=== PATIENT | male | born 1965 | race Caucasian/White ===

== ENCOUNTER 2016-06-07 18:03 | Emergency (ER) | payer BC ==
[~2016-06-07] VITALS: Ht 172.7 cm; Wt 79.9 kg
[~2016-06-07 18:03] MED LIST: ALL180 PO; MULTTAB; TRAM-10 PO
[2016-06-07 18:06] VITALS: TEMP 36.3; Ht 172.7 cm; Wt 79.9 kg
[2016-06-07] MEDS ORDERED: OMEG10007 PO ×2 (18:48→18:59)
[2016-06-07] MEDS ORDERED: FAMO40TA6 PO ×2 (18:48→18:59)
[2016-06-07] MEDS ORDERED: MULT-506 PO (18:48)
[2016-06-07] MEDS ORDERED: GLUCTAB7 PO ×2 (18:48→18:59)
[2016-06-07] MEDS ORDERED: IBUP-103 PO ×2 (18:49→18:59)
[2016-06-07] MEDS ORDERED: EYE PROMISE PO ×2 (18:53→18:59)
[2016-06-07] MEDS ORDERED: PRLSR20 PO ×2 (18:59→19:20)
[2016-06-07] MEDS ORDERED: KETO200T PO ×2 (18:59→19:20)
[2016-06-07] MEDS ORDERED: MULTTAB58 PO (18:59)
--- NOTE | 2016-06-07 19:05 | DIAGNOSTIC IMAGING REPORT ---
RIGHT FOREARM 2 VIEWS ROUTINE CLINICAL HISTORY: right forearm pain, fall Right trauma. Pain. COMPARISON: None. DISCUSSION: The bones and joint spaces appear intact. There is no evidence of fracture, dislocation or bony disease. There is no evidence for soft tissue swelling. IMPRESSION: Negative study. Electronically signed by: Martín Hsu M.D. 06/07/2016 7:04 PM Dictated Date/Time: 06/07/2016 7:04 PM
--- NOTE | 2016-06-07 19:06 | DIAGNOSTIC IMAGING REPORT ---
SACRUM COCCYX MIN 2 VIEWS CLINICAL HISTORY: fall, tailbone pain COMPARISON STUDY: None FINDINGS: Nondisplaced cortical fracture sacrococcygeal junction. Sacral foramina are symmetric. Mild degenerative change sacroiliac joints. IMPRESSION: Nondisplaced cortical fracture sacrococcygeal junction. Electronically signed by: Martín Hsu M.D. 06/07/2016 7:05 PM Dictated Date/Time: 06/07/2016 7:04 PM
[2016-06-07 19:12] VITALS: BP 148/75; PULSE 74; O2SAT 98
[2016-06-07] MEDS ORDERED: HYDR-5688 PO (19:18)
--- NOTE | 2016-06-07 19:19 | EMERGENCY ROOM VISIT NOTE ---
History First contact with patient: 18:10 Chief Complaint: FALL Stated Complaint: FALL- RT FOREARM PAIN AND TAILBONE PAIN History of Present Illness The patient is a 51 year old male who presents to the Emergency Room with complaints of a fall which occurred just prior to arrival. The patient reports that he was walking down hardwood steps when his socks when he fell, landing onto his tailbone. He also reports that he struck both forearms. He reports that most of the pain is located in his tailbone, but he does have some have some pain with movement of the right forearm. There is a mild abrasion to the left forearm, but he denies significant pain in that location. He did not hit his head or sustain any other injuries. He denies any numbness or weakness. Review of Systems A complete 6 point review of systems was reviewed with the patient with pertinent positives and negatives as per history of present illness. All else were negative. Social History Smoking Status: Never Smoker Current/Historical Medications Scheduled Fish Oil ([place]-3), 1 CAP PO DAILY Knmteuotbsb-Uvrarxhrfev-Tcp C- (Glucosamine Chondroitin), 1 TAB PO DAILY Ketoconazole (Nizoral), 200 MG PO MONTHLY Multiple Vitamin (Multivitamin), 1 TAB PO DAILY Omeprazole (Prilosec), 20 MG PO DAILY [Eye Promise], 1 CAP PO DAILY Scheduled PRN Famotidine (Pepcid), 40 MG PO DAILY PRN for In place of Omeprazole Hydrocodone/Acetaminophen 5MG/325MG (Mcdowell 5MG/325MG), 1-2 TABLET PO Q4H PRN for Pain Ibuprofen Tab (Advil), 200 MG PO UD PRN for Pain or Fever Allergies Coded Allergies: No Known Allergies (Unverified Allergy, Mild, 01/04/07) Physical Exam Vital Signs Date Time Temp Pulse Resp B/P Pulse Ox O2 Delivery O2 Flow Rate FiO2 06/07/16 19:12 74 18 148/75 98 Room Air 06/07/16 18:06 36.3 74 18 145/71 99 Room Air Physical Exam VITALS: Vitals are noted on the nurse's note and reviewed by myself. Vital signs stable. GENERAL: This is a 51-year-old male, in no acute distress, nondiaphoretic, well- developed well-nourished. SKIN: There are abrasions to bilateral forearms. No lacerations. HEART: Regular rate and rhythm without murmurs gallops or rubs. LUNGS: Clear to auscultation bilaterally without wheezes, rales or rhonchi. No retractions or accessory muscle use. MUSCULOSKELETAL: There is tenderness to palpation over the coccyx. Full range of motion of bilateral lower extremities. There is mild tenderness over the left forearm. Full range of motion of all extremities. NEURO: Patient was alert and oriented to person place and time. Normal sensation to light and sharp touch. Deep tendon reflexes 2+ throughout. No focal neurological deficits. Medical Decision & Procedures ER Provider Diagnostic Interpretation: SACRUM COCCYX MIN 2 VIEWS FINDINGS: Nondisplaced cortical fracture sacrococcygeal junction. Sacral foramina are symmetric. Mild degenerative change sacroiliac joints. IMPRESSION: Nondisplaced cortical fracture sacrococcygeal junction. RIGHT FOREARM 2 VIEWS ROUTINE DISCUSSION: The bones and joint spaces appear intact. There is no evidence of fracture, dislocation or bony disease. There is no evidence for soft tissue swelling. IMPRESSION: Negative study. Medications Administered Medications (Trade) Dose Ordered Sig/Jeffy Route Start Time Stop Time Status Last Admin Dose Admin Acetaminophen/ Hydrocodone Bitart (Mcdowell 5/325mg Home Pack) 1 homepack UD ONCE PO 06/07/16 19:30 06/07/16 19:31 DC 06/07/16 19:26 1 HOMEPACK Medical Decision Differential diagnosis includes fracture, contusion, sprain, among others. The patient was evaluated as above. Imaging studies were obtained and read by radiology as above. The patient was found to have a nondisplaced fracture of his coccyx. X-ray of the right forearm was unremarkable. Conservative measures were discussed. The patient was given a home pack and prescription of Mcdowell for pain. He will follow-up with his primary care provider as needed. He verbalized understanding of my assessment and treatment plan and was discharged home in good condition. [facility] Drug Monitoring Program Search Results: patient reviewed within database Impression Primary Impression: Fracture of coccyx Additional Impressions: Fall Contusion of multiple sites Departure Information Dispostion Home / Self-Care Condition GOOD Prescriptions Hydrocodone/Acetaminophen 5MG/325MG (Mcdowell 5MG/325MG) Tab 1-2 TABLET PO Q4H Y for Pain, #12 TAB For Initial Treatment Prov: Sudha Lee ., NICOLÁS 06/07/16 Referrals Tom Harris M.D. (PCP) Patient Instructions My [facility] Additional Instructions You have been treated in the Emergency Department for a coccyx fracture. You have been prescribed Mcdowell to be used for pain control. This is a narcotic medication. You cannot drive or consume alcohol while on this medicine. This medicine should only be used for pain that cannot be controlled with over-the- counter pain medicines. For pain control, you can use the following cuok-ejq-ikoelsc medicines (if >12 yo): - Regular strength (325mg/tab) Tylenol (acetaminophen) 2 tabs every 4-6 hours as needed. Do not exceed 12 tablets in a 24 hour period. Avoid taking more than 4 grams (4000 mg) of Tylenol per day. This includes any other sources of acetaminophen you may take on a regular basis. - Regular strength (200 mg/tab) Advil (ibuprofen) 1-2 tabs every 4-6 hours as needed. Do not exceed a dose of 3200 mg per day. If this is an acute injury, ice can be applied to the area of pain for the first 3 days to help decrease pain and inflammation. After the first 3 days, a heating pad can be used over the area for continued soothing relief. Follow-up with your primary care provider as needed for any persistent pain. You may went to fern picker a doughnut to sit on for further relief of your pain. You should take an suxz-oso-jywjuao stool softener such as Colace, as bowel movements may be slightly painful. Return to the Emergency Department if your current symptoms worsen despite treatment course outlined above, or if you develop any of the following symptoms : intractable pain despite aforementioned treatment course, loss of control of your bowel or bladder, numbness or tingling in your groin, or development of a fever. Problem Qualifiers Primary Impression: Fracture of coccyx Encounter type: initial encounter Fracture type: closed Qualified Codes: S32.2XXA - Fracture of coccyx, initial encounter for closed fracture Additional Impressions: Fall Encounter type: initial encounter Qualified Codes: W19.XXXA - Unspecified fall, initial encounter
[2016-06-07] MEDS ORDERED: NORCO 5/325MG HOME PACK PO ONE (19:30)
[2016-10-08] MEDS ORDERED: VITACAP26 PO (15:06)
[2016-10-08] MEDS ORDERED: CYAN10005 PO (15:06)
[2016-10-08] MEDS ORDERED: CLR10 PO (15:06)
[2016-10-30] MEDS ORDERED: CEPH500C2 PO (10:10)
[2016-10-30] MEDS ORDERED: HYDR-5688 PO (10:10)
== END 2016-06-07 19:31 | disposition home or self-care (01) ==
LOC: C.EDB 18:04 → C.EDD 19:31
DX: S32.2XXA Fracture of coccyx, initial encounter for closed fracture (principal); S50.11XA Contusion of right forearm, initial encounter; S50.12XA Contusion of left forearm, initial encounter; W10.9XXA Fall (on) (from) unspecified stairs and steps, initial encounter; Y93.89 Activity, other specified; Y92.89 Other specified places as the place of occurrence of the external cause; Y99.8 Other external cause status

== ENCOUNTER → 2016-07-13 | Outpatient (CLI) | payer BC ==
[~2016-07-13] MED LIST changes: -ALL180 PO; +CEPH500C2 PO; +CLR10 PO; +CYAN10005 PO; +EYE PROMISE PO; +FAMO40TA6 PO; +GLUCTAB7 PO; +HYDR-5688 PO; +IBUP-103 PO; +KETO200T PO; -MULTTAB; +MULTTAB58 PO; +OMEG10007 PO; +PRLSR20 PO; -TRAM-10 PO; +VITACAP26 PO
[2016-07-13 09:39] LABS: HEMATOCRIT 42.3 % (42-52); MEAN CELL VOLUME 83.8 fL (80-100); MEAN CORPUSCULAR HEMOGLOBIN 30.1 pg (25-34); MEAN CORPUSCULAR HGB CONC 35.9 g/dl (32-36); MEAN PLATELET VOLUME 10.8 fL (7.4-10.4); PLATELET COUNT 216 K/uL (130-400); RED BLOOD COUNT 5.05 M/uL (4.7-6.1); WHITE BLOOD COUNT 3.99 K/uL (4.8-10.8)
[2016-07-13 09:51] LABS: ESTIMATED AVERAGE GLUCOSE 108 mg/dl; HA1C FLAG Normal (Normal)
[2016-07-13 09:57] LABS: ALT/SGPT 20 U/L (12-78); BLOOD UREA NITROGEN 17 mg/dl (7-18); BUN/CREATININE RATIO 22.8 (10-20); CALCIUM 8.6 mg/dl (8.5-10.1); CARBON DIOXIDE 23 mmol/L (21-32); CHLORIDE 107 mmol/L (98-107); CHOLESTEROL 177 mg/dl (0-200); CREATININE 0.75 mg/dl (0.60-1.40); GLUCOSE 79 mg/dl (70-99); POTASSIUM 3.9 mmol/L (3.5-5.1); SODIUM 142 mmol/L (136-145); TRIGLYCERIDES 67 mg/dl (0-150); VERY LOW DENSITY LIPOPROT CALC 13 mg/dl
[2016-07-13 10:01] LABS: ALB/GLOB RATIO 1.5 (0.9-2); ALKALINE PHOSPHATASE 61 U/L (45-117); AST/SGOT 16 U/L (15-37); CHOLESTEROL/HDL RATIO 3.7; HDL CHOLESTEROL 48 mg/dl; LDL CHOLESTEROL CALCULATED 116 mg/dl
--- NOTE | 2016-07-17 09:57 | CODING QUERY MEDICAL NECESSITY ---
SUPPORTING DIAGNOSIS NEEDED A supporting diagnosis is required for the test/procedure performed on this patient in order for us to be reimbursed by the patient's insurance. Please provide a supporting diagnosis for the following test/procedure listed below next to the test name along with your signature. *If there is no additional diagnosis for this patient that would support the following test/procedure please document that below next to the test/procedure. Test(s)/Procedure(s) that require a supporting diagnosis: * PSA DIAGNOSIS: * VITAMIN B-12 LEVEL DIAGNOSIS: * DOS: 07/13/16 Provider Signature: Date: Thank you Nubia Barlow Health Information Management Once completed, please kindly fax back to [phone] For questions please call [phone]
== END | disposition home or self-care (01) ==
LOC: C.LAB 07:09
PROVIDERS: ATTEND Family Medicine
DX: R73.09 Other abnormal glucose (principal); N40.0 Benign prostatic hyperplasia without lower urinary tract symptoms; D51.9 Vitamin B12 deficiency anemia, unspecified

== ENCOUNTER → 2016-09-04 | Outpatient (CLI) | payer BC ==
--- NOTE | 2016-09-04 16:45 | DIAGNOSTIC IMAGING REPORT ---
LEFT INGUINAL ULTRASOUND CLINICAL HISTORY: Left groin pain. COMPARISON STUDY: No previous studies for comparison. FINDINGS: There is an incompletely reducible small fat-containing left inguinal hernia. IMPRESSION: There is a small incompletely reducible fat-containing left inguinal hernia. Electronically signed by: Braulio Chirinos M.D. 09/04/2016 4:44 PM Dictated Date/Time: 09/04/2016 4:43 PM
== END | disposition home or self-care (01) ==
LOC: C.ULTR 15:54
PROVIDERS: ATTEND Family Medicine
DX: R10.32 Left lower quadrant pain (principal); K40.90 Unilateral inguinal hernia, without obstruction or gangrene, not specified as recurrent

== ENCOUNTER → 2016-09-26 | Outpatient (CLI) | payer BC ==
[2016-09-26 08:29] LABS: BASO % 0.2 %; BASO ABS # 0.01 K/uL (0-0.2); COMPLETE YES; EOS % 3.9 %; HEMATOCRIT 45.4 % (42-52); IG% 0.2 %; LYMPH % 36.1 %; LYMPH ABS # 1.59 K/uL (1.2-3.4); MEAN CELL VOLUME 86.5 fL (80-100); MEAN CORPUSCULAR HEMOGLOBIN 29.9 pg (25-34); MEAN CORPUSCULAR HGB CONC 34.6 g/dl (32-36); MEAN PLATELET VOLUME 10.9 fL (7.4-10.4); MONO % 12.7 %; NEUT % 46.9 %; PLATELET COUNT 223 K/uL (130-400); RED BLOOD COUNT 5.25 M/uL (4.7-6.1)
[2016-09-26 08:53] LABS: BLOOD UREA NITROGEN 17 mg/dl (7-18); BUN/CREATININE RATIO 20.6 (10-20); CARBON DIOXIDE 29 mmol/L (21-32); CHLORIDE 109 mmol/L (98-107); CREATININE 0.83 mg/dl (0.60-1.40); GLUCOSE 94 mg/dl (70-99); SODIUM 144 mmol/L (136-145)
[2016-09-26 08:58] LABS: CALCIUM 8.5 mg/dl (8.5-10.1)
== END | disposition home or self-care (01) ==
LOC: C.LAB 07:00
PROVIDERS: ATTEND Surgery
DX: K40.90 Unilateral inguinal hernia, without obstruction or gangrene, not specified as recurrent (principal); Z01.812 Encounter for preprocedural laboratory examination

== ENCOUNTER → 2016-10-30 | Day surgery (SDC) | payer BC ==
[2016-10-08 15:06] VITALS: Ht 175.3 cm; Wt 79.1 kg
[~2016-10-30] VITALS: Ht 175.3 cm; Wt 79.1 kg
[~2016-10-30] MED LIST changes: +BUPIVACAINE 0.5 % 5 MG/1 ML PF 10ML VIAL ONE; +CEFAZOLIN SOD 1 GM VIAL ONE; +CLINDAMYCIN PHOS 150 MG/ML 2 ML VIAL IV SCH; +DEXAMETHASONE SOD INJ 4 MG/ML VIAL ONE; -FAMO40TA6 PO; +FENTANYL CITRATE INJ 50 MCG/1 ML 2 ML VIAL IV PRN; +FENTANYL CITRATE INJ 50 MCG/1 ML 2 ML VIAL ONE; +HYDROCODONE/ACETAMOPHEN 5/325MG TAB PO PRN; +HYDROmorphone INJ 1 MG/ML SYR IV PRN; +KETOROLAC TROMETHAMINE 30 MG/ML VIAL IV. PRN; +LACTATED RINGER'S 1000ML 1,000 ML IV PRN; +LACTATED RINGER'S 1000ML 1,000 ML IV SCH; +LIDOCAINE HCL 2% 2 ML VIAL (20MG/ML) ONE; +MIDAZOLAM HCL 1 MG/ML 2ML VIAL ONE; +ONDANSETRON INJ 2 MG/ML 2 ML VIAL IV PRN; +ONDANSETRON INJ 2 MG/ML 2 ML VIAL ONE; +PROPOFOL IV EMULSION 10 MG/ML 20 ML VIAL IV ONE; +SODIUM CHLORIDE 0.9% 1000ML 1,000 ML IV SCH; +SODIUM CHLORIDE 0.9% INJ 10 ML VIAL ONE
--- NOTE | 2016-10-30 10:08 | [facility] Post Operative Brief Note ---
Immediate Operative Summary Operative Date Oct 30, 2016. Pre-Operative Diagnosis Left Inguinal Hernia Post-Operative Diagnosis Same Procedure(s) Performed Left Inguinal Hernia Open Repair with Mesh Surgeon Dr. Calixto Dental Assistant Instructor Surgeon(s) Fer Daniel PA-C Estimated Blood Loss 5ml Findings chronic indirect sac Specimens A. Left Lipoma of Cord Anesthesia gen Complication(s) None Disposition Recovery Room / PACU
--- NOTE | 2016-10-30 10:13 | Discharge Instructions-SurgCtr ---
Discharge Instructions Date of Service Oct 30, 2016. Visit Reason for Visit: Left Inguinal Hernia Discharge Discharge Diagnosis / Problem: Rt inguinal hernia Discharge Goals Goal(s): Decrease discomfort, Improve function, Improve disease control Medications Stopped Medications Name(s): fish oil meds stopped x 2 weeks. Activity Recommendations Activity Limitations: as noted below Lifting Limitations: no more than 25 pounds Exercise/Sports Limitations: until after follow-up appointment May Resume Sexual Activity: when tolerated Shower/Bathe: keep incision dry (may shower over incision on Sun 11/01) Driving or Machine Use: wait 4-5 days SPECIAL CARE INSTRUCTIONS: * Cover incisions and change daily for comfort/drainage. * Leave steri strips in place * Avoid constipation- may use colace and Milk of magnesia twice daily as described on the package * May use ibuprofen for pain as tolerated. * Expect some swelling and bruising. Call your doctor if: * Temperature above 101 degrees * Pain not relieved by pain medicine ordered * There is increased drainage or redness from any incision * You have any unanswered questions or concerns [phone]. FOLLOW UP VISIT: If not already scheduled, please call the office for a follow-up visit. for next week- some suture removal OFFICE PHONE NUMBER: Dr. Calixto Office Anesthesia . Post Anesthesia Instructions: If you have had General Anesthesia or IV Sedation: * Do not drive today. * Resume driving when surgeon permits. * Do not make important decisions or sign legal documents today. * Call surgeon for: 1. Temperature elevations greater than 101 degrees F. 2. Uncontrollable pain. 3. Excessive bleeding. 4. Persistent nausea and vomiting. 5. Medication intolerance (nausea, vomiting or rash). * For nausea and vomiting use only clear liquids such as: tea, soda, bouillon until nausea subsides, then gradually increase diet as tolerated. * If you have any concerns or questions, call your surgeon's office. If physician is unavailable and it is an emergency, call 911 or go to the nearest emergency room. . Diet Recommendations Home Diet: resume previous diet Procedures Procedures Performed: Left Inguinal Hernia Open Repair with Mesh Pending Studies Studies pending at discharge: no Medical Emergencies . Who to Call and When: Medical Emergencies: If at any time you feel your situation is an emergency, please call 911 immediately. . Non-Emergent Contact Non-Emergency issues call your: Primary Care Provider, Surgeon . . "Provider Documentation" section prepared by Solitario Calixto. .
--- NOTE | 2016-10-30 10:28 | Anesthesia Progress Nt - [facility] ---
Anesthesia Post Op Note Date & Time Oct 30, 2016 at 10:28 Vital Signs Pain Intensity: 0 Vital Signs Past 12 Hours Date Time Temp Pulse Resp B/P (MAP) Pulse Ox O2 Delivery O2 Flow Rate FiO2 10/30/16 10:16 36.2 71 16 141/84 98 Diffusion Mask 5 10/30/16 07:56 36.8 72 18 137/82 (100) 97 Room Air Notes Mental Status: alert / awake / arousable, participated in evaluation Pt Amnestic to Procedure: Yes Nausea / Vomiting: adequately controlled Pain: adequately controlled Airway Patency, RR, SpO2: stable & adequate BP & HR: stable & adequate Hydration State: stable & adequate Anesthetic Complications: no major complications apparent Pt doing well.
--- NOTE | 2016-10-30 10:57 | OPERATIVE REPORT ---
DATE OF OPERATION: 10/30/2016 PREOPERATIVE DIAGNOSIS: Left inguinal hernia. POSTOPERATIVE DIAGNOSIS: Same with large indirect defect which was chronic. NAME OF OPERATION: Open left inguinal hernia repair. STAFF SURGEON: Dr. Calixto. COVERING MACHINE OPERATOR HELPER: Lizzy Daniel PA-C. ANESTHESIA: General. OPERATION AND FINDINGS: PROCEDURE: The patient brought in the operating room and placed on the operating table in supine position. His left lower quadrant prepped and draped in usual fashion. 0.5% plain Marcaine was used to anesthetize skin and subcutaneous tissue and then incision made parallel to the inguinal ligament, carrying dissection down identifying the external oblique fibers. These were incised along their length to the external ring, mobilizing the cord structures, identifying an indirect hernia sac which was chronic and thickened. There was a small lipoma which was excised. The hernia sac was dissected away from the cord structures and reduced. The internal ring then reinforced using a mesh plug, secured to surrounding tissue using 2-0 Ethibond suture. A large mesh patch was then placed around the cord structures over the mesh plug secured using 2-0 Ethibond suture. I was able to identify the ilioinguinal and iliohypogastric nerves. At this point, the external oblique fibers were closed over the mesh and around the cord structures using 2-0 Ethibond suture. The site was irrigated with antibiotic solution and then anesthetized using 0.5% plain Marcaine. Subcutaneous tissue was reapproximated using 2-0 plain catgut suture then the skin reapproximated using 4-0 nylon suture and Steri-Strips. The patient was transferred to recovery room in stable condition. I attest to the content of the Intraoperative Record and any orders documented therein. Any exception s are noted below.
[2016-10-30 11:39] VITALS: BP 155/79; PULSE 66; O2SAT 99
== END | disposition home or self-care (01) ==
LOC: X.SURG 07:39
PROVIDERS: ATTEND Surgery
DX: K40.90 Unilateral inguinal hernia, without obstruction or gangrene, not specified as recurrent (principal); D17.6 Benign lipomatous neoplasm of spermatic cord

== ENCOUNTER 2020-07-17 09:34 | Inpatient (IN) ==
[2020-07-17] MEDS ORDERED: DEXAMETHASONE SOD INJ 10 MG/ML VIAL IV ONE (10:07)
[2020-07-17] MEDS ORDERED: SODIUM CHLORIDE 0.9% 1000ML 1,000 ML IV STA (10:07)
[2020-07-17] MEDS ORDERED: IPRATROPIUM BROMIDE/ALBUTEROL respimat INH INH STA (10:07)
[2020-07-17] MEDS ORDERED: guaiFENesin 600 MG TABCR PO STA (10:10)
--- NOTE | 2020-07-17 10:20 | Emergency Department Note ---
Impression & Plan Acute respiratory failure with hypoxia, Pneumonia due to COVID-19 virus, Multifocal pneumonia ED Provider Note NAME: JACKSON Leiva GIVEN AGE: 55 SEX: M ARRIVES VIA: Walk-In INFORMANT: Patient, ED PROVIDER(S): Keron Cody MD CHIEF COMPLAINT: Shortness of breath, Covid-19 PLAN: Disposition: Admit MEDICAL DECISION MAKING: The patient is a pleasant 55-year-old gentleman basal carcinoma, BPH who presents emerged department with worsening shortness of breath where he feels he could not catch his breath last night into this morning arriving to the emergency department triage with O2 saturation of 68% on room air, tachypneic in the 30s and tachycardic in the 100s with labored breathing. The patient's presentation occurs in the setting of being seen in the emergency department this past Wednesday/07/13 for generalized fatigue where he found out that morning that his COVID-19 test from test was positive in the setting of feeling fevers and body aches that began on Wednesday in the setting of suspected exposure when going to mormonism the weekend prior. He denies chest pain or nausea/vomiting, diarrhea, abdominal pain, urinary symptoms. He does report decreased appetite and oral intake. Denies any cardiac history or history of blood clots. On arrival the patient is in severe respiratory distress, hypoxic to 68% on RA, tachypneic in the 30s, tachycardic in the 100s. with stable BP. Lungs with scant wheezes and otherwise clear. Patient did show some improvement on 15 L via oxygen mask with O2 saturation in the low 90s and improved respiratory effort. He also treated with IV dexamethasone, DuoNeb and guaifenesin. EKG without overt acute ischemia. Chest x-ray does demonstrate multifocal pneumonia consistent with COVID-19 pneumonia. WBC 4.5, with lymphopenia to 0.34, consistent with the patient's known COVID-19 infection. Hemoglobin and platelets within normal limits. Chemistry without metabolic acidosis. VBG unremarkable without acidemia. BUN/creatinine> 20 consistent with the patient's clinical dry appearance. Lactate 1.6, within normal limits. Magnesium 1.7 with repletion initiated. LFTs not significant abnormality. Troponin detectable at 0.018 but within normal limits. BNP within normal limits. Lipase is not elevated. Patient's D-dimer was elevated at [address] of the chest was performed and was negative for PE but redemonstrates extensive bilateral airspace opacities consistent with multifocal pneumonia and small bilateral pleural effusions. Upon return from CT the patient did have decline in his O2 saturation into the upper 80s which is thought to be related to a component of atelectasis while lying supine for his imaging. He was placed on BiPAP for additional respiratory support which did have improved effect on his work of breathing and oxygenation. Patient was agreeable with plan for admission. Case was d/[place], [facility] who will evaluate the patie nt for admission. Per the patient's permission I also updated his over the phone. Triage Nursing notes reviewed and agree them. Prior medical records reviewed Vital Signs: reviewed and remarkable for tachypnea, tachycardia and hypoxia. Differential diagnosis: Reactive airway disease, pneumonia, pneumothorax, COPD, CHF, infections, cardiac ischemia, pulmonary embolism, musculoskeletal, gastrointestinal, as well as other pathologies. ER treatment provided: See below. Diagnostics interpreted by me: ECG: Normal sinus rhythm, 92 bpm, no ectopy, no overt ST elevation or depression, QTC 432, QRS 80. Cardiac Monitoring: An order for continuous cardiac monitoring was placed and demonstrated normal sinus rhythm, 92 bpm, no ectopy. Laboratory studies: See below Imaging studies: CT ANGIOGRAM OF THE CHEST CLINICAL HISTORY: Shortness of breath, cough. Covid positive patient COMPARISON STUDY: Chest x-ray dated 07/17/2020 TECHNIQUE: Following the IV administration of 120 mL of Optiray-320, CT angiogram of the thorax was performed from the thoracic inlet to the lung bases utilizing the pulmonary embolus protocol. Images are reviewed in the axial, sagittal, and coronal planes. IV contrast was administered without complication. MIP imaging was performed. A dose lowering technique was utilized adhering to the principles of ALARA. CT DOSE: 569.73 mGycm FINDINGS: Images to the upper abdomen reveal hypodense hepatic lesions, likely representing cysts. There is a nonspecific enhancing 10 mm focus within the stomach versus hyperdense enteric contents There are minimally enlarged mediastinal and hilar lymph nodes, likely reactive. There is no evidence of thoracic aortic dilatation There were no pulmonary artery filling defects to indicate acute pulmonary embolism. There are small bilateral pleural effusions There are extensive bilateral areas of groundglass opacity and parenchymal consolidation. The findings are consistent with a multifocal pneumonia. IMPRESSION: 1. No evidence of acute pulmonary embolism 2. Extensive bilateral pulmonary airspace opacities consistent with a multifocal pneumonia 3. Small bilateral pleural effusions ACT 112: Negative or not required by law. Electronically signed by: Braulio Chirinos M.D. 07/17/2020 11:39 AM Consultation(s): Case was d/[place]. Garcia, [facility] [place] who will evaluate the patient for admission. HPI: The patient is a pleasant 55-year-old gentleman basal carcinoma, BPH who presents emerged department with worsening shortness of breath where he feels he could not catch his breath last night into this morning arriving to the emerg ency department triage with O2 saturation of 68% on room air, tachypneic in the 30s and tachycardic in the 100s with labored breathing. The patient's presentation occurs in the setting of being seen in the emergency department this past Wednesday/07/13 for generalized fatigue where he found out that morning that his COVID-19 test from test was positive in the setting of feeling fevers and body aches that began on Wednesday in the setting of suspected exposure when going to mormonism the weekend prior. He denies chest pain or nausea/vomiting, diarrhea, abdominal pain, urinary symptoms. He does report decreased appetite and oral intake. Denies any cardiac history or history of blood clots. ROS: See above HPI for pertinent positives & negatives. A total of 10 systems reviewed and were otherwise negative. PAST MEDICAL HISTORY:See Below PAST SURGICAL HISTORY:See Below FAMILY HISTORY:See Below SOCIAL HISTORY:See Below HOME MEDICATIONS:See Below ALLERGIES:See Below VITALS:See Below PHYSICAL EXAMINATION: GENERAL: Awake, alert, ill-appearing, in severe respiratory distress HENT: Normocephalic, atraumatic. Oropharynx with dry mucous membranes and otherwise unremarkable. . EYES: Normal conjunctiva. Sclera non-icteric. NECK: Supple. No nuchal rigidity. FROM. No JVD. RESPIRATORY: Scant intermittent wheezing otherwise clear. Tachypneic with incre ased work of breathing and accessory muscle use. CARDIAC: Tachycardic rate, normal rhythm. Extremities warm and well perfused. Pulses equal. ABDOMEN: Soft, non-distended. No tenderness to palpation. No rebound or guarding. No masses. RECTAL: Deferred. MUSCULOSKELETAL: Chest examination reveals no tenderness. The back is symmetrical on inspection without obvious abnormality. There is no CVA tendern ess to palpation. No joint edema. LOWER EXTREMITIES: Calves are equal size bilaterally and non-tender. No edema. No discoloration. NEURO: Normal sensorium. No sensory or motor deficits noted. SKIN: No rash or jaundice noted. ED COURSE: Critical Care: I have personally spent greater than 45 minutes of critical care time in the direct management of this patient. This includes bedside care, interpretation of diagnostic studies, and testing, discussion with consultants, patient, and family members, and other required patient management activities. This 45 minutes is in excess of all separately billable procedures. Keron Cody MD Past Med/Surg History Medical History Basal cell carcinoma of left forehead Chronic back pain Multiple nevi Reducible right inguinal hernia Verrucous keratosis Surgical History History of left inguinal hernia repair (10/30/16) Open Left inguinal hernia repair Dr. Calixto 10/30/2016 History of repair of anterior cruciate ligament of left knee History of root canal procedure History of tonsillectomy History of wisdom tooth extraction Status post biopsy of thyroid gland benign Status post correction of deviated nasal septum Status post Mohs surgery for basal cell carcinoma Family History Grandfather (Maternal) Family history of diabetes mellitus Father Prostate cancer Cardiac disorder Mother Hypertension Other No family history of adverse response to anesthesia Social History Smoking Status: Former smoker Second Hand Exposure: No; Do You Dip or Chew Tobacco: No; Tobacco Cessation Education Requested by Patient: No Hx Alcohol Use: No Hx Substance Use: No Preferred Language: Emirati Communication Ability: Effective [employer] Trader Required: No Beliefs That Will Affect Care: None Current Living Situation: Spouse current occupational status: employed 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 Other Information That Helps Us Care for You: No Feels Safe at Home: Yes Safety Concerns: Feels Safe At This Time Assistive Devices: Glasses Assistive Devices Comment: glasses Allergies Allergies Allergy/AdvReac Type Severity Reaction Status Date / Time Penicillins Allergy Severe "catatonic Verified 07/13/20 11:26 immediately" latex Allergy Mild Rash Verified 07/13/20 11:26 Home Meds Home Medications Medication Instructions Recorded Confirmed Glucosamine Chondroitin 1 cap PO QAM #0 06/07/16 07/17/20 multivitamin 1 tab PO QAM #0 tab 06/07/16 07/17/20 omega [id number]-fish oil [Fish Oil] 1 cap PO QAM #0 cap 06/07/16 07/17/20 cyanocobalamin (vitamin B-12) 1,000 mcg PO QAM #0 tab 10/08/16 07/17/20 [Vitamin B-12] ascorbic acid (vitamin C) [Vitamin 2 g PO QAM 03/29/19 07/17/20 C] cholecalciferol (vitamin D3) 2,000 unit PO QAM 03/29/19 07/17/20 [Vitamin D3] ibuprofen [Advil] 200 mg PO QID PRN 03/29/19 07/17/20 iron bisgl,ps [id number] 1 cap PO WK 03/29/19 07/17/20 sildenafil 25 mg PO DAILY PRN 03/29/19 07/17/20 glucosamine [id number] 1 tab PO DAILY 11/23/19 07/17/20 preston 1,500 mg-400 unit-100 mg tablet benzonatate [Tessalon Perles] 100 mg PO UD PRN 07/13/20 07/17/20 doxycycline monohydrate 100 mg PO BID 07/13/20 07/17/20 Previous Rx's Medication Instructions Recorded ketoconazole 2 % shampoo 1 applic TOP .COMPLEX #120 ml 02/14/20 tamsulosin 0.4 mg capsule 0.4 mg PO DAILY #90 cap 04/23/20 albuterol sulfate 2 puffs INH 6XD PRN #6.7 gm 07/13/20 Results & Data (ED) Vital Signs Vital Signs - 24 hr 07/17/20 09:49 07/17/20 10:00 07/17/20 10:41 Temperature 36.9 C Temperature Source Temporal Artery Scan Pulse Rate 101 H 96 H Pulse Rate from SpO2 Sensor 96 H Respiratory Rate 34 H 31 H Respiratory Effort / Characteristics Non-Labored Spontaneous Labored Respiratory Depth Normal Respiratory Pattern Regular Tachypnea Blood Pressure 120/68 134/88 Blood Pressure Mean 85 103 Blood Pressure Position Sitting Pulse Oximetry 68 L 93 94 Oxygen Delivery Method Room Air Oxymask Oxygen Flow Rate 15 Fraction of Inspired Oxygen Sepsis Recent Fever Within 48 Hours No Sepsis New/Unexplained Change in Mental Status N/A Sepsis Action Taken by Nursing No Action Required 07/17/20 11:38 07/17/20 12:00 07/17/20 12:13 Temperature Temperature Source Pulse Rate 91 H 88 86 Pulse Rate from SpO2 Sensor 92 H 89 Respiratory Rate 44 H 32 H 35 H Respiratory Effort / Characteristics Spontaneous Short of Breath Respiratory Depth Normal Respiratory Pattern Regular Blood Pressure 138/70 131/67 Blood Pressure Mean 92 88 Blood Pressure Position Pulse Oximetry 89 L 90 94 Oxygen Delivery Method Oxymask BiPAP Oxygen Flow Rate 15 Fraction of Inspired Oxygen 60 Sepsis Recent Fever Within 48 Hours Sepsis New/Unexplained Change in Mental Status Sepsis Action Taken by Nursing 07/17/20 12:30 07/17/20 13:00 07/17/20 13:01 Temperature Temperature Source Pulse Rate 83 83 83 Pulse Rate from SpO2 Sensor 82 82 82 Respiratory Rate 35 H 32 H 41 H Respiratory Effort / Characteristics Respiratory Depth Respiratory Pattern Blood Pressure 132/76 137/72 Blood Pressure Mean 94 93 Blood Pressure Position Pulse Oximetry 92 90 91 Oxygen Delivery Method BiPAP Oxygen Flow Rate Fraction of Inspired Oxygen Sepsis Recent Fever Within 48 Hours Sepsis New/Unexplained Change in Mental Status Sepsis Action Taken by Nursing Laboratory Data Attestation: I reviewed the patient's lab results. Result diagrams: 07/17/20 10:23 07/17/20 10:23 Lab Results 07/17/20 07/17/20 07/17/20 Range/Units 10:15 10:23 10:23 WBC 4.57 L (4.8-10.8) K/uL RBC 4.84 (4.7-6.1) M/uL Hgb 14.3 (14.0-18.0) g/dL Hct 41.0 L (42-52) % MCV 84.7 (80-100) fL MCH 29.5 (25-34) pg MCHC 34.9 (32-36) g/dL RDW Std Deviation 38.8 (36.4-46.3) fL RDW Coeff of Wes 12.6 (11.5-14.5) % Plt Count 143 (130-400) K/uL MPV 10.3 (7.4-10.4) fL Immature Gran % (Auto) 0.4 % Neut % (Auto) 84.8 % Lymph % (Auto) 7.4 % Crenshaw % (Auto) 7.4 % Eos % (Auto) 0.0 % Baso % (Auto) 0.0 % Neut # (Auto) 3.87 (1.4-6.5) K/uL Lymph # (Auto) 0.34 L (1.2-3.4) K/uL Crenshaw # (Auto) 0.34 (0.11-0.59) K/uL Eos # (Auto) 0.00 (0-0.5) K/uL Baso # (Auto) 0.00 (0-0.2) K/uL Immature Gran # (Auto) 0.02 (0.00-0.02) K/uL Fibrinogen (184-400) mg/dl D-Dimer 760 H* (0-500) ug/L FEU ABG pH (7.35-7.45) ABG pCO2 (35-46) mmHg ABG pO2 (80-95) mmHg ABG HCO3 (19-24) mmol/L ABG O2 Saturation (90-95) % ABG Base Excess (-9-1.8) mEq/L Joshua Test (Pos) VBG pH 7.43 H (7.36-7.41) VBG pCO2 40 (38-50) mmHg VBG pO2 35 mmHg VBG HCO3 26 mmol/L VBG O2 Saturation 71.0 % VBG Base Excess 1.4 mEq/L Barometric Pressure 742.4 mm/Hg Oxygen Given Sodium (136-145) mmol/L Potassium (3.5-5.1) mmol/L Chloride (98-107) mmol/L Carbon Dioxide (21-32) mmol/L Anion Gap (3-11) BUN (7-18) mg/dl Creatinine (0.6-1.4) mg/dl Est Cr Clr Drug Dosing ml/min Est GFR ( Amer) Est GFR (Non-Af Amer) BUN/Creatinine Ratio (10-20) Glucose (70-99) mg/dl Lactate (0.4-2.0) mmol/L Calcium (8.5-10.1) mg/dl Phosphorus (2.5-4.9) mg/dl Magnesium (1.8-2.4) mg/dl Ferritin (8-388) ng/ml Total Bilirubin (0.2-1) mg/dl Direct Bilirubin (0-0.2) mg/dl AST (15-37) U/L ALT (12-78) U/L Alkaline Phosphatase (45-117) U/L Lactate Dehydrogenase (87-241) U/L Troponin I (0-0.045) ng/ml C-Reactive Protein (0-0.29) mg/dl NT-Pro-B Natriuret Pep (0-900) pg/ml Total Protein (6.4-8.2) gm/dl Albumin (3.4-5.0) gm/dl Globulin (2.5-4.0) gm/dl Albumin/Globulin Ratio (0.9-2) Lipase (73-393) U/L Procalcitonin (0-0.5) ng/ml 07/17/20 07/17/20 07/17/20 Range/Units 10:23 10:23 10:24 WBC (4.8-10.8) K/uL RBC (4.7-6.1) M/uL Hgb (14.0-18.0) g/dL Hct (42-52) % MCV (80-100) fL MCH (25-34) pg MCHC (32-36) g/dL RDW Std Deviation (36.4-46.3) fL RDW Coeff of Wes (11.5-14.5) % Plt Count (130-400) K/uL MPV (7.4-10.4) fL Immature Gran % (Auto) % Neut % (Auto) % Lymph % (Auto) % Crenshaw % (Auto) % Eos % (Auto) % Baso % (Auto) % Neut # (Auto) (1.4-6.5) K/uL Lymph # (Auto) (1.2-3.4) K/uL Crenshaw # (Auto) (0.11-0.59) K/uL Eos # (Auto) (0-0.5) K/uL Baso # (Auto) (0-0.2) K/uL Immature Gran # (Auto) (0.00-0.02) K/uL Fibrinogen (184-400) mg/dl D-Dimer (0-500) ug/L FEU ABG pH (7.35-7.45) ABG pCO2 (35-46) mmHg ABG pO2 (80-95) mmHg ABG HCO3 (19-24) mmol/L ABG O2 Saturation (90-95) % ABG Base Excess (-9-1.8) mEq/L Joshua Test (Pos) VBG pH (7.36-7.41) VBG pCO2 (38-50) mmHg VBG pO2 mmHg VBG HCO3 mmol/L VBG O2 Saturation % VBG Base Excess mEq/L Barometric Pressure mm/Hg Oxygen Given Sodium 131 L (136-145) mmol/L Potassium 4.3 (3.5-5.1) mmol/L Chloride 98 (98-107) mmol/L Carbon Dioxide 24 (21-32) mmol/L Anion Gap 9.0 (3-11) BUN 21 H (7-18) mg/dl Creatinine 0.98 (0.6-1.4) mg/dl Est Cr Clr Drug Dosing 87.0 ml/min Est GFR ( Amer) 98.8 Est GFR (Non-Af Amer) 85.2 BUN/Creatinine Ratio 21.4 H (10-20) Glucose 122 H (70-99) mg/dl Lactate 1.6 (0.4-2.0) mmol/L Calcium 7.9 L (8.5-10.1) mg/dl Phosphorus 3.1 (2.5-4.9) mg/dl Magnesium 1.7 L (1.8-2.4) mg/dl Ferritin (8-388) ng/ml Total Bilirubin 0.6 (0.2-1) mg/dl Direct Bilirubin 0.2 (0-0.2) mg/dl AST 53 H (15-37) U/L ALT 28 (12-78) U/L Alkaline Phosphatase 63 (45-117) U/L Lactate Dehydrogenase (87-241) U/L Troponin I 0.018 (0-0.045) ng/ml C-Reactive Protein (0-0.29) mg/dl NT-Pro-B Natriuret Pep 311 (0-900) pg/ml Total Protein 6.4 (6.4-8.2) gm/dl Albumin 2.8 L (3.4-5.0) gm/dl Globulin 3.6 (2.5-4.0) gm/dl Albumin/Globulin Ratio 0.8 L (0.9-2) Lipase 97 (73-393) U/L Procalcitonin 0.61 H (0-0.5) ng/ml 07/17/20 07/17/20 07/17/20 Range/Units 12:43 13:00 13:00 WBC (4.8-10.8) K/uL RBC (4.7-6.1) M/uL Hgb (14.0-18.0) g/dL Hct (42-52) % MCV (80-100) fL MCH (25-34) pg MCHC (32-36) g/dL RDW Std Deviation (36.4-46.3) fL RDW Coeff of Wes (11.5-14.5) % Plt Count (130-400) K/uL MPV (7.4-10.4) fL Immature Gran % (Auto) % Neut % (Auto) % Lymph % (Auto) % Crenshaw % (Auto) % Eos % (Auto) % Baso % (Auto) % Neut # (Auto) (1.4-6.5) K/uL Lymph # (Auto) (1.2-3.4) K/uL Crenshaw # (Auto) (0.11-0.59) K/uL Eos # (Auto) (0-0.5) K/uL Baso # (Auto) (0-0.2) K/uL Immature Gran # (Auto) (0.00-0.02) K/uL Fibrinogen 474 H (184-400) mg/dl D-Dimer (0-500) ug/L FEU ABG pH 7.37 (7.35-7.45) ABG pCO2 39 (35-46) mmHg ABG pO2 74 L (80-95) mmHg ABG HCO3 22 (19-24) mmol/L ABG O2 Saturation 95.2 H (90-95) % ABG Base Excess -3.1 (-9-1.8) mEq/L Joshua Test Pos (Pos) VBG pH (7.36-7.41) VBG pCO2 (38-50) mmHg VBG pO2 mmHg VBG HCO3 mmol/L VBG O2 Saturation % VBG Base Excess mEq/L Barometric Pressure 740.8 mm/Hg Oxygen Given 60% Sodium (136-145) mmol/L Potassium (3.5-5.1) mmol/L Chloride (98-107) mmol/L Carbon Dioxide (21-32) mmol/L Anion Gap (3-11) BUN (7-18) mg/dl Creatinine (0.6-1.4) mg/dl Est Cr Clr Drug Dosing ml/min Est GFR ( Amer) Est GFR (Non-Af Amer) BUN/Creatinine Ratio (10-20) Glucose (70-99) mg/dl Lactate (0.4-2.0) mmol/L Calcium (8.5-10.1) mg/dl Phosphorus (2.5-4.9) mg/dl Magnesium (1.8-2.4) mg/dl Ferritin (8-388) ng/ml Total Bilirubin (0.2-1) mg/dl Direct Bilirubin (0-0.2) mg/dl AST (15-37) U/L ALT (12-78) U/L Alkaline Phosphatase (45-117) U/L Lactate Dehydrogenase (87-241) U/L Troponin I (0-0.045) ng/ml C-Reactive Protein 15.30 H (0-0.29) mg/dl NT-Pro-B Natriuret Pep (0-900) pg/ml Total Protein (6.4-8.2) gm/dl Albumin (3.4-5.0) gm/dl Globulin (2.5-4.0) gm/dl Albumin/Globulin Ratio (0.9-2) Lipase (73-393) U/L Procalcitonin (0-0.5) ng/ml 07/17/20 07/17/20 Range/Units 13:00 13:00 WBC (4.8-10.8) K/uL RBC (4.7-6.1) M/uL Hgb (14.0-18.0) g/dL Hct (42-52) % MCV (80-100) fL MCH (25-34) pg MCHC (32-36) g/dL RDW Std Deviation (36.4-46.3) fL RDW Coeff of Wes (11.5-14.5) % Plt Count (130-400) K/uL MPV (7.4-10.4) fL Immature Gran % (Auto) % Neut % (Auto) % Lymph % (Auto) % Crenshaw % (Auto) % Eos % (Auto) % Baso % (Auto) % Neut # (Auto) (1.4-6.5) K/uL Lymph # (Auto) (1.2-3.4) K/uL Crenshaw # (Auto) (0.11-0.59) K/uL Eos # (Auto) (0-0.5) K/uL Baso # (Auto) (0-0.2) K/uL Immature Gran # (Auto) (0.00-0.02) K/uL Fibrinogen (184-400) mg/dl D-Dimer (0-500) ug/L FEU ABG pH (7.35-7.45) ABG pCO2 (35-46) mmHg ABG pO2 (80-95) mmHg ABG HCO3 (19-24) mmol/L ABG O2 Saturation (90-95) % ABG Base Excess (-9-1.8) mEq/L Joshua Test (Pos) VBG pH (7.36-7.41) VBG pCO2 (38-50) mmHg VBG pO2 mmHg VBG HCO3 mmol/L VBG O2 Saturation % VBG Base Excess mEq/L Barometric Pressure mm/Hg Oxygen Given Sodium (136-145) mmol/L Potassium (3.5-5.1) mmol/L Chloride (98-107) mmol/L Carbon Dioxide (21-32) mmol/L Anion Gap (3-11) BUN (7-18) mg/dl Creatinine (0.6-1.4) mg/dl Est Cr Clr Drug Dosing ml/min Est GFR ( Amer) Est GFR (Non-Af Amer) BUN/Creatinine Ratio (10-20) Glucose (70-99) mg/dl Lactate (0.4-2.0) mmol/L Calcium (8.5-10.1) mg/dl Phosphorus (2.5-4.9) mg/dl Magnesium (1.8-2.4) mg/dl Ferritin 846.9 H (8-388) ng/ml Total Bilirubin (0.2-1) mg/dl Direct Bilirubin (0-0.2) mg/dl AST (15-37) U/L ALT (12-78) U/L Alkaline Phosphatase (45-117) U/L Lactate Dehydrogenase 431 H (87-241) U/L Troponin I (0-0.045) ng/ml C-Reactive Protein (0-0.29) mg/dl NT-Pro-B Natriuret Pep (0-900) pg/ml Total Protein (6.4-8.2) gm/dl Albumin (3.4-5.0) gm/dl Globulin (2.5-4.0) gm/dl Albumin/Globulin Ratio (0.9-2) Lipase (73-393) U/L Procalcitonin (0-0.5) ng/ml Administered Medications Enoxaparin Sodium (Enoxaparin Inj 30 Mg/0.3 Ml Syr) 30 mg SQ Q12H KARENA Stop: 08/16/20 16:59 Last Admin: 07/17/20 15:56 Dose: 30 mg Documented by: [id number] Discontinued Medications Albuterol (Ipratropium Campo/Albuterol Respimat Inh) 1 puffs INH NOW STA Stop: 07/17/20 10:08 Last Admin: 07/17/20 10:44 Dose: 1 puffs Documented by: [id number] Dexamethasone (Dexamethasone Sod Inj 10 Mg/Ml Vial) 10 mg IV NOW ONE Stop: 07/17/20 10:08 Last Admin: 07/17/20 10:44 Dose: 10 mg Documented by: [id number] Guaifenesin (Guaifenesin 600 Mg Tabcr) 600 mg PO NOW STA Stop: 07/17/20 10:11 Last Admin: 07/17/20 10:44 Dose: 600 mg Documented by: [id number] Sodium Chloride (Nss 1000ml) 1,000 mls @ 999 mls/hr IV .Q1H1M STA Stop: 07/17/20 11:07 Last Infusion: 07/17/20 11:46 Dose: 0 mls/hr Documented by: [id number] Admin: 07/17/20 10:44 Dose: 999 mls/hr Documented by: [id number] Magnesium Sulfate/Dextrose (Magnesium Sulfate / D5w) 1 gm in 100 mls @ 100 mls/hr IV NOW STA Stop: 07/17/20 12:03 Last Infusion: 07/17/20 13:18 Dose: 0 mls/hr Documented by: [id number] Admin: 07/17/20 11:46 Dose: 100 mls/hr Documented by: [id number] Sodium Chloride (Nss 1000ml) 1,000 mls @ 999 mls/hr IV .Q1H1M ONE Stop: 07/17/20 12:03 Last Infusion: 07/17/20 13:18 Dose: 0 mls/hr Documented by: [id number] Admin: 07/17/20 12:03 Dose: 999 mls/hr Documented by: [id number] Magnesium Sulfate/Dextrose (Magnesium Sulfate / D5w) 1 gm in 100 mls @ 50 mls/hr IV ONE ONE Stop: 07/17/20 17:29 Last Infusion: 07/17/20 17:52 Dose: 0 mls/hr Documented by: [id number] Admin: 07/17/20 15:51 Dose: 50 mls/hr Documented by: [id number] Ioversol (Optiray 320 125ml) 120 ml IV ONCE ONE Stop: 07/17/20 11:26 Last Admin: 07/17/20 11:26 Dose: 120 ml Documented by: [id number] Discharge Plan Visit Data Chief Complaint: Shortness of Breath/Dyspnea Stated Complaint: SOB ED Provider: Keron Cody Discharge Problem: Acute respiratory failure with hypoxia, Pneumonia due to COVID-19 virus, Multifocal pneumonia Patient Disposition: Admitted As Inpatient Discharge Instructions Interventions: ED Discharge Assessment Last Done: 07/17/20 14:10
[2020-07-17 10:28] LABS: Base Excess VBG 1.4 mEq/L; pH VBG 7.43 (7.36-7.41)
[2020-07-17 10:35] LABS: Hemoglobin 14.3 g/dL (14.0-18.0); Immature Granulocytes # (auto) 0.02 K/uL (0.00-0.02); Immature Granulocytes % (auto) 0.4 %; Lymphocytes # (auto) 0.34 K/uL (1.2-3.4); Lymphocytes % (auto) 7.4 %; Mean Corpuscular Hemoglobin 29.5 pg (25-34); Mean Corpuscular Hgb Conc 34.9 g/dL (32-36); Mean Corpuscular Volume 84.7 fL (80-100); Mean Platelet Volume 10.3 fL (7.4-10.4); Monocytes # (auto) 0.34 K/uL (0.11-0.59); Monocytes % (auto) 7.4 %; Neutrophils # (auto) 3.87 K/uL (1.4-6.5); Neutrophils % (auto) 84.8 %; Platelet Count 143 K/uL (130-400); RDW Coefficient of Variation 12.6 % (11.5-14.5); RDW Standard Deviation 38.8 fL (36.4-46.3); Red Blood Count 4.84 M/uL (4.7-6.1); White Blood Count 4.57 K/uL (4.8-10.8)
--- NOTE | 2020-07-17 10:35 | XRay Report ---
XR chest 1V portable HISTORY: 55 years-old Male Chest Pain acute atypical chest pain with shortness of breath COMPARISON: Chest radiograph 07/13/2020 TECHNIQUE: Portable AP view of the chest FINDINGS: Cardiac silhouette is normal in size. No pneumothorax, or pleural effusion. Multifocal patchy airspac e opacities have developed in the interval. Bones appear grossly intact. IMPRESSION: Interval development of extensive bilateral airspace opacities suggestive of multifocal p neumonia. ACT 112: Negative or not required by law. The above report was generated using voice recognition software. It may contain grammatical, syntax o r spelling errors. Electronically signed by: Chad Coughlin M.D. 07/17/2020 10:34 AM
[2020-07-17 10:52] LABS: Albumin Level 2.8 gm/dl (3.4-5.0); BUN Creatinine Ratio 21.4 (10-20); Bilirubin Direct 0.2 mg/dl (0-0.2); Calcium 7.9 mg/dl (8.5-10.1); Est GFR (African American) 98.8; Est GFR (Non-African American) 85.2; Magnesium 1.7 mg/dl (1.8-2.4); Potassium 4.3 mmol/L (3.5-5.1)
[2020-07-17 10:55] LABS: Albumin Globulin Ratio 0.8 (0.9-2); Bilirubin,Total 0.6 mg/dl (0.2-1); Globulin 3.6 gm/dl (2.5-4.0); Phosphorus 3.1 mg/dl (2.5-4.9); Total Protein 6.4 gm/dl (6.4-8.2); Troponin I 0.018 ng/ml (0-0.045)
[2020-07-17 10:59] LABS: D Dimer 760 ug/L FEU (0-500)
[2020-07-17] MEDS ORDERED: SODIUM CHLORIDE 0.9% 1000ML 1,000 ML IV ONE (11:03)
[2020-07-17] MEDS ORDERED: MAGNESIUM SULFATE / D5W 1 GM/100 ML BAG IV STA (11:04)
[2020-07-17] MEDS ORDERED: OPTIRAY 320 125ml IV ONE (11:25)
--- NOTE | 2020-07-17 11:40 | CT Scan Report ---
CT ANGIOGRAM OF THE CHEST CLINICAL HISTORY: Shortness of breath, cough. Covid positive patient COMPARISON STUDY: Chest x-ray dated 07/17/2020 TECHNIQUE: Following the IV administration of 120 mL of Optiray-320, CT angiogram of the thorax was p erformed from the thoracic inlet to the lung bases utilizing the pulmonary embolus protocol. Images a re reviewed in the axial, sagittal, and coronal planes. IV contrast was administered without complica tion. MIP imaging was performed. A dose lowering technique was utilized adhering to the principles o f ALARA. CT DOSE: 569.73 mGycm FINDINGS: Images to the upper abdomen reveal hypodense hepatic lesions, likely representing cysts. There is a n onspecific enhancing 10 mm focus within the stomach versus hyperdense enteric contents There are minimally enlarged mediastinal and hilar lymph nodes, likely reactive. There is no evidence of thoracic aortic dilatation There were no pulmonary artery filling defects to indicate acute pulmonary embolism. There are small bilateral pleural effusions There are extensive bilateral areas of groundglass opacity and parenchymal consolidation. The finding s are consistent with a multifocal pneumonia. IMPRESSION: 1. No evidence of acute pulmonary embolism 2. Extensive bilateral pulmonary airspace opacities consistent with a multifocal pneumonia 3. Small bilateral pleural effusions ACT 112: Negative or not required by law. Electronically signed by: Braulio Chirinos M.D. 07/17/2020 11:39 AM
[2020-07-17 12:58] LABS: Base Excess ABG -3.1 mEq/L (-9-1.8); HCO3 ABG 22 mmol/L (19-24); Oxygen Saturation ABG 95.2 % (90-95); PCO2 ABG 39 mmHg (35-46); PO2 ABG 74 mmHg (80-95); pH ABG 7.37 (7.35-7.45)
[2020-07-17 12:59] LABS: Allen Test Pos (Pos)
--- NOTE | 2020-07-17 13:21 | History & Physical Report ---
Date of Service July 17, 2020 Assessment & Plan (1) COVID-19: Patient 8 days into COVID-19 infection-- elevated inflammatory markers as well as D-dimer, ferritin, LDH, leukopenic - Hypoxia with P:F ratio of 123 currently--Currently on NIPPV - Normocarbic/normal PH - Wean back down to HFNC as primary oxygenation - Self proning and side rotation ordered, patient educated on process and evidence. - Convalescent plasma - Decadron 6mg IV x10 days - Can advance diet once off HFNC if able to stave off intubation - Lactate 1.6 - Lovenox 30mg BID- high risk Patient is full code with intubation (2) Acute respiratory failure with hypoxia: As above, requiring BiPAP and high flow nasal cannula, pulse ox 68% on room air upon arrival PaO2 74 on 60% FiO2 Dexamethasone, bronchodilators as needed (3) Atelectasis: As above- ICS vs. Flutter valve as tolerated - Self proning (4) Hypomagnesemia: replete with 2 grams magnesium IV - Likely GI loss and decrease orall intake at home (5) Hyponatremia: Paitent received isotonic volume in the ED - Likely will resolve, as above insensible losses, GI loss, and decrease oral intake - Very mild, should normalize by morning -Follow BMP (6) Pneumonia due to COVID-19 virus: As above (7) DVT prophylaxis: Lovenox SQ twice daily Disposition-admit to PCU, condition is guarded History of Present Illness Primary Care Provider: Tom Harris MD 55 YOM with significant medical history of calcified aorta, normal stress test and EF from February 2020, BPH, inguinal hernia. Patient is 8 days into COVID infection. He and his are both positive, they believe they got it at [facility], where a lot of the parishioners are positive. Patient came to the emergency room on 06July for somnolence, with increased fatigue. He felt better at discharge and was sent home on Doxycycline and Albuterol. He came in today for worsening shortness of breath and was hypoxic on arrival at 68% was placed to oxymask that he was tolerating until he went to CT scan. After CT scan he got hypoxic again with his RR remaining in the 30s and was placed on BiPAP. Patient is oxygenating and tolerating the BiPAP 10/5 60% at this time with with RR in the mid 20s. Patient will be admitted to the hospital for COVID pneumonia, trial/treatment with NIPPV/HFNC/intubation if required, Dexamethasone, Albuterol PRN, self proning and will discuss convalescent plasma. Patient's is at home with COVID as well, patient states she is sick but not as bad as he is and she does have a way to call for help and assistance if she would need it. Allergies Allergy/AdvReac Type Severity Reaction Status Date / Time Penicillins Allergy Severe "catatonic Verified 07/13/20 11:26 immediately" latex Allergy Mild Rash Verified 07/13/20 11:26 Home Medications Medication Instructions Recorded Confirmed Type Glucosamine Chondroitin 1 cap PO QAM #0 06/07/16 07/17/20 History multivitamin 1 tab PO QAM #0 tab 06/07/16 07/17/20 History omega 8-tpe-tqp-fish oil [Fish Oil] 1 cap PO QAM #0 cap 06/07/16 07/17/20 History cyanocobalamin (vitamin B-12) 1,000 mcg PO QAM #0 tab 10/08/16 07/17/20 History [Vitamin B-12] ascorbic acid (vitamin C) [Vitamin 2 g PO QAM 03/29/19 07/17/20 History C] cholecalciferol (vitamin D3) 2,000 unit PO QAM 03/29/19 07/17/20 History [Vitamin D3] ibuprofen [Advil] 200 mg PO QID PRN 03/29/19 07/17/20 History iron bisgl,ps [id number] 1 cap PO WK 03/29/19 07/17/20 History sildenafil 25 mg PO DAILY PRN 03/29/19 07/17/20 History glucosamine [id number]-[id number]-Gkxnaqsrn 1 tab PO DAILY 11/23/19 07/17/20 History preston 1,500 mg-400 unit-100 mg tablet ketoconazole 2 % shampoo 1 applic TOP .COMPLEX #120 ml 02/14/20 07/17/20 Rx tamsulosin 0.4 mg capsule 0.4 mg PO DAILY #90 cap 04/23/20 07/17/20 Rx albuterol sulfate 2 puffs INH 6XD PRN #6.7 gm 07/13/20 07/17/20 Rx benzonatate [Tessalon Perles] 100 mg PO UD PRN 07/13/20 07/17/20 History doxycycline monohydrate 100 mg PO BID 07/13/20 07/17/20 History Past Med/Surg History Medical History Basal cell carcinoma of left forehead Chronic back pain Multiple nevi Reducible right inguinal hernia Verrucous keratosis Surgical History History of left inguinal hernia repair (10/30/16) Open Left inguinal hernia repair Dr. Calixto 10/30/2016 History of repair of anterior cruciate ligament of left knee History of root canal procedure History of tonsillectomy History of wisdom tooth extraction Status post biopsy of thyroid gland benign Status post correction of deviated nasal septum Status post Mohs surgery for basal cell carcinoma Family History Grandfather (Maternal) Family history of diabetes mellitus Father Prostate cancer Cardiac disorder Mother Hypertension Other No family history of adverse response to anesthesia Social History Smoking Status: Former smoker Second Hand Exposure: No; Do You Dip or Chew Tobacco: No; Tobacco Cessation Education Requested by Patient: No Hx Alcohol Use: No Hx Substance Use: No Preferred Language: Guamanian Communication Ability: Effective Business Database Analyst Required: No Beliefs That Will Affect Care: None Current Living Situation: Spouse current occupational status: employed 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 Other Information That Helps Us Care for You: No Feels Safe at Home: Yes Safety Concerns: Feels Safe At This Time Assistive Devices: Glasses Assistive Devices Comment: glasses Review of Systems Review of Systems: REVIEW OF SYSTEMS: Constitutional: (+) fever, sweats, or chills Eyes: No diplopia, no worsening or blurred vision ENT: normal hearing, no trouble swallowing Respiratory: (+) cough, dyspnea at rest or on exertion (-) sputum, Cardiovascular: No chest pain, tightness or palpitations Abdomen: (+) diarrhea (-) pain, nausea, vomiting, or constipation Musculoskeletal: No joint pain, calf pain, swelling Neurologic: No weakness, numbness/tingling, or balance problems Psychiatric: No anxiety or depression Skin: No rash or itch Physical Exam Physical Exam: PHYSICAL EXAM: General: awake, alert, no apparent distress Head: Normocephalic, atraumatic ENT: PERRL, EOMI, no pharyngeal exudate, mucous membranes moist Neuro: AAO x 3, speech clear and appropriate, strength intact bilaterally 5/5, sensation intact and equal all extremities Chest: equal rise and fall of the chest, accessory muscle use on Bi-PAP, no heaves or thrills, decreased in bases secondary to effort, moving decent air through upper airways Cardiac: Regular rate and rhythm, telemetry reviewed, skin warm dry, cap refill <3 seconds, peripheral pulses +2 no JVD, murmur GI: NABS x 4 quadrants, soft, nontender to palpation, no rebound, guarding or tenderness : Spontaneously voiding, no pain, no CVA tenderness, Extremities: Normal inspection, no peripheral edema or erythema, calfs nontender to palpation Psych: Normal mood and affect Skin: no rash or erythema Results & Data Results & Data ([facility]) Vital Signs (Past 12 Hours) Vital Signs Temp Pulse Resp BP Pulse Ox 07/17/20 12:30 83 35 H 132/76 92 07/17/20 12:13 86 35 H 94 07/17/20 12:00 88 32 H 131/67 90 07/17/20 11:38 91 H 44 H 138/70 89 L 07/17/20 10:41 94 07/17/20 10:00 96 H 31 H 134/88 93 07/17/20 09:49 36.9 C 101 H 34 H 120/68 68 L Laboratory Results Abnormal lab results 07/17/20 07/17/20 07/17/20 Range/Units 10:15 10:23 10:23 WBC 4.57 L (4.8-10.8) K/uL Hct 41.0 L (42-52) % Lymph # (Auto) 0.34 L (1.2-3.4) K/uL Fibrinogen (184-400) mg/dl D-Dimer 760 H* (0-500) ug/L FEU ABG pO2 (80-95) mmHg ABG O2 Saturation (90-95) % VBG pH 7.43 H (7.36-7.41) Sodium (136-145) mmol/L BUN (7-18) mg/dl BUN/Creatinine Ratio (10-20) Glucose (70-99) mg/dl Calcium (8.5-10.1) mg/dl Magnesium (1.8-2.4) mg/dl AST (15-37) U/L Lactate Dehydrogenase (87-241) U/L C-Reactive Protein (0-0.29) mg/dl Albumin (3.4-5.0) gm/dl Albumin/Globulin Ratio (0.9-2) Procalcitonin (0-0.5) ng/ml 07/17/20 07/17/20 07/17/20 Range/Units 10:23 10:24 12:43 WBC (4.8-10.8) K/uL Hct (42-52) % Lymph # (Auto) (1.2-3.4) K/uL Fibrinogen (184-400) mg/dl D-Dimer (0-500) ug/L FEU ABG pO2 74 L (80-95) mmHg ABG O2 Saturation 95.2 H (90-95) % VBG pH (7.36-7.41) Sodium 131 L (136-145) mmol/L BUN 21 H (7-18) mg/dl BUN/Creatinine Ratio 21.4 H (10-20) Glucose 122 H (70-99) mg/dl Calcium 7.9 L (8.5-10.1) mg/dl Magnesium 1.7 L (1.8-2.4) mg/dl AST 53 H (15-37) U/L Lactate Dehydrogenase (87-241) U/L C-Reactive Protein (0-0.29) mg/dl Albumin 2.8 L (3.4-5.0) gm/dl Albumin/Globulin Ratio 0.8 L (0.9-2) Procalcitonin 0.61 H (0-0.5) ng/ml 07/17/20 07/17/20 07/17/20 Range/Units 13:00 13:00 13:00 WBC (4.8-10.8) K/uL Hct (42-52) % Lymph # (Auto) (1.2-3.4) K/uL Fibrinogen 474 H (184-400) mg/dl D-Dimer (0-500) ug/L FEU ABG pO2 (80-95) mmHg ABG O2 Saturation (90-95) % VBG pH (7.36-7.41) Sodium (136-145) mmol/L BUN (7-18) mg/dl BUN/Creatinine Ratio (10-20) Glucose (70-99) mg/dl Calcium (8.5-10.1) mg/dl Magnesium (1.8-2.4) mg/dl AST (15-37) U/L Lactate Dehydrogenase 431 H (87-241) U/L C-Reactive Protein 15.30 H (0-0.29) mg/dl Albumin (3.4-5.0) gm/dl Albumin/Globulin Ratio (0.9-2) Procalcitonin (0-0.5) ng/ml Diagnostic Findings CT ANGIOGRAM OF THE CHEST CLINICAL HISTORY: Shortness of breath, cough. Covid positive patient COMPARISON STUDY: Chest x-ray dated 07/17/2020 TECHNIQUE: Following the IV administration of 120 mL of Optiray-320, CT angiogram of the thorax was performed from the thoracic inlet to the lung bases utilizing the pulmonary embolus protocol. Images are reviewed in the axial, sagittal, and coronal planes. IV contrast was administered without complication. MIP imaging was performed. A dose lowering technique was utilized adhering to the principles of ALARA. CT DOSE: 569.73 mGycm FINDINGS: Images to the upper abdomen reveal hypodense hepatic lesions, likely representing cysts. There is a nonspecific enhancing 10 mm focus within the stomach versus hyperdense enteric contents There are minimally enlarged mediastinal and hilar lymph nodes, likely reactive. There is no evidence of thoracic aortic dilatation There were no pulmonary artery filling defects to indicate acute pulmonary embolism. There are small bilateral pleural effusions There are extensive bilateral areas of groundglass opacity and parenchymal consolidation. The findings are consistent with a multifocal pneumonia. IMPRESSION: 1. No evidence of acute pulmonary embolism 2. Extensive bilateral pulmonary airspace opacities consistent with a multifocal pneumonia 3. Small bilateral pleural effusions XR chest 1V portable HISTORY: 55 years-old Male Chest Pain acute atypical chest pain with shortness of breath COMPARISON: Chest radiograph 07/13/2020 TECHNIQUE: Portable AP view of the chest FINDINGS: Cardiac silhouette is normal in size. No pneumothorax, or pleural effusion. Multifocal patchy airspace opacities have developed in the interval. Bones appear grossly intact. Medications Administered Home Medications Glucosamine Chondroitin 1 cap PO QAM #0 06/07/16 [History Confirmed 07/17/20] multivitamin 1 tab PO QAM #0 tab 06/07/16 [History Confirmed 07/17/20] omega 2-ttv-ogm-fish oil [Fish Oil] 1 cap PO QAM #0 cap 06/07/16 [History Confirmed 07/17/20] cyanocobalamin (vitamin B-12) [Vitamin B-12] 1,000 mcg PO QAM #0 tab 10/08/16 [History Confirmed 07/17/20] ascorbic acid (vitamin C) [Vitamin C] 2 g PO QAM 03/29/19 [History Confirmed 07/17/20] cholecalciferol (vitamin D3) [Vitamin D3] 2,000 unit PO QAM 03/29/19 [History Confirmed 07/17/20] ibuprofen [Advil] 200 mg PO QID PRN 03/29/19 [History Confirmed 07/17/20] iron bisgl,ps [id number]-Ca 1 cap PO WK 03/29/19 [History Confirmed 07/17/20] sildenafil 25 mg PO DAILY PRN 03/29/19 [History Confirmed 07/17/20] glucosamine [id number] preston 1,500 mg-400 unit-100 mg tablet 1 tab PO DAILY 11/23/19 [History Confirmed 07/17/20] ketoconazole 2 % shampoo 1 applic TOP .COMPLEX #120 ml 02/14/20 [Rx Confirmed 07/17/20] tamsulosin 0.4 mg capsule 0.4 mg PO DAILY #90 cap 04/23/20 [Rx Confirmed 07/17/20] albuterol sulfate 2 puffs INH 6XD PRN #6.7 gm 07/13/20 [Rx Confirmed 07/17/20] benzonatate [Tessalon Perles] 100 mg PO UD PRN 07/13/20 [History Confirmed 07/17/20] doxycycline monohydrate 100 mg PO BID 07/13/20 [History Confirmed 07/17/20] Discontinued Medications Albuterol (Ipratropium [place]/Albuterol Respimat Inh) 1 puffs INH NOW STA Stop: 07/17/20 10:08 Last Admin: 07/17/20 10:44 Dose: 1 puffs Documented by: [id number] Dexamethasone (Dexamethasone Sod Inj 10 Mg/Ml Vial) 10 mg IV NOW ONE Stop: 07/17/20 10:08 Last Admin: 07/17/20 10:44 Dose: 10 mg Documented by: [id number] Guaifenesin (Guaifenesin 600 Mg Tabcr) 600 mg PO NOW STA Stop: 07/17/20 10:11 Last Admin: 07/17/20 10:44 Dose: 600 mg Documented by: [id number] Sodium Chloride (Nss 1000ml) 1,000 mls @ 999 mls/hr IV .Q1H1M STA Stop: 07/17/20 11:07 Last Infusion: 07/17/20 11:46 Dose: 0 mls/hr Documented by: [id number] Admin: 07/17/20 10:44 Dose: 999 mls/hr Documented by: [id number] Magnesium Sulfate/Dextrose (Magnesium Sulfate / D5w) 1 gm in 100 mls @ 100 mls/hr IV NOW STA Stop: 07/17/20 12:03 Last Infusion: 07/17/20 13:18 Dose: 0 mls/hr Documented by: [id number] Admin: 07/17/20 11:46 Dose: 100 mls/hr Documented by: [id number] Sodium Chloride (Nss 1000ml) 1,000 mls @ 999 mls/hr IV .Q1H1M ONE Stop: 07/17/20 12:03 Last Infusion: 07/17/20 13:18 Dose: 0 mls/hr Documented by: [id number] Admin: 07/17/20 12:03 Dose: 999 mls/hr Documented by: [id number] Ioversol (Optiray 320 125ml) 120 ml IV ONCE ONE Stop: 07/17/20 11:26 Last Admin: 07/17/20 11:26 Dose: 120 ml Documented by: [id number] ECG Additional Comments: Normal sinus rhythm Possible Left atrial enlargement Supervising Physician Co-Signing Physician Notes [employer] Supervision note: I have personally seen and examined the patient and discussed and verified the khanna points of the history and physical along with the plan with KRISTI Sin with the following exceptions and/or additions: This patient is a 55-year-old healthy male who developed symptoms of Covid approximately 8 days prior to admission. He started off with fevers and chills, body aches and did come to the ER this past weekend after being severely fatigued and difficult to arouse as well as with generalized weakness. He was discharged home at that time with albuterol and was on p.o. doxycycline from his PCP. He was diagnosed with Covid with a swab on 07/11 as an outpatient. His pulse ox at the time of his ER visit last week and was within normal limits. Today he presented to the ER with pulse ox of 68% and he was significantly tachypneic. He was initially on 15 L oxygen mask and then converted to high flow nasal cannula, however after returning from CT scan of the chest, he was placed on BiPAP for significant respiratory distress and tachycardia. His CT angiogram was negative for PE but showed extensive bilateral multifocal pneumonia and bilateral areas of atelectasis. When I saw him, he was continuing to have tachypnea and shortness of breath with talking. He denied chest pains, denied nausea or vomiting, no abdominal pain. He was having some diarrhea the last few days. History and ROS reviewed as above Vitals reviewed Gen: AAOx3, in moderate respiratory distress with tachypnea and accessory muscle use, on BiPAP HEENT: Anicteric sclerae, EOMI CV: RRR no mgr nl S1S2 Pulm: +crackles throughout,+rhonchi, tachypnea Abd: +BS soft NT ND no masses or hernias Ext: No edema, no calf tenderness Skin: No rashes, warm/dry Neuro: Full strength throughout Laboratory values and imaging personally reviewed by me ECG reviewed 55-year-old male here with acute respiratory failure with hypoxia and Covid-19 pneumonia, hyponatremia and dehydration. -Plan outlined as above -Continue with BiPAP or high flow nasal cannula, may need intubation if continues to decompensate or becomes altered overnight -Received 2 L IV fluids in the ER, can continue sips and chips on high flow nasal cannula but keep n.p.o. otherwise in case of need for intubation overnight -Follow CBC, CMP, CRP, procalcitonin-no need for antibiotics at this time Follow blood cultures Continue dexamethasone x10-day course He is not a candidate for remdesivir as he is at day 8-9 I have verbally consented him for convalescent plasma and he is agreeable-this has been ordered PG Care Time/CCT Total # of Minutes Spent Total Time Spent with Patient: Total time spent is greater than 50% in coordination of care (as documented) at patient's floor/unit and/or counseling patient: Coding Level of Care Code 46230 Initial Inpt Care Lvl 3 Diagnoses COVID-19 U07.1 Acute respiratory failure with hypoxia J96.01 Atelectasis J98.11 Hypomagnesemia E83.42 Hyponatremia E87.1 Pneumonia due to COVID-19 virus U07.1; J12.82 DVT prophylaxis Z29.9
[2020-07-17 13:25] LABS: Fibrinogen 474 mg/dl (184-400)
[2020-07-17] MEDS ORDERED: ALBUTEROL HFA 8 GM INHALER INH PRN (14:59)
[2020-07-17] MEDS ORDERED: BENZONATATE 100 MG CAPSULE PO PRN (14:59)
[2020-07-17] MEDS ORDERED: IBUPROFEN 200 MG TAB PO PRN (14:59)
[2020-07-17] MEDS ORDERED: MAGNESIUM SULFATE / D5W 1 GM/100 ML BAG IV ONE (15:30)
[2020-07-17] MEDS: ENOXAPARIN INJ 30 MG/0.3 ML SYR SQ SCH (15:56)
--- NOTE | 2020-07-17 16:19 | Electrocardiogram Report ---
Test Reason : Blood Pressure : / mmHG Vent. Rate : 092 BPM Atrial Rate : 092 BPM P-R Int : 170 ms QRS Dur : 080 ms QT Int : 350 ms P-R-T Axes : 028 074 030 degrees QTc Int : 432 ms Poor data quality, interpretation may be adversely affected Normal sinus rhythm Possible Left atrial enlargement Borderline ECG When compared with ECG of 13-JUL-2020 11:27, No significant change was found Confirmed by Santana Lomeli ([id number]) on 07/17/2020 4:18:43 PM Referred By: REFERRED SELF Confirmed By:Santana Lomeli
[2020-07-18] MEDS: ENOXAPARIN INJ 30 MG/0.3 ML SYR SQ SCH (05:54)
[2020-07-18 06:16] LABS: Basophils # (auto) 0.01 K/uL (0-0.2); Basophils % (auto) 0.2 %; Hematocrit (blood only) 43.2 % (42-52); Hemoglobin 15.5 g/dL (14.0-18.0); Immature Granulocytes # (auto) 0.01 K/uL (0.00-0.02); Immature Granulocytes % (auto) 0.2 %; Lymphocytes # (auto) 0.33 K/uL (1.2-3.4); Lymphocytes % (auto) 6.3 %; Mean Corpuscular Hemoglobin 29.8 pg (25-34); Mean Corpuscular Hgb Conc 35.9 g/dL (32-36); Mean Corpuscular Volume 83.1 fL (80-100); Mean Platelet Volume 10.8 fL (7.4-10.4); Monocytes # (auto) 0.51 K/uL (0.11-0.59); Monocytes % (auto) 9.7 %; Neutrophils # (auto) 4.42 K/uL (1.4-6.5); Neutrophils % (auto) 83.6 %; Platelet Count 181 K/uL (130-400); RDW Coefficient of Variation 12.8 % (11.5-14.5); RDW Standard Deviation 38.5 fL (36.4-46.3); White Blood Count 5.28 K/uL (4.8-10.8)
[2020-07-18 06:26] LABS: Prothrombin Time 10.3 Seconds (9.0-12.0)
[2020-07-18 06:49] LABS: BUN Creatinine Ratio 27.1 (10-20); Calcium 8.3 mg/dl (8.5-10.1); Creatinine Clr Calc Pharmacy 102.4 ml/min; Est GFR (African American) 116.8; Est GFR (Non-African American) 100.7; Magnesium 2.3 mg/dl (1.8-2.4); Potassium 4.3 mmol/L (3.5-5.1)
[2020-07-18 06:51] LABS: C Reactive Protein 15.3 mg/dl (0-0.29)
[2020-07-18] MEDS ORDERED: CYANOCOBALAMIN 500 MCG TABLET (VITAMIN B-12) PO SCH (09:00)
[2020-07-18] MEDS ORDERED: ASCORBIC ACID 500 MG TAB PO SCH (09:00)
[2020-07-18] MEDS: dexAMETHasone 6 MG in SYRINGE 0 ML IV SCH (09:40)
[2020-07-18] MEDS: TAMSULOSIN HCL 0.4 MG CAP PO SCH (09:41)
[2020-07-18] MEDS: OMEGA-3 (PURIFIED FISH OIL) 1 GM CAP PO SCH (09:41)
[2020-07-18] MEDS ORDERED: REMDESIVIR 200 MG in SODIUM CHLORIDE 0.9% 210 ML IV ONE (14:30)
[2020-07-18] MEDS: ACETAMINOPHEN 325 MG TAB PO PRN (14:34)
--- NOTE | 2020-07-18 15:30 | Critical Care Consultation ---
Date of Consultation July 18, 2020 Assessment & Plan (1) Acute respiratory failure with hypoxia: (2) Pneumonia due to COVID-19 virus: Impression: 55-year-old male with coronavirus. He is about 9+ days out from his diagnosis and may have been symptomatic longer. He is admitted with multifocal infiltrates and progressive hypoxemic respiratory failure. Recommendations: 1. Acute hypoxemic respiratory failure secondary to Covid infection. The patient is currently on BiPAP. We changed him to CPAP as he does not need augmentation mechanical ventilation. I did convince him to try getting on his side as he states he cannot tolerate self proning. We will see how he does. I advised him that based on his current levels of gas exchange and his persistent tachypnea and increased work of breathing, it is likely that he will need intubation mechanical ventilation. He wishes to hold off for now and see how he does with the positive airway pressure and trying to be on his side. I think it is reasonable however I do recommend that he be monitored very closely for clinical deterioration that we not delay intubation mechanical ventilation if needed. We will make him n.p.o. in light of potential respiratory deterioration. I did discuss with the irene padilla white sugar supervisor and we will move him to a room that is ICU appropriate. 2. Covid infection: No data to support vitamin C or B12. He is in the late stage so I am not convinced that remdesivir is actually can offer him a clinical benefit at this point time. His CRP is not high enough to consider Tocilizumab and the severity of his illness would likely not be beneficial. Janet was contacted regarding the potential for ECMO in this patient. They stated that he did not meet criteria at this point time and had little else to offer with ofe hudson to current care. We will continue dexamethasone. Not think additional antibiotics are required. 3. With a normal BNP and procalcitonin level I would not recommend additional diuresis or antibiotics at this point time. Verbally consented the patient for intubation and mechanical ventilation as well as potential tracheostomy. I also verbally consented him for placement of central line and arterial line in the event that he should decline. Patient's overall prognosis is guarded. I think it is highly likely that he ends up on mechanical ventilator within the next several days if he does not show significant improvement over the next 12 to 24hours. His mortality if he goes on a ventilator may be somewhere on the order of 40 to 50%. 55 minutes in critical care time evaluating managing and stabilizing critically ill patient with significant risk of . History of Present Illness Attending Physician: Denys Tomas History of Present Illness Asked by hospitalist to evaluate this patient with hypoxemic respiratory failure secondary to novel coronavirus infection. History is obtained from discussion with the hospitalist, review the electronic medical record, and interview the patient. The patient is a 55-year-old male without significant prior medical history. He was diagnosed with coronavirus approximately 8 days ago and may have been symptomatic a few days prior to that. He presented to the emergency room yesterday profoundly hypoxemic. He was placed on CPAP intermittently and high flow. Despite this his oxygen saturations have been in the high 80 to low 90% range. His CT scan demonstrated patchy multifocal airspace opacities. He is not coughing or expectorating phlegm. He denies chest pain palpitations or lower extremity edema. He has been treated with remdesivir and dexamethasone. Despite these interventions his oxygenation, work of breathing, and tachypnea appear to be worsening. Despite this, the patient states that he actually feels better now than when he initially presented to the hospital. He has been unable to self prone due to significant degenerative issues in his neck. Allergies Allergy/AdvReac Type Severity Reaction Status Date / Time Penicillins Allergy Severe "catatonic Verified 07/13/20 11:26 immediately" latex Allergy Mild Rash Verified 07/13/20 11:26 Home Medications Medication Instructions Recorded Confirmed Type Glucosamine Chondroitin 1 cap PO QAM #0 06/07/16 07/17/20 History multivitamin 1 tab PO QAM #0 tab 06/07/16 07/17/20 History omega [id number]-fish oil [Fish Oil] 1 cap PO QAM #0 cap 06/07/16 07/17/20 History cyanocobalamin (vitamin B-12) 1,000 mcg PO QAM #0 tab 10/08/16 07/17/20 History [Vitamin B-12] ascorbic acid (vitamin C) [Vitamin 2 g PO QAM 03/29/19 07/17/20 History C] cholecalciferol (vitamin D3) 2,000 unit PO QAM 03/29/19 07/17/20 History [Vitamin D3] ibuprofen [Advil] 200 mg PO QID PRN 03/29/19 07/17/20 History iron bisgl,ps [id number] 1 cap PO WK 03/29/19 07/17/20 History sildenafil 25 mg PO DAILY PRN 03/29/19 07/17/20 History glucosamine [id number] 1 tab PO DAILY 11/23/19 07/17/20 History preston 1,500 mg-400 unit-100 mg tablet ketoconazole 2 % shampoo 1 applic TOP .COMPLEX #120 ml 02/14/20 07/17/20 Rx tamsulosin 0.4 mg capsule 0.4 mg PO DAILY #90 cap 04/23/20 07/17/20 Rx albuterol sulfate 2 puffs INH 6XD PRN #6.7 gm 07/13/20 07/17/20 Rx benzonatate [Tessalon Perles] 100 mg PO UD PRN 07/13/20 07/17/20 History doxycycline monohydrate 100 mg PO BID 07/13/20 07/17/20 History Patient History Medical History Basal cell carcinoma of left forehead Chronic back pain Multiple nevi Reducible right inguinal hernia Verrucous keratosis Surgical History History of left inguinal hernia repair (10/30/16) Open Left inguinal hernia repair Dr. Calixto 10/30/2016 History of repair of anterior cruciate ligament of left knee History of root canal procedure History of tonsillectomy History of wisdom tooth extraction Status post biopsy of thyroid gland benign Status post correction of deviated nasal septum Status post Mohs surgery for basal cell carcinoma Family History Grandfather (Maternal) Family history of diabetes mellitus Father Prostate cancer Cardiac disorder Mother Hypertension Other No family history of adverse response to anesthesia Social History Smoking Status: Former smoker Second Hand Exposure: No; Do You Dip or Chew Tobacco: No; Tobacco Cessation Education Requested by Patient: No Hx Alcohol Use: No Hx Substance Use: No Preferred Language: [place]an Communication Ability: Effective Charge Preparation Technician Required: No Beliefs That Will Affect Care: None Current Living Situation: Spouse current occupational status: employed 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 Other Information That Helps Us Care for You: No Feels Safe at Home: Yes Safety Concerns: Feels Safe At This Time Assistive Devices: Glasses Assistive Devices Comment: glasses Review of Systems Review of Systems: Other Physical Exam Constitutional: + acute distress and + ill appearing Neck: trachea midline, no thyromegaly Respiratory: + respiratory distress and + labored breathing Auscultation: + rales Cardiovascular: RRR, no murmur, no edema Gastrointestinal (Abdomen): normal bowel sounds, soft, nontender, no hepatosplenomegaly Musculoskeletal: Extremities: extremities normal to inspection Skin: no rashes, warm and dry Neurologic: Nonfocal exam Lymphatic: no cervical lymphadenopathy Results & Data Results & Data ([facility]) Vital Signs (Past 12 Hours) Vital Signs Temp Pulse Pulse Resp BP Pulse Ox 07/18/20 15:13 93 H 36 H 94 07/18/20 12:29 36.8 C 92 H 20 152/80 H 91 07/18/20 11:39 96 H 24 92 07/18/20 08:09 36.7 C 93 H 22 149/83 H 89 L 07/18/20 07:56 92 H 24 89 L 07/18/20 07:42 82 07/18/20 04:17 36.9 C 94 H 18 149/81 H 90 Laboratory Results 07/18/20 05:31 07/18/20 05:31 CRP 15 D-dimer 760 Fibrinogen 474 Most recent blood gas 7.3 739/74 Ferritin 849 LDH 431 Initial procalcitonin 0.6 with follow-up today 0.[address] angiogram from yesterday was independently reviewed. There were no evidence of filling defects. There were patchy bilateral consolidations as well as small pleural effusions noted. Coding Level of Care Code Critical Care 1st 30-74 mins Diagnoses Acute respiratory failure with hypoxia J96.01 Pneumonia due to COVID-19 virus U07.1; J12.82 Time Spent (min) 55
--- NOTE | 2020-07-18 15:35 | Hospitalist Progress Note ---
Date of Service July 18, 2020 Assessment & Plan (1) Pneumonia due to COVID-19 virus: Severe disease with resulting acute hypoxic respiratory failure. Very high settings on HFNC at the onset of his admission. He is about 7 days into his illness course. Day #2 of decadron 6mg daily; 10-day course planned. Convalescent plasma ordered and awaiting arrival from the [facility]. Benefit may be limited given the time course of his illness but given his critical status will initiate remdesivir now - 200mg x 1 day 1, followed by 100mg days 2-5. After seeing Mr Del Castillo I spoke with Dr Casper from pulmonary. He advised speaking with a tertiary care center to see if any other modalities/treatments would be advisable given his critical status. I spoke with a Dr Carranza from [facility] ICU. Dr Carranza did not feel Mr Del Castillo was a tocilizumab candidate. He advised ongoing supportive care including titration of HFNC. No other specific recommendations - did suggest treating for CHF? Dr Casper formally consulted. Dr Casper changed Mr Del Castillo from HFNC to CPAP. Further, Dr Casper counseled the patient he was at high risk of needing intubation with mech ventilation. Following the consult the patient was transferred to the ICU. Repeat labs in am. (2) Acute respiratory failure with hypoxia: As above in "COVID-19 pneumonia" Pulse ox 68% on room air upon arrival to the ER yesterday. PaO2 74 on 60% FiO2 - initial admission ABG. Continue steroids, remdesivir, HFNC or CPAP, awaiting plasma. Pulmonary toilet. Holding off on IV abx for now - bacterial superinfection unlikely, although will repeat a procal in am. No VTE at this time based on yesterday's CTA but continue higher dose lovenox. Send sputum culture as he has some production of sputum. Appreciate Dr Casper's consultation. (3) Hypomagnesemia: repleted and resolved (4) Hyponatremia: Hypovolemic hyponatremia Received IV fluids yesterday Improved Na level- 131 to 134 overnight would not give additional fluids today (5) Abnormal LFTs: 2nd to COVID-19. Trend daily, especially in light of remdesivir Rx. (6) BPH (benign prostatic hyperplasia): Cont flomax No issues (7) Chronic neck pain: Voltaren gel qid prn K-pad ordered as well Steroids for COVID may help Tylenol as needed (8) DVT prophylaxis: Lovenox SQ twice daily -- increase from 30mg to 40mg each dose Due to severe COVID illness he remains at high risk of VTE GI prophylaxis given severe stress - pepcid 20mg IV BID Updated pt's by phone - she, too, is ill with COVID-19 total time today between updating , discussing care with [facility], discussing care with pulmonary/critical care, orders, transfer to ICU, care coordination, etc -- 75 minutes Admission and Anticipated Discharge Date Admission Date: July 17, 2020 Subjective patient severely dyspneic with any movement in the bed. he attempted proning earlier today - nursing staff had encouraged him to do so - but could not tolerate it. he has a bad neck and proning causes severe neck pain. when he tried to prone he said "I couldn't breath." I offered him pain meds before trying to prone again and he declined, stating it simply wouldn't work. he continues with cough; has mild sputum production. mild chest tightness but no pain. no hemoptysis. has no appetite. is drinking fluids. no loss of smell. denies headache. had body aches and arthralgias early in his illness course - now resolved. has some diarrhea. no vomiting. has not received convalescent plasma yet. tele overnight without dysrhythmia. lastly, patient became ill with COVID symptoms LAST WEDNESDAY. Review of Systems Constitutional: + fatigue and + anorexia; no fever and no chills Eyes: no worsening vision Ear, Nose, Mouth, Throat: no nasal congestion and no sore throat Respiratory: + cough, + dyspnea, + dyspnea on exertion and + sputum pr oduction; no hemoptysis and no wheezing Cardiovascular: as per Subjective / HPI; no orthopnea and no edema Gastrointestinal: + diarrhea/loose stools; no abdominal pain and no vomiting Integumentary: no rash Psychiatric: + abnormal sleep pattern and + anxiety Physical Exam Constitutional: + acute distress and + ill appearing; no altered mental status ENMT: external ear and nose normal, oropharynx normal Respiratory: + respiratory distress, + retractions, + cough and + tachypneic Auscultation: + crackles (Both bases ); no wheezes Cardiovascular: Rate/Rhythm: regular rate and regular rhythm Heart Sounds: normal S1 and normal S2; no murmur Vessels: posterior tibial pulses present and dorsalis pedis pulses present; no JVD Extremities: no edema Gastrointestinal (Abdomen): normal bowel sounds, soft, nontender, no hepatosplenomegaly Musculoskeletal: no cyanosis or clubbing, extremities motor strength 5/5 Skin: no rashes, warm and dry Psychiatric: Orientation: alert and oriented x 3 Affect: + anxious affect Results & Data Results & Data ([facility]) Vital Signs (Past 12 Hours) Vital Signs Temp Pulse Pulse Resp BP Pulse Ox 07/18/20 15:13 93 H 36 H 94 07/18/20 12:29 36.8 C 92 H 20 152/80 H 91 07/18/20 11:39 96 H 24 92 07/18/20 08:09 36.7 C 93 H 22 149/83 H 89 L 07/18/20 07:56 92 H 24 89 L 07/18/20 07:42 82 07/18/20 04:17 36.9 C 94 H 18 149/81 H 90 Laboratory Results Laboratory Results - last 24 hr 07/18/20 07/18/20 07/18/20 05:31 05:31 05:31 WBC 5.28 RBC 5.20 Hgb 15.5 Hct 43.2 MCV 83.1 MCH 29.8 MCHC 35.9 RDW Std Deviation 38.5 RDW Coeff of Wes 12.8 Plt Count 181 MPV 10.8 H Immature Gran % (Auto) 0.2 Neut % (Auto) 83.6 Lymph % (Auto) 6.3 [place] % (Auto) 9.7 Eos % (Auto) 0.0 Baso % (Auto) 0.2 Neut # (Auto) 4.42 Lymph # (Auto) 0.33 L [place] # (Auto) 0.51 Eos # (Auto) 0.00 Baso # (Auto) 0.01 Immature Gran # (Auto) 0.01 PT 10.3 INR 1.0 Sodium 134 L Potassium 4.3 Chloride 103 Carbon Dioxide 26 Anion Gap 5.0 BUN 21 H Creatinine 0.77 Est Cr Clr Drug Dosing 102.4 Est GFR ( Amer) 116.8 Est GFR (Non-Af Amer) 100.7 BUN/Creatinine Ratio 27.1 H Glucose 133 H Calcium 8.3 L Magnesium 2.3 C-Reactive Protein 15.30 H Procalcitonin 07/18/20 05:31 WBC RBC Hgb Hct MCV MCH MCHC RDW Std Deviation RDW Coeff of Wes Plt Count MPV Immature Gran % (Auto) Neut % (Auto) Lymph % (Auto) [place] % (Auto) Eos % (Auto) Baso % (Auto) Neut # (Auto) Lymph # (Auto) [place] # (Auto) Eos # (Auto) Baso # (Auto) Immature Gran # (Auto) PT INR Sodium Potassium Chloride Carbon Dioxide Anion Gap BUN Creatinine Est Cr Clr Drug Dosing Est GFR ( Amer) Est GFR (Non-Af Amer) BUN/Creatinine Ratio Glucose Calcium Magnesium C-Reactive Protein Procalcitonin 0.43 PG Care Time/CCT Total # of Minutes Spent Total Time Spent with Patient: Total time spent is greater than 50% in coordination of care (as documented) at patient's floor/unit and/or counseling patient: Critical Care Time: Yes Total Critical Care Time: 75 Coding Level of Care Code 94509 Subseq Hosp Care Lvl 3 (25 - SIGNIFICANT, SEPARATELY IDENTIFIABLE ) Diagnoses Pneumonia due to COVID-19 virus U07.1; J12.82 Acute respiratory failure with hypoxia J96.01 Hypomagnesemia E83.42 Hyponatremia E87.1 Abnormal LFTs R94.5 BPH (benign prostatic hyperplasia) N40.0 Lower urinary tract symptom presence: symptoms absent Chronic neck pain M54.2; G89.29 DVT prophylaxis Z29.9 Additional Codes Critical Care Time - Critical Care Time: Yes ([id number]) Time Spent (min) 75 (1) BPH (benign prostatic hyperplasia) Lower urinary tract symptom presence: symptoms absent Qualified Code(s): N40.0 - Benign prostatic hyperplasia without lower urinary tract symptoms
[2020-07-18] MEDS: SODIUM CHLORIDE 0.9% 10ML FLUSH IV SCH (16:09)
[2020-07-18] MEDS: DICLOFENAC SOD 1% GEL 100 GM TUBE EXT SCH ×2 (17:24→20:12)
[2020-07-18] MEDS: ENOXAPARIN INJ 40 MG/0.4 ML SYR SQ SCH (17:25)
[2020-07-18] MEDS ORDERED: ENOXAPARIN INJ 30 MG/0.3 ML SYR SQ SCH (18:00)
[2020-07-18] MEDS: FAMOTIDINE 20 MG in SYRINGE 3 ML IV SCH (20:12)
[2020-07-18] MEDS ORDERED: MELATONIN 3 MG TAB PO PRN (20:49)
[2020-07-18] MEDS ORDERED: guaiFENesin 600 MG TABCR PO SCH (21:00)
[2020-07-19] MEDS ORDERED: MoRPHine SULFATE 2 MG/ML CARP IV STA (02:36)
[2020-07-19] MEDS: ENOXAPARIN INJ 40 MG/0.4 ML SYR SQ SCH ×2 (05:06→17:43)
[2020-07-19 06:41] LABS: Basophils # (auto) 0.01 K/uL (0-0.2); Basophils % (auto) 0.2 %; Hematocrit (blood only) 43.7 % (42-52); Hemoglobin 15.9 g/dL (14.0-18.0); Immature Granulocytes # (auto) 0.02 K/uL (0.00-0.02); Immature Granulocytes % (auto) 0.3 %; Lymphocytes # (auto) 0.96 K/uL (1.2-3.4); Lymphocytes % (auto) 15.1 %; Mean Corpuscular Hemoglobin 30.6 pg (25-34); Mean Corpuscular Hgb Conc 36.4 g/dL (32-36); Mean Platelet Volume 10.6 fL (7.4-10.4); Monocytes # (auto) 0.14 K/uL (0.11-0.59); Monocytes % (auto) 2.2 %; Neutrophils # (auto) 5.21 K/uL (1.4-6.5); Neutrophils % (auto) 82.2 %; Platelet Count 246 K/uL (130-400); RDW Coefficient of Variation 12.9 % (11.5-14.5); RDW Standard Deviation 39.5 fL (36.4-46.3); White Blood Count 6.34 K/uL (4.8-10.8)
[2020-07-19 07:04] LABS: D Dimer 1380 ug/L FEU (0-500)
[2020-07-19 07:12] LABS: BUN Creatinine Ratio 38.2 (10-20); Creatinine Clr Calc Pharmacy 106.6 ml/min; Est GFR (African American) 118.7; Est GFR (Non-African American) 102.4; Magnesium 2.5 mg/dl (1.8-2.4); Potassium 4.7 mmol/L (3.5-5.1)
[2020-07-19] MEDS ORDERED: MIDAZOLAM HCL 5 MG/ML VIAL IV ONE ×2 (07:12→07:13)
[2020-07-19] MEDS ORDERED: SUCCINYLCHOLINE CHLORIDE 20 MG/ML 10 ML VIAL IV ONE ×2 (07:12→07:13)
[2020-07-19] MEDS ORDERED: ETOMIDATE 2 MG/ML 20 ML VIAL IV ONE ×2 (07:12→07:13)
[2020-07-19] MEDS ORDERED: SODIUM CHLORIDE 0.9% 10ML FLUSH IV ONE ×2 (07:12→07:13)
[2020-07-19] MEDS ORDERED: VECURONIUM BROMIDE 10 MG VIAL IV ONE (07:13)
[2020-07-19] MEDS ORDERED: fentaNYL citrate 100 MCG/2 ML VIAL IV ONE (07:13)
[2020-07-19] MEDS ORDERED: RAPID SEQUENCE INDUCTION BAG ONE (08:08)
[2020-07-19] MEDS ORDERED: MIDAZOLAM HCL 1 MG/ML 2ML VIAL ONE (08:33)
[2020-07-19] MEDS ORDERED: PROPOFOL IV EMULSION 10 MG/ML 100 ML VIAL IV ONE (08:34)
[2020-07-19] MEDS ORDERED: STAT IV Infusion **Titration per Protocol STA ×2 (09:05→13:57)
[2020-07-19] MEDS ORDERED: CISATRACURIUM BOLUS FROM BAG IV ONE (09:15)
[2020-07-19] MEDS: MIDAZOLAM HCL 125 MG/250 ML BAG IV SCH (10:30)
[2020-07-19] MEDS: Standard Conc 16mcg/mL; 8mg in 500mL IV SCH (10:30)
[2020-07-19] MEDS: fentaNYL DRIP 1,250 MCG/250 ML BAG IV SCH (10:30)
--- NOTE | 2020-07-19 11:33 | XRay Report ---
XR chest 1V portable CLINICAL HISTORY: Respiratory failure COMPARISON STUDY: 07/17/2020 FINDINGS: The endotracheal tube has been placed which projects 7 cm above the arlette. There is been i nterval placement of a left subclavian central venous catheter the tip of which projects at the super ior vena cava. There is no pneumothorax. There is been interval placement of an enteric tube which ex tends into the stomach. There are extensive bilateral pulmonary airspace opacities consistent with a multifocal pneumonia[ IMPRESSION: 1. Multifocal airspace opacities consistent with a multifocal pneumonia 2. Interval placement of an enteric tube which passes into the stomach 3. Interval placement of endotracheal tube 7 cm above the arlette 4. Interval placement of a left subclavian central venous catheter which projects over the superior v mayra cava. No pneumothorax. ACT 112: Negative or not required by law. Electronically signed by: Braulio Chirinos M.D. 07/19/2020 11:32 AM
[2020-07-19] MEDS ORDERED: REMDESIVIR 100 MG in SODIUM CHLORIDE 0.9% 230 ML IV SCH (12:00)
[2020-07-19] MEDS: dexAMETHasone 6 MG in SYRINGE 0 ML IV SCH (12:03)
[2020-07-19] MEDS: OMEGA-3 (PURIFIED FISH OIL) 1 GM CAP PO SCH (12:04)
[2020-07-19] MEDS: TAMSULOSIN HCL 0.4 MG CAP PO SCH (12:04)
[2020-07-19] MEDS: FAMOTIDINE 20 MG in SYRINGE 3 ML IV SCH ×2 (12:05→22:07)
[2020-07-19] MEDS: DICLOFENAC SOD 1% GEL 100 GM TUBE EXT SCH ×2 (12:05→14:07)
[2020-07-19] MEDS: CISATRACURIUM BESYLATE 40 MG in 0.9 % SODIUM CHLORIDE 80 ML IV SCH ×4 (12:36→23:29)
--- NOTE | 2020-07-19 12:40 | Hospitalist Progress Note ---
Date of Service July 19, 2020 Assessment & Plan (1) Pneumonia due to COVID-19 virus: Severe disease with resulting acute hypoxic respiratory failure. Very high settings on HFNC at the onset of his admission, followed by use of CPAP all night, and now needing intubation/mech ventilation. Patient is now proning on the vent. He is about 8 days into his illness course. Day #3 of decadron 6mg daily; 10-day course planned. Convalescent plasma ordered and awaiting arrival from the [facility]. Benefit may be limited given the time course of his illness but given his critical status I initiated remdesivir yesterday -- 5-day course planned, but defer continuation of this to critical care team. Procal remains normal making bacterial superinfection unlikely. 07/18/20- I spoke with a Dr Carranza from [facility] ICU. Dr Carranza did not feel Mr Abundio was a tocilizumab candidate. He advised ongoing supportive care. Appreciate Dr Casper's assistance with vent management, central access, etc. Prognosis is very, very poor / guarded. Repeat labs in am. (2) Acute respiratory failure with hypoxia: As above in "COVID-19 pneumonia" Pulse ox 68% on room air upon arrival to the ER yesterday. PaO2 74 on 60% FiO2 - initial admission ABG. Continue steroids, remdesivir, mech ventilation, proning per protocol; awaiting plasma. Still holding off on IV abx for now - bacterial superinfection unlikely, procal wnl. No VTE at this time based on admission CTA but continue higher dose lovenox. No evidence of complicating acute CHF. (3) Hypomagnesemia: repleted and resolved (4) Hyponatremia: Hypovolemic hyponatremia Improved Na level- 131 to 134 to 137 IVF stopped (5) Abnormal LFTs: 2nd to COVID-19. Trend daily. (6) BPH (benign prostatic hyperplasia): Hold flomax while on vent No issues Will need orellana (7) Chronic neck pain: Hold voltaren, etc (8) DVT prophylaxis: Lovenox SQ twice daily - Due to severe COVID illness he remains at high risk of VTE GI prophylaxis given severe stress - pepcid 20mg IV BID Again I updated pt's by phone - she, too, is ill with COVID-19 but her O2 sats are high 90s Updated pt's daughter, Cristiane Barron extensively total time - 25 minutes, >50% of which was spent counseling his family Admission and Anticipated Discharge Date Admission Date: July 17, 2020 Subjective events of overnight/this am noted including worsening resp failure and need for emergent intubation. following intubation/CVC placement the patient was placed prone and will remain so until the following am. this am I extensively updated the pt's daughter, Cristiane Barron. then updated pt's later in the day. questions answered, support given. Review of Systems Review of Systems: bedside visit deferred due to intubated status Physical Exam Physical Exam: bedside exam deferred due to intubated status Results & Data Results & Data ([facility]) Vital Signs (Past 12 Hours) Vital Signs Temp Pulse Resp BP Pulse Ox 07/19/20 10:16 90 160/67 H 90 07/19/20 10:00 96 H 91 07/19/20 09:16 93 H 159/96 H 94 07/19/20 09:00 85 93 07/19/20 08:26 99 H 174/94 H 94 07/19/20 08:00 92 H 94 07/19/20 07:27 93 H 29 H 93 07/19/20 07:24 96 H 164/97 H 92 07/19/20 07:23 92 H 179/104 H 92 07/19/20 07:03 81 07/19/20 07:00 88 94 07/19/20 06:30 86 94 07/19/20 06:02 88 165/83 H 93 07/19/20 06:00 95 H 95 07/19/20 05:30 82 94 07/19/20 05:16 78 165/83 H 93 07/19/20 05:00 86 95 07/19/20 04:30 76 90 07/19/20 04:16 74 171/87 H 92 07/19/20 04:00 36.9 C 87 90 07/19/20 03:30 75 90 07/19/20 03:16 83 21 162/87 H 93 07/19/20 03:00 78 90 07/19/20 02:30 106 H 91 07/19/20 02:16 73 22 161/87 H 93 07/19/20 02:00 81 93 07/19/20 01:30 86 92 07/19/20 01:16 75 20 158/84 H 94 07/19/20 01:00 79 90 Laboratory Results Laboratory Results - last 24 hr 07/19/20 07/19/20 07/19/20 05:56 05:56 05:56 WBC 6.34 RBC 5.20 Hgb 15.9 Hct 43.7 MCV 84.0 MCH 30.6 MCHC 36.4 H RDW Std Deviation 39.5 RDW Coeff of Wes 12.9 Plt Count 246 MPV 10.6 H Immature Gran % (Auto) 0.3 Neut % (Auto) 82.2 Lymph % (Auto) 15.1 [place] % (Auto) 2.2 Eos % (Auto) 0.0 Baso % (Auto) 0.2 Neut # (Auto) 5.21 Lymph # (Auto) 0.96 L [place] # (Auto) 0.14 Eos # (Auto) 0.00 Baso # (Auto) 0.01 Immature Gran # (Auto) 0.02 D-Dimer Sodium 137 Potassium 4.7 Chloride 104 Carbon Dioxide 29 Anion Gap 4.0 BUN 28 H Creatinine 0.74 Est Cr Clr Drug Dosing 106.6 Est GFR ( Amer) 118.7 Est GFR (Non-Af Amer) 102.4 BUN/Creatinine Ratio 38.2 H Glucose 116 H Calcium 9.0 Magnesium 2.5 H AST 67 H ALT 35 Procalcitonin 0.31 07/19/20 06:04 WBC RBC Hgb Hct MCV MCH MCHC RDW Std Deviation RDW Coeff of Wes Plt Count MPV Immature Gran % (Auto) Neut % (Auto) Lymph % (Auto) [place] % (Auto) Eos % (Auto) Baso % (Auto) Neut # (Auto) Lymph # (Auto) [place] # (Auto) Eos # (Auto) Baso # (Auto) Immature Gran # (Auto) D-Dimer 1380 H* Sodium Potassium Chloride Carbon Dioxide Anion Gap BUN Creatinine Est Cr Clr Drug Dosing Est GFR ( Amer) Est GFR (Non-Af Amer) BUN/Creatinine Ratio Glucose Calcium Magnesium AST ALT Procalcitonin cxr - post-ETT - diffuse b/l airspace disease, CVC tip at SVC junction with RA, no pneumo PG Care Time/CCT Total # of Minutes Spent Total Time Spent with Patient: Total time spent is greater than 50% in coordination of care (as documented) at patient's floor/unit and/or counseling patient: Coding Level of Care Code 38738 Subseq Hosp Care Lvl 2 Diagnoses Pneumonia due to COVID-19 virus U07.1; J12.82 Acute respiratory failure with hypoxia J96.01 Hypomagnesemia E83.42 Hyponatremia E87.1 Abnormal LFTs R94.5 BPH (benign prostatic hyperplasia) N40.0 Lower urinary tract symptom presence: symptoms absent Chronic neck pain M54.2; G89.29 DVT prophylaxis Z29.9 (1) BPH (benign prostatic hyperplasia) Lower urinary tract symptom presence: symptoms absent Qualified Code(s): N40.0 - Benign prostatic hyperplasia without lower urinary tract symptoms
[2020-07-19 13:01] LABS: iSTAT Art Bld Gas pCO2 Correct 42 mmHg (35-46); iSTAT Art Bld Gas pH Corrected 7.3884 (7.35-7.45); iSTAT Arterial Blood Gas HCO3 25 meg/L (19-24); iSTAT Arterial Blood Gas pCO2 44 mmHg (35-46); iSTAT Arterial Blood Gas pH 7.37 (7.35-7.45); iSTAT Arterial Blood Gas pO2 133 mmHg (80-95); iSTAT Arterial Blood Gas pO2 C 127; iSTAT Carbon Dioxide 27 mmol/L (24-31)
[2020-07-19 13:02] LABS: iSTAT FiO2 100 %; iSTAT Sample Type Arterial
[2020-07-19 13:03] LABS: iSTAT Allen Test Not Performed
[2020-07-19 13:04] LABS: iSTAT SpO2 98
--- NOTE | 2020-07-19 13:04 | Procedure Note ---
Procedure Note Date of Service July 19, 2020 INTUBATION PROCEDURE NOTE: Provider: Baldo Casper MD A time-out was completed verifying correct patient, procedure, site, positioning. Patient was evaluated and required intubation for hypoxemic respiratory failure due to COVID-19. Sedative agent used: Etomidate 40 mg, Versed 4 mg Paralysis agent used: Succinylcholine 100 mg Verbal consent was obtained to the patient prior to proceeding. Written consent not possible due to severity of illness. He was also consented for central line placement and arterial line placement The patient was prepared in the appropriate fashion. Sedation was achieved utilizing etomidate and Versed. The patient had been preoxygenated on noninvas skyler positive pressure ventilation was placed on 100% FiO2. No intermittent [id number] was undertaken. After the patient was sedated and paralyzed, video laryngoscopy was performed with a glide scope. Initially we used a #3 blade. This yielded grade 2 view. Initial attempt to pass the tube revealed it getting caught up on the glottis. We rapidly transitioned to a #4 glide scope which revealed a grade 1 view. At this point time we were able to easily pass an 8 oh endotracheal tube which was visualized passing the vocal cords. Color CO2 was detected and tube misting was appropriate. Bilateral breath sounds were auscultated. The patient did desaturate transiently down to about 50%. He remained hemodynamically stable. He improved fairly rapidly with establishment of an airway and bag valve ventilation with a Peep valve set at 18 cm water. He was transitioned to the mechanical ventilator. Chest x-ray revealed the endotracheal tube to be approximately 7 cm above the arlette. It was advanced 3 cm prior to proning the patient. Coding CPT Codes Resuscitation - Resuscitation: 00470 Endotracheal Intubation, emergency ([id number]) [facility] [place] Procedure Codes (Charges) Resuscitation Resuscitation: 41151 Endotracheal Intubation, emergency
--- NOTE | 2020-07-19 13:05 | Procedure Note ---
Procedure Note Date of Service July 19, 2020 ARTERIAL LINE PROCEDURE NOTE: Procedure: Arterial Line Placement Provider: Baldo Casper MD Indication: Monitoring on Pressors Anesthesia: None Verbal consent obtained prior to intubation. Written consent not reasonable given acuity A time-out was completed verifying correct patient, procedure, site, positioning, and implant(s) or special equipment if applicable. Allens test was performed to ensure adequate perfusion. Patients right wrist was prepped and draped in the usual sterile fashion. A 20g Arrow arterial line was introduced into the right radial artery. Catheter was threaded, and the needle was removed with appropriate blood return. Good waveform was observed. The patient tolerated the procedure well. Arterial waveform was appreciated on transduction of the line Blood Loss: Minimal Complications: None Coding CPT Codes Tubes, Drains, and Vasc Access - Tubes, Drains, and Vasc Access: [id number] Place Catheter In Artery ([id number]) [facility] [place] Procedure Codes (Charges) Tubes, Drains, and Vasc Access Procedure 1: Tubes, Drains, and Vasc Access: [id number] Place Catheter In Artery
--- NOTE | 2020-07-19 13:08 | Procedure Note ---
Procedure Note Date of Service July 19, 2020 CENTRAL LINE PROCEDURE NOTE: Procedure: Central Line Placement Provider: Baldo Casper MD Indication: Central Drug Administration, Poor Venous Access, Multiple Lab Draws Necessary, etc. Anesthesia: 5 mlLidocaine 1% Site: Left subclavian Consent obtained prior to intubation. Written consent not available due to acuity of situation A time-out was completed verifying correct patient, procedure, site, positioning, and implants(s) or special equipment if applicable. The patient's left infra clavicular fossa was cleaned with ChloraPrep and a sterile field established. An area in the midclavicular line approximately 2 cm below the clavicle was anesthetized using lidocaine. Once the skin and subcutaneous tissues were anesthetized, an 18-gauge needle was used to access the left subclavian vein just under the clavicle. A wire was passed without difficulty. The tract was dilated without difficulty over the wire. A previously prepared triple-lumen catheter was then threaded over the wire into the subclavian vein. The wire was withdrawn. Ports were flushed and tere easily. A Biopatch was applied and the catheter was sutured in place at the hub. Post procedure chest x-ray demonstrated the line to be in good position. Estimated blood loss: 5 mL Coding CPT Codes Tubes, Drains, and Vasc Access - Tubes, Drains, and Vasc Access: [id number] Place catheter in vein superior or inferior vena cava ([id number]) [facility] [place] Procedure Codes (Charges) Tubes, Drains, and Vasc Access Procedure 1: Tubes, Drains, and Vasc Access: [id number] Place catheter in vein superior or inferior vena cava
--- NOTE | 2020-07-19 13:16 | Critical Care Progress Note ---
Date of Service July 19, 2020 Assessment & Plan (1) Acute respiratory failure with hypoxia: (2) Pneumonia due to COVID-19 virus: Impression: 55-year-old male with coronavirus. He has failed attempts at noninvasive positive pressure ventilation including bilevel and has increased work of breathing. Decision was made to proceed with intubation mechanical ventilation and prone positioning with neuromuscular blockade. Recommendations: 1. Neurologic: Continue deep sedation with fentanyl Versed propofol and neuromuscular blockade using Nimbex. We will monitor BIS. 2. Cardiovascular: The patient is slightly hypotensive with significant sedation. We will try and run on the dry side. Levophed as needed to maintain mean arterial pressure of around 65. 3. Pulmonary: ARDS/acute hypoxemic respiratory failure: Continue mechanical ventilation with arginate strategy. The patient was proned with significant improvement in his oxygenation. We will keep prone until tomorrow morning and then reassess. No data this far out for remdesivir and convalescent plasma not likely to be beneficial. He was not felt to be an ECMO candidate previously. Continue dexamethasone. 4. ID: Coronavirus pneumonia. Continue dexamethasone but will discontinue remdesivir as the patient is not in viral replication phase this far out. No indication for antimicrobial agents currently. Tocilizumab not available here and the patient's CRP was not significantly elevated. 5. GI: Enteric access obtained. We will see how he does over the next 12 to 24 hours and make decision regarding initiation of trophic enteric tube feeding at that point time. 6. Renal: Electrolytes are acceptable. Acid-base status appropriate. Continue to monitor urine output. 7. Heme-onc: No current issues. DVT prophylaxis in place with high dose given Covid pneumonia. 8. Endocrine: Glycemic control per ICU protocol. Patient is critically ill at this point in time. His prognosis is guarded. Hopefully he will recruit significantly with prone positioning and will reassess in the next 12 to 24hours. A total of 136 minutes critical care time evaluating managing this patient exclusive of procedures. Admission and Anticipated Discharge Date Admission Date: July 17, 2020 Subjective Patient seen and examined. Discussed with bedside nurse. Has been trying to lie on his sides but is remained on bilevel at an FiO2 of 0.7-0.8. Unfortunately he remains tachypneic with respiratory rates in the low 30s. He is feeling more fatigued and unfortunately I think is failing conservative efforts to maintain his oxygenation. I recommended intubation mechanical ventilation which the patient was agreeable with. He was also verbally consented for central line and arterial line placement. Physical Exam Constitutional: + acute distress and + ill appearing Neck: trachea midline, no thyromegaly Respiratory: + respiratory distress and + labored breathing Auscultation: + rales Cardiovascular: RRR, no murmur, no edema Gastrointestinal (Abdomen): normal bowel sounds, soft, nontender, no hepatosplenomegaly Musculoskeletal: Extremities: extremities normal to inspection Skin: no rashes, warm and dry Lymphatic: no cervical lymphadenopathy Results & Data Results & Data ([facility]) Vital Signs (Past 12 Hours) Vital Signs Temp Pulse Resp BP Pulse Ox 07/19/20 12:39 63 27 H 96 07/19/20 10:45 74 27 H 93 07/19/20 10:16 90 160/67 H 90 07/19/20 10:00 96 H 91 07/19/20 09:16 93 H 159/96 H 94 07/19/20 09:00 85 93 07/19/20 08:26 99 H 174/94 H 94 07/19/20 08:00 92 H 94 07/19/20 07:27 93 H 29 H 93 07/19/20 07:24 96 H 164/97 H 92 07/19/20 07:23 92 H 179/104 H 92 07/19/20 07:03 81 07/19/20 07:00 88 94 07/19/20 06:30 86 94 07/19/20 06:02 88 165/83 H 93 07/19/20 06:00 95 H 95 07/19/20 05:30 82 94 07/19/20 05:16 78 165/83 H 93 07/19/20 05:00 86 95 07/19/20 04:30 76 90 07/19/20 04:16 74 171/87 H 92 07/19/20 04:00 36.9 C 87 90 07/19/20 03:30 75 90 07/19/20 03:16 83 21 162/87 H 93 07/19/20 03:00 78 90 07/19/20 02:30 106 H 91 07/19/20 02:16 73 22 161/87 H 93 07/19/20 02:00 81 93 07/19/20 01:30 86 92 07/19/20 01:16 75 20 158/84 H 94 Laboratory Results 07/19/20 05:56 07/19/20 05:56 07/17/20 07/17/20 10:15 12:43 ABG pH 7.37 ABG pCO2 39 ABG pO2 74 L ABG HCO3 22 ABG O2 Saturation 95.2 H ABG Base Excess -3.1 VBG pH 7.43 H VBG pCO2 40 VBG pO2 35 VBG HCO3 26 VBG O2 Saturation 71.0 VBG Base Excess 1.4 Diagnostic Findings No new films prior to intubation. His post intubation film demonstrates tubes and lines to be in good position. The endotracheal tube will be advanced. There are persistent bilateral patchy infiltrates. Coding Level of Care Code Critical Care 1st 30-74 mins Diagnoses Acute respiratory failure with hypoxia J96.01 Pneumonia due to COVID-19 virus U07.1; J12.82 Time Spent (min) 136 Comment 136 minutes critical care time/[id number] 2x3
[2020-07-19] MEDS: SODIUM CHLORIDE 0.9% 10ML FLUSH IV SCH (13:43)
[2020-07-19] MEDS ORDERED: PROPOFOL BOLUS FROM BAG IV PRN (13:57)
[2020-07-19] MEDS: propofoL 1,000 MG/100 ML VIAL IV SCH ×2 (14:10→18:08)
[2020-07-20] MEDS: propofoL 1,000 MG/100 ML VIAL IV SCH ×5 (03:09→20:49)
[2020-07-20] MEDS: CISATRACURIUM BESYLATE 40 MG in 0.9 % SODIUM CHLORIDE 80 ML IV SCH ×5 (04:45→20:49)
[2020-07-20] MEDS: ENOXAPARIN INJ 40 MG/0.4 ML SYR SQ SCH ×2 (06:19→20:07)
[2020-07-20 07:21] LABS: Basophils # (auto) 0.01 K/uL (0-0.2); Basophils % (auto) 0.1 %; Hematocrit (blood only) 37.7 % (42-52); Hemoglobin 13.1 g/dL (14.0-18.0); Immature Granulocytes # (auto) 0.05 K/uL (0.00-0.02); Immature Granulocytes % (auto) 0.6 %; Lymphocytes # (auto) 0.87 K/uL (1.2-3.4); Lymphocytes % (auto) 10.8 %; Mean Corpuscular Hemoglobin 29.7 pg (25-34); Mean Corpuscular Hgb Conc 34.7 g/dL (32-36); Mean Corpuscular Volume 85.5 fL (80-100); Mean Platelet Volume 10.9 fL (7.4-10.4); Monocytes # (auto) 0.56 K/uL (0.11-0.59); Neutrophils # (auto) 6.53 K/uL (1.4-6.5); Neutrophils % (auto) 81.5 %; Platelet Count 152 K/uL (130-400); RDW Coefficient of Variation 13.4 % (11.5-14.5); RDW Standard Deviation 42.5 fL (36.4-46.3); Red Blood Count 4.41 M/uL (4.7-6.1); White Blood Count 8.02 K/uL (4.8-10.8)
[2020-07-20] MEDS: fentaNYL DRIP 1,250 MCG/250 ML BAG IV SCH ×2 (07:31→20:56)
[2020-07-20 07:51] LABS: BUN Creatinine Ratio 54.5 (10-20); Calcium 8.3 mg/dl (8.5-10.1); Creatinine Clr Calc Pharmacy 129.3 ml/min; Est GFR (African American) 128.5; Est GFR (Non-African American) 110.9; Magnesium 2.5 mg/dl (1.8-2.4); Potassium 4.7 mmol/L (3.5-5.1)
--- NOTE | 2020-07-20 09:04 | Procedure Note ---
Procedure Note Date of Service July 20, 2020 ARTERIAL LINE PROCEDURE NOTE: Procedure: Arterial Line Placement Provider: Baldo Casper MD Indication: Monitoring on Pressors Anesthesia: None Patient is intubated and sedated and unable to provide consent. No family immediately available. Patient had consented to procedures verbally prior to intubation Patient has a right radial arterial line however placement is needed as the patient is hemodynamically unstable on pressors and requiring mechanical ventilatory support. A time-out was completed verifying correct patient, procedure, site, positioning, and implant(s) or special equipment if applicable. Allens test was performed to ensure adequate perfusion. Patients left wrist was prepped and draped in the usual sterile fashion. Ultrasound guidance was used to aid needle placement. A 20g Arrow arterial line was introduced into the left radial artery. Catheter was threaded, and the needle was removed with appropriate blood return. Good waveform was observed. The patient tolerated the procedure well. Blood Loss: Minimal Complications: None Coding CPT Codes Tubes, Drains, and Vasc Access - Tubes, Drains, and Vasc Access: [id number] Insertion Catheter, Artery ([id number]) [facility] [place] Procedure Codes (Charges) Tubes, Drains, and Vasc Access Procedure 1: Tubes, Drains, and Vasc Access: [id number] Insertion Catheter, Artery
--- NOTE | 2020-07-20 09:18 | Critical Care Progress Note ---
Date of Service July 20, 2020 Assessment & Plan (1) Acute respiratory failure with hypoxia: Impression: 55-year-old male with coronavirus. He has failed attempts at noninvasive positive pressure ventilation including bilevel and has increased work of breathing. Decision was made to proceed with intubation mechanical ventilation and prone positioning with neuromuscular blockade. 24-hour events: Patient was intubated. Central lines and arterial lines were placed. NMB was initiated. He was placed in the prone position and was proned for approximately 20 hours. He was returned back to the supine position around 8:00 this morning. He had significant improvement in his P to F ratio and we were able to wean his FiO2 down to 40% while in the prone positioning with a PEEP of 14. Recommendations: 1. Neurologic: Continue deep sedation with fentanyl Versed propofol and neuromuscular blockade using Nimbex. We will monitor BIS. 2. Cardiovascular: Try and maintain slightly on the dry side. Levophed as needed to maintain mean arterial pressure of around 65. 3. Pulmonary: ARDS/acute hypoxemic respiratory failure: Current vent settings assist-control/26/450/15/0.4 prone, Blood gas this morning 7.37/44/133. Pplat 32. Pplat on the high side so may have to drop tidal volumes and allow for more permissive hypercapnia. Oxygenation is significantly better with a PF ratio this morning of 332. Continue mechanical ventilation with ARDSnet strategy. No data this far out for remdesivir and convalescent plasma not likely to be beneficial. He was not felt to be an ECMO candidate previously. Continue dexamethasone. Reorder resp culture. 4. ID: Coronavirus pneumonia. Continue dexamethasone but will discontinue remdesivir as the patient is not in viral replication phase this far out. No indication for antimicrobial agents currently. Tocilizumab not available here and the patient's CRP was not significantly elevated. Blood cultures no growth to date. Check respiratory cultures. 5. GI: Enteric access obtained. Initiate trophic tube feedings and follow clinically. Okay to continue with neuromuscular blockade in prone positioning per protocol 6. Renal: Electrolytes are acceptable. Acid-base status appropriate. Continue to monitor urine output. 7. Heme-onc: No current issues. DVT prophylaxis in place with high dose given Covid pneumonia. No real utility in trending D-dimer at this point time so we will discontinue additional assessments. 8. Endocrine: Glycemic control per ICU protocol. Patient is critically ill at this point in time. His prognosis is guarded. Discussed with bedside nurse and assisted with transition from supine to prone positioning. Total of 47 minutes critical care time exclusive of procedures spent evaluating and managing patient. If time permits, will update family members by phone today (2) Pneumonia due to COVID-19 virus: Admission and Anticipated Discharge Date Admission Date: July 17, 2020 Subjective Patient is intubated sedated and paralyzed Review of Systems Review of Systems: Unobtainable due to endotracheal tube Physical Exam Constitutional: well developed and + mechanically ventilated Sedated and paralyzed Neck: trachea midline, no thyromegaly Respiratory: no respiratory distress Auscultation: + rales Cardiovascular: RRR, no murmur, no edema Gastrointestinal (Abdomen): normal bowel sounds, soft, nontender, no hepatosplenomegaly Musculoskeletal: Extremities: extremities normal to inspection Skin: no rashes, warm and dry No evidence of breakdown when the patient was rolled from prone position back to supine position Neurologic: Nonfocal exam Lymphatic: no cervical lymphadenopathy Results & Data Results & Data ([facility]) Vital Signs (Past 12 Hours) Vital Signs Temp Pulse Resp BP Pulse Ox 07/20/20 07:45 68 34 H 94 07/20/20 04:02 36.1 C L 64 131/75 96 07/20/20 04:00 36.1 C L 66 96 07/20/20 03:47 36.1 C L 68 143/86 H 96 07/20/20 03:46 36.1 C L 68 96 07/20/20 03:44 36.1 C L 73 26 H 156/87 H 96 07/20/20 03:32 36.0 C L 65 130/73 95 07/20/20 03:30 36.0 C L 64 07/20/20 03:17 36.0 C L 64 126/74 95 07/20/20 03:15 36.0 C L 63 95 07/20/20 03:02 36.0 C L 65 132/74 95 07/20/20 03:00 36.0 C L 64 07/20/20 02:47 36.1 C L 64 131/72 95 07/20/20 02:45 36.1 C L 63 95 07/20/20 02:32 36.1 C L 64 125/72 95 07/20/20 02:30 36.1 C L 64 95 07/20/20 02:17 36.1 C L 66 131/72 95 07/20/20 02:15 36.1 C L 66 95 07/20/20 02:02 36.0 C L 66 132/75 94 07/20/20 02:00 36.0 C L 65 94 07/20/20 01:47 36.0 C L 66 127/69 94 07/20/20 01:45 36.0 C L 67 94 07/20/20 01:32 36.0 C L 66 128/73 94 07/20/20 01:30 36.0 C L 66 94 07/20/20 01:17 36.0 C L 65 124/71 94 07/20/20 01:15 36.0 C L 66 94 07/20/20 01:02 36.1 C L 67 127/72 93 07/20/20 01:00 36.1 C L 67 94 07/20/20 00:47 36.1 C L 67 125/70 93 07/20/20 00:45 36.1 C L 68 93 07/20/20 00:32 36.1 C L 68 126/72 93 07/20/20 00:30 36.1 C L 69 93 07/20/20 00:17 36.0 C L 66 119/71 92 07/20/20 00:15 36.0 C L 68 92 07/20/20 00:03 36.0 C L 67 92 07/20/20 00:02 36.0 C L 67 121/71 92 07/20/20 00:00 36.0 C L 66 92 07/19/20 23:47 36.0 C L 67 116/66 92 07/19/20 23:45 36.0 C L 67 91 07/19/20 23:34 36.0 C L 67 116/69 91 07/19/20 23:30 36.0 C L 67 91 07/19/20 23:15 36.0 C L 73 93 07/19/20 23:10 36.0 C L 72 138/79 93 07/19/20 23:00 35.9 C L 65 26 H 99 07/19/20 22:45 36.0 C L 67 94 03/12/21 22:30 36.0 C L 68 94 07/19/20 22:15 36.0 C L 67 95 07/19/20 22:10 36.0 C L 67 130/76 95 07/19/20 22:00 35.9 C L 68 94 07/19/20 21:45 35.9 C L 67 94 07/19/20 21:30 35.9 C L 67 94 07/19/20 21:15 35.9 C L 68 94 07/19/20 21:10 35.9 C L 68 117/72 94 Laboratory Results 07/20/20 06:32 07/20/20 06:32 D-dimer 1380 Blood gas this morning 7.37/44/133 Blood cultures no growth to date Diagnostic Findings Chest x-ray from today was independently reviewed the endotracheal tube central line and orogastric tubes appear to be in good position. There are persistent hazy bilateral parenchymal opacities more prominent in the lower lung zones however these appear slightly improved from yesterday. Coding Level of Care Code Critical Care 1st 30-74 mins Diagnoses Acute respiratory failure with hypoxia J96.01 Pneumonia due to COVID-19 virus U07.1; J12.82
--- NOTE | 2020-07-20 10:19 | XRay Report ---
XR chest 1V portable HISTORY: 55 years-old Male resp failure acute respiratory failure COMPARISON: Chest radiograph 07/19/2020, CTA chest 07/17/2020 TECHNIQUE: Portable AP view of the chest FINDINGS: Cardiac silhouette is unchanged. Endotracheal tube terminates 4.0 cm superior to the arlette. Left sub clavian central venous catheter distal tip terminates in the correct location of the superior SVC. An enteric tube courses below the diaphragm with distal tip outside the field of view. No pneumothorax or large pleural effusion. Extensive multifocal airspace opacities are redemonstrated and have not si gnificantly changed. Bones appear grossly intact. IMPRESSION: 1. Lines and tubes as above. 2. Extensive bilateral airspace opacities appear unchanged from comparison. 3. No pneumothorax. ACT 112: Negative or not required by law. The above report was generated using voice recognition software. It may contain grammatical, syntax o r spelling errors. Electronically signed by: Chad Coughlin M.D. 07/20/2020 10:18 AM
[2020-07-20] MEDS: OMEGA-3 (PURIFIED FISH OIL) 1 GM CAP PO SCH (10:59)
[2020-07-20] MEDS: dexAMETHasone 6 MG in SYRINGE 0 ML IV SCH (11:16)
[2020-07-20] MEDS: FAMOTIDINE 20 MG in SYRINGE 3 ML IV SCH ×2 (11:16→20:07)
[2020-07-20] MEDS: PEPTAMEN INTENSE VHP 1.0 CAL 1,000 ML BAG OG SCH (12:35)
[2020-07-20] MEDS: SODIUM CHLORIDE 0.9% 10ML FLUSH IV SCH (14:45)
--- NOTE | 2020-07-20 18:22 | Hospitalist Progress Note ---
Date of Service July 20, 2020 Assessment & Plan (1) Pneumonia due to COVID-19 virus: Severe disease with resulting acute hypoxic respiratory failure. Very high settings on HFNC at the onset of his admission, followed by use of CPAP, and then intubation/mech ventilation. s/p intubation AM of 07/19/20. He is about 9-10 days into his illness course. Day #4 of decadron 6mg daily; 10-day course planned. Convalescent plasma to be given today. Benefit may be limited given the time course of his illness. Remdesivir stopped by critical care team. Procal remains normal making bacterial superinfection unlikely. 07/18/20- I spoke with a Dr Carranza from [facility] ICU. Dr Carranza did not feel Mr Abundio was a tocilizumab candidate. He advised ongoing supportive care. Appreciate Dr Casper's assistance with vent management. Continue proning per protocol. Continue ARDSNet protocol for vent parameters. (2) Acute respiratory failure with hypoxia: As above in "COVID-19 pneumonia" Pulse ox 68% on room air upon arrival to the ER yesterday. PaO2 74 on 60% FiO2 - initial admission ABG. Continue steroids, mech ventilation, proning per protocol, plasma. Still holding off on IV abx for now - bacterial superinfection unlikely, procal wnl. No VTE at this time based on admission CTA but continue higher dose lovenox. No evidence of complicating acute CHF. (3) Hypomagnesemia: repleted and resolved (4) Hyponatremia: Resolved (5) Abnormal LFTs: 2nd to COVID-19. Resolved. (6) BPH (benign prostatic hyperplasia): Hold flomax while on vent No issues Lane (7) Chronic neck pain: (8) DVT prophylaxis: Lovenox SQ twice daily - Due to severe COVID illness he remains at high risk of VTE GI prophylaxis given severe stress - pepcid 20mg IV BID FEN - tube feedings started by ICU team Updated pt's daughter, Cristiane Barron extensively on 07/19/20 I have updated pt's daily since admission including today Admission and Anticipated Discharge Date Admission Date: July 17, 2020 Subjective events of last 24 hours noted PEEP 12 on vent, FIO2 down to 60% tolerated proning remains sedated and paralyzed tube feedings begun plasma arrived late today Review of Systems Review of Systems: Unobtainable due to endotracheal tube Physical Exam Physical Exam: bedside exam deferred due to intubated status; please refer to Dr Casper's bedside physical exam Results & Data [facility]) Vital Signs (Past 12 Hours) Vital Signs Temp Pulse Resp BP Pulse Ox 07/20/20 18:01 35.8 C L 47 L 26 H 143/82 H 94 07/20/20 17:41 35.7 C L 48 L 26 H 97/77 L 93 07/20/20 15:45 52 L 27 H 95 07/20/20 15:01 46 L 27 H 95 07/20/20 10:35 56 L 26 H 97 07/20/20 09:02 36.7 C 64 102/66 96 07/20/20 08:02 36.4 C L 76 129/70 89 L 07/20/20 07:45 68 34 H 94 07/20/20 07:02 36.5 C 72 131/70 93 Laboratory Results Laboratory Results - last 24 hr 07/17/20 07/20/20 07/20/20 13:38 06:32 06:32 WBC 8.02 RBC 4.41 L Hgb 13.1 L Hct 37.7 L MCV 85.5 MCH 29.7 MCHC 34.7 RDW Std Deviation 42.5 RDW Coeff of Wes 13.4 Plt Count 152 MPV 10.9 H Immature Gran % (Auto) 0.6 Neut % (Auto) 81.5 Lymph % (Auto) 10.8 Bond % (Auto) 7.0 Eos % (Auto) 0.0 Baso % (Auto) 0.1 Neut # (Auto) 6.53 H Lymph # (Auto) 0.87 L Bond # (Auto) 0.56 Eos # (Auto) 0.00 Baso # (Auto) 0.01 Immature Gran # (Auto) 0.05 H Sodium 138 Potassium 4.7 Chloride 107 Carbon Dioxide 27 Anion Gap 4.0 BUN 33 H Creatinine 0.61 Est Cr Clr Drug Dosing 129.3 Est GFR ( Amer) 128.5 Est GFR (Non-Af Amer) 110.9 BUN/Creatinine Ratio 54.5 H Glucose 146 H POC Glucose (other) Calcium 8.3 L Phosphorus 3.0 Magnesium 2.5 H AST 33 ALT 25 Blood Type A Positive Antibody Screen NEGATIVE 07/20/20 07/20/20 07:47 13:31 WBC RBC Hgb Hct MCV MCH MCHC RDW Std Deviation RDW Coeff of Wes Plt Count MPV Immature Gran % (Auto) Neut % (Auto) Lymph % (Auto) Bond % (Auto) Eos % (Auto) Baso % (Auto) Neut # (Auto) Lymph # (Auto) Bond # (Auto) Eos # (Auto) Baso # (Auto) Immature Gran # (Auto) Sodium Potassium Chloride Carbon Dioxide Anion Gap BUN Creatinine Est Cr Clr Drug Dosing Est GFR ( Amer) Est GFR (Non-Af Amer) BUN/Creatinine Ratio Glucose POC Glucose (other) 140 H 143 H Calcium Phosphorus Magnesium AST ALT Blood Type Antibody Screen PG Care Time/CCT Total # of Minutes Spent Total Time Spent with Patient: Total time spent is greater than 50% in coordination of care (as documented) at patient's floor/unit and/or counseling patient: Coding Level of Care Code 41899 Subseq Hosp Care Lvl 1 Diagnoses Pneumonia due to COVID-19 virus U07.1; J12.82 Acute respiratory failure with hypoxia J96.01 Hypomagnesemia E83.42 Hyponatremia E87.1 Abnormal LFTs R94.5 BPH (benign prostatic hyperplasia) N40.0 Lower urinary tract symptom presence: symptoms absent Chronic neck pain M54.2; G89.29 DVT prophylaxis Z29.9 (1) BPH (benign prostatic hyperplasia) Lower urinary tract symptom presence: symptoms absent Qualified Code(s): N40.0 - Benign prostatic hyperplasia without lower urinary tract symptoms
[2020-07-20] MEDS: MIDAZOLAM HCL 125 MG/250 ML BAG IV SCH ×2 (20:51→23:34)
[2020-07-20] MEDS: CISATRACURIUM BESYLATE 100 MG in SODIUM CHLORIDE 0.9% 200 ML IV SCH (20:55)
[2020-07-21 04:30] LABS: iSTAT Allen Test Pass; iSTAT Arterial Blood Gas HCO3 28 meg/L (19-24); iSTAT Arterial Blood Gas pCO2 44 mmHg (35-46); iSTAT Arterial Blood Gas pH 7.41 (7.35-7.45); iSTAT Arterial Blood Gas pO2 74 mmHg (80-95); iSTAT Carbon Dioxide 29 mmol/L (24-31); iSTAT FiO2 40 %; iSTAT Site Art Line
[2020-07-21] MEDS: CISATRACURIUM BESYLATE 100 MG in SODIUM CHLORIDE 0.9% 200 ML IV SCH ×2 (05:58→14:21)
[2020-07-21 06:12] LABS: Basophils # (auto) 0.02 K/uL (0-0.2); Basophils % (auto) 0.3 %; Hematocrit (blood only) 34.4 % (42-52); Hemoglobin 11.6 g/dL (14.0-18.0); Immature Granulocytes # (auto) 0.05 K/uL (0.00-0.02); Immature Granulocytes % (auto) 0.8 %; Lymphocytes # (auto) 0.75 K/uL (1.2-3.4); Mean Corpuscular Hemoglobin 29.4 pg (25-34); Mean Corpuscular Hgb Conc 33.7 g/dL (32-36); Mean Corpuscular Volume 87.1 fL (80-100); Mean Platelet Volume 11.1 fL (7.4-10.4); Monocytes # (auto) 0.33 K/uL (0.11-0.59); Monocytes % (auto) 5.3 %; Neutrophils # (auto) 5.09 K/uL (1.4-6.5); Neutrophils % (auto) 81.6 %; Platelet Count 135 K/uL (130-400); RDW Coefficient of Variation 13.2 % (11.5-14.5); Red Blood Count 3.95 M/uL (4.7-6.1); White Blood Count 6.24 K/uL (4.8-10.8)
[2020-07-21] MEDS: ENOXAPARIN INJ 40 MG/0.4 ML SYR SQ SCH ×2 (06:32→18:10)
[2020-07-21 06:52] LABS: BUN Creatinine Ratio 53.1 (10-20); Calcium 7.7 mg/dl (8.5-10.1); Creatinine Clr Calc Pharmacy 129.3 ml/min; Est GFR (African American) 128.5; Est GFR (Non-African American) 110.9; Potassium 4.8 mmol/L (3.5-5.1)
[2020-07-21 06:54] LABS: Albumin Globulin Ratio 0.7 (0.9-2); Bilirubin,Total 0.8 mg/dl (0.2-1); Globulin 2.8 gm/dl (2.5-4.0); Total Protein 4.8 gm/dl (6.4-8.2)
[2020-07-21] MEDS: propofoL 1,000 MG/100 ML VIAL IV SCH ×4 (07:56→19:08)
[2020-07-21] MEDS: fentaNYL DRIP 1,250 MCG/250 ML BAG IV SCH ×2 (07:57→17:20)
[2020-07-21] MEDS: dexAMETHasone 6 MG in SYRINGE 0 ML IV SCH (08:54)
[2020-07-21] MEDS: FAMOTIDINE 20 MG in SYRINGE 3 ML IV SCH ×2 (10:20→20:25)
--- NOTE | 2020-07-21 11:21 | Critical Care Progress Note ---
Date of Service July 21, 2020 Assessment & Plan (1) Acute respiratory failure with hypoxia: Impression: 55-year-old male with coronavirus. He has failed attempts at noninvasive positive pressure ventilation including bilevel and has increased work of breathing. Decision was made to proceed with intubation mechanical ventilation and prone positioning with neuromuscular blockade. 24-hour events: Patient is remained hemodynamically stable on a low-dose Levophed. He was returned to the supine position around 9:00 yesterday morning and reprogrammed around 3:00 in the afternoon. He has had his FiO2 weaned down his PEEP is remained stable. He is tolerating trophic tube feedings. He remains on a low-dose of Levophed. He is making some progress with regards to his ventilatory requirements but is not ready yet to consider spontaneous breathing trials extubation or awakening. Recommendations: 1. Neurologic: Continue deep sedation with fentanyl Versed propofol and neuromuscular blockade using Nimbex. We will monitor BIS. 2. Cardiovascular: Try and maintain slightly on the dry side. Levophed as n eeded to maintain mean arterial pressure of around 65. 3. Pulmonary: ARDS/acute hypoxemic respiratory failure: Vent day #3. Blood gas: 7.4 //28 vent settings: Assist-control 26/450/10/0 0.4 P plateau 21. Oxygenation is significantly better with a PF ratio this morning of 185. Continue mechanical ventilation with ARDSnet strategy. He was not felt to be an ECMO candidate previously. Continue dexamethasone. Await resp culture. 4. ID: Coronavirus pneumonia. Continue dexamethasone. No indication for antimicrobial agents currently. Blood cultures no growth to date. Check re spiratory cultures. 5. GI: Enteric access obtained. Continue trophic tube feedings and follow cli nically. Okay to continue with neuromuscular blockade in prone positioning per protocol 6. Renal: Electrolytes are acceptable. Acid-base status appropriate. Continue to monitor urine output. 7. Heme-onc: No current issues. DVT prophylaxis in place with high dose given Covid pneumonia. No real utility in trending D-dimer at this point time so we will discontinue additional assessments. 8. Endocrine: Glycemic control per ICU protocol. Patient is critically ill at this point in time. His prognosis is guarded. Discussed with bedside nurse and assisted with transition from supine to prone positioning. Total of 45 minutes critical care time exclusive of procedures spent evaluating and managing patient. Spouse was updated by phone yesterday and will update again today. Admission and Anticipated Discharge Date Admission Date: July 17, 2020 Subjective Intubated sedated and paralyzed. Review of Systems Review of Systems: Unobtainable due to endotracheal tube Physical Exam Constitutional: well developed and + mechanically ventilated Neck: trachea midline, no thyromegaly Respiratory: no respiratory distress Auscultation: + rales Cardiovascular: RRR, no murmur, no edema Gastrointestinal (Abdomen): normal bowel sounds, soft, nontender, no hepatosplenomegaly Musculoskeletal: Extremities: extremities normal to inspection Skin: no rashes, warm and dry Lymphatic: no cervical lymphadenopathy Results & Data Results & Data ([facility]) Vital Signs (Past 12 Hours) Vital Signs Temp Pulse Resp BP Pulse Ox 07/21/20 11:00 49 L 27 H 91 07/21/20 08:03 37.3 C 77 137/69 90 07/21/20 08:00 96 H 26 H 92 07/21/20 07:02 37.2 C 66 127/68 92 07/21/20 04:06 69 26 H 93 07/21/20 01:30 69 26 H 93 07/20/20 22:26 70 26 H 88 L Laboratory Results 07/21/20 05:43 07/21/20 05:43 Blood cultures no growth to date. Blood gas: 7.4 //28 vent settings: Assist-control 26/450/10/0 0.4 P plateau 21 Albumin 2.0 Diagnostic Findings Chest x-ray from today was independently reviewed and compared to prior imaging. Tubes and lines are in good position. There are persistent basilar airspace opacities slightly improved compared to yesterday. Coding Level of Care Code Critical Care 1st 30-74 mins Diagnoses Acute respiratory failure with hypoxia J96.01 Time Spent (min) 48
--- NOTE | 2020-07-21 12:02 | Hospitalist Progress Note ---
Date of Service July 21, 2020 Assessment & Plan (1) Pneumonia due to COVID-19 virus: Severe disease with resulting acute hypoxic respiratory failure/ARDS. Very high settings on HFNC at the onset of his admission, followed by use of CPAP, and then intubation/mech ventilation. s/p intubation AM of 07/19/20. He is about 10 days into his illness course. Day #5 of decadron 6mg daily; 10-day course planned. s/p Convalescent plasma 07/20/20. Benefit may have been limited given the time course of his illness. Remdesivir stopped by critical care team due to likely lack of efficacy given time course in illness. Procal remains normal making bacterial superinfection unlikely. 07/18/20- I spoke with a Dr Carranza from [facility] ICU. Dr Carranza did not feel Mr Abundio was a tocilizumab candidate. Appreciate Dr Casper's assistance with vent management. Continue proning per protocol. Continue ARDSNet protocol for vent parameters. (2) Acute respiratory failure with hypoxia: As above in "COVID-19 pneumonia" Pulse ox 68% on room air upon arrival to the ER. PaO2 74 on 60% FiO2 - initial admission ABG. Continue steroids, mech ventilation, proning per protocol, plasma. Still holding off on IV abx for now - bacterial superinfection unlikely, procal wnl. No evidence of complicating acute CHF. (3) Hypomagnesemia: repleted and resolved (4) Hyponatremia: Resolved (5) Abnormal LFTs: 2nd to COVID-19. Resolved. (6) BPH (benign prostatic hyperplasia): Hold flomax while on vent No issues Lane (7) Chronic neck pain: Hold voltaren, etc (8) DVT prophylaxis: Lovenox SQ twice daily - Due to severe COVID illness he remains at high risk of VTE GI prophylaxis given severe stress - pepcid 20mg IV BID FEN - trickle tube feedings Updated pt's daughter, Cristiane Barron extensively on 07/19/20 Left message for Cristiane - 07/21/20 Daily updates given to patient's since admission Admission and Anticipated Discharge Date Admission Date: July 17, 2020 Subjective Patient was intubated, sedated, paralyzed this am. Proned overnight, now supine position. FiO2 50%; PEEP 10. Review of Systems Review of Systems: Unobtainable due to endotracheal tube Physical Exam Physical Exam: bedside exam deferred due to intubated status; please refer to Dr Casper's bedside physical exam Results & Data Results & Data ([facility]) Vital Signs (Past 12 Hours) Vital Signs Temp Pulse Resp BP Pulse Ox 07/21/20 11:00 49 L 27 H 91 07/21/20 08:03 37.3 C 77 137/69 90 07/21/20 08:00 96 H 26 H 92 07/21/20 07:02 37.2 C 66 127/68 92 07/21/20 04:06 69 26 H 93 07/21/20 01:30 69 26 H 93 Laboratory Results Laboratory Results - last 24 hr 07/17/20 07/20/20 07/20/20 13:38 13:31 18:06 WBC RBC Hgb Hct MCV MCH MCHC RDW Std Deviation RDW Coeff of Wes Plt Count MPV Immature Gran % (Auto) Neut % (Auto) Lymph % (Auto) [place] % (Auto) Eos % (Auto) Baso % (Auto) Neut # (Auto) Lymph # (Auto) [place] # (Auto) Eos # (Auto) Baso # (Auto) Immature Gran # (Auto) Sample Site POC pH POC pCO2 POC pO2 POC HCO3 POC Total CO2 POC Base Excess POC ABG O2 Sat Joshua Test O2 Delivery Device POC O2 Rate Minute Ventilation POC FiO2 Tidal Volume PEEP Sodium Potassium Chloride Carbon Dioxide Anion Gap BUN Creatinine Est Cr Clr Drug Dosing Est GFR ( Amer) Est GFR (Non-Af Amer) BUN/Creatinine Ratio Glucose POC Glucose (other) 143 H 149 H Calcium Total Bilirubin AST ALT Alkaline Phosphatase Total Protein Albumin Globulin Albumin/Globulin Ratio Blood Type A Positive Antibody Screen NEGATIVE 07/21/20 07/21/20 07/21/20 04:16 05:43 05:43 WBC 6.24 RBC 3.95 L Hgb 11.6 L Hct 34.4 L MCV 87.1 MCH 29.4 MCHC 33.7 RDW Std Deviation 43.0 RDW Coeff of Wes 13.2 Plt Count 135 MPV 11.1 H Immature Gran % (Auto) 0.8 Neut % (Auto) 81.6 Lymph % (Auto) 12.0 [place] % (Auto) 5.3 Eos % (Auto) 0.0 Baso % (Auto) 0.3 Neut # (Auto) 5.09 Lymph # (Auto) 0.75 L [place] # (Auto) 0.33 Eos # (Auto) 0.00 Baso # (Auto) 0.02 Immature Gran # (Auto) 0.05 H Sample Site Art Line POC pH 7.41 POC pCO2 44 POC pO2 74 L POC HCO3 28 H POC Total CO2 29 POC Base Excess 3.0 H POC ABG O2 Sat 95.0 Joshua Test Pass O2 Delivery Device Ventilator POC O2 Rate 26 Minute Ventilation 11.7 POC FiO2 40 Tidal Volume 450 PEEP 12 Sodium 142 Potassium 4.8 Chloride 111 H Carbon Dioxide 27 Anion Gap 4.0 BUN 32 H Creatinine 0.61 Est Cr Clr Drug Dosing 129.3 Est GFR ( Amer) 128.5 Est GFR (Non-Af Amer) 110.9 BUN/Creatinine Ratio 53.1 H Glucose 127 H POC Glucose (other) Calcium 7.7 L Total Bilirubin 0.8 AST 24 ALT 25 Alkaline Phosphatase 59 Total Protein 4.8 L Albumin 2.0 L Globulin 2.8 Albumin/Globulin Ratio 0.7 L Blood Type Antibody Screen PG Care Time/CCT Total # of Minutes Spent Total Time Spent with Patient: Total time spent is greater than 50% in coordination of care (as documented) at patient's floor/unit and/or counseling patient: Coding Level of Care Code 41858 Subseq Hosp Care Lvl 1 Diagnoses Pneumonia due to COVID-19 virus U07.1; J12.82 Acute respiratory failure with hypoxia J96.01 Hypomagnesemia E83.42 Hyponatremia E87.1 Abnormal LFTs R94.5 BPH (benign prostatic hyperplasia) N40.0 Lower urinary tract symptom presence: symptoms absent Chronic neck pain M54.2; G89.29 DVT prophylaxis Z29.9 (1) BPH (benign prostatic hyperplasia) Lower urinary tract symptom presence: symptoms absent Qualified Code(s): N40.0 - Benign prostatic hyperplasia without lower urinary tract symptoms
[2020-07-21] MEDS: OMEGA-3 (PURIFIED FISH OIL) 1 GM CAP PO SCH (12:08)
[2020-07-21] MEDS: Standard Conc 16mcg/mL; 8mg in 500mL IV SCH (12:08)
--- NOTE | 2020-07-21 12:20 | XRay Report ---
SINGLE VIEW CHEST CLINICAL HISTORY: Respiratory failure. FINDINGS: An AP, portable, upright chest radiograph is compared to study dated 07/20/2020. Correlation is made with chest CT dated 07/17/2020. The examination is degraded by portable technique and patient rotation. An endotracheal tube, an enteric tube, and a left subclavian central venous catheter are u nchanged in position. The cardiomediastinal silhouette is unremarkable. Multifocal airspace consolida tion is unchanged from yesterday. No large pleural effusion or pneumothorax is seen. The bony thorax is grossly intact. IMPRESSION: 1. Stable lines and tubes. 2. Multifocal airspace consolidation is similar in appearance to yesterday. ACT 112: Negative or not required by law. Electronically signed by: Sesar Melchor M.D. 07/21/2020 12:19 PM
[2020-07-21] MEDS: PEPTAMEN INTENSE VHP 1.0 CAL 1,000 ML BAG OG SCH (13:13)
[2020-07-21] MEDS: LACTULOSE SYRUP 20 GM/30 ML UDC PO SCH (14:31)
[2020-07-21] MEDS: MIDAZOLAM HCL 125 MG/250 ML BAG IV SCH (17:19)
[2020-07-21] MEDS ORDERED: propofoL 1,000 MG/100 ML VIAL IV SCH (18:45)
[2020-07-22] MEDS: fentaNYL DRIP 1,250 MCG/250 ML BAG IV SCH ×4 (01:44→19:37)
[2020-07-22 04:38] LABS: iSTAT Art Bld Gas pCO2 Correct 39 mmHg (35-46); iSTAT Art Bld Gas pH Corrected 7.443 (7.35-7.45); iSTAT Arterial Blood Gas HCO3 27 meg/L (19-24); iSTAT Arterial Blood Gas pCO2 39 mmHg (35-46); iSTAT Arterial Blood Gas pH 7.44 (7.35-7.45); iSTAT Arterial Blood Gas pO2 62 mmHg (80-95); iSTAT Arterial Blood Gas pO2 C 62; iSTAT Carbon Dioxide 28 mmol/L (24-31); iSTAT FiO2 40 %; iSTAT Hematocrit 33 % (42-52); iSTAT Hemoglobin 11.2 g/dl (14.0-18.0); iSTAT Potassium 4.7 mmol/L (3.3-5.0); iSTAT Site Art Line; iSTAT Sodium 138 mmol/L (135-144)
[2020-07-22 06:08] LABS: Basophils # (auto) 0.02 K/uL (0-0.2); Basophils % (auto) 0.3 %; Hematocrit (blood only) 35.4 % (42-52); Immature Granulocytes # (auto) 0.14 K/uL (0.00-0.02); Immature Granulocytes % (auto) 1.8 %; Lymphocytes % (auto) 13.8 %; Mean Corpuscular Hemoglobin 29.6 pg (25-34); Mean Corpuscular Hgb Conc 33.9 g/dL (32-36); Mean Corpuscular Volume 87.2 fL (80-100); Mean Platelet Volume 11.3 fL (7.4-10.4); Monocytes # (auto) 0.39 K/uL (0.11-0.59); Monocytes % (auto) 4.9 %; Neutrophils % (auto) 79.2 %; Platelet Count 185 K/uL (130-400); RDW Coefficient of Variation 13.5 % (11.5-14.5); RDW Standard Deviation 43.1 fL (36.4-46.3); Red Blood Count 4.06 M/uL (4.7-6.1); White Blood Count 7.95 K/uL (4.8-10.8)
[2020-07-22] MEDS: MIDAZOLAM HCL 125 MG/250 ML BAG IV SCH ×2 (06:33→22:00)
[2020-07-22 06:38] LABS: Albumin Level 2.1 gm/dl (3.4-5.0); BUN Creatinine Ratio 56.2 (10-20); Calcium 7.7 mg/dl (8.5-10.1); Creatinine Clr Calc Pharmacy 121.3 ml/min; Est GFR (African American) 125.2; Magnesium 2.4 mg/dl (1.8-2.4); Potassium 4.6 mmol/L (3.5-5.1)
[2020-07-22 06:39] LABS: Albumin Globulin Ratio 0.7 (0.9-2); Bilirubin,Total 0.7 mg/dl (0.2-1); Globulin 2.9 gm/dl (2.5-4.0); Phosphorus 3.1 mg/dl (2.5-4.9)
[2020-07-22] MEDS: LACTULOSE SYRUP 20 GM/30 ML UDC PO SCH (08:58)
[2020-07-22] MEDS: ENOXAPARIN INJ 40 MG/0.4 ML SYR SQ SCH ×2 (08:58→17:37)
[2020-07-22] MEDS: dexAMETHasone 6 MG in SYRINGE 0 ML IV SCH (08:59)
[2020-07-22] MEDS: Standard Conc 16mcg/mL; 8mg in 500mL IV SCH (09:18)
[2020-07-22] MEDS: propofoL 1,000 MG/100 ML VIAL IV SCH ×2 (09:19→19:58)
--- NOTE | 2020-07-22 09:35 | Hospitalist Progress Note ---
Date of Service July 22, 2020 Assessment & Plan (1) Pneumonia due to COVID-19 virus: Severe disease with resulting acute hypoxic respiratory failure/ARDS. Very high settings on HFNC at the onset of his admission, followed by use of CPAP, and then intubation/mech ventilation. s/p intubation AM of 07/19/20. He is about 10 days into his illness course. Day #6 of decadron 6mg daily; 10-day course planned. s/p Convalescent plasma 07/20/20. Remdesivir stopped Procal remains normal making bacterial superinfection unlikely. ICU managing ventilator Continue ARDSNet protocol for vent parameters, peak pressures are in low 20's FiO2 40% and PEEP 10 unsure if they plan to prone today, Nimbex off (2) Acute respiratory failure with hypoxia: As above in "COVID-19 pneumonia" Pulse ox 68% on room air upon arrival to the ER. PaO2 74 on 60% FiO2 - initial admission ABG. Continue steroids, mech ventilation No evidence of complicating acute CHF. (3) Hypomagnesemia: repleted and resolved (4) Hyponatremia: Resolved (5) Abnormal LFTs: 2nd to COVID-19. AST and ALT slightly elevated (6) BPH (benign prostatic hyperplasia): Hold flomax while on vent No issues Lane (7) Chronic neck pain: Hold voltaren, etc (8) DVT prophylaxis: Lovenox SQ twice daily - Due to severe COVID illness he remains at high risk of VTE GI prophylaxis given severe stress - pepcid 20mg IV BID FEN - tube feeds at 40mL/hr will reach out to family later today Admission and Anticipated Discharge Date Admission Date: July 17, 2020 Subjective chart reviewed labs reviewed, CBC and BMP stable, ALT and AST slightly elevated ABG with PaO2 62 at FiO2 40% and PEEP 10 ICU managing, sedated with Versed and Fentanyl and requiring a higher dose of Propofol this morning he was agitated and BP up to 180's and saturations dropped, now better Review of Systems Review of Systems: Unobtainable due to endotracheal tube and Unobtainable due to reduced consciousness Physical Exam Constitutional: well developed, well nourished and + mechanically ventilated Neck: trachea midline, no thyromegaly Respiratory: normal respiratory effort and symmetric chest movement Auscultation: lungs clear to auscultation bilaterally Cardiovascular: Rate/Rhythm: regular rhythm and + bradycardic Heart Sounds: normal S1 and normal S2; no murmur Extremities: normal capillary refill; no edema Gastrointestinal (Abdomen): normal bowel sounds, soft, nontender, no hepatosplenomegaly Musculoskeletal: no cyanosis or clubbing, extremities motor strength 5/5 Skin: no rashes, warm and dry Neurologic: CN's II-XI intact bilaterally and + obtunded; no focal motor deficits Results & Data Results & Data ([facility]) Vital Signs (Past 12 Hours) Vital Signs Temp Pulse Resp BP Pulse Ox 07/22/20 07:47 70 27 H 91 07/22/20 06:23 37.1 C 54 L 120/59 L 88 L 07/22/20 05:53 37.0 C 55 L 128/58 L 89 L 07/22/20 05:24 37.0 C 55 L 133/65 89 L 07/22/20 04:53 37.0 C 57 L 108/57 L 89 L 07/22/20 04:23 36.9 C 55 L 124/63 89 L 07/22/20 03:53 36.9 C 53 L 117/61 88 L 07/22/20 03:22 36.8 C 55 L 120/58 L 91 07/22/20 02:56 53 L 27 H 92 07/22/20 02:53 36.8 C 52 L 113/60 91 07/22/20 02:22 36.8 C 52 L 109/59 L 90 07/22/20 01:52 36.7 C 53 L 110/61 88 L 07/22/20 01:23 36.6 C 49 L 111/55 L 95 07/22/20 00:52 49 L 110/61 95 07/22/20 00:22 36.5 C 51 L 105/58 L 94 07/21/20 23:52 51 L 115/62 92 07/21/20 23:22 47 L 109/60 95 07/21/20 22:54 50 L 26 H 93 07/21/20 22:52 53 L 106/59 L 93 07/21/20 22:22 50 L 124/65 92 07/21/20 21:52 50 L 140/75 91 Laboratory Results Laboratory Results - last 24 hr 07/21/20 07/22/20 07/22/20 13:10 04:25 05:37 WBC 7.95 RBC 4.06 L Hgb 12.0 L POC Hgb 11.2 L Hct 35.4 L POC Hct 33 L MCV 87.2 MCH 29.6 MCHC 33.9 RDW Std Deviation 43.1 RDW Coeff of Wes 13.5 Plt Count 185 MPV 11.3 H Immature Gran % (Auto) 1.8 Neut % (Auto) 79.2 Lymph % (Auto) 13.8 [place] % (Auto) 4.9 Eos % (Auto) 0.0 Baso % (Auto) 0.3 Neut # (Auto) 6.30 Lymph # (Auto) 1.10 L [place] # (Auto) 0.39 Eos # (Auto) 0.00 Baso # (Auto) 0.02 Immature Gran # (Auto) 0.14 H Sample Site Art Line POC pH 7.44 POC pCO2 39 POC pO2 62 L POC HCO3 27 H POC Total CO2 28 POC Base Excess 3.0 H ABG pH (Temp Correct) 7.443 ABG pCO2 (Temp Corrct 39 POC ABG pO2 at Pt Temp 62 POC ABG O2 Sat 92.0 Joshua Test NA O2 Delivery Device Ventilator POC O2 Rate 26 POC FiO2 40 Tidal Volume 450 PEEP 10 POC Sodium 138 Sodium POC Potassium 4.7 Potassium Chloride Carbon Dioxide Anion Gap BUN Creatinine Est Cr Clr Drug Dosing Est GFR ( Amer) Est GFR (Non-Af Amer) BUN/Creatinine Ratio Glucose POC Glucose 130 H Calcium Phosphorus Magnesium Total Bilirubin AST ALT Alkaline Phosphatase Total Protein Albumin Globulin Albumin/Globulin Ratio 07/22/20 05:37 WBC RBC Hgb POC Hgb Hct POC Hct MCV MCH MCHC RDW Std Deviation RDW Coeff of Wes Plt Count MPV Immature Gran % (Auto) Neut % (Auto) Lymph % (Auto) [place] % (Auto) Eos % (Auto) Baso % (Auto) Neut # (Auto) Lymph # (Auto) [place] # (Auto) Eos # (Auto) Baso # (Auto) Immature Gran # (Auto) Sample Site POC pH POC pCO2 POC pO2 POC HCO3 POC Total CO2 POC Base Excess ABG pH (Temp Correct) ABG pCO2 (Temp Corrct POC ABG pO2 at Pt Temp POC ABG O2 Sat Joshua Test O2 Delivery Device POC O2 Rate POC FiO2 Tidal Volume PEEP POC Sodium Sodium 141 POC Potassium Potassium 4.6 Chloride 110 H Carbon Dioxide 26 Anion Gap 5.0 BUN 37 H Creatinine 0.65 Est Cr Clr Drug Dosing 121.3 Est GFR ( Amer) 125.2 Est GFR (Non-Af Amer) 108.0 BUN/Creatinine Ratio 56.2 H Glucose 132 H POC Glucose Calcium 7.7 L Phosphorus 3.1 Magnesium 2.4 Total Bilirubin 0.7 AST 90 H ALT 84 H Alkaline Phosphatase 58 Total Protein 5.0 L Albumin 2.1 L Globulin 2.9 Albumin/Globulin Ratio 0.7 L Medications Administered Current Inpatient Medications Acetaminophen (Acetaminophen 325 Mg Tab) 650 mg PO Q4H PRN PRN Reason: Pain Or Fever T>101.5 Stop: 08/16/20 14:58 Last Admin: 07/18/20 14:34 Dose: 650 mg Documented by: Albuterol (Albuterol Hfa 8 Gm Inhaler) 2 puffs INH 6XD PRN PRN Reason: shortness of breath or wheezing Stop: 08/16/20 14:58 Enoxaparin Sodium (Enoxaparin Inj 40 Mg/0.4 Ml Syr) 40 mg SQ Q12H [facility] Stop: 08/17/20 17:59 Last Admin: 07/22/20 08:58 Dose: 40 mg Documented by: Fentanyl Citrate (Fentanyl Bolus From Bag) 50 mcg IV Q60M PRN PRN Reason: Pain Stop: 08/02/20 08:51 Last Admin: 07/20/20 07:32 Dose: 50 mcg Documented by: Fish Oil ([place]-3 (Purified Fish Oil) 1 Gm Cap) 1 gm PO QAM [facility] Stop: 08/17/20 08:59 Last Admin: 07/21/20 12:08 Dose: Not Given Documented by: Dexamethasone 6 mg/ Syringe 1.5 mls @ 1 mls/min IV DAILY [facility] Stop: 07/28/20 08:59 Last Admin: 07/22/20 08:59 Dose: 1 mls/min Documented by: Famotidine 20 mg/ Syringe 5 mls @ 2.5 mls/min IV BID [facility] Stop: 08/17/20 20:59 Last Admin: 07/21/20 20:25 Dose: 2.5 mls/min Documented by: Fentanyl Citrate (Fentanyl Drip) 1,250 mcg in 250 mls @ 30 mls/hr IV .Q8H20M [facility]; Protocol Stop: 08/02/20 08:59 Last Admin: 07/22/20 09:00 Dose: Not Given Documented by: Midazolam HCl (Versed) 125 mg in 250 mls @ 16 mls/hr IV .[id number] [facility]; Protocol Stop: 08/18/20 09:14 Last Admin: 07/22/20 06:33 Dose: 8 mg/hr, 16 mls/hr Documented by: Norepinephrine Bitartrate (Levophed/D5w) 8 mg in 508 mls @ 15.411 mls/hr IV .Q24H [facility]; Protocol Stop: 08/18/20 10:59 Last Admin: 07/22/20 09:18 Dose: Not Given Documented by: Propofol (Diprivan) 1,000 mg in 100 mls @ 9.768 mls/hr IV .[id number] [facility]; Protocol Stop: 07/22/20 13:59 Last Admin: 07/22/20 09:19 Dose: 20 mcg/kg/min, 9.8 mls/hr Documented by: Lactulose (Lactulose Syrup 20 Gm/30 Ml Udc) 20 gm PO DAILY [facility] Stop: 08/20/20 13:29 Last Admin: 07/22/20 08:58 Dose: 20 gm Documented by: Midazolam HCl (Midazolam Bolus From Bag) 2 mg IV Q60M PRN PRN Reason: Sedation Stop: 08/18/20 09:04 Nutritional Formula (Peptamen Intense Vhp 1.0 Carlos A 1,000 Ml Bag) 1,000 ml OG CONT [facility]; Protocol Stop: 08/19/20 10:29 Last Admin: 07/21/20 13:13 Dose: 1,000 ml Documented by: Propofol (Propofol Bolus From Bag) 20 mg IV Q5M PRN PRN Reason: Sedation Stop: 07/22/20 13:56 PG Care Time/CCT Total # of Minutes Spent Total Time Spent with Patient: Total time spent is greater than 50% in coordination of care (as documented) at patient's floor/unit and/or counseling patient: Coding Level of Care Code 10047 Subseq Hosp Care Lvl 2 Diagnoses Pneumonia due to COVID-19 virus U07.1; J12.82 Acute respiratory failure with hypoxia J96.01 Hypomagnesemia E83.42 Hyponatremia E87.1 Abnormal LFTs R94.5 BPH (benign prostatic hyperplasia) N40.0 Lower urinary tract symptom presence: symptoms absent Chronic neck pain M54.2; G89.29 DVT prophylaxis Z29.9 (1) BPH (benign prostatic hyperplasia) Lower urinary tract symptom presence: symptoms absent Qualified Code(s): N40.0 - Benign prostatic hyperplasia without lower urinary tract symptoms
[2020-07-22] MEDS: FAMOTIDINE 20 MG in SYRINGE 3 ML IV SCH ×2 (10:28→19:42)
[2020-07-22 10:41] LABS: iSTAT Sodium 135 mmol/L (135-144)
[2020-07-22 10:42] LABS: iSTAT Art Bld Gas pH Corrected 7.448 (7.35-7.45); iSTAT Arterial Blood Gas pCO2 42 mmHg (35-46); iSTAT Arterial Blood Gas pH 7.43 (7.35-7.45); iSTAT Hematocrit 37 % (42-52); iSTAT Hemoglobin 12.6 g/dl (14.0-18.0); iSTAT Potassium 4.7 mmol/L (3.3-5.0)
[2020-07-22 10:43] LABS: iSTAT Art Bld Gas pCO2 Correct 41 mmHg (35-46); iSTAT Arterial Blood Gas pO2 85 mmHg (80-95); iSTAT Arterial Blood Gas pO2 C 80; iSTAT Carbon Dioxide 30 mmol/L (24-31)
[2020-07-22 10:44] LABS: iSTAT Allen Test Not Performed; iSTAT Arterial Blood Gas HCO3 28 meg/L (19-24); iSTAT FiO2 50 %; iSTAT Sample Type Arterial
[2020-07-22 10:45] LABS: iSTAT Site Art Line
--- NOTE | 2020-07-22 10:47 | XRay Report ---
XR chest 1V portable HISTORY: Respiratory failure. COMPARISON: Chest 07/21/2020. FINDINGS: Slight improved aeration within the hazy bilateral airspace opacities. No pleural effusions . No pneumothorax. Endotracheal tube terminates 4.9 cm from the arlette. Left subclavian Port-A-Cath t erminates in the distal SVC. Nasogastric tube terminates below the diaphragm. The tip is not included on this study. The heart is normal in size. IMPRESSION: 1. Slight improved aeration within the bilateral hazy airspace opacities. 2. Satisfactory support line placement. ACT 112: Negative or not required by law. Electronically signed by: Ishan Plata M.D. 07/22/2020 10:46 AM
--- NOTE | 2020-07-22 11:30 | Critical Care Progress Note ---
Date of Service July 22, 2020 Assessment & Plan (1) Acute respiratory failure with hypoxia: Impression: 55-year-old male with coronavirus. He has failed attempts at noninvasive positive pressure ventilation including bilevel and has increased work of breathing. Decision was made to proceed with intubation mechanical ventilation and prone positioning with neuromuscular blockade. 24-hour events: Patient is remained hemodynamically stable on a low-dose Levophed. He was returned to the supine position around 9:00 yesterday morning and reprogrammed around 3:00 in the afternoon. He has had his FiO2 weaned down his PEEP is remained stable. He is tolerating trophic tube feedings. He remains on a low-dose of Levophed. He is making some progress with regards to his ventilatory requirements but is not ready yet to consider spontaneous breathing trials extubation or awakening. Recommendations: 1. Neurologic: Continue deep sedation with fentanyl Versed. We will monitor BIS. 2. Cardiovascular: Levophed as needed to maintain mean arterial pressure of around 65. 3. Pulmonary: ARDS/acute hypoxemic respiratory failure: Vent day #4. Blood gas: 7.4 // vent settings: Assist-control 26/450/10/0 0.4 Oxygenation is unchanged compared to yesterday. Continue mechanical ventilation with ARDSnet strategy. He was not felt to be an ECMO candidate previously. Continue dexamethasone. 4. ID: Coronavirus pneumonia. Continue dexamethasone. No indication for antimicrobial agents currently. Blood cultures no growth to date. Check respiratory cultures: Normal chris 5. GI: Enteric access obtained. Continue trophic tube feedings and follow clinically. Okay to continue with neuromuscular blockade in prone positioning per protocol 6. Renal: Electrolytes are acceptable. Acid-base status appropriate. Continue to monitor urine output. 7. Heme-onc: No current issues. DVT prophylaxis in place with high dose given Covid pneumonia. No real utility in trending D-dimer at this point time so we will discontinue additional assessments. 8. Endocrine: Glycemic control per ICU protocol. I have personally spent 35 minutes of critical care time in the direct management of this patient. This is a life/limb threatening event. This includes time spent evaluating patient, direct bedside care, chart review, placing orders, interpretation of diagnostic studies, discussion with con sultants, patient, and/or family members regarding treatment decisions, as well as other required patient management activities. This time is exclusive of all separately billable procedures, and teaching time and separate from and in addition to any other critical care service time. Admission and Anticipated Discharge Date Admission Date: July 17, 2020 Subjective Intubated and sedated Review of Systems Review of Systems: Unobtainable due to reduced consciousness Physical Exam Physical Exam: General: Sedated. nontoxic. Skin: Warm, dry, Head: Atraumatic Ears, nose, mouth and throat: airway obscured by endotracheal tube Cardiovascular: Normal peripheral perfusion Respiratory: Ventilator settings reviewed Gastrointestinal: Non distended Musculoskeletal: No deformity Constitutional: well developed and + mechanically ventilated Neck: trachea midline, no thyromegaly Respiratory: no respiratory distress Auscultation: + rales Cardiovascular: RRR, no murmur, no edema Gastrointestinal (Abdomen): normal bowel sounds, soft, nontender, no hepatosplenomegaly Musculoskeletal: Extremities: extremities normal to inspection Skin: no rashes, warm and dry Lymphatic: no cervical lymphadenopathy Results & Data Results & Data ([facility]) Vital Signs (Past 12 Hours) Vital Signs Temp Pulse Resp BP Pulse Ox 07/22/20 09:23 37.3 C 54 L 122/61 90 07/22/20 09:00 37.3 C 58 L 92 07/22/20 08:53 37.4 C 56 L 125/65 92 07/22/20 08:23 37.4 C 60 120/62 90 07/22/20 08:00 37.2 C 59 L 89 L 07/22/20 07:53 37.2 C 59 L 137/60 88 L 07/22/20 07:47 70 27 H 91 07/22/20 07:23 37.2 C 56 L 119/60 89 L 07/22/20 07:00 37.1 C 57 L 88 L 07/22/20 06:23 37.1 C 54 L 120/59 L 88 L 07/22/20 05:53 37.0 C 55 L 128/58 L 89 L 07/22/20 05:24 37.0 C 55 L 133/65 89 L 07/22/20 04:53 37.0 C 57 L 108/57 L 89 L 07/22/20 04:23 36.9 C 55 L 124/63 89 L 07/22/20 03:53 36.9 C 53 L 117/61 88 L 07/22/20 03:22 36.8 C 55 L 120/58 L 91 07/22/20 02:56 53 L 27 H 92 07/22/20 02:53 36.8 C 52 L 113/60 91 07/22/20 02:22 36.8 C 52 L 109/59 L 90 07/22/20 01:52 36.7 C 53 L 110/61 88 L 07/22/20 01:23 36.6 C 49 L 111/55 L 95 07/22/20 00:52 49 L 110/61 95 07/22/20 00:22 36.5 C 51 L 105/58 L 94 07/21/20 23:52 51 L 115/62 92 Laboratory Results 07/22/20 07/22/20 07/22/20 Range/Units 12:39 05:37 05:37 WBC 7.95 (4.8-10.8) K/uL RBC 4.06 L (4.7-6.1) M/uL Hgb 12.0 L (14.0-18.0) g/dL POC Hgb (14.0-18.0) g/dl Hct 35.4 L (42-52) % POC Hct (42-52) % MCV 87.2 (80-100) fL MCH 29.6 (25-34) pg MCHC 33.9 (32-36) g/dL RDW Std Deviation 43.1 (36.4-46.3) fL RDW Coeff of Wes 13.5 (11.5-14.5) % Plt Count 185 (130-400) K/uL MPV 11.3 H (7.4-10.4) fL Immature Gran % (Auto) 1.8 % Neut % (Auto) 79.2 % Lymph % (Auto) 13.8 % Irwin % (Auto) 4.9 % Eos % (Auto) 0.0 % Baso % (Auto) 0.3 % Neut # (Auto) 6.30 (1.4-6.5) K/uL Lymph # (Auto) 1.10 L (1.2-3.4) K/uL Irwin # (Auto) 0.39 (0.11-0.59) K/uL Eos # (Auto) 0.00 (0-0.5) K/uL Baso # (Auto) 0.02 (0-0.2) K/uL Immature Gran # (Auto) 0.14 H (0.00-0.02) K/uL Specimen Type Sample Site Patient Temperature POC pH (7.35-7.45) POC pCO2 (35-46) mmHg POC pO2 (80-95) mmHg POC HCO3 (19-24) juliano/L POC Total CO2 (24-31) mmol/L POC Base Excess (-9-1.8) juliano/L ABG pH (Temp Correct) (7.35-7.45) ABG pCO2 (Temp Corrct (35-46) mmHg POC ABG pO2 at Pt Temp POC ABG O2 Sat (90-95) % Joshua Test O2 Delivery Device POC O2 Rate Vent Mode POC FiO2 % Tidal Volume PEEP POC Sodium (135-144) mmol/L Sodium 141 (136-145) mmol/L POC Potassium (3.3-5.0) mmol/L Potassium 4.6 (3.5-5.1) mmol/L Chloride 110 H (98-107) mmol/L Carbon Dioxide 26 (21-32) mmol/L Anion Gap 5.0 (3-11) BUN 37 H (7-18) mg/dl Creatinine 0.65 (0.6-1.4) mg/dl Est Cr Clr Drug Dosing 121.3 ml/min Est GFR ( Amer) 125.2 Est GFR (Non-Af Amer) 108.0 BUN/Creatinine Ratio 56.2 H (10-20) Glucose 132 H (70-99) mg/dl POC Glucose 120 H (70-99) mg/dl Calcium 7.7 L (8.5-10.1) mg/dl Phosphorus 3.1 (2.5-4.9) mg/dl Magnesium 2.4 (1.8-2.4) mg/dl Total Bilirubin 0.7 (0.2-1) mg/dl AST 90 H (15-37) U/L ALT 84 H (12-78) U/L Alkaline Phosphatase 58 (45-117) U/L Total Protein 5.0 L (6.4-8.2) gm/dl Albumin 2.1 L (3.4-5.0) gm/dl Globulin 2.9 (2.5-4.0) gm/dl Albumin/Globulin Ratio 0.7 L (0.9-2) 07/22/20 07/20/20 Range/Units 04:25 03:44 WBC (4.8-10.8) K/uL RBC (4.7-6.1) M/uL Hgb (14.0-18.0) g/dL POC Hgb 11.2 L 12.6 L (14.0-18.0) g/dl Hct (42-52) % POC Hct 33 L 37 L (42-52) % MCV (80-100) fL MCH (25-34) pg MCHC (32-36) g/dL RDW Std Deviation (36.4-46.3) fL RDW Coeff of Wes (11.5-14.5) % Plt Count (130-400) K/uL MPV (7.4-10.4) fL Immature Gran % (Auto) % Neut % (Auto) % Lymph % (Auto) % Irwin % (Auto) % Eos % (Auto) % Baso % (Auto) % Neut # (Auto) (1.4-6.5) K/uL Lymph # (Auto) (1.2-3.4) K/uL Irwin # (Auto) (0.11-0.59) K/uL Eos # (Auto) (0-0.5) K/uL Baso # (Auto) (0-0.2) K/uL Immature Gran # (Auto) (0.00-0.02) K/uL Specimen Type Arterial Sample Site Art Line Art Line Patient Temperature 36.0 POC pH 7.44 7.43 (7.35-7.45) POC pCO2 39 42 (35-46) mmHg POC pO2 62 L 85 (80-95) mmHg POC HCO3 27 H 28 H (19-24) juliano/L POC Total CO2 28 30 (24-31) mmol/L POC Base Excess 3.0 H 4.0 H (-9-1.8) juliano/L ABG pH (Temp Correct) 7.443 7.448 (7.35-7.45) ABG pCO2 (Temp Corrct 39 41 (35-46) mmHg POC ABG pO2 at Pt Temp 62 80 POC ABG O2 Sat 92.0 97.0 H (90-95) % Joshua Test NA Not Performed O2 Delivery Device Ventilator Ventilator POC O2 Rate 26 26 Vent Mode AC POC FiO2 40 50 % Tidal Volume 450 450 PEEP 10 15 POC Sodium 138 135 (135-144) mmol/L Sodium (136-145) mmol/L POC Potassium 4.7 4.7 (3.3-5.0) mmol/L Potassium (3.5-5.1) mmol/L Chloride (98-107) mmol/L Carbon Dioxide (21-32) mmol/L Anion Gap (3-11) BUN (7-18) mg/dl Creatinine (0.6-1.4) mg/dl Est Cr Clr Drug Dosing ml/min Est GFR ( Amer) Est GFR (Non-Af Amer) BUN/Creatinine Ratio (10-20) Glucose (70-99) mg/dl POC Glucose (70-99) mg/dl Calcium (8.5-10.1) mg/dl Phosphorus (2.5-4.9) mg/dl Magnesium (1.8-2.4) mg/dl Total Bilirubin (0.2-1) mg/dl AST (15-37) U/L ALT (12-78) U/L Alkaline Phosphatase (45-117) U/L Total Protein (6.4-8.2) gm/dl Albumin (3.4-5.0) gm/dl Globulin (2.5-4.0) gm/dl Albumin/Globulin Ratio (0.9-2) Diagnostic Findings Chest x-ray reviewed Coding Level of Care Code Critical Care 1st 30-74 mins Diagnoses Acute respiratory failure with hypoxia J96.01
[2020-07-22] MEDS: PEPTAMEN INTENSE VHP 1.0 CAL 1,000 ML BAG OG SCH ×2 (11:54→16:38)
[2020-07-22] MEDS ORDERED: PROPOFOL BOLUS FROM BAG IV PRN (19:17)
[2020-07-22] MEDS ORDERED: STAT IV Infusion **Titration per Protocol STA (19:17)
[2020-07-23] MEDS: propofoL 1,000 MG/100 ML VIAL IV SCH ×3 (04:40→23:00)
[2020-07-23] MEDS: fentaNYL DRIP 1,250 MCG/250 ML BAG IV SCH ×3 (04:40→21:45)
[2020-07-23] MEDS: ENOXAPARIN INJ 40 MG/0.4 ML SYR SQ SCH ×2 (04:41→17:48)
[2020-07-23 05:23] LABS: iSTAT Art Bld Gas pCO2 Correct 40 mmHg (35-46); iSTAT Arterial Blood Gas HCO3 26 meg/L (19-24); iSTAT Arterial Blood Gas pCO2 39 mmHg (35-46); iSTAT Arterial Blood Gas pH 7.44 (7.35-7.45); iSTAT Arterial Blood Gas pO2 62 mmHg (80-95); iSTAT Arterial Blood Gas pO2 C 63; iSTAT Carbon Dioxide 28 mmol/L (24-31); iSTAT Hematocrit 30 % (42-52); iSTAT Hemoglobin 10.2 g/dl (14.0-18.0); iSTAT Potassium 4.2 mmol/L (3.3-5.0); iSTAT Site L Radial; iSTAT Sodium 137 mmol/L (135-144)
[2020-07-23 06:20] LABS: Hematocrit (blood only) 33.2 % (42-52); Hemoglobin 11.1 g/dL (14.0-18.0); Mean Corpuscular Hemoglobin 29.3 pg (25-34); Mean Corpuscular Hgb Conc 33.4 g/dL (32-36); Mean Corpuscular Volume 87.6 fL (80-100); Mean Platelet Volume 10.7 fL (7.4-10.4); Platelet Count 197 K/uL (130-400); RDW Coefficient of Variation 13.4 % (11.5-14.5); Red Blood Count 3.79 M/uL (4.7-6.1); White Blood Count 9.69 K/uL (4.8-10.8)
[2020-07-23 06:46] LABS: Basophils # (auto) 0.02 K/uL (0-0.2); Basophils % (auto) 0.2 %; Eosinophils # (auto) 0.01 K/uL (0-0.5); Eosinophils % (auto) 0.1 %; Immature Granulocytes % (auto) 5.2 %; Lymphocytes # (auto) 0.67 K/uL (1.2-3.4); Lymphocytes % (auto) 6.9 %; Monocytes # (auto) 1.23 K/uL (0.11-0.59); Monocytes % (auto) 12.7 %; Neutrophils # (auto) 7.26 K/uL (1.4-6.5); Neutrophils % (auto) 74.9 %
[2020-07-23 07:01] LABS: Albumin Level 1.9 gm/dl (3.4-5.0); BUN Creatinine Ratio 55.2 (10-20); Calcium 7.6 mg/dl (8.5-10.1); Creatinine Clr Calc Pharmacy 129.3 ml/min; Est GFR (African American) 128.5; Est GFR (Non-African American) 110.9; Magnesium 2.2 mg/dl (1.8-2.4); Potassium 4.2 mmol/L (3.5-5.1)
[2020-07-23 07:04] LABS: Albumin Globulin Ratio 0.7 (0.9-2); Bilirubin,Total 0.6 mg/dl (0.2-1); Globulin 2.9 gm/dl (2.5-4.0); Phosphorus 2.8 mg/dl (2.5-4.9); Total Protein 4.8 gm/dl (6.4-8.2)
[2020-07-23] MEDS: dexAMETHasone 6 MG in SYRINGE 0 ML IV SCH (08:39)
[2020-07-23] MEDS: LACTULOSE SYRUP 20 GM/30 ML UDC PO SCH (08:40)
[2020-07-23] MEDS: FAMOTIDINE 20 MG in SYRINGE 3 ML IV SCH ×2 (08:40→19:51)
--- NOTE | 2020-07-23 08:46 | XRay Report ---
XR chest 1V portable HISTORY: Respiratory failure. COMPARISON: Chest 07/22/2020. FINDINGS: The endotracheal tube terminates 4.2 cm from the arlette. Left subclavian central venous cat heter terminates in the SVC. Nasogastric tube terminates below the diaphragm. The tip is not included on this study. No pneumothorax. Multifocal hazy bilateral airspace opacities persist. The heart is n ormal in size. Suspect trace bilateral pleural effusions. IMPRESSION: 1. Satisfactory support line placement. 2. No significant change in the multifocal hazy bilateral airspace opacities consistent with a pneumo mague. ACT 112: Negative or not required by law. Electronically signed by: Ishan Plata M.D. 07/23/2020 8:45 AM
--- NOTE | 2020-07-23 09:30 | Critical Care Progress Note ---
Date of Service July 23, 2020 Assessment & Plan (1) Acute respiratory failure with hypoxia: Reason Critically Ill: 55-year-old male here for COVID pneumonia, transferred to the ICU on 07/18 for acute hypoxic RF secondary to this. ICU day 6, Vent day 5. Neuro - [facility] ICU: negative - added Precedex today to assist with agitation, continue Fentanyl/Versed/Propofol - monitor BIS Cardiac - No Levophed needed for greater than 24 hours - maintaining MAP >65 - discontinued Levophed today Respiratory - ARDS/acute hypoxic RF secondary to COVID PNA - Vent settings: CPAP 5cm H20, PEEP 10, FiO2 .45; P:F ratio of 124 - AB.45/37/56/26/90 - CXR showing stable appearance of hazy bilateral opacities: multifocal PNA (COVID-19) - continue Dexamethasone 6mg IV daily x10 days (today is day 6) - SBT/extubation as tolerated GI - continue trophic feeds - continue daily Lactulose 20g PO syrup RENAL/LYTES - - No significant electrolyte derangement, acid-base status appropriate - Replace lytes as needed - No concerns at this time ENDO - glycemic control per ICU protocol HEME - Stable H&H ID - COVID-19 pneumonia, cultures no growth to date - continue Dexamethasone as mentioned above - no indication for antimicrobial treatments LINES/IV ACCESS Left Subclavian VC, Left Radial Art Line, PIVs, OG tube, orellana intact DVT PROPHYLAXIS - Lovenox 40mg SQ Q12H (high-dose ppx in setting of COVID-19) GI ppx: Pepcid 20mg IV BID CODE STATUS: full code Thank you for allowing us to be part of this patient's care. Please refer to Dr. Reddy's documentation for any further recommendations. Admission and Anticipated Discharge Date Admission Date: July 17, 2020 Supervising Physician Co-Signing Physician Notes Dr. Calderon was resident physician during care of patient. I separately evaluated patient for khanna portions of the history and the exam. I was present during the critical portion of medical decision making, and I discussed the case with the resident. I generally agree with the findings and plan. Patient's respiratory mechanics improving, still has low PF ratio precluding trial of extubation today and hopefully in the next 24 to 48 hours we might be able to proceed with a trial of extubation. Patient was discussed in multidisciplinary rounds Updated the patient's I have personally spent 40 minutes of critical care time in the direct management of this patient. This is a life/limb threatening event. This includes time spent evaluating patient, direct bedside care, chart review, placing orders, interpretation of diagnostic studies, discussion with consultants, patient, and/or family members regarding treatment decisions, as well as other required patient management activities. This time is exclusive of all separately billable procedures, and teaching time and separate from and in addition to any other critical care service time. Subjective No acute events overnight. No pressors for more than 24 hours. Stable vent requirements. Review of Systems Review of Systems: Unobtainable due to ventilated/sedated. Physical Exam Physical Exam: General: Ventilated/sedated. HEENT: Atraumatic, airway obscured by ETT Pulm: Vent settings reviewed Cardiac: RRR, -mrg. Radial pulses intact and symmetrical. Abdominal: soft, non-tender, non-distended Skin: warm, dry Results & Data Results & Data ([facility]) Vital Signs (Past 12 Hours) Vital Signs Temp Pulse Resp BP Pulse Ox 07/23/20 08:54 37.7 C H 65 133/63 85 L 07/23/20 08:30 37.7 C H 63 89 L 07/23/20 08:24 37.7 C H 65 164/79 H 88 L 07/23/20 08:00 37.7 C H 64 150/51 H 88 L 07/23/20 07:53 37.7 C H 65 151/72 H 88 L 07/23/20 07:50 65 21 89 L 07/23/20 07:36 86 27 H 91 07/23/20 07:30 37.7 C H 62 90 07/23/20 07:23 37.7 C H 62 127/64 90 07/23/20 07:00 37.6 C H 61 90 07/23/20 06:23 37.6 C H 61 130/64 89 L 07/23/20 05:54 37.5 C 62 141/69 H 89 L 07/23/20 05:24 37.4 C 60 128/62 89 L 07/23/20 04:54 37.4 C 62 158/80 H 90 07/23/20 04:23 37.5 C 58 L 134/63 90 07/23/20 04:00 62 158/80 H 07/23/20 03:53 37.5 C 57 L 161/71 H 91 07/23/20 03:46 57 L 27 H 90 07/23/20 03:23 37.4 C 57 L 137/65 89 L 07/23/20 02:53 37.4 C 55 L 138/66 89 L 07/23/20 02:23 37.3 C 56 L 136/62 91 07/23/20 01:53 37.3 C 57 L 135/64 90 07/23/20 01:23 37.3 C 58 L 149/66 H 89 L 07/23/20 00:53 37.2 C 53 L 139/65 88 L 07/23/20 00:23 37.2 C 53 L 134/65 91 07/23/20 00:00 53 L 07/22/20 23:23 37.1 C 52 L 135/64 91 07/22/20 22:53 37.1 C 52 L 137/65 92 07/22/20 22:50 49 L 26 H 92 07/22/20 22:23 37.0 C 50 L 134/61 93 Resident Activity Tracking Resident Involvement: Resident Care Provided Care Provided: Adult Hospital Medicine
[2020-07-23 10:03] LABS: iSTAT Art Bld Gas pCO2 Correct 39 mmHg (35-46); iSTAT Art Bld Gas pH Corrected 7.441 (7.35-7.45); iSTAT Arterial Blood Gas HCO3 26 meg/L (19-24); iSTAT Arterial Blood Gas pCO2 37 mmHg (35-46); iSTAT Arterial Blood Gas pH 7.45 (7.35-7.45); iSTAT Arterial Blood Gas pO2 56 mmHg (80-95); iSTAT Arterial Blood Gas pO2 C 59; iSTAT Carbon Dioxide 27 mmol/L (24-31); iSTAT FiO2 40 %; iSTAT Hematocrit 30 % (42-52); iSTAT Hemoglobin 10.2 g/dl (14.0-18.0); iSTAT Potassium 4.1 mmol/L (3.3-5.0); iSTAT Site Art Line; iSTAT Sodium 139 mmol/L (135-144)
[2020-07-23] MEDS ORDERED: STAT IV Infusion **Titration per Protocol STA (11:11)
[2020-07-23] MEDS: DEXMEDETOMIDINE HCL 200 MCG in SODIUM CHLORIDE 0.9% 48 ML IV SCH ×2 (11:23→17:51)
[2020-07-23] MEDS: MIDAZOLAM HCL 125 MG/250 ML BAG IV SCH ×2 (11:24→14:03)
[2020-07-23] MEDS: PEPTAMEN INTENSE VHP 1.0 CAL 1,000 ML BAG OG SCH (14:48)
--- NOTE | 2020-07-23 15:22 | Billing Data ---
Date of Service July 23, 2020 Coding Level of Care Code Critical Care 1st - mins
--- NOTE | 2020-07-23 15:55 | Hospitalist Progress Note ---
Date of Service July 23, 2020 Assessment & Plan (1) Pneumonia due to COVID-19 virus: Severe disease with resulting acute hypoxic respiratory failure/ARDS. Very high settings on HFNC at the onset of his admission, followed by use of CPAP, and then intubation/mech ventilation. s/p intubation AM of 07/19/20. He is about 11 days into his illness course. Day #7 of decadron 6mg daily; 10-day course planned. s/p Convalescent plasma 07/20/20. Remdesivir stopped Procal remains normal making bacterial superinfection unlikely. ICU managing ventilator Continue ARDSNet protocol for vent parameters, peak pressures are in low 20's FiO2 45% and PEEP 10 A/F ratio is 145 might be ready for SBT in 2 days (2) Acute respiratory failure with hypoxia: As above in "COVID-19 pneumonia" Pulse ox 68% on room air upon arrival to the ER. PaO2 74 on 60% FiO2 - initial admission ABG. Continue steroids, mech ventilation No evidence of complicating acute CHF. stable on ventilator but A/F ratio still too low to consider breathing trials management per Dr. Reddy (3) Hypomagnesemia: repleted and resolved (4) Hyponatremia: Resolved (5) Abnormal LFTs: 2nd to COVID-19. AST and ALT slightly elevated (6) BPH (benign prostatic hyperplasia): Hold flomax while on vent No issues Lane (7) Chronic neck pain: Hold voltaren, etc (8) DVT prophylaxis: Lovenox SQ twice daily - Due to severe COVID illness he remains at high risk of VTE GI prophylaxis given severe stress - pepcid 20mg IV BID FEN - tube feeds at 40mL/hr Dr. Reddy updated patient's today Admission and Anticipated Discharge Date Admission Date: July 17, 2020 Subjective slowly improving, off of Levophed now Precedex added to propofol, Fentanyl and Versed A/F ratio still low at 145, too low to consider SBT, but overall he is stable appreciate ICU management of this patient Review of Systems Review of Systems: Unobtainable due to endotracheal tube and Unobtainable due to reduced consciousness Physical Exam Constitutional: well developed, well nourished and + mechanically ventilated Neck: trachea midline, no thyromegaly Respiratory: normal respiratory effort and symmetric chest movement Auscultation: lungs clear to auscultation bilaterally Cardiovascular: Rate/Rhythm: regular rhythm and + bradycardic Heart Sounds: normal S1 and normal S2; no murmur Extremities: normal capillary refill; no edema Gastrointestinal (Abdomen): normal bowel sounds, soft, nontender, no hepatosplenomegaly Musculoskeletal: no cyanosis or clubbing, extremities motor strength 5/5 Skin: no rashes, warm and dry Neurologic: CN's II-XI intact bilaterally and + obtunded; no focal motor deficits Results & Data Results & Data ([facility]) Vital Signs (Past 12 Hours) Vital Signs Temp Pulse Resp BP Pulse Ox 07/23/20 15:21 58 L 17 92 07/23/20 14:58 59 L 07/23/20 14:24 37.5 C 55 L 148/71 H 92 07/23/20 14:00 37.5 C 58 L 91 07/23/20 13:54 37.5 C 64 150/76 H 91 07/23/20 13:00 37.6 C H 61 92 07/23/20 12:54 37.7 C H 60 140/71 92 07/23/20 12:30 37.7 C H 60 92 07/23/20 12:24 37.7 C H 61 152/74 H 92 07/23/20 12:00 37.7 C H 64 165/56 H 90 07/23/20 11:54 37.7 C H 66 141/69 H 90 07/23/20 11:30 37.7 C H 67 88 L 07/23/20 11:25 37.7 C H 88 132/93 89 L 07/23/20 11:21 67 21 90 07/23/20 11:00 37.8 C H 95 H 88 L 07/23/20 10:54 37.8 C H 85 87 L 07/23/20 10:30 37.8 C H 64 84 L 07/23/20 10:24 37.8 C H 72 175/80 H 86 L 07/23/20 10:00 37.8 C H 62 87 L 07/23/20 09:54 37.8 C H 65 153/72 H 87 L 07/23/20 09:30 37.7 C H 62 90 07/23/20 09:24 37.7 C H 64 129/67 89 L 07/23/20 09:00 37.7 C H 65 87 L 07/23/20 08:54 37.7 C H 65 133/63 85 L 07/23/20 08:30 37.7 C H 63 89 L 07/23/20 08:24 37.7 C H 65 164/79 H 88 L 07/23/20 08:00 37.7 C H 64 150/51 H 88 L 07/23/20 07:53 37.7 C H 65 151/72 H 88 L 07/23/20 07:50 65 21 89 L 07/23/20 07:36 86 27 H 91 07/23/20 07:30 37.7 C H 62 90 07/23/20 07:23 37.7 C H 62 127/64 90 07/23/20 07:00 37.6 C H 61 90 07/23/20 06:23 37.6 C H 61 130/64 89 L 07/23/20 05:54 37.5 C 62 141/69 H 89 L 07/23/20 05:24 37.4 C 60 128/62 89 L 07/23/20 04:54 37.4 C 62 158/80 H 90 07/23/20 04:23 37.5 C 58 L 134/63 90 07/23/20 04:00 62 158/80 H Laboratory Results Laboratory Results - last 24 hr 07/22/20 07/22/20 07/23/20 17:36 21:12 04:28 WBC RBC Hgb POC Hgb Hct POC Hct MCV MCH MCHC RDW Std Deviation RDW Coeff of Wes Plt Count MPV Immature Gran % (Auto) Neut % (Auto) Lymph % (Auto) [place] % (Auto) Eos % (Auto) Baso % (Auto) Neut # (Auto) Lymph # (Auto) [place] # (Auto) Eos # (Auto) Baso # (Auto) Immature Gran # (Auto) Sample Site POC pH POC pCO2 POC pO2 POC HCO3 POC Total CO2 POC Base Excess ABG pH (Temp Correct) ABG pCO2 (Temp Corrct POC ABG pO2 at Pt Temp POC ABG O2 Sat Joshua Test O2 Delivery Device POC FiO2 PEEP POC Sodium Sodium POC Potassium Potassium Chloride Carbon Dioxide Anion Gap BUN Creatinine Est Cr Clr Drug Dosing Est GFR ( Amer) Est GFR (Non-Af Amer) BUN/Creatinine Ratio Glucose POC Glucose 138 H 147 H 131 H Calcium Phosphorus Magnesium Total Bilirubin AST ALT Alkaline Phosphatase Total Protein Albumin Globulin Albumin/Globulin Ratio Triglycerides 07/23/20 07/23/20 07/23/20 05:05 05:53 05:53 WBC 9.69 RBC 3.79 L Hgb 11.1 L POC Hgb 10.2 L Hct 33.2 L POC Hct 30 L MCV 87.6 MCH 29.3 MCHC 33.4 RDW Std Deviation 43.0 RDW Coeff of Wes 13.4 Plt Count 197 MPV 10.7 H Immature Gran % (Auto) 5.2 Neut % (Auto) 74.9 Lymph % (Auto) 6.9 [place] % (Auto) 12.7 Eos % (Auto) 0.1 Baso % (Auto) 0.2 Neut # (Auto) 7.26 H Lymph # (Auto) 0.67 L [place] # (Auto) 1.23 H Eos # (Auto) 0.01 Baso # (Auto) 0.02 Immature Gran # (Auto) 0.50 H Sample Site L Radial POC pH 7.44 POC pCO2 39 POC pO2 62 L POC HCO3 26 H POC Total CO2 28 POC Base Excess 2.0 H ABG pH (Temp Correct) 7.430 ABG pCO2 (Temp Corrct 40 POC ABG pO2 at Pt Temp 63 POC ABG O2 Sat 92.0 Joshua Test NA O2 Delivery Device POC FiO2 PEEP POC Sodium 137 Sodium 142 POC Potassium 4.2 Potassium 4.2 Chloride 111 H Carbon Dioxide 27 Anion Gap 4.0 BUN 34 H Creatinine 0.61 Est Cr Clr Drug Dosing 129.3 Est GFR ( Amer) 128.5 Est GFR (Non-Af Amer) 110.9 BUN/Creatinine Ratio 55.2 H Glucose 121 H POC Glucose Calcium 7.6 L Phosphorus 2.8 Magnesium 2.2 Total Bilirubin 0.6 AST 63 H ALT 106 H Alkaline Phosphatase 57 Total Protein 4.8 L Albumin 1.9 L Globulin 2.9 Albumin/Globulin Ratio 0.7 L Triglycerides 259 H 07/23/20 07/23/20 07/23/20 08:37 09:35 12:36 WBC RBC Hgb POC Hgb 10.2 L Hct POC Hct 30 L MCV MCH MCHC RDW Std Deviation RDW Coeff of Wes Plt Count MPV Immature Gran % (Auto) Neut % (Auto) Lymph % (Auto) [place] % (Auto) Eos % (Auto) Baso % (Auto) Neut # (Auto) Lymph # (Auto) [place] # (Auto) Eos # (Auto) Baso # (Auto) Immature Gran # (Auto) Sample Site Art Line POC pH 7.45 POC pCO2 37 POC pO2 56 L POC HCO3 26 H POC Total CO2 27 POC Base Excess 2.0 H ABG pH (Temp Correct) 7.441 ABG pCO2 (Temp Corrct 39 POC ABG pO2 at Pt Temp 59 POC ABG O2 Sat 90.0 Joshua Test NA O2 Delivery Device Ventilator POC FiO2 40 PEEP 10 POC Sodium 139 Sodium POC Potassium 4.1 Potassium Chloride Carbon Dioxide Anion Gap BUN Creatinine Est Cr Clr Drug Dosing Est GFR ( Amer) Est GFR (Non-Af Amer) BUN/Creatinine Ratio Glucose POC Glucose 112 H 151 H Calcium Phosphorus Magnesium Total Bilirubin AST ALT Alkaline Phosphatase Total Protein Albumin Globulin Albumin/Globulin Ratio Triglycerides Medications Administered Current Inpatient Medications Acetaminophen (Acetaminophen 325 Mg Tab) 650 mg PO Q4H PRN PRN Reason: Pain Or Fever T>101.5 Stop: 08/16/20 14:58 Last Admin: 07/18/20 14:34 Dose: 650 mg Documented by: Albuterol (Albuterol Hfa 8 Gm Inhaler) 2 puffs INH 6XD PRN PRN Reason: shortness of breath or wheezing Stop: 08/16/20 14:58 Enoxaparin Sodium (Enoxaparin Inj 40 Mg/0.4 Ml Syr) 40 mg SQ Q12H KARENA Stop: 08/17/20 17:59 Last Admin: 07/23/20 04:41 Dose: 40 mg Documented by: Fentanyl Citrate (Fentanyl Bolus From Bag) 50 mcg IV Q60M PRN PRN Reason: Pain Stop: 08/02/20 08:51 Last Admin: 07/22/20 12:50 Dose: 50 mcg Documented by: Fish Oil ([place]-3 (Purified Fish Oil) 1 Gm Cap) 1 gm PO QAM KARENA Stop: 08/17/20 08:59 Last Admin: 07/21/20 12:08 Dose: Not Given Documented by: Dexamethasone 6 mg/ Syringe 1.5 mls @ 1 mls/min IV DAILY KARENA Stop: 07/28/20 08:59 Last Admin: 07/23/20 08:39 Dose: 1 mls/min Documented by: Famotidine 20 mg/ Syringe 5 mls @ 2.5 mls/min IV BID [facility] Stop: 08/17/20 20:59 Last Admin: 07/23/20 08:40 Dose: 2.5 mls/min Documented by: Fentanyl Citrate (Fentanyl Drip) 1,250 mcg in 250 mls @ 30 mls/hr IV .[id number] [facility]; Protocol Stop: 08/02/20 08:59 Last Admin: 07/23/20 15:21 Dose: 150 mcg/hr, 30 mls/hr Documented by: Midazolam HCl (Versed) 125 mg in 250 mls @ 14 mls/hr IV .[id number] [facility]; Protocol Stop: 08/18/20 09:14 Last Admin: 07/23/20 14:03 Dose: 7 mg/hr, 14 mls/hr Documented by: Propofol (Diprivan) 1,000 mg in 100 mls @ 9.768 mls/hr IV .[id number] [facility]; Protocol Stop: 07/25/20 19:29 Last Admin: 07/23/20 15:21 Dose: 20 mcg/kg/min, 9.8 mls/hr Documented by: Dexmedetomidine HCl 200 mcg/ (Sodium Chloride) 50 mls @ 4.045 mls/hr IV .[id number] [facility]; Protocol Stop: 07/27/20 11:14 Last Admin: 07/23/20 11:23 Dose: 0.2 mcg/kg/hr, 4 mls/hr Documented by: Lactulose (Lactulose Syrup 20 Gm/30 Ml Udc) 20 gm PO DAILY [facility] Stop: 08/20/20 13:29 Last Admin: 07/23/20 08:40 Dose: 20 gm Documented by: Midazolam HCl (Midazolam Bolus From Bag) 2 mg IV Q60M PRN PRN Reason: Sedation Stop: 08/18/20 09:04 Nutritional Formula (Peptamen Intense Vhp 1.0 Carlos A 1,000 Ml Bag) 1,000 ml OG CONT [facility]; Protocol Stop: 08/19/20 10:29 Last Admin: 07/23/20 14:48 Dose: 1,000 ml Documented by: Propofol (Propofol Bolus From Bag) 20 mg IV Q5M PRN PRN Reason: Sedation Stop: 07/25/20 19:16 PG Care Time/CCT Total # of Minutes Spent Total Time Spent with Patient: Total time spent is greater than 50% in coordination of care (as documented) at patient's floor/unit and/or counseling patient: Coding Level of Care Code 60206 Subseq Hosp Care Lvl 2 Diagnoses Pneumonia due to COVID-19 virus U07.1; J12.82 Acute respiratory failure with hypoxia J96.01 Hypomagnesemia E83.42 Hyponatremia E87.1 Abnormal LFTs R94.5 BPH (benign prostatic hyperplasia) N40.0 Lower urinary tract symptom presence: symptoms absent Chronic neck pain M54.2; G89.29 DVT prophylaxis Z29.9 (1) BPH (benign prostatic hyperplasia) Lower urinary tract symptom presence: symptoms absent Qualified Code(s): N40.0 - Benign prostatic hyperplasia without lower urinary tract symptoms
[2020-07-23] MEDS: DEXMEDETOMIDINE HCL 400 MCG in 0.9 % SODIUM CHLORIDE 96 ML IV SCH (23:00)
[2020-07-24 05:31] LABS: iSTAT Art Bld Gas pCO2 Correct 33 mmHg (35-46); iSTAT Art Bld Gas pH Corrected 7.492 (7.35-7.45); iSTAT Arterial Blood Gas HCO3 25 meg/L (19-24); iSTAT Arterial Blood Gas pCO2 34 mmHg (35-46); iSTAT Arterial Blood Gas pH 7.48 (7.35-7.45); iSTAT Arterial Blood Gas pO2 59 mmHg (80-95); iSTAT Arterial Blood Gas pO2 C 55; iSTAT Carbon Dioxide 26 mmol/L (24-31); iSTAT FiO2 45 %; iSTAT Hematocrit 36 % (42-52); iSTAT Hemoglobin 12.2 g/dl (14.0-18.0); iSTAT Potassium 4.3 mmol/L (3.3-5.0); iSTAT Site Art Line; iSTAT Sodium 139 mmol/L (135-144)
[2020-07-24] MEDS: ENOXAPARIN INJ 40 MG/0.4 ML SYR SQ SCH ×2 (05:48→17:29)
[2020-07-24] MEDS: PEPTAMEN INTENSE VHP 1.0 CAL 1,000 ML BAG OG SCH (05:49)
[2020-07-24 05:54] LABS: Hematocrit (blood only) 37.8 % (42-52); Hemoglobin 12.6 g/dL (14.0-18.0); Mean Corpuscular Hemoglobin 29.4 pg (25-34); Mean Corpuscular Hgb Conc 33.3 g/dL (32-36); Mean Corpuscular Volume 88.1 fL (80-100); Mean Platelet Volume 10.6 fL (7.4-10.4); Nucleated RBC # (auto) 0.04 K/uL (0-0); Nucleated RBC % (auto) 0.4 %; Platelet Count 220 K/uL (130-400); RDW Coefficient of Variation 13.3 % (11.5-14.5); RDW Standard Deviation 42.4 fL (36.4-46.3); Red Blood Count 4.29 M/uL (4.7-6.1); White Blood Count 10.64 K/uL (4.8-10.8)
[2020-07-24 06:23] LABS: Albumin Level 2.1 gm/dl (3.4-5.0); BUN Creatinine Ratio 49.5 (10-20); Calcium 8.1 mg/dl (8.5-10.1); Creatinine Clr Calc Pharmacy 140.8 ml/min; Est GFR (African American) 133.1; Est GFR (Non-African American) 114.8; Potassium 4.4 mmol/L (3.5-5.1)
[2020-07-24 06:25] LABS: Basophils # (auto) 0.02 K/uL (0-0.2); Basophils % (auto) 0.2 %; Eosinophils # (auto) 0.03 K/uL (0-0.5); Eosinophils % (auto) 0.3 %; Immature Granulocytes # (auto) 0.86 K/uL (0.00-0.02); Immature Granulocytes % (auto) 8.1 %; Lymphocytes # (auto) 1.08 K/uL (1.2-3.4); Lymphocytes % (auto) 10.2 %; Monocytes # (auto) 0.91 K/uL (0.11-0.59); Monocytes % (auto) 8.6 %; Neutrophils # (auto) 7.74 K/uL (1.4-6.5); Neutrophils % (auto) 72.6 %; RBC Morphology Unremarkable
[2020-07-24] MEDS: DEXMEDETOMIDINE HCL 400 MCG in 0.9 % SODIUM CHLORIDE 96 ML IV SCH ×6 (06:25→21:41)
[2020-07-24 06:26] LABS: Albumin Globulin Ratio 0.6 (0.9-2); Bilirubin,Total 0.9 mg/dl (0.2-1); Globulin 3.4 gm/dl (2.5-4.0); Phosphorus 3.3 mg/dl (2.5-4.9); Total Protein 5.5 gm/dl (6.4-8.2)
[2020-07-24] MEDS: propofoL 1,000 MG/100 ML VIAL IV SCH ×3 (06:27→17:57)
--- NOTE | 2020-07-24 08:00 | Critical Care Progress Note ---
Date of Service July 24, 2020 Assessment & Plan (1) Acute respiratory failure with hypoxia: Reason Critically Ill: 55-year-old male here for COVID pneumonia, transferred to the ICU on 07/18 for acute hypoxic RF secondary to this. ICU day 7, Vent day 6. Neuro - CAM ICU: negative - added Precedex today to assist with agitation, continue Fentanyl/Versed/Propofol - monitor BIS Cardiac - Off of pressors for several days, maintaining adequate MAP - appeared hypervolemic on exam today - ordered Lasix 40mg IV x1 and KCl 20mEq - continue to follow clinically for changes in volume status - monitor I/Os Respiratory - ARDS/acute hypoxic RF secondary to COVID PNA - Vent settings: AC/24/450/10/50; P:F ratio of 108 (decreased from 138 yesterday) - AB.42/39/54/25/88 - CXR showing stable appearance of hazy bilateral opacities: multifocal PNA (COVID-19) - continue Dexamethasone 6mg IV daily x10 days (today is day 7) - unfortunately with worsening P:F ratio, unable to attempt SBT today - continue Fentanyl/Versed/Propofol/Precedex GI - continue trophic feeds - continue daily Lactulose 20g PO syrup RENAL/LYTES - - No significant electrolyte derangement, acid-base status appropriate - Replace lytes as needed - No concerns at this time ENDO - glycemic control per ICU protocol HEME - Stable H&H ID - COVID-19 pneumonia, cultures no growth to date - continue Dexamethasone as mentioned above - no indication for antimicrobial treatments LINES/IV ACCESS Left Subclavian VC, Left Radial Art Line, PIVs, OG tube, orellana intact DVT PROPHYLAXIS - Lovenox 40mg SQ Q12H (high-dose ppx in setting of COVID-19) GI ppx: Pepcid 20mg IV BID CODE STATUS: full code Thank you for allowing us to be part of this patient's care. Please refer to Dr. Reddy's documentation for any further recommendations. Admission and Anticipated Discharge Date Admission Date: July 17, 2020 Supervising Physician Co-Signing Physician Notes Dr. Calderon was resident physician during care of patient. I separately evaluated patient for khanna portions of the history and the exam. I was present during the critical portion of medical decision making, and I discussed the case with the resident. I generally agree with the findings and plan. Backsliding patient's PF ratio today, desaturated during spontaneous breathing trial and required increasing oxygen requirements. Continue current treatment if patient's PF ratio continues to backslide I would proceed with neuromuscular blockade and pronation therapy. Patient was discussed in multidisciplinary rounds I have personally spent 40 minutes of critical care time in the direct management of this patient. This is a life/limb threatening event. This includes time spent evaluating patient, direct bedside care, chart review, placing orders, interpretation of diagnostic studies, discussion with consultants, patient, and/or family members regarding treatment decisions, as well as other required patient management activities. This time is exclusive of all separately billable procedures, and teaching time and separate from and in addition to any other critical care service time. Subjective No acute events overnight. This morning PEEP/FiO2 were increased due to hypoxia to low-mid 80s - now improved. Patient is sedated. Review of Systems Review of Systems: Unobtainable due to ventilated/sedated. Physical Exam Physical Exam: General: Ventilated/sedated. Appears non-toxic. HEENT: Atraumatic, airway obscured by ETT Pulm: Decreased air entry bilaterally, crackles bilaterally (worse on the right), no respiratory distress on vent, Vent settings reviewed Cardiac: RRR, -mrg. Radial pulses intact and symmetrical, 1+ pitting edema to shins bilaterally Abdominal: soft, non-tender, non-distended Skin: warm, dry Results & Data Results & Data ([facility]) Vital Signs (Past 12 Hours) Vital Signs Temp Pulse Resp BP Pulse Ox 07/24/20 07:48 24 07/24/20 07:29 47 L 26 H 85 L 07/24/20 06:01 24 07/24/20 06:00 35.8 C L 51 L 96 07/24/20 05:49 35.9 C L 75 165/125 H 90 07/24/20 04:49 36.1 C L 44 L 91 07/24/20 03:00 36.2 C L 51 L 97 07/24/20 02:53 50 L 26 H 91 07/24/20 02:00 36.3 C L 44 L 91 07/24/20 01:49 36.4 C L 45 L 91 07/24/20 00:49 36.5 C 47 L 91 07/23/20 23:49 36.7 C 46 L 91 07/23/20 23:00 36.8 C 47 L 91 07/23/20 22:26 36.9 C 51 L 170/75 H 92 07/23/20 22:24 47 L 27 H 90 07/23/20 21:24 37.2 C 53 L 169/78 H 91 07/23/20 20:24 37.1 C 51 L 159/73 H 91 Resident Activity Tracking Resident Involvement: Resident Care Provided Care Provided: Adult [facility] Medicine
[2020-07-24] MEDS: LACTULOSE SYRUP 20 GM/30 ML UDC PO SCH (09:00)
[2020-07-24] MEDS: dexAMETHasone 6 MG in SYRINGE 0 ML IV SCH (09:01)
[2020-07-24] MEDS: FAMOTIDINE 20 MG in SYRINGE 3 ML IV SCH ×2 (09:01→20:33)
--- NOTE | 2020-07-24 09:18 | XRay Report ---
XR chest 1V portable HISTORY: Respiratory failure. COMPARISON: Chest 07/23/2020. FINDINGS: Endotracheal tube terminates 4.4 cm from the arlette. Nasogastric tube terminates below the diaphragm. Left subclavian central venous catheter terminates at the distal SVC. No pneumothorax. Pos sible trace left pleural effusion. Hazy bilateral airspace opacities persist. This is similar to the prior study. IMPRESSION: 1. Satisfactory support line placement. 2. No change in the multifocal pneumonia. ACT 112: Negative or not required by law. Electronically signed by: Ishan Plata M.D. 07/24/2020 9:16 AM
[2020-07-24] MEDS: fentaNYL DRIP 1,250 MCG/250 ML BAG IV SCH ×5 (10:27→15:16)
[2020-07-24] MEDS: MIDAZOLAM HCL 125 MG/250 ML BAG IV SCH (10:27)
[2020-07-24] MEDS ORDERED: FUROSEMIDE 40 MG in SYRINGE 0 ML IV ONE (10:30)
[2020-07-24] MEDS: POTASSIUM CHLORIDE / WTR 10 MEQ/100 ML PLCT IV SCH ×2 (11:01→12:37)
--- NOTE | 2020-07-24 13:22 | Billing Data ---
Date of Service July 24, 2020 Coding Level of Care Code Critical Care 1st - mins
--- NOTE | 2020-07-24 14:47 | Hospitalist Progress Note ---
Date of Service July 24, 2020 Assessment & Plan (1) Pneumonia due to COVID-19 virus: Severe disease with resulting acute hypoxic respiratory failure/ARDS. Very high settings on HFNC at the onset of his admission, followed by use of CPAP, and then intubation/mech ventilation. s/p intubation AM of 07/19/20. Day #8 of decadron 6mg daily; 10-day course planned. s/p Convalescent plasma 07/20/20. ICU managing ventilator Continue ARDSNet protocol for vent parameters FiO2 50% and PEEP now 12 A/F ratio is getting a little worse Dr. Reddy managing, considering adding Nimbex and placing prone (2) Acute respiratory failure with hypoxia: As above in "COVID-19 pneumonia" Pulse ox 68% on room air upon arrival to the ER. PaO2 74 on 60% FiO2 - initial admission ABG. Continue steroids, mech ventilation No evidence of complicating acute CHF. slightly worse today, A/F ratio is lower might need Nimbex and prone positioning (3) Hypomagnesemia: repleted and resolved (4) Hyponatremia: Resolved (5) Abnormal LFTs: 2nd to COVID-19. stable (6) BPH (benign prostatic hyperplasia): Hold flomax while on vent No issues Lane (7) Chronic neck pain: Hold voltaren, etc (8) DVT prophylaxis: Lovenox SQ twice daily - Due to severe COVID illness he remains at high risk of VTE GI prophylaxis given severe stress - pepcid 20mg IV BID FEN - tube feeds at 40mL/hr, will need to hold if prone I updated patient's and parents today Admission and Anticipated Discharge Date Admission Date: July 17, 2020 Subjective patient backsliding slightly in his A/F ratio he is up to 50% FiO2 and PEEP 10 brief spontaneous breathing trial today, did not go well, hypertensive, tachycardic and hypoxemic Dr. Reddy considering placing him prone again I updated the patient's and his parents over the phone, all questions answered reviewed chart, reviewed labs Review of Systems Review of Systems: Unobtainable due to endotracheal tube and Unobtainable due to reduced consciousness Physical Exam Constitutional: well developed, well nourished and + mechanically ventilated Neck: trachea midline, no thyromegaly Respiratory: normal respiratory effort and symmetric chest movement Auscultation: lungs clear to auscultation bilaterally Cardiovascular: Rate/Rhythm: regular rate and regular rhythm Heart Sounds: normal S1 and normal S2; no murmur Extremities: normal capillary refill; no edema Gastrointestinal (Abdomen): normal bowel sounds, soft, nontender, no hepatosplenomegaly Musculoskeletal: Head/Neck/Chest: normocephalic, head atraumatic and neck supple Skin: no rashes, warm and dry Neurologic: CN's II-XI intact bilaterally and + obtunded; no focal motor deficits Results & Data Results & Data ([facility]) Vital Signs (Past 12 Hours) Vital Signs Temp Pulse Resp BP Pulse Ox 07/24/20 14:00 36.6 C 53 L 89 L 07/24/20 13:49 36.6 C 52 L 151/76 H 89 L 07/24/20 13:33 36.6 C 53 L 149/76 H 90 07/24/20 13:00 36.5 C 57 L 88 L 07/24/20 12:00 36.7 C 50 L 85 L 07/24/20 11:49 36.7 C 50 L 143/77 H 85 L 07/24/20 11:00 36.7 C 53 L 88 L 07/24/20 10:49 36.7 C 51 L 24 158/77 H 88 L 07/24/20 10:00 36.6 C 54 L 87 L 07/24/20 09:49 36.5 C 54 L 148/72 H 87 L 07/24/20 09:00 36.2 C L 57 L 87 L 07/24/20 08:50 36.2 C L 87 176/110 H 85 L 07/24/20 08:00 36.0 C L 53 L 88 L 07/24/20 07:49 36.0 C L 62 163/101 H 85 L 07/24/20 07:48 24 07/24/20 07:35 36.0 C L 74 172/80 H 90 07/24/20 07:29 47 L 26 H 85 L 07/24/20 07:00 36.0 C L 47 L 87 L 07/24/20 06:49 36.0 C L 49 L 172/80 H 88 L 07/24/20 06:01 24 07/24/20 06:00 35.8 C L 51 L 96 07/24/20 05:49 35.9 C L 75 165/125 H 90 07/24/20 04:49 36.1 C L 44 L 91 07/24/20 03:00 36.2 C L 51 L 97 07/24/20 02:53 50 L 26 H 91 Laboratory Results Laboratory Results - last 24 hr 07/23/20 07/24/20 07/24/20 17:06 05:16 05:36 WBC 10.64 RBC 4.29 L Hgb 12.6 L POC Hgb 12.2 L Hct 37.8 L POC Hct 36 L MCV 88.1 MCH 29.4 MCHC 33.3 RDW Std Deviation 42.4 RDW Coeff of Wes 13.3 Plt Count 220 MPV 10.6 H Immature Gran % (Auto) 8.1 Neut % (Auto) 72.6 Lymph % (Auto) 10.2 [place] % (Auto) 8.6 Eos % (Auto) 0.3 Baso % (Auto) 0.2 Neut # (Auto) 7.74 H Lymph # (Auto) 1.08 L [place] # (Auto) 0.91 H Eos # (Auto) 0.03 Baso # (Auto) 0.02 Immature Gran # (Auto) 0.86 H Absolute Nucleated RBC 0.04 H Nucleated RBC % (auto) 0.4 RBC Morphology Unremarkable Sample Site Art Line POC pH 7.48 H POC pCO2 34 L POC pO2 59 L POC HCO3 25 H POC Total CO2 26 POC Base Excess 2.0 H ABG pH (Temp Correct) 7.492 H ABG pCO2 (Temp Corrct 33 L POC ABG pO2 at Pt Temp 55 POC ABG O2 Sat 92.0 Joshua Test NA O2 Delivery Device Ventilator POC O2 Rate 26 POC FiO2 45 Tidal Volume 450 PEEP 8 POC Sodium 139 Sodium POC Potassium 4.3 Potassium Chloride Carbon Dioxide Anion Gap BUN Creatinine Est Cr Clr Drug Dosing Est GFR ( Amer) Est GFR (Non-Af Amer) BUN/Creatinine Ratio Glucose POC Glucose 138 H Calcium Phosphorus Magnesium Total Bilirubin AST ALT Alkaline Phosphatase Total Protein Albumin Globulin Albumin/Globulin Ratio 07/24/20 05:36 WBC RBC Hgb POC Hgb Hct POC Hct MCV MCH MCHC RDW Std Deviation RDW Coeff of Wes Plt Count MPV Immature Gran % (Auto) Neut % (Auto) Lymph % (Auto) [place] % (Auto) Eos % (Auto) Baso % (Auto) Neut # (Auto) Lymph # (Auto) [place] # (Auto) Eos # (Auto) Baso # (Auto) Immature Gran # (Auto) Absolute Nucleated RBC Nucleated RBC % (auto) RBC Morphology Sample Site POC pH POC pCO2 POC pO2 POC HCO3 POC Total CO2 POC Base Excess ABG pH (Temp Correct) ABG pCO2 (Temp Corrct POC ABG pO2 at Pt Temp POC ABG O2 Sat Joshua Test O2 Delivery Device POC O2 Rate POC FiO2 Tidal Volume PEEP POC Sodium Sodium 140 POC Potassium Potassium 4.4 Chloride 110 H Carbon Dioxide 27 Anion Gap 3.0 BUN 27 H Creatinine 0.56 L Est Cr Clr Drug Dosing 140.8 Est GFR ( Amer) 133.1 Est GFR (Non-Af Amer) 114.8 BUN/Creatinine Ratio 49.5 H Glucose 136 H POC Glucose Calcium 8.1 L Phosphorus 3.3 Magnesium 2.0 Total Bilirubin 0.9 AST 34 ALT 94 H Alkaline Phosphatase 63 Total Protein 5.5 L Albumin 2.1 L Globulin 3.4 Albumin/Globulin Ratio 0.6 L Medications Administered Current Inpatient Medications Acetaminophen (Acetaminophen 325 Mg Tab) 650 mg PO Q4H PRN PRN Reason: Pain Or Fever T>101.5 Stop: 08/16/20 14:58 Last Admin: 07/18/20 14:34 Dose: 650 mg Documented by: Albuterol (Albuterol Hfa 8 Gm Inhaler) 2 puffs INH 6XD PRN PRN Reason: shortness of breath or wheezing Stop: 08/16/20 14:58 Enoxaparin Sodium (Enoxaparin Inj 40 Mg/0.4 Ml Syr) 40 mg SQ Q12H [facility] Stop: 08/17/20 17:59 Last Admin: 07/24/20 05:48 Dose: 40 mg Documented by: Fentanyl Citrate (Fentanyl Bolus From Bag) 50 mcg IV Q60M PRN PRN Reason: Pain Stop: 08/02/20 08:51 Last Admin: 07/22/20 12:50 Dose: 50 mcg Documented by: Fish Oil ([place]-3 (Purified Fish Oil) 1 Gm Cap) 1 gm PO QAM [facility] Stop: 08/17/20 08:59 Last Admin: 07/21/20 12:08 Dose: Not Given Documented by: Dexamethasone 6 mg/ Syringe 1.5 mls @ 1 mls/min IV DAILY [facility] Stop: 07/28/20 08:59 Last Admin: 07/24/20 09:01 Dose: 1 mls/min Documented by: Famotidine 20 mg/ Syringe 5 mls @ 2.5 mls/min IV BID [facility] Stop: 08/17/20 20:59 Last Admin: 07/24/20 09:01 Dose: 2.5 mls/min Documented by: Fentanyl Citrate (Fentanyl Drip) 1,250 mcg in 250 mls @ 10 mls/hr IV .Q25H [facility]; Protocol Stop: 08/02/20 08:59 Last Admin: 07/24/20 13:36 Dose: Not Given Documented by: Midazolam HCl (Versed) 125 mg in 250 mls @ 6 mls/hr IV .[id number] [facility]; Protocol Stop: 08/18/20 09:14 Last Admin: 07/24/20 10:27 Dose: 3 mg/hr, 6 mls/hr Documented by: Propofol (Diprivan) 1,000 mg in 100 mls @ 19.536 mls/hr IV .Q5H8M [facility]; Protocol Stop: 07/25/20 19:29 Last Admin: 07/24/20 13:28 Dose: 81.9 mcg/kg/min, 40 mls/hr Documented by: Dexmedetomidine HCl 400 mcg/ (Sodium Chloride) 100 mls @ 30.338 mls/hr IV .Q3H18M [facility]; Protocol Stop: 07/27/20 22:44 Last Admin: 07/24/20 13:50 Dose: 1.5 mcg/kg/hr, 30.3 mls/hr Documented by: Lactulose (Lactulose Syrup 20 Gm/30 Ml Udc) 20 gm PO DAILY [facility] Stop: 08/20/20 13:29 Last Admin: 07/24/20 09:00 Dose: 20 gm Documented by: Midazolam HCl (Midazolam Bolus From Bag) 2 mg IV Q60M PRN PRN Reason: Sedation Stop: 08/18/20 09:04 Multivitamins/Minerals (Multi Vit W/Minerals Liquid 15 Ml Udp) 15 ml NG QAM [facility] Stop: 08/24/20 08:59 Nutritional Formula (Peptamen Intense Vhp 1.0 Carlos A 1,000 Ml Bag) 1,000 ml OG CONT [facility]; Protocol Stop: 08/19/20 10:29 Last Admin: 07/24/20 05:49 Dose: 1,000 ml Documented by: Propofol (Propofol Bolus From Bag) 20 mg IV Q5M PRN PRN Reason: Sedation Stop: 07/25/20 19:16 PG Care Time/CCT Total # of Minutes Spent Total Time Spent: 32 Total Time Spent with Patient: Total time spent is greater than 50% in coordination of care (as documented) at patient's floor/unit and/or counseling patient: spent total of 16 minutes updated family over the phone 16 minutes spent on chart review, exam, documentation, discussing with RN Coding Level of Care Code 27651 Subseq Hosp Care Lvl 3 Diagnoses Pneumonia due to COVID-19 virus U07.1; J12.82 Acute respiratory failure with hypoxia J96.01 Hypomagnesemia E83.42 Hyponatremia E87.1 Abnormal LFTs R94.5 BPH (benign prostatic hyperplasia) N40.0 Lower urinary tract symptom presence: symptoms absent Chronic neck pain M54.2; G89.29 DVT prophylaxis Z29.9 (1) BPH (benign prostatic hyperplasia) Lower urinary tract symptom presence: symptoms absent Qualified Code(s): N40.0 - Benign prostatic hyperplasia without lower urinary tract symptoms
[2020-07-24 16:34] LABS: iSTAT Allen Test Pass; iSTAT Art Bld Gas pCO2 Correct 37 mmHg (35-46); iSTAT Art Bld Gas pH Corrected 7.424 (7.35-7.45); iSTAT Arterial Blood Gas HCO3 25 meg/L (19-24); iSTAT Arterial Blood Gas pCO2 38 mmHg (35-46); iSTAT Arterial Blood Gas pH 7.42 (7.35-7.45); iSTAT Arterial Blood Gas pO2 66 mmHg (80-95); iSTAT Arterial Blood Gas pO2 C 64; iSTAT Carbon Dioxide 26 mmol/L (24-31); iSTAT FiO2 100 %; iSTAT Hematocrit 40 % (42-52); iSTAT Hemoglobin 13.6 g/dl (14.0-18.0); iSTAT Potassium 4.5 mmol/L (3.3-5.0); iSTAT Site R Radial; iSTAT Sodium 138 mmol/L (135-144)
[2020-07-24] MEDS ORDERED: CISATRACURIUM BESYLATE IV SOLN 2 MG/ML 10 ML VIAL IV ONE (16:45)
[2020-07-24] MEDS: CISATRACURIUM BESYLATE 40 MG in 0.9 % SODIUM CHLORIDE 80 ML IV SCH ×2 (17:02→22:30)
--- NOTE | 2020-07-24 17:09 | XRay Report ---
SINGLE VIEW CHEST CLINICAL HISTORY: Hypoxia. FINDINGS: 2 AP, portable, semierect chest radiographs are compared to study performed earlier the 07/24/2020. Correlation is made with chest CT dated 07/17/2020. The examination is degraded by po rtable technique and patient rotation. An endotracheal tube, an enteric tube, and a left subclavian c entral venous catheter are unchanged in position. The heart is top normal for projection. Multifocal airspace consolidation is unchanged from today's earlier examination. Question trace pleural effusion s. No pneumothorax is seen. The bony thorax is grossly intact. IMPRESSION: 1. Stable lines and tubes. 2. Multifocal airspace consolidation is unchanged from today's earlier examination. ACT 112: Negative or not required by law. Electronically signed by: Sesar Melchor M.D. 07/24/2020 5:08 PM
[2020-07-24] MEDS ORDERED: CISATRACURIUM BOLUS FROM BAG IV ONE (17:15)
[2020-07-24] MEDS ORDERED: LABETALOL HCL IV 5 MG/ML 20ML IV STA (22:28)
[2020-07-25] MEDS: fentaNYL DRIP 1,250 MCG/250 ML BAG IV SCH ×4 (01:01→19:35)
[2020-07-25] MEDS: DEXMEDETOMIDINE HCL 400 MCG in 0.9 % SODIUM CHLORIDE 96 ML IV SCH ×12 (01:01→19:40)
[2020-07-25] MEDS: CISATRACURIUM BESYLATE 40 MG in 0.9 % SODIUM CHLORIDE 80 ML IV SCH ×6 (01:02→14:23)
[2020-07-25] MEDS: propofoL 1,000 MG/100 ML VIAL IV SCH ×9 (01:02→21:29)
[2020-07-25] MEDS ORDERED: hydrALAZINE HCL 20 MG/ML VIAL IV PRN (02:25)
[2020-07-25] MEDS: LABETALOL HCL IV 5 MG/ML 20ML IV PRN (03:00)
[2020-07-25 03:35] LABS: iSTAT Allen Test Pass; iSTAT Art Bld Gas pCO2 Correct 51 mmHg (35-46); iSTAT Art Bld Gas pH Corrected 7.369 (7.35-7.45); iSTAT Arterial Blood Gas HCO3 29 meg/L (19-24); iSTAT Arterial Blood Gas pCO2 51 mmHg (35-46); iSTAT Arterial Blood Gas pH 7.37 (7.35-7.45); iSTAT Arterial Blood Gas pO2 98 mmHg (80-95); iSTAT Arterial Blood Gas pO2 C 98; iSTAT Carbon Dioxide 31 mmol/L (24-31); iSTAT FiO2 60 %; iSTAT Hematocrit 39 % (42-52); iSTAT Hemoglobin 13.3 g/dl (14.0-18.0); iSTAT Potassium 4.4 mmol/L (3.3-5.0); iSTAT Site R Radial; iSTAT Sodium 137 mmol/L (135-144)
[2020-07-25] MEDS: ENOXAPARIN INJ 40 MG/0.4 ML SYR SQ SCH ×2 (05:26→17:24)
[2020-07-25 05:53] LABS: Hematocrit (blood only) 40.3 % (42-52); Hemoglobin 13.6 g/dL (14.0-18.0); Mean Corpuscular Hemoglobin 29.6 pg (25-34); Mean Corpuscular Hgb Conc 33.7 g/dL (32-36); Mean Corpuscular Volume 87.6 fL (80-100); Mean Platelet Volume 11.1 fL (7.4-10.4); Nucleated RBC # (auto) 0.04 K/uL (0-0); Nucleated RBC % (auto) 0.2 %; Platelet Count 277 K/uL (130-400); RDW Coefficient of Variation 13.1 % (11.5-14.5); RDW Standard Deviation 41.6 fL (36.4-46.3); White Blood Count 16.39 K/uL (4.8-10.8)
[2020-07-25 06:17] LABS: Basophils # (auto) 0.05 K/uL (0-0.2); Basophils % (auto) 0.3 %; Eosinophils # (auto) 0.06 K/uL (0-0.5); Eosinophils % (auto) 0.4 %; Immature Granulocytes # (auto) 0.96 K/uL (0.00-0.02); Immature Granulocytes % (auto) 5.9 %; Lymphocytes # (auto) 0.74 K/uL (1.2-3.4); Lymphocytes % (auto) 4.5 %; Monocytes # (auto) 1.53 K/uL (0.11-0.59); Monocytes % (auto) 9.3 %; Neutrophils # (auto) 13.05 K/uL (1.4-6.5); Neutrophils % (auto) 79.6 %; RBC Morphology Unremarkable
[2020-07-25 06:34] LABS: BUN Creatinine Ratio 61.5 (10-20); Calcium 8.6 mg/dl (8.5-10.1); Creatinine Clr Calc Pharmacy 154.6 ml/min; Est GFR (African American) 138.3; Est GFR (Non-African American) 119.3; Magnesium 1.8 mg/dl (1.8-2.4); Potassium 4.3 mmol/L (3.5-5.1)
[2020-07-25 06:36] LABS: Albumin Globulin Ratio 0.5 (0.9-2); Globulin 3.9 gm/dl (2.5-4.0); Phosphorus 3.4 mg/dl (2.5-4.9); Total Protein 5.9 gm/dl (6.4-8.2)
[2020-07-25] MEDS: MIDAZOLAM HCL 125 MG/250 ML BAG IV SCH (07:17)
--- NOTE | 2020-07-25 07:21 | Hospitalist Progress Note ---
Date of Service July 25, 2020 Assessment & Plan (1) Pneumonia due to COVID-19 virus: Severe disease with resulting acute hypoxic respiratory failure/ARDS. Very high settings on HFNC at the onset of his admission, followed by use of CPAP, and then intubation/mech ventilation. s/p intubation AM of 07/19/20. Day #9 of decadron 6mg daily s/p Convalescent plasma 07/20/20. ICU managing ventilator Continue ARDSNet protocol for vent parameters FiO2 50% P:F ratio improving today Dr. Reddy managing, no plans for SBT as on Nimbex (2) Acute respiratory failure with hypoxia: As above in "COVID-19 pneumonia" Pulse ox 68% on room air upon arrival to the ER. PaO2 74 on 60% FiO2 - initial admission ABG. Continue steroids, mech ventilation evidence of some volume overload today, great response to Lasix 40mg IV hopeful this will improve oxygenation slightly better today, P:F ratio is better (3) Hypomagnesemia: repleted and resolved (4) Hyponatremia: Resolved (5) Abnormal LFTs: 2nd to COVID-19. stable (6) BPH (benign prostatic hyperplasia): Hold flomax while on vent No issues Lane (7) Chronic neck pain: Hold voltaren, etc (8) DVT prophylaxis: Lovenox SQ twice daily - Due to severe COVID illness he remains at high risk of VTE GI prophylaxis given severe stress - pepcid 20mg IV BID FEN - tube feeds at 40mL/hr, will need to hold if prone or on Nimbex Admission and Anticipated Discharge Date Admission Date: July 17, 2020 Subjective patient remains ventilated, slight improvement in P:F ratio volume overloaded, great response this morning to Lasix 40mg IV, hopeful this will improve oxygenation further reviewed labs, reviewed chart Dr. Reddy managing Review of Systems Review of Systems: Unobtainable due to endotracheal tube and Unobtainable due to reduced consciousness Physical Exam Constitutional: well developed, well nourished and + mechanically ventilated Neck: trachea midline, no thyromegaly Respiratory: normal respiratory effort and symmetric chest movement Auscultation: lungs clear to auscultation bilaterally Cardiovascular: Rate/Rhythm: regular rate and regular rhythm Heart Sounds: normal S1 and normal S2; no murmur Extremities: normal capillary refill and + edema Gastrointestinal (Abdomen): normal bowel sounds, soft, nontender, no hepatosplenomegaly Musculoskeletal: no cyanosis or clubbing, extremities motor strength 5/5 Head/Neck/Chest: normocephalic, head atraumatic and neck supple Skin: no rashes, warm and dry Neurologic: CN's II-XI intact bilaterally and + obtunded; no focal motor deficits Results & Data Results & Data ([facility]) Vital Signs (Past 12 Hours) Vital Signs Temp Pulse Resp BP Pulse Ox 07/25/20 07:05 83 24 93 07/25/20 06:00 37.3 C 102 H 24 214/111 H 97 07/25/20 05:30 37.1 C 76 24 206/108 H 95 07/25/20 05:25 98 07/25/20 05:00 37.1 C 87 24 174/88 H 98 07/25/20 04:30 37.1 C 71 25 H 174/83 H 97 07/25/20 04:04 88 24 98 07/25/20 04:00 37.2 C 77 25 H 169/94 H 98 07/25/20 03:30 37.2 C 86 24 187/105 H 97 07/25/20 03:00 37.3 C 74 25 H 205/91 H 98 07/25/20 02:30 37.2 C 81 25 H 208/108 H 99 07/25/20 02:00 37.0 C 83 25 H 204/97 H 99 07/25/20 01:30 36.8 C 67 25 H 201/103 H 96 07/25/20 01:00 36.8 C 86 25 H 187/98 H 98 07/25/20 00:30 36.8 C 68 24 97 07/25/20 00:00 36.8 C 64 24 168/92 H 95 07/24/20 23:30 36.8 C 77 24 198/99 H 100 07/24/20 23:22 36.8 C 84 24 198/99 H 99 07/24/20 23:20 86 25 H 99 07/24/20 23:00 36.7 C 70 24 182/106 H 99 07/24/20 22:30 36.7 C 70 24 194/103 H 99 07/24/20 22:00 36.6 C 78 24 185/95 H 97 07/24/20 21:30 36.6 C 67 24 164/91 H 97 07/24/20 21:00 36.5 C 61 24 183/99 H 98 07/24/20 20:30 36.5 C 74 24 188/99 H 97 07/24/20 20:00 36.5 C 60 24 173/95 H 95 07/24/20 19:30 36.7 C 63 24 189/96 H 97 Laboratory Results Laboratory Results - last 24 hr 07/24/20 07/24/20 07/24/20 16:19 16:19 23:55 WBC RBC Hgb POC Hgb 13.6 L Hct POC Hct 40 L MCV MCH MCHC RDW Std Deviation RDW Coeff of Wes Plt Count MPV Immature Gran % (Auto) Neut % (Auto) Lymph % (Auto) [place] % (Auto) Eos % (Auto) Baso % (Auto) Neut # (Auto) Lymph # (Auto) [place] # (Auto) Eos # (Auto) Baso # (Auto) Immature Gran # (Auto) Absolute Nucleated RBC Nucleated RBC % (auto) RBC Morphology Sample Site R Radial POC pH 7.42 POC pCO2 38 POC pO2 66 L POC HCO3 25 H POC Total CO2 26 POC Base Excess 0.0 ABG pH (Temp Correct) 7.424 ABG pCO2 (Temp Corrct 37 POC ABG pO2 at Pt Temp 64 POC ABG O2 Sat 93.0 Joshua Test Pass O2 Delivery Device Ventilator POC O2 Rate 24 Minute Ventilation 14.6 POC FiO2 100 Tidal Volume 450 PEEP 12 POC Sodium 138 Sodium POC Potassium 4.5 Potassium Chloride Carbon Dioxide Anion Gap BUN Creatinine Est Cr Clr Drug Dosing Est GFR ( Amer) Est GFR (Non-Af Amer) BUN/Creatinine Ratio Glucose POC Glucose 220 H 140 H Calcium Phosphorus Magnesium Total Bilirubin AST ALT Alkaline Phosphatase Total Protein Albumin Globulin Albumin/Globulin Ratio Triglycerides 07/25/20 07/25/20 07/25/20 03:21 05:30 05:30 WBC 16.39 H RBC 4.60 L Hgb 13.6 L POC Hgb 13.3 L Hct 40.3 L POC Hct 39 L MCV 87.6 MCH 29.6 MCHC 33.7 RDW Std Deviation 41.6 RDW Coeff of Wes 13.1 Plt Count 277 MPV 11.1 H Immature Gran % (Auto) 5.9 Neut % (Auto) 79.6 Lymph % (Auto) 4.5 [place] % (Auto) 9.3 Eos % (Auto) 0.4 Baso % (Auto) 0.3 Neut # (Auto) 13.05 H Lymph # (Auto) 0.74 L [place] # (Auto) 1.53 H Eos # (Auto) 0.06 Baso # (Auto) 0.05 Immature Gran # (Auto) 0.96 H Absolute Nucleated RBC 0.04 H Nucleated RBC % (auto) 0.2 RBC Morphology Unremarkable Sample Site R Radial POC pH 7.37 POC pCO2 51 H POC pO2 98 H POC HCO3 29 H POC Total CO2 31 POC Base Excess 4.0 H ABG pH (Temp Correct) 7.369 ABG pCO2 (Temp Corrct 51 H POC ABG pO2 at Pt Temp 98 POC ABG O2 Sat 97.0 H Joshua Test Pass O2 Delivery Device Ventilator POC O2 Rate 24 Minute Ventilation POC FiO2 60 Tidal Volume 450 PEEP 12 POC Sodium 137 Sodium 136 POC Potassium 4.4 Potassium 4.3 Chloride 104 Carbon Dioxide 29 Anion Gap 3.0 BUN 32 H Creatinine 0.51 L Est Cr Clr Drug Dosing 154.6 Est GFR ( Amer) 138.3 Est GFR (Non-Af Amer) 119.3 BUN/Creatinine Ratio 61.5 H Glucose 105 H POC Glucose Calcium 8.6 Phosphorus 3.4 Magnesium 1.8 Total Bilirubin 1.0 AST 43 H ALT 98 H Alkaline Phosphatase 84 Total Protein 5.9 L Albumin 2.0 L Globulin 3.9 Albumin/Globulin Ratio 0.5 L Triglycerides 07/25/20 07/25/20 05:30 12:29 WBC RBC Hgb POC Hgb Hct POC Hct MCV MCH MCHC RDW Std Deviation RDW Coeff of Wes Plt Count MPV Immature Gran % (Auto) Neut % (Auto) Lymph % (Auto) [place] % (Auto) Eos % (Auto) Baso % (Auto) Neut # (Auto) Lymph # (Auto) [place] # (Auto) Eos # (Auto) Baso # (Auto) Immature Gran # (Auto) Absolute Nucleated RBC Nucleated RBC % (auto) RBC Morphology Sample Site POC pH POC pCO2 POC pO2 POC HCO3 POC Total CO2 POC Base Excess ABG pH (Temp Correct) ABG pCO2 (Temp Corrct POC ABG pO2 at Pt Temp POC ABG O2 Sat Joshua Test O2 Delivery Device POC O2 Rate Minute Ventilation POC FiO2 Tidal Volume PEEP POC Sodium Sodium POC Potassium Potassium Chloride Carbon Dioxide Anion Gap BUN Creatinine Est Cr Clr Drug Dosing Est GFR ( Amer) Est GFR (Non-Af Amer) BUN/Creatinine Ratio Glucose POC Glucose 154 H Calcium Phosphorus Magnesium Total Bilirubin AST ALT Alkaline Phosphatase Total Protein Albumin Globulin Albumin/Globulin Ratio Triglycerides 157 H Medications Administered Current Inpatient Medications Acetaminophen (Acetaminophen 325 Mg Tab) 650 mg PO Q4H PRN PRN Reason: Pain Or Fever T>101.5 Stop: 08/16/20 14:58 Last Admin: 07/18/20 14:34 Dose: 650 mg Documented by: Albuterol (Albuterol Hfa 8 Gm Inhaler) 2 puffs INH 6XD PRN PRN Reason: shortness of breath or wheezing Stop: 08/16/20 14:58 Enoxaparin Sodium (Enoxaparin Inj 40 Mg/0.4 Ml Syr) 40 mg SQ Q12H [facility] Stop: 08/17/20 17:59 Last Admin: 07/25/20 05:26 Dose: 40 mg Documented by: Fentanyl Citrate (Fentanyl Bolus From Bag) 50 mcg IV Q60M PRN PRN Reason: Pain Stop: 08/02/20 08:51 Last Admin: 07/25/20 09:27 Dose: 50 mcg Documented by: Fish Oil ([place]-3 (Purified Fish Oil) 1 Gm Cap) 1 gm PO QAM [facility] Stop: 08/17/20 08:59 Last Admin: 07/21/20 12:08 Dose: Not Given Documented by: Heparin Sodium (Beef Lung) (Heparin 10 Unit/Ml 5 Ml Flush) 5 ml FLUSH PRN PRN PRN Reason: Flush Stop: 08/23/20 22:31 Dexamethasone 6 mg/ Syringe 1.5 mls @ 1 mls/min IV DAILY [facility] Stop: 07/28/20 08:59 Last Admin: 07/25/20 07:59 Dose: 1 mls/min Documented by: Famotidine 20 mg/ Syringe 5 mls @ 2.5 mls/min IV BID [facility] Stop: 08/17/20 20:59 Last Admin: 07/25/20 08:22 Dose: 2.5 mls/min Documented by: Fentanyl Citrate (Fentanyl Drip) 1,250 mcg in 250 mls @ 30 mls/hr IV .Q8H20M [facility]; Protocol Stop: 08/02/20 08:59 Last Admin: 07/25/20 11:23 Dose: 150 mcg/hr, 30 mls/hr Documented by: Midazolam HCl (Versed) 125 mg in 250 mls @ 8 mls/hr IV .[id number] [facility]; Protocol Stop: 08/18/20 09:14 Last Admin: 07/25/20 07:17 Dose: Not Given Documented by: Propofol (Diprivan) 1,000 mg in 100 mls @ 14.652 mls/hr IV .Q6H50M [facility]; Protocol Stop: 07/25/20 19:29 Last Admin: 07/25/20 09:27 Dose: 30 mcg/kg/min, 14.7 mls/hr Documented by: Dexmedetomidine HCl 400 mcg/ (Sodium Chloride) 100 mls @ 24.27 mls/hr IV .Q4H8M [facility]; Protocol Stop: 07/27/20 22:44 Last Admin: 07/25/20 10:18 Dose: Not Given Documented by: Cisatracurium Besylate 40 mg/ (Sodium Chloride) 100 mls @ 41.04 mls/hr IV .Q2H27M [facility]; Protocol Stop: 08/23/20 16:59 Last Admin: 07/25/20 12:03 Dose: 4 mcg/kg/min, 41 mls/hr Documented by: Potassium Chloride (K Justin / Wtr) 20 meq in 100 mls @ 50 mls/hr IV Q2H [facility] Stop: 07/25/20 14:29 Last Admin: 07/25/20 12:05 Dose: 50 mls/hr Documented by: Magnesium Sulfate/Dextrose (Magnesium Sulfate / D5w) 1 gm in 100 mls @ 50 mls/hr IV Q2H [facility] Stop: 07/25/20 14:29 Last Admin: 07/25/20 12:03 Dose: 50 mls/hr Documented by: Labetalol HCl (Labetalol Hcl Iv 5 Mg/Ml 20ml) 10 mg IV Q2H PRN PRN Reason: Hypertension Stop: 08/24/20 02:24 Last Admin: 07/25/20 03:00 Dose: 10 mg Documented by: Lactulose (Lactulose Syrup 20 Gm/30 Ml Udc) 20 gm PO DAILY [facility] Stop: 08/20/20 13:29 Last Admin: 07/25/20 08:00 Dose: 20 gm Documented by: Metoprolol Tartrate (Metoprolol Tartrate 25 Mg Tab) 12.5 mg PO BID [facility] Stop: 08/24/20 20:59 Midazolam HCl (Midazolam Bolus From Bag) 2 mg IV Q60M PRN PRN Reason: Sedation Stop: 08/18/20 09:04 Multivitamins/Minerals (Multi Vit W/Minerals Liquid 15 Ml Udp) 15 ml NG QAM [facility] Stop: 08/24/20 08:59 Last Admin: 07/25/20 08:00 Dose: 15 ml Documented by: Nutritional Formula (Peptamen Intense Vhp 1.0 Carlos A 1,000 Ml Bag) 1,000 ml OG CONT [facility]; Protocol Stop: 08/19/20 10:29 Last Admin: 07/24/20 05:49 Dose: 1,000 ml Documented by: Propofol (Propofol Bolus From Bag) 20 mg IV Q5M PRN PRN Reason: Sedation Stop: 07/25/20 19:16 Last Admin: 07/25/20 12:05 Dose: 20 mg Documented by: Sterile Water (Tube Feeding Water Flush) 30 ml GT Q4H [facility] Stop: 08/24/20 11:59 Last Admin: 07/25/20 12:16 Dose: 30 ml Documented by: PG Care Time/CCT Total # of Minutes Spent Total Time Spent with Patient: Total time spent is greater than 50% in coordination of care (as documented) at patient's floor/unit and/or counseling patient: Coding Level of Care Code 42378 Subseq Hosp Care Lvl 2 Diagnoses Pneumonia due to COVID-19 virus U07.1; J12.82 Acute respiratory failure with hypoxia J96.01 Hypomagnesemia E83.42 Hyponatremia E87.1 Abnormal LFTs R94.5 BPH (benign prostatic hyperplasia) N40.0 Lower urinary tract symptom presence: symptoms absent Chronic neck pain M54.2; G89.29 DVT prophylaxis Z29.9 (1) BPH (benign prostatic hyperplasia) Lower urinary tract symptom presence: symptoms absent Qualified Code(s): N40.0 - Benign prostatic hyperplasia without lower urinary tract symptoms
[2020-07-25] MEDS ORDERED: METOPROLOL TARTRATE 25 MG TAB PO STA (07:45)
[2020-07-25] MEDS: dexAMETHasone 6 MG in SYRINGE 0 ML IV SCH (07:59)
[2020-07-25] MEDS: MULTI VIT W/MINERALS LIQUID 15 ML UDP NG SCH (08:00)
[2020-07-25] MEDS: LACTULOSE SYRUP 20 GM/30 ML UDC PO SCH (08:00)
[2020-07-25] MEDS: FAMOTIDINE 20 MG in SYRINGE 3 ML IV SCH ×2 (08:22→19:41)
--- NOTE | 2020-07-25 08:23 | Critical Care Progress Note ---
Date of Service July 25, 2020 Assessment & Plan (1) Acute respiratory failure with hypoxia: Reason Critically Ill: 55-year-old male here for COVID pneumonia, transferred to the ICU on 07/18 for acute hypoxic RF secondary to this. ICU day 8, Vent day 7. Neuro - [facility] ICU: unable to assess (sedated) - continue Fentanyl/Versed/Propofol/Precedex/Nimbex - monitor BIS Cardiac - Off of pressors for several days, maintaining adequate MAP - persistently hypertensive during proning therapy, was minimally responsive to PRN anti-hypertensives, then normotensive since transitioning to supine position - if hypertensive, PRN anti-hypertensives in place - continues to appear hypervolemic on exam today - ordered another Lasix 40mg IV x1 today in attempt to improve respiratory status - continue to follow clinically for changes in volume status - strict I/Os Respiratory - ARDS/acute hypoxic RF secondary to COVID PNA - s/p bronchoscopy with washout this morning - Vent settings: AC/24/450/6/40 --> PEEP increased to 15 and FiO2 increased to 55 after bronchoscopy; P:F ratio of 178 (improved from yesterday) - AB.37/51/98/29 - CXR showing stable appearance of hazy bilateral opacities: multifocal PNA (COVID-19) - continue Dexamethasone 6mg IV daily x10 days (today is day 8) - continue Fentanyl/Versed/Propofol/Precedex - continue ARDSnet strategy as tolerated - held Nimbex following bronchoscopy - plan to attempt SBT/extubation either later today or tomorrow; consider tracheostomy if unsuccessful GI - continue trophic feeds - continue daily Lactulose 20g PO syrup RENAL/LYTES - - Magnesium 1.8 --> repleted, no other electrolyte derangements, acid-base status appropriate - Renal function normal - Replace lytes as needed - No concerns at this time ENDO - glycemic control per ICU protocol HEME - Stable H&H ID - COVID-19 pneumonia, cultures no growth to date - continue Dexamethasone as mentioned above - no indication for antimicrobial treatments LINES/IV ACCESS - Left Subclavian VC, Left Radial Art Line, PIVs, OG tube, orellana intact DVT PROPHYLAXIS - Lovenox 40mg SQ Q12H (high-dose ppx in setting of COVID-19) GI ppx: Pepcid 20mg IV BID CODE STATUS: full code Thank you for allowing us to be part of this patient's care. Please refer to Dr. Reddy's documentation for any further recommendations. Admission and Anticipated Discharge Date Admission Date: July 17, 2020 Supervising Physician Co-Signing Physician Notes Dr. Calderon was resident physician during care of patient. I separately evaluated patient for khanna portions of the history and the exam. I was present during the critical portion of medical decision making, and I discussed the case with the resident. I generally agree with the findings and plan. Increasing white count however on steroids, oxygenation improved with pronation therapy upon return to supine patient is having decreased ventilatory requirements will check gas and if gas is still showing improvement will not prone on hopefully going to be able to discontinue his cis atracurium blockade at this time. Patient was discussed on multidisciplinary rounds, risks and benefits of percutaneous tracheostomy were discussed with the patient's . Patient remains critically ill I have personally spent 55 minutes of critical care time in the direct management of this patient. This is a life/limb threatening event. This includes time spent evaluating patient, direct bedside care, chart review, placing orders, interpretation of diagnostic studies, discussion with consultants, patient, and/or family members regarding treatment decisions, as well as other required patient management activities. This time is exclusive of all separately billable procedures, and teaching time and separate from and in addition to any other critical care service time. Subjective Proned and started on Nimbex yesterday at ~1700 - vent settings improved since initiation. Was hypertensive to 230s/120s overnight requiring Labetalol 10mg IV x2 and Hydralazine 10mg IV x1 - SBP temporarily improved to 160s-170s before back at 200s. Was given Lopressor 25mg PO x1 and back in supine position as of later this morning - now normotensive. Intubated/sedated. Review of Systems Review of Systems: Unobtainable due to ventilated/sedated. Physical Exam Physical Exam: General: Ventilated/sedated. HEENT: Atraumatic, airway obscured by endotracheal tube Pulm: Decreased air entry bilaterally, crackles bilaterally, no respiratory distress on vent, Vent settings reviewed Cardiac: RRR, -mrg. Radial pulses intact and symmetrical, trace pitting edema to shins bilaterally Abdominal: soft, non-tender, non-distended Skin: warm, dry Results & Data Results & Data ([facility]) Vital Signs (Past 12 Hours) Vital Signs Temp Pulse Resp BP Pulse Ox 07/25/20 07:05 83 24 93 07/25/20 06:00 37.3 C 102 H 24 214/111 H 97 07/25/20 05:30 37.1 C 76 24 206/108 H 95 07/25/20 05:25 98 07/25/20 05:00 37.1 C 87 24 174/88 H 98 07/25/20 04:30 37.1 C 71 25 H 174/83 H 97 07/25/20 04:04 88 24 98 07/25/20 04:00 37.2 C 77 25 H 169/94 H 98 07/25/20 03:30 37.2 C 86 24 187/105 H 97 07/25/20 03:00 37.3 C 74 25 H 205/91 H 98 07/25/20 02:30 37.2 C 81 25 H 208/108 H 99 07/25/20 02:00 37.0 C 83 25 H 204/97 H 99 07/25/20 01:30 36.8 C 67 25 H 201/103 H 96 07/25/20 01:00 36.8 C 86 25 H 187/98 H 98 07/25/20 00:30 36.8 C 68 24 97 07/25/20 00:00 36.8 C 64 24 168/92 H 95 07/24/20 23:30 36.8 C 77 24 198/99 H 100 07/24/20 23:22 36.8 C 84 24 198/99 H 99 07/24/20 23:20 86 25 H 99 07/24/20 23:00 36.7 C 70 24 182/106 H 99 07/24/20 22:30 36.7 C 70 24 194/103 H 99 07/24/20 22:00 36.6 C 78 24 185/95 H 97 07/24/20 21:30 36.6 C 67 24 164/91 H 97 07/24/20 21:00 36.5 C 61 24 183/99 H 98 07/24/20 20:30 36.5 C 74 24 188/99 H 97 Critical Care Time Critical Care Time: Yes Total Critical Care Time: 55 Resident Activity Tracking Resident Involvement: Resident Care Provided Care Provided: Adult [facility] Medicine
--- NOTE | 2020-07-25 09:53 | Billing Data ---
Date of Service July 25, 2020 Coding Level of Care Code Critical Care 1st - mins
[2020-07-25] MEDS ORDERED: FUROSEMIDE 40 MG in SYRINGE 0 ML IV ONE (10:30)
[2020-07-25] MEDS: MAGNESIUM SULFATE / D5W 1 GM/100 ML BAG IV SCH ×2 (12:03→14:19)
[2020-07-25] MEDS: POTASSIUM CHLORIDE / WTR 20 MEQ/100 ML PLCT IV SCH ×2 (12:05→14:18)
[2020-07-25] MEDS: TUBE FEEDING WATER FLUSH GT SCH ×3 (12:16→19:45)
--- NOTE | 2020-07-25 12:52 | XRay Report ---
XR chest 1V portable CLINICAL HISTORY: COVID PNA RESPIRATORY FAILURE COMPARISON STUDY: 06/26/2020 FINDINGS: The heart is normal in size. There is an endotracheal tube 61 mm above the arlette. There is a left subclavian central venous catheter. There is an enteric tube which passes into the stomach. T here are bilateral pulmonary airspace opacities consistent with a multifocal pneumonia. The findings remain similar to the preceding study.[ IMPRESSION: Persistent multifocal airspace opacities consistent with a multifocal pneumonia ACT 112: Negative or not required by law. Electronically signed by: Braulio Chirinos M.D. 07/25/2020 12:51 PM
--- NOTE | 2020-07-25 14:48 | Procedure Note ---
Procedure Note Date of Service July 25, 2020 Procedure Date: Noted above Critical Care Medicine Point of Care Bedside Ultrasound Procedure: Limited Bedside Lung Ultrasound Indication: Hypoxic respiratory failure secondary to COVID-19 Attending: Mary Reddy DO Resident/Physician Business Systems Advisor: [employer] Examined: Lung BLUE point (upper), BLUE point (lower), Phrenic Point (axillary), PLAPS point (posterior) A lines visualized: Absent, Hemithorax: Bilateral B lines visualized: Present, Hemithorax: Bilateral in all 4 points Lung Sliding: Present, Hemithorax: Bilateral Tissue-like Sign: Present, Hemithorax: Bilateral posterior lung regions Shred Sign: Absent, Hemithorax: Bilateral Quad Sign: Present, Hemithorax: Left posterior lung region very small Sinusoid Sign: Absent, Hemithorax: Bilateral Type of effusions: Simple in appearance, Hemithorax: Left posterior lung region Interpleural distance: Not measured: Extremely small Impression: Type B lung profile consistent with significant interstitial edema and small left-sided posterior pleural effusion of minimal size Images obtained are saved for permanent record Coding CPT Codes Pulmonary/Thoracic - Pulmonary and Thoracic: 73389 US, Chest, real time with imaging documentation ([id number]) [facility] [place]arges) Pulmonary/Thoracic Procedure 1: Pulmonary and Thoracic: 65891 US, Chest, real time with imaging documentation
--- NOTE | 2020-07-25 14:50 | Procedure Note ---
Procedure Note Date of Service July 25, 2020 Procedure date: Noted above Procedure: fiberoptic bronchoscopy Pre-procedure indication: Pulmonary infiltrate Post-procedure Diagnosis: same as above Attending Staff: Mary Reddy DO Resident/APC: Kvng Skin Prep: Not applicable Anesthesia: Continuous infusion The identity of the patient was confirmed and a bedside time out was performed. Description of Procedure: Fiberoptic bronchoscopy was performed via endotracheal tube. Bronchioalveolar lavage right middle and lower lobes was performed. Findings included: Small mucoid impaction of the right upper middle and lower lobes left lung largely unremarkable secretions were thin and creamy and white in color Complications: None Specimens: None Estimated blood loss: Zero Coding CPT Codes Pulmonary/Thoracic - Pulmonary and Thoracic: 17104 Dx bronchoscopy/wash ([id number]) [facility] [place] Procedure Codes (Charges) Pulmonary/Thoracic Procedure 1: Pulmonary and Thoracic: 26724 Dx bronchoscopy/wash
[2020-07-25] MEDS: MIDAZOLAM BOLUS FROM BAG IV PRN ×4 (16:31→21:29)
[2020-07-25] MEDS: PEPTAMEN INTENSE VHP 1.0 CAL 1,000 ML BAG OG SCH (17:25)
[2020-07-25] MEDS: METOPROLOL TARTRATE 25 MG TAB PO SCH (19:41)
--- NOTE | 2020-07-25 20:58 | Ultrasound Report ---
BILATERAL LOWER EXTREMITY VENOUS DOPPLER HISTORY: Leg swelling. Covid positive. COMPARISON STUDY: None. FINDINGS: There is thrombus identified within one of 2 right posterior tibial veins and the right per spear veins. There is also nonocclusive thrombus within the distal left popliteal vein and left peron eal veins. There are superficial thrombosed vein seen within the bilateral popliteal fossae. The bila teral common femoral and superficial femoral veins are patent. IMPRESSION: Bilateral lower extremity deep and superficial vein thrombosis as described above. ACT 112: Negative or not required by law. Electronically signed by: Ishan lPata M.D. 07/25/2020 8:56 PM
[2020-07-25] MEDS: ACETAMINOPHEN 325 MG TAB PO PRN (21:15)
[2020-07-25] MEDS ORDERED: STAT IV Infusion **Titration per Protocol STA (21:26)
--- NOTE | 2020-07-25 22:07 | Procedure Note ---
Procedure Note Date of Service July 25, 2020 Procedure: Arterial Line Placement Attending: Dr. Reddy APC: Killian Oliver PA-C Indication: Monitoring on Pressors Anesthesia: Lidocaine 1% Consent was signed and placed on the chart prior to procedure. Indication, risks, and benefits were explained at length. A time-out was completed verifying correct patient, procedure, site, positioning, and implant(s) or special equipment if applicable. Allens test was performed to ensure adequate perfusion. Patients LEFT wrist was prepped and draped in the usual sterile fashion. Ultrasound guidance was used to aid needle placement. A 20g Arrow arterial line was introduced into the LEFT Radial artery. Catheter was threaded, and the needle was removed with appropriate blood return. Good waveform was observed. The patient tolerated the procedure well. Confirmation of placement with ultrasound. Blood Loss: Minimal Complications: None Procedural Ultrasound Guidance: Procedure Date: 07/25/2020 Indication: Frequent ABGs, Multiple labs Attending: Dr. Reddy APC: Killian Oliver PA-C Artery Identified: YES Line confirmed in Artery with ultrasound: YES Complications: NONE Patient tolerated procedure: WELL Coding CPT Codes Tubes, Drains, and Vasc Access - Tubes, Drains, and Vasc Access: [id number] Place Catheter In Artery ([id number]) [facility] [place]Charges) Tubes, Drains, and Vasc Access Procedure 2: Tubes, Drains, and Vasc Access: [id number] Place Catheter In Artery
[2020-07-25 22:34] LABS: iSTAT Arterial Blood Gas HCO3 25 meg/L (19-24); iSTAT Arterial Blood Gas pCO2 36 mmHg (35-46); iSTAT Arterial Blood Gas pH 7.45 (7.35-7.45); iSTAT Arterial Blood Gas pO2 53 mmHg (80-95); iSTAT Carbon Dioxide 26 mmol/L (24-31); iSTAT FiO2 40 %; iSTAT Site Art Line
--- NOTE | 2020-07-25 23:19 | Communication Note ---
Date of Service: July 25, 2020 I was contacted by US quick technician regarding previous orders for bilateral lower extremity duplex. Order was provided. Images reviewed as was radiologist report. Patient with Doppler findings as follows: BILATERAL LOWER EXTREMITY VENOUS DOPPLER HISTORY: Leg swelling. Covid positive. COMPARISON STUDY: None. FINDINGS: There is thrombus identified within one of 2 right posterior tibial veins and the right peroneal veins. There is also nonocclusive thrombus within the distal left popliteal vein and left peroneal veins. There are superficial thrombosed vein seen within the bilateral popliteal fossae. The bilateral common femoral and superficial femoral veins are patent. IMPRESSION: Bilateral lower extremity deep and superficial vein thrombosis as described above. Medication list reviewed. Patient appropriately on Lovenox 40 mg SQ q12h. Will D/C Lovenox orders and transition to Heparin gtt. Will place orders for Heparin standard NO BOLUS. Discussed with nursing staff at bedside. Coding Level of Care Code None
[2020-07-25 23:25] LABS: Basophils # (auto) 0.01 K/uL (0-0.2); Basophils % (auto) 0.1 %; Eosinophils # (auto) 0.02 K/uL (0-0.5); Eosinophils % (auto) 0.1 %; Hematocrit (blood only) 35.9 % (42-52); Hemoglobin 12.1 g/dL (14.0-18.0); Immature Granulocytes # (auto) 0.38 K/uL (0.00-0.02); Immature Granulocytes % (auto) 2.7 %; Lymphocytes # (auto) 0.79 K/uL (1.2-3.4); Lymphocytes % (auto) 5.5 %; Mean Corpuscular Hemoglobin 29.4 pg (25-34); Mean Corpuscular Volume 87.3 fL (80-100); Mean Platelet Volume 10.9 fL (7.4-10.4); Monocytes # (auto) 0.77 K/uL (0.11-0.59); Monocytes % (auto) 5.4 %; Neutrophils # (auto) 12.35 K/uL (1.4-6.5); Neutrophils % (auto) 86.2 %; Platelet Count 256 K/uL (130-400); RDW Coefficient of Variation 13.3 % (11.5-14.5); Red Blood Count 4.11 M/uL (4.7-6.1); White Blood Count 14.32 K/uL (4.8-10.8)
[2020-07-25 23:30] LABS: Mean Corpuscular Hgb Conc 33.7 g/dL (32-36)
[2020-07-25 23:42] LABS: INR 1.1 (0.9-1.1); Partial Thromboplastin Ratio 1.1; Partial Thromboplastin Time 29.3 Seconds (21.0-31.0); Prothrombin Time 10.8 Seconds (9.0-12.0)
[2020-07-25] MEDS: HEPARIN SODIUM/DEXTROSE 25,000 UNITS/500 ML BAG IV SCH (23:57)
[2020-07-26] MEDS: fentaNYL DRIP 1,250 MCG/250 ML BAG IV SCH ×4 (00:55→15:48)
[2020-07-26] MEDS: DEXMEDETOMIDINE HCL 400 MCG in 0.9 % SODIUM CHLORIDE 96 ML IV SCH ×7 (00:55→19:59)
[2020-07-26] MEDS: Heparin IV Adult Wt-Based Standard *NO* Bolus Protocol IV SCH (00:56)
[2020-07-26] MEDS: TUBE FEEDING WATER FLUSH GT SCH ×6 (01:03→20:00)
[2020-07-26] MEDS: propofoL 1,000 MG/100 ML VIAL IV SCH ×4 (01:23→21:33)
[2020-07-26] MEDS: MIDAZOLAM BOLUS FROM BAG IV PRN (04:30)
[2020-07-26] MEDS: PROPOFOL BOLUS FROM BAG IV PRN ×2 (04:30→20:45)
[2020-07-26] MEDS: MIDAZOLAM HCL 125 MG/250 ML BAG IV SCH ×2 (04:53→20:07)
[2020-07-26 05:59] LABS: Allen Test Pos (Pos)
[2020-07-26 06:00] LABS: Basophils # (auto) 0.02 K/uL (0-0.2); Basophils % (auto) 0.1 %; Eosinophils % (auto) 0.6 %; Hematocrit (blood only) 35.6 % (42-52); Hemoglobin 11.9 g/dL (14.0-18.0); Immature Granulocytes # (auto) 0.42 K/uL (0.00-0.02); Immature Granulocytes % (auto) 2.6 %; Lymphocytes # (auto) 0.67 K/uL (1.2-3.4); Lymphocytes % (auto) 4.2 %; Mean Corpuscular Hemoglobin 29.3 pg (25-34); Mean Corpuscular Hgb Conc 33.4 g/dL (32-36); Mean Corpuscular Volume 87.7 fL (80-100); Mean Platelet Volume 10.8 fL (7.4-10.4); Monocytes % (auto) 6.3 %; Neutrophils # (auto) 13.71 K/uL (1.4-6.5); Neutrophils % (auto) 86.2 %; Platelet Count 245 K/uL (130-400); RDW Coefficient of Variation 13.4 % (11.5-14.5); RDW Standard Deviation 42.4 fL (36.4-46.3); Red Blood Count 4.06 M/uL (4.7-6.1); White Blood Count 15.92 K/uL (4.8-10.8)
[2020-07-26 06:02] LABS: Base Excess ABG 1.9 mEq/L (-9-1.8); HCO3 ABG 26 mmol/L (19-24); Oxygen Saturation ABG 93.8 % (90-95); PCO2 ABG 40 mmHg (35-46); PO2 ABG 66 mmHg (80-95); pH ABG 7.44 (7.35-7.45)
[2020-07-26 06:22] LABS: Partial Thromboplastin Ratio 1.7
[2020-07-26 06:25] LABS: Partial Thromboplastin Time 45.2 Seconds (21.0-31.0)
[2020-07-26 06:42] LABS: Albumin Level 1.8 gm/dl (3.4-5.0); BUN Creatinine Ratio 51.1 (10-20); Creatinine Clr Calc Pharmacy 131.4 ml/min; Est GFR (African American) 129.4; Est GFR (Non-African American) 111.6; Magnesium 2.2 mg/dl (1.8-2.4); Potassium 4.2 mmol/L (3.5-5.1)
[2020-07-26 06:45] LABS: Albumin Globulin Ratio 0.5 (0.9-2); Bilirubin,Total 0.9 mg/dl (0.2-1); Globulin 3.6 gm/dl (2.5-4.0); Phosphorus 3.1 mg/dl (2.5-4.9); Total Protein 5.4 gm/dl (6.4-8.2)
--- NOTE | 2020-07-26 07:52 | Critical Care Progress Note ---
Date of Service July 26, 2020 Assessment & Plan (1) Acute respiratory failure with hypoxia: Reason Critically Ill: 55-year-old male here for COVID pneumonia, transferred to the ICU on 07/18 for acute hypoxic RF secondary to this. ICU day 9, Vent day 8. Neuro - [facility] ICU: unable to assess (sedated) - continue Fentanyl/Versed/Propofol/Precedex for sedation - monitor BIS Cardiac - Off of pressors for several days, maintaining adequate MAP - bilateral DVTs - continue Heparin gtt, titrate as necessary to keep PTT in therapeutic range - continues to appear hypervolemic on exam today - ordered another Lasix 40mg IV x1 today in attempt to improve respiratory status - continue to follow clinically for changes in volume status - strict I/Os Respiratory - ARDS/acute hypoxic RF secondary to COVID PNA - Vent settings: AC/24/450/16/40, Pplat 26, P:F ratio 132.5 (relatively stable) - AB.45/36/53/25 - CXR showing slight improvement of hazy bilateral opacities: multifocal PNA (COVID-19) - continue Dexamethasone 6mg IV daily x10 days (today is day 9) - continue Fentanyl/Versed/Propofol/Precedex for sedation - proning therapy today starting at 1030 - continue ARDSnet strategy as tolerated - plan to attempt SBT/extubation tomorrow; consider tracheostomy if unsuccessful GI - continue trophic feeds - continue daily Lactulose 20g PO syrup, increase bowel regimen as needed if no bowel movement - strict I/Os as above RENAL/LYTES - - No electrolyte derangements, acid-base status appropriate - Renal function normal - Replace lytes as needed - No concerns at this time ENDO - glycemic control per ICU protocol HEME - Stable H&H ID - COVID-19 pneumonia, cultures no growth to date - continue Dexamethasone as mentioned above - no indication for antimicrobial treatments LINES/IV ACCESS - Left Subclavian VC, Left Radial Art Line, PIVs, OG tube, orellana intact DVT PROPHYLAXIS - therapeutic Heparin gtt as above GI ppx: Pepcid 20mg IV BID CODE STATUS: full code Thank you for allowing us to be part of this patient's care. Please refer to Dr. Reddy's documentation for any further recommendations. Admission and Anticipated Discharge Date Admission Date: July 17, 2020 Supervising Physician Co-Signing Physician Notes Dr. Calderon was resident physician during care of patient. I separately evaluated patient for khanna portions of the history and the exam. I was present during the critical portion of medical decision making, and I discussed the case with the resident. I generally agree with the findings and plan. Pronation therapy as patient continues to respond to prone positioning Patient was discussed on multidisciplinary rounds, risks and benefits of percutaneous tracheostomy were discussed with the patient's . Patient remains critically ill I have personally spent 45 minutes of critical care time in the direct management of this patient. This is a life/limb threatening event. This includes time spent evaluating patient, direct bedside care, chart review, placing orders, interpretation of diagnostic studies, discussion with consultants, patient, and/or family members regarding treatment decisions, as well as other required patient management activities. This time is exclusive of all separately billable procedures, and teaching time and separate from and in addition to any other critical care service time. Subjective Venous duplex studies showed bilateral LE DVTs - Lovenox transitioned to therapeutic Heparin gtt last night. Additionally, Propofol was restarted due to tachycardia/tachypnea/hypertension - vitals stabilized with addition of Propofol. Intubated/sedated. Review of Systems Review of Systems: Unobtainable due to ventilated/sedated. Physical Exam Physical Exam: General: Ventilated/sedated. HEENT: Atraumatic, airway obscured by endotracheal tube Pulm: Decreased air entry bilaterally, no respiratory distress on vent, Vent settings reviewed Cardiac: RRR, -mrg. Radial pulses intact and symmetrical, mild bilateral pitting edema Abdominal: soft, mildly distended with hypoactive BSx4 Skin: warm, dry Results & Data Results & Data ([facility]) Vital Signs (Past 12 Hours) Vital Signs Temp Pulse Resp BP Pulse Ox 07/26/20 07:31 67 25 H 91 07/26/20 06:00 37.0 C 67 92 07/26/20 05:37 37.1 C 67 109/68 92 07/26/20 05:00 37.2 C 68 91 07/26/20 04:00 37.3 C 68 92 07/26/20 03:52 67 24 91 07/26/20 03:37 37.4 C 71 115/61 91 07/26/20 03:00 37.5 C 69 91 07/26/20 02:37 37.5 C 70 122/61 91 07/26/20 02:00 37.7 C H 72 92 07/26/20 01:37 37.8 C H 72 112/62 91 07/26/20 01:00 37.8 C H 72 91 07/26/20 00:37 37.8 C H 74 127/63 91 07/26/20 00:00 38.0 C H 76 91 07/25/20 23:37 38.0 C H 76 107/61 91 07/25/20 23:25 79 24 92 07/25/20 23:00 38.1 C H 77 92 07/25/20 22:37 38.2 C H 79 107/61 91 07/25/20 22:00 38.5 C H 83 90 07/25/20 21:37 38.4 C H 85 120/70 100 07/25/20 21:22 38.3 C H 108 H 176/90 H 07/25/20 21:00 38.2 C H 109 H 85 L 07/25/20 20:37 38.1 C H 92 H 149/76 H 90 07/25/20 20:00 37.7 C H 78 92 Resident Activity Tracking Resident Involvement: Resident Care Provided Care Provided: Adult Hospital Medicine
[2020-07-26] MEDS: LACTULOSE SYRUP 20 GM/30 ML UDC PO SCH (08:02)
[2020-07-26] MEDS: MULTI VIT W/MINERALS LIQUID 15 ML UDP NG SCH (08:03)
[2020-07-26] MEDS: METOPROLOL TARTRATE 25 MG TAB PO SCH ×2 (08:03→20:02)
--- NOTE | 2020-07-26 08:16 | XRay Report ---
XR chest 1V portable HISTORY: COVID PNA COMPARISON: Chest 07/25/2020. FINDINGS: No pneumothorax. No pleural effusions. The heart is normal in size. Endotracheal tube termi nates 6 cm from the arlette. Nasogastric tube terminates below the diaphragm. Left subclavian central venous catheter terminates in the SVC. Bilateral mid to lower lung zone patchy airspace opacities hav e slightly improved. IMPRESSION: 1. Satisfactory support line placement. 2. Slight improvement in the bilateral airspace opacities consistent with a multifocal pneumonia. ACT 112: Negative or not required by law. Electronically signed by: Ishan Plata M.D. 07/26/2020 8:14 AM
[2020-07-26] MEDS: dexAMETHasone 6 MG in SYRINGE 0 ML IV SCH (08:32)
[2020-07-26] MEDS: FAMOTIDINE 20 MG in SYRINGE 3 ML IV SCH ×2 (08:33→19:59)
--- NOTE | 2020-07-26 09:47 | Billing Data ---
Date of Service July 26, 2020 Coding Level of Care Code Critical Care 1st - mins
[2020-07-26] MEDS ORDERED: FUROSEMIDE 40 MG in SYRINGE 0 ML IV ONE (10:30)
[2020-07-26] MEDS: POTASSIUM CHLORIDE PWD 20 MEQ PACK PO SCH ×2 (11:43→20:00)
[2020-07-26 13:14] LABS: Partial Thromboplastin Ratio 1.2; Partial Thromboplastin Time 30.4 Seconds (21.0-31.0)
[2020-07-26] MEDS ORDERED: HEPARIN IV BOLUS 6,000 UNITS in SYRINGE 0 ML IV ONE (14:45)
[2020-07-26] MEDS: HEPARIN SODIUM/DEXTROSE 25,000 UNITS/500 ML BAG IV SCH (18:02)
[2020-07-26 21:13] LABS: Partial Thromboplastin Time 80.2 Seconds (21.0-31.0)
--- NOTE | 2020-07-26 21:52 | Hospitalist Progress Note ---
Date of Service July 26, 2020 Assessment & Plan (1) Pneumonia due to COVID-19 virus: Severe disease with resulting acute hypoxic respiratory failure/ARDS. Very high settings on HFNC at the onset of his admission, followed by use of CPAP, and then intubation/mech ventilation. s/p intubation AM of 07/19/20. Day #9 of decadron 6mg daily s/p Convalescent plasma 07/20/20. ICU managing ventilator Continue ARDSNet protocol for vent parameters FiO2 50% P:F ratio 132, stable prone today at 1030 Dr. Reddy managing, consider SBT tomorrow after turning supine if he does not do well then might need to consider tracheostomy (2) Acute respiratory failure with hypoxia: As above in "COVID-19 pneumonia" Pulse ox 68% on room air upon arrival to the ER. PaO2 74 on 60% FiO2 - initial admission ABG. Continue steroids, mech ventilation continued evidence of volume overload, continue Lasix 40mg IV daily hopeful this will improve oxygenation slightly better today, P:F ratio is stable turned prone continue Fentanyl, Versed, Propofol, Precedex for sedation (3) DVT, bilateral lower limbs: found on dopplers on 07/25 was on Lovenox 40mg q12 at that time changed to heparin drip with bolus (4) Hypomagnesemia: repleted and resolved (5) Hyponatremia: Resolved (6) Abnormal LFTs: 2nd to COVID-19. stable (7) BPH (benign prostatic hyperplasia): Hold flomax while on vent No issues Lane (8) Chronic neck pain: Hold voltaren, etc (9) DVT prophylaxis: Lovenox SQ twice daily - Due to severe COVID illness he remains at high risk of VTE GI prophylaxis given severe stress - pepcid 20mg IV BID FEN - tube feeds at 40mL/hr, will need to hold if prone or on Nimbex Admission and Anticipated Discharge Date Admission Date: July 17, 2020 Subjective patient found to have DVT bilaterally on US, changed from Lovenox 40 q12 to heparin drip continue to use Lasix to diurese turned prone at 1030 today, saturations improved CXR is improving slightly reviewed labs Review of Systems Review of Systems: Unobtainable due to endotracheal tube and Unobtainable due to reduced consciousness Physical Exam Constitutional: well developed, well nourished and + mechanically ventilated (prone position) Neck: trachea midline, no thyromegaly Respiratory: normal respiratory effort and symmetric chest movement Auscultation: lungs clear to auscultation bilaterally Cardiovascular: Rate/Rhythm: regular rate and regular rhythm Heart Sounds: normal S1 and normal S2; no murmur Extremities: normal capillary refill and + edema Gastrointestinal (Abdomen): normal bowel sounds, soft, nontender, no hepatosplenomegaly Musculoskeletal: no cyanosis or clubbing, extremities motor strength 5/5 Head/Neck/Chest: normocephalic, head atraumatic and neck supple Skin: no rashes, warm and dry Neurologic: CN's II-XI intact bilaterally and + obtunded; no focal motor deficits Results & Data Results & Data ([facility]) Vital Signs (Past 12 Hours) Vital Signs Temp Pulse Resp BP Pulse Ox 07/26/20 21:00 35.6 C L 57 L 94 07/26/20 20:38 35.7 C L 56 L 156/82 H 94 07/26/20 20:00 35.9 C L 56 L 93 07/26/20 19:38 36.0 C L 53 L 171/78 H 99 07/26/20 19:35 50 L 24 94 07/26/20 19:00 36.0 C L 57 L 97 07/26/20 18:38 36.0 C L 58 L 133/73 97 07/26/20 18:00 36.1 C L 58 L 97 07/26/20 17:39 36.2 C L 59 L 97 07/26/20 17:38 36.6 C 58 L 132/75 97 07/26/20 17:00 36.2 C L 58 L 97 07/26/20 16:37 36.1 C L 58 L 130/74 97 07/26/20 16:00 36.2 C L 56 L 94 07/26/20 15:37 36.3 C L 56 L 123/71 94 07/26/20 15:32 56 L 24 95 07/26/20 15:00 36.5 C 58 L 97 07/26/20 14:37 36.5 C 58 L 121/72 96 07/26/20 14:00 36.7 C 59 L 95 07/26/20 13:37 36.8 C 60 113/71 96 07/26/20 13:00 36.9 C 62 97 07/26/20 12:37 36.9 C 62 118/71 97 07/26/20 12:00 36.9 C 61 95 07/26/20 11:30 36.9 C 61 93 07/26/20 11:00 36.8 C 61 92 07/26/20 10:58 60 24 92 07/26/20 10:37 36.8 C 127/76 90 07/26/20 10:30 36.8 C 63 91 07/26/20 10:00 36.8 C 64 91 Laboratory Results Laboratory Results - last 24 hr 07/25/20 07/25/20 07/25/20 21:58 23:14 23:14 WBC 14.32 H RBC 4.11 L Hgb 12.1 L Hct 35.9 L MCV 87.3 MCH 29.4 MCHC 33.7 RDW Std Deviation 42.0 RDW Coeff of Wes 13.3 Plt Count 256 MPV 10.9 H Immature Gran % (Auto) 2.7 Neut % (Auto) 86.2 Lymph % (Auto) 5.5 Thomas % (Auto) 5.4 Eos % (Auto) 0.1 Baso % (Auto) 0.1 Neut # (Auto) 12.35 H Lymph # (Auto) 0.79 L Thomas # (Auto) 0.77 H Eos # (Auto) 0.02 Baso # (Auto) 0.01 Immature Gran # (Auto) 0.38 H PT 10.8 INR 1.1 APTT 29.3 PTT Ratio 1.1 Sample Site Art Line POC pH 7.45 POC pCO2 36 POC pO2 53 L POC HCO3 25 H POC Total CO2 26 POC Base Excess 1.0 ABG pH ABG pCO2 ABG pO2 ABG HCO3 POC ABG O2 Sat 89.0 L ABG O2 Saturation ABG Base Excess Joshua Test NA Barometric Pressure Oxygen Given O2 Delivery Device Ventilator POC O2 Rate 24 POC FiO2 40 Tidal Volume 450 PEEP 16 Sodium Potassium Chloride Carbon Dioxide Anion Gap BUN Creatinine Est Cr Clr Drug Dosing Est GFR ( Amer) Est GFR (Non-Af Amer) BUN/Creatinine Ratio Glucose POC Glucose Calcium Phosphorus Magnesium Total Bilirubin AST ALT Alkaline Phosphatase Total Protein Albumin Globulin Albumin/Globulin Ratio Triglycerides 07/25/20 07/26/20 07/26/20 23:17 05:48 05:48 WBC RBC Hgb Hct MCV MCH MCHC RDW Std Deviation RDW Coeff of Wes Plt Count MPV Immature Gran % (Auto) Neut % (Auto) Lymph % (Auto) Thomas % (Auto) Eos % (Auto) Baso % (Auto) Neut # (Auto) Lymph # (Auto) Thomas # (Auto) Eos # (Auto) Baso # (Auto) Immature Gran # (Auto) PT INR APTT PTT Ratio Sample Site POC pH POC pCO2 POC pO2 POC HCO3 POC Total CO2 POC Base Excess ABG pH 7.44 ABG pCO2 40 ABG pO2 66 L ABG HCO3 26 H POC ABG O2 Sat ABG O2 Saturation 93.8 ABG Base Excess 1.9 H Joshua Test Pos Barometric Pressure 734.3 Oxygen Given 40% FI02 O2 Delivery Device POC O2 Rate POC FiO2 Tidal Volume PEEP Sodium 137 Potassium 4.2 Chloride 106 Carbon Dioxide 27 Anion Gap 4.0 BUN 31 H Creatinine 0.60 Est Cr Clr Drug Dosing 131.4 Est GFR ( Amer) 129.4 Est GFR (Non-Af Amer) 111.6 BUN/Creatinine Ratio 51.1 H Glucose 132 H POC Glucose 98 Calcium 8.0 L Phosphorus 3.1 Magnesium 2.2 Total Bilirubin 0.9 AST 21 ALT 68 Alkaline Phosphatase 74 Total Protein 5.4 L Albumin 1.8 L Globulin 3.6 Albumin/Globulin Ratio 0.5 L Triglycerides 186 H 07/26/20 07/26/20 07/26/20 05:48 05:48 05:48 WBC 15.92 H RBC 4.06 L Hgb 11.9 L Hct 35.6 L MCV 87.7 MCH 29.3 MCHC 33.4 RDW Std Deviation 42.4 RDW Coeff of Wes 13.4 Plt Count 245 MPV 10.8 H Immature Gran % (Auto) 2.6 Neut % (Auto) 86.2 Lymph % (Auto) 4.2 Thomas % (Auto) 6.3 Eos % (Auto) 0.6 Baso % (Auto) 0.1 Neut # (Auto) 13.71 H Lymph # (Auto) 0.67 L Thomas # (Auto) 1.00 H Eos # (Auto) 0.10 Baso # (Auto) 0.02 Immature Gran # (Auto) 0.42 H PT INR APTT 45.2 H* PTT Ratio 1.7 Sample Site POC pH POC pCO2 POC pO2 POC HCO3 POC Total CO2 POC Base Excess ABG pH ABG pCO2 ABG pO2 ABG HCO3 POC ABG O2 Sat ABG O2 Saturation ABG Base Excess Joshua Test Barometric Pressure Oxygen Given O2 Delivery Device POC O2 Rate POC FiO2 Tidal Volume PEEP Sodium Potassium Chloride Carbon Dioxide Anion Gap BUN Creatinine Est Cr Clr Drug Dosing Est GFR ( Amer) Est GFR (Non-Af Amer) BUN/Creatinine Ratio Glucose POC Glucose 135 H Calcium Phosphorus Magnesium Total Bilirubin AST ALT Alkaline Phosphatase Total Protein Albumin Globulin Albumin/Globulin Ratio Triglycerides 07/26/20 07/26/20 07/26/20 11:37 12:27 20:33 WBC RBC Hgb Hct MCV MCH MCHC RDW Std Deviation RDW Coeff of Wes Plt Count MPV Immature Gran % (Auto) Neut % (Auto) Lymph % (Auto) Thomas % (Auto) Eos % (Auto) Baso % (Auto) Neut # (Auto) Lymph # (Auto) Thomas # (Auto) Eos # (Auto) Baso # (Auto) Immature Gran # (Auto) PT INR APTT 30.4 80.2 H* PTT Ratio 1.2 3.0 Sample Site POC pH POC pCO2 POC pO2 POC HCO3 POC Total CO2 POC Base Excess ABG pH ABG pCO2 ABG pO2 ABG HCO3 POC ABG O2 Sat ABG O2 Saturation ABG Base Excess Joshua Test Barometric Pressure Oxygen Given O2 Delivery Device POC O2 Rate POC FiO2 Tidal Volume PEEP Sodium Potassium Chloride Carbon Dioxide Anion Gap BUN Creatinine Est Cr Clr Drug Dosing Est GFR ( Amer) Est GFR (Non-Af Amer) BUN/Creatinine Ratio Glucose POC Glucose 139 H Calcium Phosphorus Magnesium Total Bilirubin AST ALT Alkaline Phosphatase Total Protein Albumin Globulin Albumin/Globulin Ratio Triglycerides Medications Administered Current Inpatient Medications Acetaminophen (Acetaminophen 325 Mg Tab) 650 mg PO Q4H PRN PRN Reason: Pain Or Fever T>101.5 Stop: 08/16/20 14:58 Last Admin: 07/25/20 21:15 Dose: 650 mg Documented by: Albuterol (Albuterol Hfa 8 Gm Inhaler) 2 puffs INH 6XD PRN PRN Reason: shortness of breath or wheezing Stop: 08/16/20 14:58 Fentanyl Citrate (Fentanyl Bolus From Bag) 50 mcg IV Q60M PRN PRN Reason: Pain Stop: 08/02/20 08:51 Last Admin: 07/26/20 20:45 Dose: 50 mcg Documented by: Fish Oil (Water View-3 (Purified Fish Oil) 1 Gm Cap) 1 gm PO QAM KARENA Stop: 08/17/20 08:59 Last Admin: 07/21/20 12:08 Dose: Not Given Documented by: Heparin Sodium (Beef Lung) (Heparin 10 Unit/Ml 5 Ml Flush) 5 ml FLUSH PRN PRN PRN Reason: Flush Stop: 08/23/20 22:31 Dexamethasone 6 mg/ Syringe 1.5 mls @ 1 mls/min IV DAILY KARENA Stop: 07/28/20 08:59 Last Admin: 07/26/20 08:32 Dose: 1 mls/min Documented by: Famotidine 20 mg/ Syringe 5 mls @ 2.5 mls/min IV BID KARENA Stop: 08/17/20 20:59 Last Admin: 07/26/20 19:59 Dose: 2.5 mls/min Documented by: Fentanyl Citrate (Fentanyl Drip) 1,250 mcg in 250 mls @ 35 mls/hr IV .Q7H9M KARENA; Protocol Stop: 08/02/20 08:59 Last Titration: 07/26/20 18:58 Dose: 175 mcg/hr, 35 mls/hr Documented by: Midazolam HCl (Versed) 125 mg in 250 mls @ 16 mls/hr IV .[id number] KARENA; Protocol Stop: 08/18/20 09:14 Last Admin: 07/26/20 20:07 Dose: 8 mg/hr, 16 mls/hr Documented by: Dexmedetomidine HCl 400 mcg/ (Sodium Chloride) 100 mls @ 24.27 mls/hr IV .Q4H8M KARENA; Protocol Stop: 07/27/20 22:44 Last Titration: 07/26/20 21:29 Dose: 1 mcg/kg/hr, 20.2 mls/hr Documented by: Propofol (Diprivan) 1,000 mg in 100 mls @ 9.588 mls/hr IV .[id number] KARENA; Protocol Stop: 07/28/20 21:29 Last Admin: 07/26/20 21:33 Dose: 50 mcg/kg/min, 24 mls/hr Documented by: Heparin Sodium/Dextrose (Heparin Sodium/Dextrose) 25,000 units in 500 mls @ 31 mls/hr IV .Q16H8M [facility]; Protocol Stop: 08/24/20 22:59 Last Titration: 07/26/20 21:30 Dose: 1,500 units/hr, 30 mls/hr Documented by: Labetalol HCl (Labetalol Hcl Iv 5 Mg/Ml 20ml) 10 mg IV Q2H PRN PRN Reason: Hypertension Stop: 08/24/20 02:24 Last Admin: 07/25/20 03:00 Dose: 10 mg Documented by: Lactulose (Lactulose Syrup 20 Gm/30 Ml Udc) 20 gm PO DAILY KARENA Stop: 08/20/20 13:29 Last Admin: 07/26/20 08:02 Dose: 20 gm Documented by: Metoprolol Tartrate (Metoprolol Tartrate 25 Mg Tab) 12.5 mg PO BID [facility] Stop: 08/24/20 20:59 Last Admin: 07/26/20 20:02 Dose: Not Given Documented by: Midazolam HCl (Midazolam Bolus From Bag) 2 mg IV Q60M PRN PRN Reason: Sedation Stop: 08/18/20 09:04 Last Admin: 07/26/20 04:30 Dose: 2 mg Documented by: Multivitamins/Minerals (Multi Vit W/Minerals Liquid 15 Ml Udp) 15 ml NG QAM [facility] Stop: 08/24/20 08:59 Last Admin: 07/26/20 08:03 Dose: 15 ml Documented by: Nutritional Formula (Peptamen Intense Vhp 1.0 Carlos A 1,000 Ml Bag) 1,000 ml OG CONT [facility]; Protocol Stop: 08/19/20 10:29 Last Admin: 07/25/20 17:25 Dose: 1,000 ml Documented by: Potassium Chloride (Potassium Chloride Pwd 20 Meq Pack) 40 meq PO BID [facility] Stop: 07/26/20 22:14 Last Admin: 07/26/20 20:00 Dose: 40 meq Documented by: Propofol (Propofol Bolus From Bag) 20 mg IV Q5M PRN PRN Reason: Sedation Stop: 07/28/20 21:25 Last Admin: 07/26/20 20:45 Dose: 20 mg Documented by: Sterile Water (Tube Feeding Water Flush) 30 ml GT Q4H [facility] Stop: 08/24/20 11:59 Last Admin: 07/26/20 20:00 Dose: 30 ml Documented by: PG Care Time/CCT Total # of Minutes Spent Total Time Spent with Patient: Total time spent is greater than 50% in coordination of care (as documented) at patient's floor/unit and/or counseling patient: Coding Level of Care Code 37855 Subseq Hosp Care Lvl 2 Diagnoses Pneumonia due to COVID-19 virus U07.1; J12.82 Acute respiratory failure with hypoxia J96.01 DVT, bilateral lower limbs I82.403 Hypomagnesemia E83.42 Hyponatremia E87.1 Abnormal LFTs R94.5 BPH (benign prostatic hyperplasia) N40.0 Lower urinary tract symptom presence: symptoms absent Chronic neck pain M54.2; G89.29 DVT prophylaxis Z29.9 (1) BPH (benign prostatic hyperplasia) Lower urinary tract symptom presence: symptoms absent Qualified Code(s): N40.0 - Benign prostatic hyperplasia without lower urinary tract symptoms
[2020-07-27] MEDS: fentaNYL DRIP 1,250 MCG/250 ML BAG IV SCH ×7 (00:10→16:57)
[2020-07-27] MEDS: TUBE FEEDING WATER FLUSH GT SCH ×7 (00:11→20:57)
[2020-07-27] MEDS: propofoL 1,000 MG/100 ML VIAL IV SCH ×5 (01:38→15:29)
[2020-07-27] MEDS: DEXMEDETOMIDINE HCL 400 MCG in 0.9 % SODIUM CHLORIDE 96 ML IV SCH ×9 (01:38→22:00)
[2020-07-27] MEDS: HEPARIN SODIUM/DEXTROSE 25,000 UNITS/500 ML BAG IV SCH ×3 (03:20→11:55)
[2020-07-27 03:37] LABS: Basophils # (auto) 0.01 K/uL (0-0.2); Hematocrit (blood only) 34.6 % (42-52); Hemoglobin 11.9 g/dL (14.0-18.0); Immature Granulocytes # (auto) 0.23 K/uL (0.00-0.02); Immature Granulocytes % (auto) 1.1 %; Lymphocytes # (auto) 1.37 K/uL (1.2-3.4); Lymphocytes % (auto) 6.7 %; Mean Corpuscular Hemoglobin 29.9 pg (25-34); Mean Corpuscular Hgb Conc 34.4 g/dL (32-36); Mean Corpuscular Volume 86.9 fL (80-100); Mean Platelet Volume 10.9 fL (7.4-10.4); Monocytes % (auto) 2.4 %; Neutrophils # (auto) 18.37 K/uL (1.4-6.5); Neutrophils % (auto) 89.8 %; Platelet Count 294 K/uL (130-400); RDW Coefficient of Variation 13.6 % (11.5-14.5); Red Blood Count 3.98 M/uL (4.7-6.1); White Blood Count 20.48 K/uL (4.8-10.8)
[2020-07-27 03:41] LABS: Base Excess ABG 3.5 mEq/L (-9-1.8); HCO3 ABG 27 mmol/L (19-24); Oxygen Saturation ABG 95.7 % (90-95); PCO2 ABG 37 mmHg (35-46); PO2 ABG 72 mmHg (80-95); pH ABG 7.48 (7.35-7.45)
[2020-07-27 03:42] LABS: Allen Test pos (Pos)
[2020-07-27 03:56] LABS: Partial Thromboplastin Ratio 1.9
[2020-07-27 04:00] LABS: BUN Creatinine Ratio 49.6 (10-20); Calcium 8.3 mg/dl (8.5-10.1); Creatinine Clr Calc Pharmacy 140.8 ml/min; Est GFR (African American) 133.1; Est GFR (Non-African American) 114.8; Phosphorus 2.6 mg/dl (2.5-4.9); Potassium 4.8 mmol/L (3.5-5.1)
[2020-07-27 04:49] LABS: Partial Thromboplastin Time 50.5 Seconds (21.0-31.0)
[2020-07-27] MEDS: LACTULOSE SYRUP 20 GM/30 ML UDC PO SCH (07:36)
[2020-07-27] MEDS: MULTI VIT W/MINERALS LIQUID 15 ML UDP NG SCH (07:36)
[2020-07-27] MEDS: METOPROLOL TARTRATE 25 MG TAB PO SCH ×2 (07:37→20:19)
[2020-07-27] MEDS: FAMOTIDINE 20 MG in SYRINGE 3 ML IV SCH ×2 (07:37→20:19)
[2020-07-27] MEDS: dexAMETHasone 6 MG in SYRINGE 0 ML IV SCH (08:13)
[2020-07-27] MEDS: LABETALOL HCL IV 5 MG/ML 20ML IV PRN (10:05)
[2020-07-27] MEDS: MIDAZOLAM HCL 125 MG/250 ML BAG IV SCH ×2 (10:12→10:13)
[2020-07-27] MEDS: PEPTAMEN INTENSE VHP 1.0 CAL 1,000 ML BAG OG SCH (10:18)
--- NOTE | 2020-07-27 10:38 | XRay Report ---
XR chest 1V portable HISTORY: Covid pneumonia. Follow-up. COMPARISON: Chest 07/26/2020. FINDINGS: Endotracheal tube terminates 6 enters from the arlette. Nasogastric tube terminates in the s tomach. Left subclavian central venous catheter terminates in the proximal SVC. This remains unchange d. The heart is normal in size. There may be trace bilateral pleural effusions. No pneumothorax. Hazy bilateral airspace opacities most pronounced within the lung bases persists. IMPRESSION: 1. Satisfactory support line placement. 2. No change in the hazy bilateral airspace opacities consistent with a multifocal pneumonia. ACT 112: Negative or not required by law. Electronically signed by: Ishan Plata M.D. 07/27/2020 10:36 AM
--- NOTE | 2020-07-27 10:41 | Critical Care Progress Note ---
Date of Service July 27, 2020 Assessment & Plan (1) Acute respiratory failure with hypoxia: Impression: 55-year-old male with coronavirus. He has failed attempts at noninvasive positive pressure ventilation including bilevel and has increased work of breathing. Decision was made to proceed with intubation mechanical ventilation and prone positioning with neuromuscular blockade. Recommendations: 1. Neurologic: Continue deep sedation with fentanyl Versed. We will monitor BIS. 2. Cardiovascular: Levophed as needed to maintain mean arterial pressure of around 65. 3. Pulmonary: ARDS/acute hypoxemic respiratory failure: -Improved with pronation therapy will wean towards extubation -Possible tracheostomy if no improvement: Tomorrow 4. ID: Coronavirus pneumonia. Continue dexamethasone. No indication for antimicrobial agents currently. Blood cultures no growth to date. Check respiratory cultures: Normal chris 5. GI: Enteric access obtained. Continue tube feedings and follow clinically. Okay to continue with neuromuscular blockade in prone positioning per protocol 6. Renal: Electrolytes are acceptable. Acid-base status appropriate. Continue to monitor urine output. 7. Heme-onc: Bilateral lower extremity DVTs, on heparin. Okay to perform tracheostomy while on heparin 8. Endocrine: Glycemic control per ICU protocol. Admission and Anticipated Discharge Date Admission Date: July 17, 2020 Supervising Physician Co-Signing Physician Notes I have personally spent 45 minutes of critical care time in the direct management of this patient. This is a life/limb threatening event. This includes time spent evaluating patient, direct bedside care, chart review, placing orders, interpretation of diagnostic studies, discussion with consultants, patient, and/or family members regarding treatment decisions, as well as other required patient management activities. This time is exclusive of all separately billable procedures, and teaching time and separate from and in addition to any other critical care service time. Subjective No overnight events Review of Systems Review of Systems: Unobtainable due to endotracheal tube Physical Exam Physical Exam: General: Sedated. nontoxic. Skin: Warm, dry, Head: Atraumatic Ears, nose, mouth and throat: airway obscured by endotracheal tube Cardiovascular: Normal peripheral perfusion Respiratory: Ventilator settings reviewed Gastrointestinal: Non distended Musculoskeletal: No deformity Results & Data Results & Data ([facility]) Vital Signs (Past 12 Hours) Vital Signs Temp Pulse Resp BP Pulse Ox 07/27/20 08:29 59 L 24 90 07/27/20 04:41 75 26 H 94 07/27/20 04:00 38.0 C H 76 94 07/27/20 03:38 37.9 C H 75 121/62 94 07/27/20 03:00 37.9 C H 75 94 07/27/20 02:38 37.8 C H 74 122/64 93 07/27/20 02:00 37.6 C H 72 94 07/27/20 01:38 37.4 C 71 115/61 93 07/27/20 01:00 37.1 C 67 93 07/27/20 00:38 36.9 C 65 127/71 93 07/27/20 00:00 36.4 C L 62 94 07/26/20 23:38 36.1 C L 59 L 128/72 93 07/26/20 23:00 35.9 C L 57 L 93 07/26/20 22:38 35.7 C L 66 120/72 93 Laboratory Results 07/27/20 07/27/20 07/27/20 Range/Units 05:54 03:24 03:24 WBC (4.8-10.8) K/uL RBC (4.7-6.1) M/uL Hgb (14.0-18.0) g/dL Hct (42-52) % MCV (80-100) fL MCH (25-34) pg MCHC (32-36) g/dL RDW Std Deviation (36.4-46.3) fL RDW Coeff of Wes (11.5-14.5) % Plt Count (130-400) K/uL MPV (7.4-10.4) fL Immature Gran % (Auto) % Neut % (Auto) % Lymph % (Auto) % [place] % (Auto) % Eos % (Auto) % Baso % (Auto) % Neut # (Auto) (1.4-6.5) K/uL Lymph # (Auto) (1.2-3.4) K/uL [place] # (Auto) (0.11-0.59) K/uL Eos # (Auto) (0-0.5) K/uL Baso # (Auto) (0-0.2) K/uL Immature Gran # (Auto) (0.00-0.02) K/uL APTT (21.0-31.0) Seconds PTT Ratio ABG pH 7.48 H (7.35-7.45) ABG pCO2 37 (35-46) mmHg ABG pO2 72 L (80-95) mmHg ABG HCO3 27 H (19-24) mmol/L ABG O2 Saturation 95.7 H (90-95) % ABG Base Excess 3.5 H (-9-1.8) mEq/L Joshua Test pos (Pos) Barometric Pressure 744.7 mm/Hg Oxygen Given 30% FiO2 Sodium 139 (136-145) mmol/L Potassium 4.8 (3.5-5.1) mmol/L Chloride 107 (98-107) mmol/L Carbon Dioxide 28 (21-32) mmol/L Anion Gap 4.0 (3-11) BUN 28 H (7-18) mg/dl Creatinine 0.56 L (0.6-1.4) mg/dl Est Cr Clr Drug Dosing 140.8 ml/min Est GFR ( Amer) 133.1 Est GFR (Non-Af Amer) 114.8 BUN/Creatinine Ratio 49.6 H (10-20) Glucose 126 H (70-99) mg/dl POC Glucose 102 H (70-99) mg/dl Calcium 8.3 L (8.5-10.1) mg/dl Phosphorus 2.6 (2.5-4.9) mg/dl Magnesium 2.0 (1.8-2.4) mg/dl 07/27/20 07/27/20 07/27/20 Range/Units 03:24 03:24 01:37 WBC 20.48 H (4.8-10.8) K/uL RBC 3.98 L (4.7-6.1) M/uL Hgb 11.9 L (14.0-18.0) g/dL Hct 34.6 L (42-52) % MCV 86.9 (80-100) fL MCH 29.9 (25-34) pg MCHC 34.4 (32-36) g/dL RDW Std Deviation 43.0 (36.4-46.3) fL RDW Coeff of Wes 13.6 (11.5-14.5) % Plt Count 294 (130-400) K/uL MPV 10.9 H (7.4-10.4) fL Immature Gran % (Auto) 1.1 % Neut % (Auto) 89.8 % Lymph % (Auto) 6.7 % [place] % (Auto) 2.4 % Eos % (Auto) 0.0 % Baso % (Auto) 0.0 % Neut # (Auto) 18.37 H (1.4-6.5) K/uL Lymph # (Auto) 1.37 (1.2-3.4) K/uL [place] # (Auto) 0.50 (0.11-0.59) K/uL Eos # (Auto) 0.00 (0-0.5) K/uL Baso # (Auto) 0.01 (0-0.2) K/uL Immature Gran # (Auto) 0.23 H (0.00-0.02) K/uL APTT 50.5 H* (21.0-31.0) Seconds PTT Ratio 1.9 ABG pH (7.35-7.45) ABG pCO2 (35-46) mmHg ABG pO2 (80-95) mmHg ABG HCO3 (19-24) mmol/L ABG O2 Saturation (90-95) % ABG Base Excess (-9-1.8) mEq/L Joshua Test (Pos) Barometric Pressure mm/Hg Oxygen Given Sodium (136-145) mmol/L Potassium (3.5-5.1) mmol/L Chloride (98-107) mmol/L Carbon Dioxide (21-32) mmol/L Anion Gap (3-11) BUN (7-18) mg/dl Creatinine (0.6-1.4) mg/dl Est Cr Clr Drug Dosing ml/min Est GFR ( Amer) Est GFR (Non-Af Amer) BUN/Creatinine Ratio (10-20) Glucose (70-99) mg/dl POC Glucose 135 H (70-99) mg/dl Calcium (8.5-10.1) mg/dl Phosphorus (2.5-4.9) mg/dl Magnesium (1.8-2.4) mg/dl 07/26/20 07/26/20 07/26/20 Range/Units 20:33 12:27 11:37 WBC (4.8-10.8) K/uL RBC (4.7-6.1) M/uL Hgb (14.0-18.0) g/dL Hct (42-52) % MCV (80-100) fL MCH (25-34) pg MCHC (32-36) g/dL RDW Std Deviation (36.4-46.3) fL RDW Coeff of Wes (11.5-14.5) % Plt Count (130-400) K/uL MPV (7.4-10.4) fL Immature Gran % (Auto) % Neut % (Auto) % Lymph % (Auto) % [place] % (Auto) % Eos % (Auto) % Baso % (Auto) % Neut # (Auto) (1.4-6.5) K/uL Lymph # (Auto) (1.2-3.4) K/uL [place] # (Auto) (0.11-0.59) K/uL Eos # (Auto) (0-0.5) K/uL Baso # (Auto) (0-0.2) K/uL Immature Gran # (Auto) (0.00-0.02) K/uL APTT 80.2 H* 30.4 (21.0-31.0) Seconds PTT Ratio 3.0 1.2 ABG pH (7.35-7.45) ABG pCO2 (35-46) mmHg ABG pO2 (80-95) mmHg ABG HCO3 (19-24) mmol/L ABG O2 Saturation (90-95) % ABG Base Excess (-9-1.8) mEq/L Joshua Test (Pos) Barometric Pressure mm/Hg Oxygen Given Sodium (136-145) mmol/L Potassium (3.5-5.1) mmol/L Chloride (98-107) mmol/L Carbon Dioxide (21-32) mmol/L Anion Gap (3-11) BUN (7-18) mg/dl Creatinine (0.6-1.4) mg/dl Est Cr Clr Drug Dosing ml/min Est GFR ( Amer) Est GFR (Non-Af Amer) BUN/Creatinine Ratio (10-20) Glucose (70-99) mg/dl POC Glucose 139 H (70-99) mg/dl Calcium (8.5-10.1) mg/dl Phosphorus (2.5-4.9) mg/dl Magnesium (1.8-2.4) mg/dl Coding Level of Care Code Critical Care 1st 30-74 mins Diagnoses Acute respiratory failure with hypoxia J96.01
[2020-07-27] MEDS: METOPROLOL TARTRATE 1 MG/ML VIAL IV PRN ×2 (17:29→20:58)
[2020-07-27] MEDS ORDERED: METOPROLOL TARTRATE 1 MG/ML VIAL IV SCH (20:00)
[2020-07-27] MEDS ORDERED: STAT IV Infusion **Titration per Protocol STA (20:09)
[2020-07-27] MEDS ORDERED: DEXMEDETOMIDINE HCL 200 MCG in SODIUM CHLORIDE 0.9% 48 ML IV SCH (20:15)
[2020-07-27 21:09] LABS: iSTAT Art Bld Gas pCO2 Correct 34 mmHg (35-46); iSTAT Art Bld Gas pH Corrected 7.527 (7.35-7.45); iSTAT Arterial Blood Gas HCO3 28 meg/L (19-24); iSTAT Arterial Blood Gas pCO2 33 mmHg (35-46); iSTAT Arterial Blood Gas pH 7.54 (7.35-7.45); iSTAT Arterial Blood Gas pO2 76 mmHg (80-95); iSTAT Arterial Blood Gas pO2 C 80; iSTAT Carbon Dioxide 29 mmol/L (24-31); iSTAT FiO2 70 %; iSTAT Hematocrit 38 % (42-52); iSTAT Hemoglobin 12.9 g/dl (14.0-18.0); iSTAT Potassium 4.1 mmol/L (3.3-5.0); iSTAT Site Art Line; iSTAT Sodium 138 mmol/L (135-144)
--- NOTE | 2020-07-27 21:55 | Hospitalist Progress Note ---
Date of Service July 27, 2020 Assessment & Plan (1) Pneumonia due to COVID-19 virus: Severe disease with resulting acute hypoxic respiratory failure/ARDS. Very high settings on HFNC at the onset of his admission, followed by use of CPAP, and then intubation/mech ventilation. s/p intubation AM of 07/19/20. Day #10 of decadron 6mg daily s/p Convalescent plasma 07/20/20. Ventilated for a week extubated on 07/27 but now requiring BIPAP at risk of repeat intubation, would likely need tracheostomy at that point ICU managing (2) Acute respiratory failure with hypoxia: As above in "COVID-19 pneumonia" Pulse ox 68% on room air upon arrival to the ER. PaO2 74 on 60% FiO2 - initial admission ABG. Continue steroids able to extubate today, now requiring BIPAP close monitoring for possible need for re-intubation very hypertensive and tachycardic (3) DVT, bilateral lower limbs: found on dopplers on 07/25 was on Lovenox 40mg q12 at that time changed to heparin drip with bolus (4) Hypomagnesemia: repleted and resolved (5) Hyponatremia: Resolved (6) Abnormal LFTs: 2nd to COVID-19. stable (7) BPH (benign prostatic hyperplasia): Hold flomax while on vent No issues Lane (8) Chronic neck pain: Hold voltaren, etc (9) DVT prophylaxis: Lovenox SQ twice daily - Due to severe COVID illness he remains at high risk of VTE GI prophylaxis given severe stress - pepcid 20mg IV BID Admission and Anticipated Discharge Date Admission Date: July 17, 2020 Subjective patient extubated today after he was returned to supine position this morning he was maintaining saturations > 90 at FiO2 30% and PEEP of 6 after extubation he was still quite lethargic from sedation but following simple commands reviewed labs, WBC 20k, Hb 11.9, plts 294k Cr and electrolytes stable later this evening required BIPAP and he became hypertensive and tachycardic Review of Systems Review of Systems: Unobtainable due to reduced consciousness Physical Exam Constitutional: well developed, well nourished, + ill appearing and + in distress (mild) Neck: trachea midline, no thyromegaly Respiratory: + labored breathing and + tachypneic Auscultation: lungs clear to auscultation bilaterally Cardiovascular: Rate/Rhythm: regular rate and + tachycardic Heart Sounds: normal S1 and normal S2; no murmur Extremities: normal capillary refill and + edema Gastrointestinal (Abdomen): normal bowel sounds, soft, nontender, no hepatosplenomegaly Musculoskeletal: no cyanosis or clubbing, extremities motor strength 5/5 Head/Neck/Chest: normocephalic, head atraumatic and neck supple Skin: no rashes, warm and dry Neurologic: CN's II-XI intact bilaterally and + obtunded; no focal motor deficits Results & Data Results & Data ([facility]) Vital Signs (Past 12 Hours) Vital Signs Temp Pulse Pulse Resp BP Pulse Ox Pulse Ox 07/27/20 20:58 115 H 262/92 H 07/27/20 20:38 119 H 33 H 92 07/27/20 19:10 115 H 31 H 95 07/27/20 17:29 32 L 180/99 H 07/27/20 16:30 137 H 39 H 90 07/27/20 15:37 126 H 07/27/20 15:30 38.2 C H 129 H 36 H 92 07/27/20 15:24 38.2 C H 126 H 34 H 157/99 H 92 07/27/20 15:09 38.2 C H 128 H 32 H 162/95 H 92 07/27/20 15:00 38.2 C H 127 H 92 07/27/20 14:54 38.2 C H 121 H 164/88 H 92 07/27/20 14:50 122 H 25 H 92 07/27/20 14:39 38.2 C H 116 H 159/85 H 91 07/27/20 14:30 38.2 C H 116 H 90 07/27/20 14:24 38.2 C H 117 H 152/82 H 92 07/27/20 14:09 38.2 C H 114 H 155/85 H 92 07/27/20 14:00 38.2 C H 112 H 92 07/27/20 13:54 38.2 C H 113 H 162/86 H 92 07/27/20 13:39 38.1 C H 116 H 21 160/84 H 93 07/27/20 13:30 38.1 C H 111 H 93 07/27/20 13:24 38.1 C H 111 H 155/77 H 93 07/27/20 13:09 38.0 C H 107 H 167/90 H 93 07/27/20 13:00 38.0 C H 109 H 92 07/27/20 12:54 38.0 C H 99 H 166/85 H 92 07/27/20 12:39 37.9 C H 105 H 174/87 H 93 07/27/20 12:30 37.9 C H 108 H 92 07/27/20 12:24 37.8 C H 107 H 165/88 H 92 07/27/20 12:09 37.8 C H 103 H 173/91 H 92 07/27/20 12:00 37.7 C H 97 H 92 07/27/20 11:54 37.7 C H 97 H 161/82 H 92 07/27/20 11:39 37.6 C H 87 161/83 H 92 07/27/20 11:32 94 H 29 H 91 07/27/20 11:30 37.6 C H 96 H 92 07/27/20 11:24 37.6 C H 81 179/82 H 91 07/27/20 11:09 37.4 C 84 164/86 H 91 07/27/20 11:00 37.4 C 75 92 07/27/20 10:54 37.3 C 87 137/110 H 91 07/27/20 10:39 37.2 C 81 156/106 H 91 07/27/20 10:30 37.2 C 72 91 07/27/20 10:24 37.1 C 82 163/89 H 91 07/27/20 10:09 37.0 C 72 155/72 H 07/27/20 10:08 37.0 C 72 155/72 H 91 07/27/20 10:00 37.0 C 81 92 Laboratory Results Laboratory Results - last 24 hr 07/27/20 07/27/20 07/27/20 01:37 03:24 03:24 WBC 20.48 H RBC 3.98 L Hgb 11.9 L POC Hgb Hct 34.6 L POC Hct MCV 86.9 MCH 29.9 MCHC 34.4 RDW Std Deviation 43.0 RDW Coeff of Wes 13.6 Plt Count 294 MPV 10.9 H Immature Gran % (Auto) 1.1 Neut % (Auto) 89.8 Lymph % (Auto) 6.7 [place] % (Auto) 2.4 Eos % (Auto) 0.0 Baso % (Auto) 0.0 Neut # (Auto) 18.37 H Lymph # (Auto) 1.37 [place] # (Auto) 0.50 Eos # (Auto) 0.00 Baso # (Auto) 0.01 Immature Gran # (Auto) 0.23 H APTT 50.5 H* PTT Ratio 1.9 Sample Site POC pH POC pCO2 POC pO2 POC HCO3 POC Total CO2 POC Base Excess ABG pH ABG pH (Temp Correct) ABG pCO2 ABG pCO2 (Temp Corrct ABG pO2 POC ABG pO2 at Pt Temp ABG HCO3 POC ABG O2 Sat ABG O2 Saturation ABG Base Excess Joshua Test Barometric Pressure Oxygen Given O2 Delivery Device POC FiO2 POC Sodium Sodium POC Potassium Potassium Chloride Carbon Dioxide Anion Gap BUN Creatinine Est Cr Clr Drug Dosing Est GFR ( Amer) Est GFR (Non-Af Amer) BUN/Creatinine Ratio Glucose POC Glucose 135 H Calcium Phosphorus Magnesium 07/27/20 07/27/20 07/27/20 03:24 03:24 05:54 WBC RBC Hgb POC Hgb Hct POC Hct MCV MCH MCHC RDW Std Deviation RDW Coeff of Wes Plt Count MPV Immature Gran % (Auto) Neut % (Auto) Lymph % (Auto) [place] % (Auto) Eos % (Auto) Baso % (Auto) Neut # (Auto) Lymph # (Auto) [place] # (Auto) Eos # (Auto) Baso # (Auto) Immature Gran # (Auto) APTT PTT Ratio Sample Site POC pH POC pCO2 POC pO2 POC HCO3 POC Total CO2 POC Base Excess ABG pH 7.48 H ABG pH (Temp Correct) ABG pCO2 37 ABG pCO2 (Temp Corrct ABG pO2 72 L POC ABG pO2 at Pt Temp ABG HCO3 27 H POC ABG O2 Sat ABG O2 Saturation 95.7 H ABG Base Excess 3.5 H Joshua Test pos Barometric Pressure 744.7 Oxygen Given 30% FiO2 O2 Delivery Device POC FiO2 POC Sodium Sodium 139 POC Potassium Potassium 4.8 Chloride 107 Carbon Dioxide 28 Anion Gap 4.0 BUN 28 H Creatinine 0.56 L Est Cr Clr Drug Dosing 140.8 Est GFR ( Amer) 133.1 Est GFR (Non-Af Amer) 114.8 BUN/Creatinine Ratio 49.6 H Glucose 126 H POC Glucose 102 H Calcium 8.3 L Phosphorus 2.6 Magnesium 2.0 07/27/20 07/27/20 11:54 20:26 WBC RBC Hgb POC Hgb 12.9 L Hct POC Hct 38 L MCV MCH MCHC RDW Std Deviation RDW Coeff of Wes Plt Count MPV Immature Gran % (Auto) Neut % (Auto) Lymph % (Auto) [place] % (Auto) Eos % (Auto) Baso % (Auto) Neut # (Auto) Lymph # (Auto) [place] # (Auto) Eos # (Auto) Baso # (Auto) Immature Gran # (Auto) APTT PTT Ratio Sample Site Art Line POC pH 7.54 H* POC pCO2 33 L POC pO2 76 L POC HCO3 28 H POC Total CO2 29 POC Base Excess 6.0 H ABG pH ABG pH (Temp Correct) 7.527 H* ABG pCO2 ABG pCO2 (Temp Corrct 34 L ABG pO2 POC ABG pO2 at Pt Temp 80 ABG HCO3 POC ABG O2 Sat 97.0 H ABG O2 Saturation ABG Base Excess Joshua Test NA Barometric Pressure Oxygen Given O2 Delivery Device Other POC FiO2 70 POC Sodium 138 Sodium POC Potassium 4.1 Potassium Chloride Carbon Dioxide Anion Gap BUN Creatinine Est Cr Clr Drug Dosing Est GFR ( Amer) Est GFR (Non-Af Amer) BUN/Creatinine Ratio Glucose POC Glucose 140 H Calcium Phosphorus Magnesium Medications Administered Current Inpatient Medications Acetaminophen (Acetaminophen 325 Mg Tab) 650 mg PO Q4H PRN PRN Reason: Pain Or Fever T>101.5 Stop: 08/16/20 14:58 Last Admin: 07/25/20 21:15 Dose: 650 mg Documented by: Albuterol (Albuterol Hfa 8 Gm Inhaler) 2 puffs INH 6XD PRN PRN Reason: shortness of breath or wheezing Stop: 08/16/20 14:58 Fish Oil ([place]-3 (Purified Fish Oil) 1 Gm Cap) 1 gm PO QAM KARENA Stop: 08/17/20 08:59 Last Admin: 07/21/20 12:08 Dose: Not Given Documented by: Heparin Sodium (Beef Lung) (Heparin 10 Unit/Ml 5 Ml Flush) 5 ml FLUSH PRN PRN PRN Reason: Flush Stop: 08/23/20 22:31 Dexamethasone 6 mg/ Syringe 1.5 mls @ 1 mls/min IV DAILY KARENA Stop: 07/28/20 08:59 Last Admin: 07/27/20 08:13 Dose: 1 mls/min Documented by: Famotidine 20 mg/ Syringe 5 mls @ 2.5 mls/min IV BID KARENA Stop: 08/17/20 20:59 Last Admin: 07/27/20 20:19 Dose: 2.5 mls/min Documented by: Heparin Sodium/Dextrose (Heparin Sodium/Dextrose) 25,000 units in 500 mls @ 30 mls/hr IV .[id number] [facility]; Protocol Stop: 08/24/20 22:59 Last Titration: 07/27/20 18:58 Dose: 1,500 units/hr, 30 mls/hr Documented by: Dexmedetomidine HCl 400 mcg/ (Sodium Chloride) 100 mls @ 28.125 mls/hr IV .Q3H34M [facility]; Protocol Stop: 07/31/20 21:29 Furosemide 40 mg/ Syringe 4 mls @ 4 mls/min IV ONE ONE Stop: 07/27/20 22:01 Labetalol HCl (Labetalol Hcl Iv 5 Mg/Ml 20ml) 10 mg IV ONE ONE Stop: 07/28/20 22:01 Lactulose (Lactulose Syrup 20 Gm/30 Ml Udc) 20 gm PO DAILY [facility] Stop: 08/20/20 13:29 Last Admin: 07/27/20 07:36 Dose: 20 gm Documented by: Metoprolol Tartrate (Metoprolol Tartrate 25 Mg Tab) 12.5 mg PO BID [facility] Stop: 08/24/20 20:59 Last Admin: 07/27/20 20:19 Dose: Not Given Documented by: Metoprolol Tartrate (Metoprolol Tartrate 1 Mg/Ml Vial) 5 mg IV Q4 PRN PRN Reason: Tachycardia Stop: 08/26/20 19:59 Last Admin: 07/27/20 20:58 Dose: 5 mg Documented by: Multivitamins/Minerals (Multi Vit W/Minerals Liquid 15 Ml Udp) 15 ml NG QAM KARENA Stop: 08/24/20 08:59 Last Admin: 07/27/20 07:36 Dose: 15 ml Documented by: Nutritional Formula (Peptamen Intense Vhp 1.0 Carlos A 1,000 Ml Bag) 1,000 ml OG CONT KARENA; Protocol Stop: 08/19/20 10:29 Last Admin: 07/27/20 10:18 Dose: Not Given Documented by: Sterile Water (Tube Feeding Water Flush) 30 ml GT Q4H KARENA Stop: 08/24/20 11:59 Last Admin: 07/27/20 20:57 Dose: Not Given Documented by: PG Care Time/CCT Total # of Minutes Spent Total Time Spent with Patient: Total time spent is greater than 50% in coordination of care (as documented) at patient's floor/unit and/or counseling patient: Coding Level of Care Code 96051 Subseq Hosp Care Lvl 2 Diagnoses Pneumonia due to COVID-19 virus U07.1; J12.82 Acute respiratory failure with hypoxia J96.01 DVT, bilateral lower limbs I82.403 Hypomagnesemia E83.42 Hyponatremia E87.1 Abnormal LFTs R94.5 BPH (benign prostatic hyperplasia) N40.0 Lower urinary tract symptom presence: symptoms absent Chronic neck pain M54.2; G89.29 DVT prophylaxis Z29.9 (1) BPH (benign prostatic hyperplasia) Lower urinary tract symptom presence: symptoms absent Qualified Code(s): N40.0 - Benign prostatic hyperplasia without lower urinary tract symptoms
[2020-07-27] MEDS ORDERED: FUROSEMIDE 40 MG in SYRINGE 0 ML IV ONE (22:00)
[2020-07-27] MEDS ORDERED: LABETALOL HCL IV 5 MG/ML 20ML IV ONE (22:10)
[2020-07-27] MEDS ORDERED: PROPARACAINE 0.5% 225 DROPS/15 ML BTL OP STA (23:17)
[2020-07-28] MEDS: DEXMEDETOMIDINE HCL 400 MCG in 0.9 % SODIUM CHLORIDE 96 ML IV SCH ×4 (01:34→12:27)
[2020-07-28] MEDS: TUBE FEEDING WATER FLUSH GT SCH ×3 (04:39→12:12)
[2020-07-28] MEDS: HEPARIN SODIUM/DEXTROSE 25,000 UNITS/500 ML BAG IV SCH ×5 (05:37→21:20)
[2020-07-28 05:44] LABS: Hematocrit (blood only) 36.6 % (42-52); Hemoglobin 12.4 g/dL (14.0-18.0); Mean Corpuscular Hemoglobin 29.7 pg (25-34); Mean Corpuscular Hgb Conc 33.9 g/dL (32-36); Mean Corpuscular Volume 87.8 fL (80-100); Mean Platelet Volume 10.9 fL (7.4-10.4); Platelet Count 320 K/uL (130-400); RDW Coefficient of Variation 13.7 % (11.5-14.5); RDW Standard Deviation 43.1 fL (36.4-46.3); Red Blood Count 4.17 M/uL (4.7-6.1); White Blood Count 19.85 K/uL (4.8-10.8)
[2020-07-28 05:47] LABS: Base Excess ABG 4.6 mEq/L (-9-1.8); HCO3 ABG 28 mmol/L (19-24); Oxygen Saturation ABG 96.4 % (90-95); PCO2 ABG 37 mmHg (35-46); PO2 ABG 77 mmHg (80-95)
[2020-07-28 06:00] LABS: Partial Thromboplastin Ratio 1.7; Partial Thromboplastin Time 43.8 Seconds (21.0-31.0)
[2020-07-28 06:12] LABS: BUN Creatinine Ratio 47.4 (10-20); Calcium 8.3 mg/dl (8.5-10.1); Creatinine Clr Calc Pharmacy 127.2 ml/min; Est GFR (African American) 127.6; Est GFR (Non-African American) 110.1; Phosphorus 3.4 mg/dl (2.5-4.9)
[2020-07-28 06:22] LABS: Basophils # (auto) 0.02 K/uL (0-0.2); Basophils % (auto) 0.1 %; Eosinophils # (auto) 0.01 K/uL (0-0.5); Eosinophils % (auto) 0.1 %; Immature Granulocytes # (auto) 0.29 K/uL (0.00-0.02); Immature Granulocytes % (auto) 1.5 %; Lymphocytes % (auto) 9.6 %; Monocytes # (auto) 0.83 K/uL (0.11-0.59); Monocytes % (auto) 4.2 %; Neutrophils % (auto) 84.5 %
--- NOTE | 2020-07-28 07:37 | Critical Care Progress Note ---
Date of Service July 28, 2020 Assessment & Plan (1) Acute respiratory failure with hypoxia: Reason Critically Ill: 55-year-old male here for COVID pneumonia, transferred to the ICU on 07/18 for acute hypoxic RF secondary to this. Extubated on 07/27 - doing well on BiPAP. ICU day 11. Neuro - CAM ICU: POSITIVE - continue Precedex to assist with anxiety/HTN Cardiac - Off of pressors for several days, maintaining adequate MAP >65 - bilateral DVTs - continue Heparin gtt, titrate as necessary to keep PTT in therapeutic range - continue to follow clinically for changes in volume status - strict I/Os Respiratory - ARDS/acute hypoxic RF secondary to COVID PNA - improving, extubated on 07/27, tolerating BiPAP well - BiPAP settings: 8/ - AB.54/33/76/28 - mixed respiratory alkalosis/metabolic alkalosis - metabolic alkalosis likely contraction alkalosis / lasix - CXR showing stability of hazy bilateral opacities - s/p Decadron x10 days on 07/27 - continue BiPAP, wean as tolerated GI - NPO (s/p extubation on 07/27), advance as tolerated - Metoclopramide 10mg IV Q6H x3 doses today for nausea - KUB 07/28 showing moderate formed stool in colon - continue daily Lactulose 20g PO syrup, increase bowel regimen as needed if no bowel movement - strict I/Os as above RENAL/LYTES - No electrolyte derangements, acid-base status appropriate - Renal function normal - Replace lytes as needed - No concerns at this time, continue orellana ENDO - glycemic control per ICU protocol HEME - Stable H&H ID - COVID-19 pneumonia, cultures no growth to date - s/p Dexamethasone as mentioned above - no indication for antimicrobial treatments LINES/IV ACCESS - Left Subclavian VC, Left Radial Art Line, PIVs, OG tube, orellana intact DVT PROPHYLAXIS - therapeutic Heparin gtt as above GI ppx: Pepcid 20mg IV BID CODE STATUS: full code Thank you for allowing us to be part of this patient's care. Please refer to Dr. Reddy's documentation for any further recommendations. Admission and Anticipated Discharge Date Admission Date: July 17, 2020 Supervising Physician Co-Signing Physician Notes Dr. Calderon was resident physician during care of patient. I separately evaluated patient for khanna portions of the history and the exam. I was present during the critical portion of medical decision making, and I discussed the case with the resident. I generally agree with the findings and plan. Patient significantly improved tolerated extubation yesterday remained extubated, decreasing oxygen requirement on nasal cannula at this point. Metoprolol helping heart rate still mildly hypertensive however I do not feel necessary to treat at this particular time. Continued close observation for next 24 hours might be stable for downgrade in next 24 to 48 hours. Gentle diuresis today has contraction alkalosis Diamox to given prior to 20 mg Lasix and supplemental potassium chloride. Subjective Patient required PRN Labetalol x1 and PRN Metoprolol x1 for BPs up to 200s/100s - now 171/73. Satting >90% on BiPAP 12/13/39 since being extubated. This morning patient denies fever/chills, chest pain, shortness of breath, N/V, abdominal pain. Review of Systems Review of Systems: Pertinent positives and negatives mentioned in HPI. Physical Exam Physical Exam: General: Lying supine in bed, BiPAP in place, somnolent, NAD HEENT: Atraumatic, normocephalic Pulm: Decreased air entry bilaterally, bilateral crackles throughout, no wheezes, no increased work of breathing on current BiPAP settings Cardiac: RRR, -mrg. Radial pulses intact and symmetrical, no LE edema Abdominal: soft, mildly distended with hypoactive BSx4 Skin: warm, dry Results & Data Results & Data ([facility]) Vital Signs (Past 12 Hours) Vital Signs Temp Pulse Resp BP Pulse Ox 07/28/20 06:10 37.9 C H 86 27 H 175/84 H 92 07/28/20 06:01 37.9 C H 87 20 163/90 H 91 07/28/20 06:00 37.9 C H 91 H 27 H 91 07/28/20 05:40 37.9 C H 87 30 H 162/85 H 92 07/28/20 05:25 37.9 C H 95 H 29 H 170/90 H 94 07/28/20 05:10 37.9 C H 92 H 26 H 149/108 H 91 07/28/20 05:00 37.9 C H 97 H 29 H 90 07/28/20 04:55 37.9 C H 92 H 30 H 164/88 H 92 07/28/20 04:40 37.8 C H 98 H 27 H 165/87 H 93 07/28/20 04:25 37.8 C H 91 H 46 H 148/81 H 90 07/28/20 04:10 37.8 C H 91 H 28 H 162/83 H 91 07/28/20 04:00 37.8 C H 97 H 32 H 92 07/28/20 03:55 37.8 C H 97 H 24 179/88 H 94 07/28/20 03:40 37.9 C H 93 H 37 H 170/87 H 94 07/28/20 03:35 99 H 33 H 94 07/28/20 03:25 37.8 C H 91 H 25 H 153/87 H 94 07/28/20 03:10 37.8 C H 87 29 H 152/83 H 93 07/28/20 03:00 37.8 C H 91 H 23 93 07/28/20 02:55 37.8 C H 91 H 27 H 165/80 H 93 07/28/20 02:41 37.8 C H 89 26 H 93 07/28/20 02:40 37.8 C H 85 29 H 162/82 H 93 07/28/20 02:25 37.8 C H 93 H 35 H 166/85 H 94 07/28/20 02:00 37.8 C H 90 23 94 07/28/20 01:55 37.9 C H 91 H 27 H 161/88 H 95 07/28/20 01:40 37.9 C H 90 25 H 167/93 H 96 07/28/20 01:25 37.8 C H 87 31 H 163/88 H 94 07/28/20 01:10 37.9 C H 92 H 27 H 152/116 H 94 07/28/20 01:00 37.9 C H 89 28 H 94 07/28/20 00:55 37.9 C H 86 27 H 156/82 H 93 07/28/20 00:40 37.9 C H 91 H 30 H 161/86 H 94 07/28/20 00:25 37.9 C H 87 31 H 164/79 H 93 07/28/20 00:11 37.9 C H 92 H 26 H 93 07/28/20 00:10 37.9 C H 95 H 28 H 162/89 H 94 07/28/20 00:00 37.9 C H 81 28 H 93 07/27/20 23:54 37.9 C H 86 28 H 157/86 H 93 07/27/20 23:40 37.9 C H 92 H 24 170/91 H 93 07/27/20 23:25 37.8 C H 90 29 H 161/88 H 92 07/27/20 23:14 90 32 H 92 07/27/20 23:10 37.8 C H 91 H 27 H 171/98 H 91 07/27/20 23:00 37.8 C H 94 H 22 90 07/27/20 22:55 37.8 C H 93 H 23 173/91 H 91 07/27/20 22:39 37.8 C H 99 H 19 177/99 H 91 07/27/20 22:24 37.8 C H 92 H 24 174/96 H 92 07/27/20 22:09 37.8 C H 94 H 29 H 188/102 H 94 07/27/20 22:00 37.9 C H 108 H 28 H 96 07/27/20 21:55 37.9 C H 99 H 25 H 169/76 H 95 07/27/20 21:39 37.9 C H 101 H 26 H 183/102 H 94 07/27/20 21:24 37.9 C H 100 H 30 H 186/100 H 96 07/27/20 21:23 37.9 C H 102 H 27 H 200/108 H 96 07/27/20 21:13 37.9 C H 100 H 26 H 190/107 H 96 07/27/20 21:09 37.9 C H 102 H 33 H 195/104 H 96 07/27/20 21:03 37.9 C H 102 H 29 H 200/110 H 95 07/27/20 21:00 37.9 C H 112 H 29 H 95 07/27/20 20:58 115 H 262/92 H 07/27/20 20:54 37.9 C H 117 H 31 H 205/114 H 95 07/27/20 20:52 37.8 C H 118 H 20 198/110 H 95 07/27/20 20:40 37.8 C H 122 H 33 H 204/109 H 93 07/27/20 20:38 119 H 33 H 92 07/27/20 20:24 37.8 C H 125 H 42 H 204/114 H 94 07/27/20 20:09 37.8 C H 123 H 21 192/106 H 94 07/27/20 20:06 37.8 C H 117 H 39 H 188/111 H 94 07/27/20 20:02 37.8 C H 115 H 37 H 179/104 H 95 07/27/20 20:00 37.8 C H 113 H 34 H 96 07/27/20 19:54 37.8 C H 117 H 35 H 179/107 H 95 07/27/20 19:39 37.8 C H 119 H 23 182/107 H 95 Critical Care Time Critical Care Time: Yes Total Critical Care Time: 40 Resident Activity Tracking Resident Involvement: Resident Care Provided Care Provided: Adult Hospital Medicine
[2020-07-28] MEDS: LACTULOSE SYRUP 20 GM/30 ML UDC PO SCH (07:56)
[2020-07-28] MEDS: METOPROLOL TARTRATE 25 MG TAB PO SCH ×3 (07:56→20:15)
[2020-07-28] MEDS: PEPTAMEN INTENSE VHP 1.0 CAL 1,000 ML BAG OG SCH (07:56)
[2020-07-28] MEDS: MULTI VIT W/MINERALS LIQUID 15 ML UDP NG SCH (07:56)
[2020-07-28] MEDS: FAMOTIDINE 20 MG in SYRINGE 3 ML IV SCH ×2 (07:56→22:25)
[2020-07-28] MEDS: METOPROLOL TARTRATE 1 MG/ML VIAL IV PRN ×3 (07:57→16:39)
--- NOTE | 2020-07-28 08:57 | XRay Report ---
KUB HISTORY: Generalized abdominal pain. ileus COMPARISON: Abdomen and pelvis CT 11/18/2019. FINDINGS: The bowel gas pattern is unremarkable. There are no dilated loops of small bowel to suggest an obstruction. No renal calculi. No ureteral calculi. No pneumoperitoneum or pneumatosis. There is moderate well-formed stool seen within the colon. A rectal catheter is noted. IMPRESSION: 1. No evidence for bowel obstruction or significant ileus. 2. Moderate well-formed stool seen within the colon. ACT 112: Negative or not required by law. Electronically signed by: Ishan Plata M.D. 07/28/2020 8:55 AM
--- NOTE | 2020-07-28 08:59 | XRay Report ---
XR chest 1V portable CLINICAL HISTORY: Pneumonia. Follow-up study COMPARISON STUDY: 07/27/2020 FINDINGS: The endotracheal tube and nasogastric tubes have been removed. The heart is normal in size. There are multifocal airspace opacities consistent with a multifocal pneumonia.[ IMPRESSION: 1. Persistent multifocal airspace opacities consistent with a multifocal pneumonia 2. Interval removal of the endotracheal tube and enteric tube. ACT 112: Negative or not required by law. Electronically signed by: Braulio Chirinos M.D. 07/28/2020 8:58 AM
[2020-07-28] MEDS: METOCLOPRAMIDE HCL INJ 5 MG/ML 2 ML VIAL IV SCH ×3 (09:14→22:26)
[2020-07-28] MEDS ORDERED: FUROSEMIDE 20 MG in SYRINGE 0 ML IV ONE (11:44)
[2020-07-28] MEDS ORDERED: acetaZOLAMIDE 250 MG TAB PO STA (11:46)
--- NOTE | 2020-07-28 11:48 | Billing Data ---
Date of Service July 28, 2020 Coding Level of Care Code Critical Care 1st - mins
[2020-07-28] MEDS ORDERED: FUROSEMIDE 40 MG/4 ML VIAL IV SCH (12:00)
--- NOTE | 2020-07-28 12:02 | Hospitalist Progress Note ---
Date of Service July 28, 2020 Assessment & Plan (1) Pneumonia due to COVID-19 virus: Severe disease with resulting acute hypoxic respiratory failure/ARDS. Very high settings on HFNC at the onset of his admission, followed by use of CPAP, and then intubation/mech ventilation. s/p intubation AM of 07/19/20. completed 10 days of decadron 6mg daily s/p Convalescent plasma 07/20/20. Ventilated for a week extubated on 07/27 down to 6L NC today, no distress, a little tachypneic sitting fully upright in chair downgrade to PCU/telemetry today prognosis is now a lot better, PT consulted to get him stronger still anticipate him being in hospital the rest of the week will need rehab, would be a good [facility] candidate (2) Acute respiratory failure with hypoxia: As above in "COVID-19 pneumonia extubated on 07/27 to BIPAP now on 6L NC, breathing well, fully upright in chair continue to wean oxygen as tolerated use Lasix daily PRN to keep lungs dry, if his Cr is stable would likely benefit from Lasix 20mg IV in the morning (3) Volume overload: responding well to Lasix the past few days today with Lasix 20mg IV evaluate tomorrow, if BUN/Cr stable would give another dose of 20mg IV and mo nitor output try to keep lungs dry to help recovery (4) Hypertension: BP quite elevated at times, getting Lopressor 5mg IV q4 and Labetalol 10mg IV pushes in ICU HR is in the 90-100's will increase Lopressor to 25mg TID to try to limit IV dosing not on medications previously, monitor to see if he can come off the Lopressor as he recovers (5) Anxiety: continue buspirone 7.5mg TID PRN (6) DVT, bilateral lower limbs: found on dopplers on 07/25 was on Lovenox 40mg q12 at that time changed to heparin drip with bolus continue heparin drip for now can convert to oral agent this week (7) Hyponatremia: Resolved (8) Abnormal LFTs: to . stable (9) BPH (benign prostatic hyperplasia): Hold flomax while on vent No issues Lane (10) Chronic neck pain: Hold voltaren, etc (11) DVT prophylaxis: heparin drip for DVT in legs GI prophylaxis given severe stress - pepcid 20mg IV BID Admission and Anticipated Discharge Date Admission Date: July 17, 2020 Subjective patient doing well on 6L NC today main issues are with spikes in blood pressure and anxiety he passed his swallow evaluation this morning, tolerating clear liquids keeps requiring Lopressor 5mg IV q4 and Labetalol pushes for hypertension, will give Lopressor 25mg TID starting this afternoon he got Lasix 40mg IV last night and 20mg IV at noon today, diuresing well, Cr is stable got a dose of Diamox 500mg for alkalosis today Cr is 0.6, K 4.0, Mag 2.0, WBC 19k, Hb 12, plts 320 patient doing well, sitting up in a chair, drinking some liquids RR 20's, no distress he denies any chest pain or cough, no fever/chills discussed that we will focus on getting him stronger Review of Systems Review of Systems: All systems reviewed & are unremarkable except as noted in Subjective Constitutional: + fatigue and + weakness; no fever Respiratory: + cough, + dyspnea and + dyspnea on exertion; no sputum production and no wheezing Cardiovascular: no chest pain, no syncope and no edema Gastrointestinal: + diarrhea/loose stools; no abdominal pain, no nausea, no vomiting and no constipation Physical Exam Constitutional: well developed, + thin, + frail appearing and cooperative; no acute distress Neck: trachea midline, no thyromegaly Respiratory: normal respiratory effort and + tachypneic; no respiratory distress and no cough Auscultation: lungs clear to auscultation bilaterally Cardiovascular: Rate/Rhythm: regular rate and + tachycardic Heart Sounds: normal S1 and normal S2; no murmur Extremities: normal capillary refill and + edema Gastrointestinal (Abdomen): normal bowel sounds, soft, nontender, no hepatosplenomegaly Musculoskeletal: no cyanosis or clubbing, extremities motor strength 5/5 Head/Neck/Chest: normocephalic, head atraumatic and neck supple Skin: no rashes, warm and dry Neurologic: CN's II-XI intact bilaterally and + obtunded; no focal motor deficits Psychiatric: Orientation: alert and oriented x 3 Affect: euthymic affect Lymphatic: no cervical or axillary lymphadenopathy Results & Data Results & [facility] ([facility]) Vital Signs (Past 12 Hours) Vital Signs Temp Pulse Resp BP Pulse Ox 07/28/20 11:43 92 H 07/28/20 08:00 92 H 171/73 H 07/28/20 07:57 92 H 171/73 H 07/28/20 06:10 37.9 C H 86 27 H 175/84 H 92 07/28/20 06:01 37.9 C H 87 20 163/90 H 91 07/28/20 06:00 37.9 C H 91 H 27 H 91 07/28/20 05:40 37.9 C H 87 30 H 162/85 H 92 07/28/20 05:25 37.9 C H 95 H 29 H 170/90 H 94 07/28/20 05:10 37.9 C H 92 H 26 H 149/108 H 91 07/28/20 05:00 37.9 C H 97 H 29 H 90 07/28/20 04:55 37.9 C H 92 H 30 H 164/88 H 92 07/28/20 04:40 37.8 C H 98 H 27 H 165/87 H 93 07/28/20 04:25 37.8 C H 91 H 46 H 148/81 H 90 07/28/20 04:10 37.8 C H 91 H 28 H 162/83 H 91 07/28/20 04:00 37.8 C H 97 H 32 H 92 07/28/20 03:55 37.8 C H 97 H 24 179/88 H 94 07/28/20 03:40 37.9 C H 93 H 37 H 170/87 H 94 07/28/20 03:35 99 H 33 H 94 07/28/20 03:25 37.8 C H 91 H 25 H 153/87 H 94 07/28/20 03:10 37.8 C H 87 29 H 152/83 H 93 07/28/20 03:00 37.8 C H 91 H 23 93 07/28/20 02:55 37.8 C H 91 H 27 H 165/80 H 93 07/28/20 02:41 37.8 C H 89 26 H 93 07/28/20 02:40 37.8 C H 85 29 H 162/82 H 93 07/28/20 02:25 37.8 C H 93 H 35 H 166/85 H 94 07/28/20 02:00 37.8 C H 90 23 94 07/28/20 01:55 37.9 C H 91 H 27 H 161/88 H 95 07/28/20 01:40 37.9 C H 90 25 H 167/93 H 96 07/28/20 01:25 37.8 C H 87 31 H 163/88 H 94 07/28/20 01:10 37.9 C H 92 H 27 H 152/116 H 94 07/28/20 01:00 37.9 C H 89 28 H 94 07/28/20 00:55 37.9 C H 86 27 H 156/82 H 93 07/28/20 00:40 37.9 C H 91 H 30 H 161/86 H 94 07/28/20 00:25 37.9 C H 87 31 H 164/79 H 93 07/28/20 00:11 37.9 C H 92 H 26 H 93 07/28/20 00:10 37.9 C H 95 H 28 H 162/89 H 94 Laboratory Results Laboratory Results - last 24 hr 07/27/20 07/28/20 07/28/20 20:26 00:47 05:28 WBC RBC Hgb POC Hgb 12.9 L Hct POC Hct 38 L MCV MCH MCHC RDW Std Deviation RDW Coeff of Wes Plt Count MPV Immature Gran % (Auto) Neut % (Auto) Lymph % (Auto) [place] % (Auto) Eos % (Auto) Baso % (Auto) Neut # (Auto) Lymph # (Auto) [place] # (Auto) Eos # (Auto) Baso # (Auto) Immature Gran # (Auto) APTT 43.8 H PTT Ratio 1.7 Sample Site Art Line POC pH 7.54 H* POC pCO2 33 L POC pO2 76 L POC HCO3 28 H POC Total CO2 29 POC Base Excess 6.0 H ABG pH ABG pH (Temp Correct) 7.527 H* ABG pCO2 ABG pCO2 (Temp Corrct 34 L ABG pO2 POC ABG pO2 at Pt Temp 80 ABG HCO3 POC ABG O2 Sat 97.0 H ABG O2 Saturation ABG Base Excess Joshua Test NA Barometric Pressure Oxygen Given O2 Delivery Device Other POC FiO2 70 POC Sodium 138 Sodium POC Potassium 4.1 Potassium Chloride Carbon Dioxide Anion Gap BUN Creatinine Est Cr Clr Drug Dosing Est GFR ( Amer) Est GFR (Non-Af Amer) BUN/Creatinine Ratio Glucose POC Glucose 82 Calcium Phosphorus Magnesium 07/28/20 07/28/20 07/28/20 05:28 05:28 05:31 WBC 19.85 H RBC 4.17 L Hgb 12.4 L POC Hgb Hct 36.6 L POC Hct MCV 87.8 MCH 29.7 MCHC 33.9 RDW Std Deviation 43.1 RDW Coeff of Wes 13.7 Plt Count 320 MPV 10.9 H Immature Gran % (Auto) 1.5 Neut % (Auto) 84.5 Lymph % (Auto) 9.6 [place] % (Auto) 4.2 Eos % (Auto) 0.1 Baso % (Auto) 0.1 Neut # (Auto) 16.80 H Lymph # (Auto) 1.90 [place] # (Auto) 0.83 H Eos # (Auto) 0.01 Baso # (Auto) 0.02 Immature Gran # (Auto) 0.29 H APTT PTT Ratio Sample Site POC pH POC pCO2 POC pO2 POC HCO3 POC Total CO2 POC Base Excess ABG pH 7.50 H ABG pH (Temp Correct) ABG pCO2 37 ABG pCO2 (Temp Corrct ABG pO2 77 L POC ABG pO2 at Pt Temp ABG HCO3 28 H POC ABG O2 Sat ABG O2 Saturation 96.4 H ABG Base Excess 4.6 H Joshua Test DRAWN FROM A LINE Barometric Pressure 745.0 Oxygen Given 40% O2 Delivery Device POC FiO2 POC Sodium Sodium 138 POC Potassium Potassium 4.0 D Chloride 105 Carbon Dioxide 29 Anion Gap 4.0 BUN 29 H Creatinine 0.62 Est Cr Clr Drug Dosing 127.2 Est GFR ( Amer) 127.6 Est GFR (Non-Af Amer) 110.1 BUN/Creatinine Ratio 47.4 H Glucose 108 H POC Glucose Calcium 8.3 L Phosphorus 3.4 Magnesium 2.0 07/28/20 05:34 WBC RBC Hgb POC Hgb Hct POC Hct MCV MCH MCHC RDW Std Deviation RDW Coeff of Wes Plt Count MPV Immature Gran % (Auto) Neut % (Auto) Lymph % (Auto) [place] % (Auto) Eos % (Auto) Baso % (Auto) Neut # (Auto) Lymph # (Auto) [place] # (Auto) Eos # (Auto) Baso # (Auto) Immature Gran # (Auto) APTT PTT Ratio Sample Site POC pH POC pCO2 POC pO2 POC HCO3 POC Total CO2 POC Base Excess ABG pH ABG pH (Temp Correct) ABG pCO2 ABG pCO2 (Temp Corrct ABG pO2 POC ABG pO2 at Pt Temp ABG HCO3 POC ABG O2 Sat ABG O2 Saturation ABG Base Excess Joshua Test Barometric Pressure Oxygen Given O2 Delivery Device POC FiO2 POC Sodium Sodium POC Potassium Potassium Chloride Carbon Dioxide Anion Gap BUN Creatinine Est Cr Clr Drug Dosing Est GFR ( Amer) Est GFR (Non-Af Amer) BUN/Creatinine Ratio Glucose POC Glucose 111 H Calcium Phosphorus Magnesium Medications Administered Current Inpatient Medications Acetaminophen (Acetaminophen 325 Mg Tab) 650 mg PO Q4H PRN PRN Reason: Pain Or Fever T>101.5 Stop: 08/16/20 14:58 Last Admin: 07/25/20 21:15 Dose: 650 mg Documented by: Albuterol (Albuterol Hfa 8 Gm Inhaler) 2 puffs INH 6XD PRN PRN Reason: shortness of breath or wheezing Stop: 08/16/20 14:58 Fish Oil ([place]-3 (Purified Fish Oil) 1 Gm Cap) 1 gm PO QAM KARENA Stop: 08/17/20 08:59 Last Admin: 07/21/20 12:08 Dose: Not Given Documented by: Furosemide (Furosemide 40 Mg/4 Ml Vial) 20 mg IV 1200 KARENA Stop: 07/28/20 13:00 Heparin Sodium (Beef Lung) (Heparin 10 Unit/Ml 5 Ml Flush) 5 ml FLUSH PRN PRN PRN Reason: Flush Stop: 08/23/20 22:31 Famotidine 20 mg/ Syringe 5 mls @ 2.5 mls/min IV BID KARENA Stop: 08/17/20 20:59 Last Admin: 07/28/20 07:56 Dose: 2.5 mls/min Documented by: Heparin Sodium/Dextrose (Heparin Sodium/Dextrose) 25,000 units in 500 mls @ 31 mls/hr IV .Q16H8M [facility]; Protocol Stop: 08/24/20 22:59 Last Admin: 07/28/20 07:22 Dose: Not Given Documented by: Dexmedetomidine HCl 400 mcg/ (Sodium Chloride) 100 mls @ 14.063 mls/hr IV .Q7H7M [facility]; Protocol Stop: 07/31/20 21:29 Last Admin: 07/28/20 09:52 Dose: 0.75 mcg/kg/hr, 14.1 mls/hr Documented by: Lactulose (Lactulose Syrup 20 Gm/30 Ml Udc) 20 gm PO DAILY [facility] Stop: 08/20/20 13:29 Last Admin: 07/28/20 07:56 Dose: Not Given Documented by: Metoclopramide HCl (Metoclopramide Hcl Inj 5 Mg/Ml 2 Ml Vial) 10 mg IV Q6H [facility] Stop: 07/28/20 21:01 Last Admin: 07/28/20 09:14 Dose: 10 mg Documented by: Metoprolol Tartrate (Metoprolol Tartrate 25 Mg Tab) 12.5 mg PO BID [facility] Stop: 08/24/20 20:59 Last Admin: 07/28/20 07:56 Dose: Not Given Documented by: Metoprolol Tartrate (Metoprolol Tartrate 1 Mg/Ml Vial) 5 mg IV Q4 PRN PRN Reason: Tachycardia Stop: 08/26/20 19:59 Last Admin: 07/28/20 07:57 Dose: 5 mg Documented by: Multivitamins/Minerals (Multi Vit W/Minerals Liquid 15 Ml Udp) 15 ml NG QAM [facility] Stop: 08/24/20 08:59 Last Admin: 07/28/20 07:56 Dose: Not Given Documented by: Nutritional Formula (Peptamen Intense Vhp 1.0 Carlos A 1,000 Ml Bag) 1,000 ml OG CONT [facility]; Protocol Stop: 08/19/20 10:29 Last Admin: 07/28/20 07:56 Dose: Not Given Documented by: Potassium Chloride (Potassium Chloride Pwd 20 Meq Pack) 40 meq PO BID [facility] Stop: 07/28/20 23:55 Sterile Water (Tube Feeding Water Flush) 30 ml GT Q4H [facility] Stop: 08/24/20 11:59 Last Admin: 07/28/20 07:55 Dose: Not Given Documented by: PG Care Time/CCT Total # of Minutes Spent Total Time Spent with Patient: Total time spent is greater than 50% in coordination of care (as documented) at patient's floor/unit and/or counseling p atient: Coding Level of Care Code 39665 Subseq Hosp Care Lvl 3 Diagnoses Pneumonia due to COVID-19 virus U07.1; J12.82 Acute respiratory failure with hypoxia J96.01 Volume overload E87.70 Hypertension I10 Anxiety F41.9 DVT, bilateral lower limbs I82.403 Hyponatremia E87.1 Abnormal LFTs R94.5 BPH (benign prostatic hyperplasia) N40.0 Lower urinary tract symptom presence: symptoms absent Chronic neck pain M54.2; G89.29 DVT prophylaxis Z29.9 (1) BPH (benign prostatic hyperplasia) Lower urinary tract symptom presence: symptoms absent Qualified Code(s): N40.0 - Benign prostatic hyperplasia without lower urinary tract symptoms
[2020-07-28] MEDS: POTASSIUM CHLORIDE PWD 20 MEQ PACK PO SCH ×2 (12:27→22:25)
[2020-07-28] MEDS ORDERED: busPIRone 7.5 MG TAB PO PRN (12:43)
[2020-07-28] MEDS ORDERED: METHYLNALTREXONE BROMIDE 12 MG/0.6 ML VIAL SQ STA (12:43)
[2020-07-28 12:46] LABS: Partial Thromboplastin Ratio 1.5; Partial Thromboplastin Time 39.3 Seconds (21.0-31.0)
[2020-07-28 20:06] LABS: Partial Thromboplastin Ratio 1.5; Partial Thromboplastin Time 38.6 Seconds (21.0-31.0)
[2020-07-28] MEDS ORDERED: LABETALOL HCL IV 5 MG/ML 20ML IV ONE (22:00)
[2020-07-28] MEDS ORDERED: METOPROLOL TARTRATE 25 MG TAB PO STA (23:08)
[2020-07-29] MEDS ORDERED: FUROSEMIDE 20 MG in SYRINGE 0 ML IV ONE (01:06)
[2020-07-29 02:49] LABS: Hematocrit (blood only) 43.4 % (42-52); Hemoglobin 15.1 g/dL (14.0-18.0); Mean Corpuscular Hemoglobin 30.3 pg (25-34); Mean Corpuscular Hgb Conc 34.8 g/dL (32-36); Mean Corpuscular Volume 87.1 fL (80-100); Mean Platelet Volume 10.9 fL (7.4-10.4); Platelet Count 403 K/uL (130-400); RDW Coefficient of Variation 13.8 % (11.5-14.5); RDW Standard Deviation 43.4 fL (36.4-46.3); Red Blood Count 4.98 M/uL (4.7-6.1); White Blood Count 23.39 K/uL (4.8-10.8)
[2020-07-29 03:02] LABS: Partial Thromboplastin Ratio 1.5; Partial Thromboplastin Time 38.4 Seconds (21.0-31.0)
[2020-07-29 03:09] LABS: Basophils # (auto) 0.03 K/uL (0-0.2); Basophils % (auto) 0.1 %; Eosinophils # (auto) 0.01 K/uL (0-0.5); Immature Granulocytes # (auto) 0.47 K/uL (0.00-0.02); Lymphocytes # (auto) 2.77 K/uL (1.2-3.4); Lymphocytes % (auto) 11.8 %; Monocytes # (auto) 0.79 K/uL (0.11-0.59); Monocytes % (auto) 3.4 %; Neutrophils # (auto) 19.32 K/uL (1.4-6.5); Neutrophils % (auto) 82.7 %; RBC Morphology Unremarkable
[2020-07-29 03:14] LABS: BUN Creatinine Ratio 35.3 (10-20); Calcium 8.9 mg/dl (8.5-10.1); Creatinine Clr Calc Pharmacy 96.2 ml/min; Est GFR (African American) 113.8; Est GFR (Non-African American) 98.2; Potassium 3.8 mmol/L (3.5-5.1)
[2020-07-29] MEDS ORDERED: LORazepam 1 MG/2 ML VIAL IV STA (03:19)
[2020-07-29] MEDS ORDERED: LORazepam 2 MG/4 ML VIAL ONE (03:22)
[2020-07-29 03:37] LABS: Phosphorus 2.8 mg/dl (2.5-4.9)
[2020-07-29] MEDS ORDERED: LACTULOSE SYRUP 20 GM/30 ML UDC PO PRN (03:59)
--- NOTE | 2020-07-29 05:02 | Communication Note ---
Date of Service: July 29, 2020 Patient with ongoing hypertension and tachycardia -Given additional dose of Metoprolol 25mg at 23:14 Patient with worsening respiratory status at 01:00 - more tachypneic with RR into the 40's. Increased oxygen demand - Now 87% on Oxymask 15L Afebrile, Waxing and waning mental status. Able to answer some questions and follow commands. Patient appears to be anxious. Ill in appearance, tachypneic and slightly diaphoretic +S1/S2, regular, tachycardic Coarse breath sounds anteriorly Abdomen soft, NT/ND Ext with cool fingers, palpable pulses, no edema -Administered Lasix 20mg IV at 01:48 -Administered Ativan 1mg IV at 03:25 -Respiratory Therapy at bedside - patient placed on BiPAP for increased work of breathing. Currently on 04/14, 60% FiO2 with improvement in work of breathing -CXR obtained -similar to prior, possibly slightly worse airspace disease in right lung -AM labs with worsening leukocytosis WBC=23.29 and elevated platelets of 403 -ABG ordered ?Anxiety, worsening ARDS? possibly bacterial infection vs volume overload ?aspiration event -awaiting abg -procalcitonin ordered -consider initiating empiric abx
[2020-07-29 05:29] LABS: iSTAT Allen Test Pass; iSTAT Art Bld Gas pCO2 Correct 30 mmHg (35-46); iSTAT Art Bld Gas pH Corrected 7.482 (7.35-7.45); iSTAT Arterial Blood Gas HCO3 22 meg/L (19-24); iSTAT Arterial Blood Gas pCO2 30 mmHg (35-46); iSTAT Arterial Blood Gas pH 7.48 (7.35-7.45); iSTAT Arterial Blood Gas pO2 55 mmHg (80-95); iSTAT Arterial Blood Gas pO2 C 55; iSTAT Carbon Dioxide 23 mmol/L (24-31); iSTAT FiO2 60 %; iSTAT Hematocrit 42 % (42-52); iSTAT Hemoglobin 14.3 g/dl (14.0-18.0); iSTAT Potassium 3.6 mmol/L (3.3-5.0); iSTAT Site R Brachial; iSTAT Sodium 136 mmol/L (135-144)
[2020-07-29] MEDS: LABETALOL HCL IV 5 MG/ML 20ML IV PRN (06:10)
[2020-07-29] MEDS: METOPROLOL TARTRATE 25 MG TAB PO SCH ×3 (07:32→20:54)
[2020-07-29] MEDS: MULTI VIT W/MINERALS LIQUID 15 ML UDP NG SCH (07:32)
--- NOTE | 2020-07-29 08:00 | XRay Report ---
XR chest 1V portable HISTORY: tachypnea, hypoxia COMPARISON: Chest 07/28/2020. FINDINGS: Persistent hazy bilateral airspace opacities consistent with a multifocal pneumonia. No pne umothorax. Suspect a trace left pleural effusion. The heart is normal in size. Left subclavian centra l venous catheter terminates in the SVC. IMPRESSION: No change in the hazy multifocal airspace opacities consistent with a pneumonia. ACT 112: Negative or not required by law. Electronically signed by: Ishan Plata M.D. 07/29/2020 7:59 AM
[2020-07-29] MEDS ORDERED: STAT IV Infusion **Titration per Protocol STA ×2 (08:41→12:00)
[2020-07-29] MEDS ORDERED: FUROSEMIDE 40 MG/4 ML VIAL IV ONE (08:44)
[2020-07-29] MEDS ORDERED: FUROSEMIDE 40 MG in SYRINGE 0 ML IV STA (08:48)
[2020-07-29] MEDS: DEXMEDETOMIDINE HCL 200 MCG in SODIUM CHLORIDE 0.9% 48 ML IV SCH ×3 (09:00→14:31)
[2020-07-29] MEDS ORDERED: POTASSIUM CHLORIDE PWD 20 MEQ PACK PO STA (09:06)
[2020-07-29] MEDS: FAMOTIDINE 20 MG in SYRINGE 3 ML IV SCH ×2 (09:08→20:54)
[2020-07-29] MEDS: POTASSIUM CHLORIDE / WTR 20 MEQ/100 ML PLCT IV SCH ×2 (10:03→11:30)
[2020-07-29 10:09] LABS: Partial Thromboplastin Ratio 1.4; Partial Thromboplastin Time 37.6 Seconds (21.0-31.0)
--- NOTE | 2020-07-29 10:13 | Palliative Care Consultation ---
Date of Consultation July 29, 2020 Assessment & Plan (1) Palliative care encounter: This is a 55 year old male who presented to the [facility] on July 13, 2020 with somnolence and fatigue. He had been diagnosed with the novel coronavirus 8 days prior to coming in to the ED and upon arrival his SpO2 was 68%. He was intubated and received treatment for covid-19. On 07/15, he had Duplex US and was found to have bilateral lower extremity DVT's. He was able to tolerate a spontaneous breathing trial and was extubated on 07/27/20 and was moved to PCU on 6LNC. Yesterday, he became tachypnic and was placed on BiPAP and appears that he will be requiring re-intubation. Additional PMH includes: HTN, calcification of abdominal aorta, BPH, and Peyronie's disease. Palliative Care was consulted to discuss goals of care. I met with Mr. Del Castillo in room 234. He was using accessory muscles to breath on BiPAP 80%. SpO2 dropped to 80% when I was in the room. Also tachycardic in the 115-120 range. Pt was extubated yesterday 07/28. He has a very frail voice but is able to communicate appropriately with his hands, using thumbs up, etc. Mr. Del Castillo was very active prior to this hospitalization. 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 Sports, running, reading and his family bring him didi. We discussed reintubation and tracheostomy being a likely next step since this would be his second intubation. 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 He responded with a thumbs up. If it does look like he will have a meaningful recovery with no improvement, he would like to be kept comfortable at that time, which was communicated by a double thumbs up. I called his , Alesha, at [phone] and discussed the above. She was in full agreement and reiterated for him to remain a full code. They did complete a living will a few months ago after she suffered a life alt ering event and they were able to have a conversation indicating he would not want to be kept alive on machines if it would be a senior living situation. Palliative care will follow throughout his hospitalization. (2) Pneumonia due to COVID-19 virus: (3) Hypoxia: History of Present Illness Reason for Consultation: Goals of care Requesting Physician: Dr. Garcia Attending Physician: Lizbeth Garcia MD History of Present Illness This is a 55 year old male who presented to the [facility] on July 13, 2020 with somnolence and fatigue. He had been diagnosed with the novel coronavirus 8 days prior to coming in to the ED and upon arrival his SpO2 was 68%. He was intubated and received treatment for covid-19. On 07/15, he had Duplex US and was found to have bilateral lower extremity DVT's. He was able to tolerate a spontaneous breathing trial and was extubated on 07/27/20 and was moved to PCU on 6LNC. Yesterday, he became tachypnic and was placed on BiPAP and appears that he will be requiring re-intubation. Palliative Care was consulted to discuss goals of care. Additional PMH includes: HTN, calcification of abdominal aorta, BPH, and Peyronie's disease. Please see A/P for further details. Thank you for involving us with this unfortunate gentleman. Allergies Allergy/AdvReac Type Severity Reaction Status Date / Time Penicillins Allergy Severe "catatonic Verified 07/13/20 11:26 immediately" latex Allergy Mild Rash Verified 07/13/20 11:26 Home Medications Medication Instructions Recorded Confirmed Type Glucosamine Chondroitin 1 cap PO QAM #0 06/07/16 07/17/20 History multivitamin 1 tab PO QAM #0 tab 06/07/16 07/17/20 History omega [id number]-fish oil [Fish Oil] 1 cap PO QAM #0 cap 06/07/16 07/17/20 History cyanocobalamin (vitamin B-12) 1,000 mcg PO QAM #0 tab 10/08/16 07/17/20 History [Vitamin B-12] ascorbic acid (vitamin C) [Vitamin 2 g PO QAM 03/29/19 07/17/20 History C] cholecalciferol (vitamin D3) 2,000 unit PO QAM 03/29/19 07/17/20 History [Vitamin D3] ibuprofen [Advil] 200 mg PO QID PRN 03/29/19 07/17/20 History iron bisgl,ps [id number] 1 cap PO WK 03/29/19 07/17/20 History sildenafil 25 mg PO DAILY PRN 03/29/19 07/17/20 History glucosamine [id number] 1 tab PO DAILY 11/23/19 07/17/20 History preston 1,500 mg-400 unit-100 mg tablet ketoconazole 2 % shampoo 1 applic TOP .COMPLEX #120 ml 02/14/20 07/17/20 Rx tamsulosin 0.4 mg capsule 0.4 mg PO DAILY #90 cap 04/23/20 07/17/20 Rx albuterol sulfate 2 puffs INH 6XD PRN #6.7 gm 07/13/20 07/17/20 Rx benzonatate [Tessalon Perles] 100 mg PO UD PRN 07/13/20 07/17/20 History doxycycline monohydrate 100 mg PO BID 07/13/20 07/17/20 History Patient History Medical History (Updated 07/29/20 @ 10:55 by KRISTI Small) Basal cell carcinoma of left forehead Chronic back pain Hypoxia Multiple nevi Palliative care encounter Reducible right inguinal hernia Verrucous keratosis Surgical History History of left inguinal hernia repair (10/30/16) Open Left inguinal hernia repair Dr. Calixto 10/30/2016 History of repair of anterior cruciate ligament of left knee History of root canal procedure History of tonsillectomy History of wisdom tooth extraction Status post biopsy of thyroid gland benign Status post correction of deviated nasal septum Status post Mohs surgery for basal cell carcinoma Family History Grandfather (Maternal) Family history of diabetes mellitus Father Prostate cancer Cardiac disorder Mother Hypertension Other No family history of adverse response to anesthesia Social History Smoking Status: Former smoker Second Hand Exposure: No; Hx Alcohol Use: No Hx Substance Use: No Preferred Language: Irish Communication Ability: Effective Toxicology Supervisor Required: No Beliefs That Will Affect Care: None Current Living Situation: Spouse current occupational status: employed 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 Feels Safe at Home: Yes Assistive Devices: Oxygen - Continuous Review of Systems Review of Systems: [place] System Assessment Scale: Pain: 1/3 Tiredness: 1/3 Shortness of breath: 3/3 Anxiety: 1/3 Palliative Performance Scale: 30% Physical Exam Constitutional: + acute distress, + ill appearing, cooperative and + in distress Respiratory: + labored breathing and + uses accessory muscles Auscultation: + diminished lung sounds and + rhonchi Cardiovascular: Rate/Rhythm: + tachycardic Heart Sounds: normal S1 and normal S2 Extremities: no edema Gastrointestinal (Abdomen): normal bowel sounds, soft, nontender, no hepatosplenomegaly Skin: normal turgor and + lesion (right cheek stage 2 pressure ulcer ) Psychiatric: A+Ox3, euthymic affect Insight: + limited insight Judgement: + limited judgement Results & Data ([facility]) Vital Signs (Past 12 Hours) Vital Signs Temp Pulse Pulse Resp BP BP Pulse Ox 07/29/20 10:00 116 H 38 H 147/79 H 91 07/29/20 09:37 115 H 48 H 142/79 H 89 L 07/29/20 09:30 124 H 38 H 156/83 H 93 07/29/20 09:13 113 H 40 H 156/80 H 96 07/29/20 07:46 117 H 29 H 95 07/29/20 06:11 127 H 184/100 H 07/29/20 03:50 36.9 C 108 H 115 H 42 H 176/94 H 87 L 07/29/20 01:02 36.9 C 91 H 32 H 184/94 H 92 07/29/20 00:00 91 H PG Care Time/CCT Total # of Minutes Spent Total Time Spent with Patient: Total time spent is greater than 50% in coordination of care (as documented) at patient's floor/unit and/or counseling patient: 100 minutes with > 50% of that time spent assessing the patient, discussing goals of care with patient and his , and collaborating with IDT Coding Level of Care Code 37428 Inpt Consult Level 4 Diagnoses Palliative care encounter Z51.5 Pneumonia due to COVID-19 virus U07.1; J12.82 Hypoxia R09.02 Time Spent (min) 100
--- NOTE | 2020-07-29 10:26 | Critical Care Progress Note ---
Date of Service July 29, 2020 Assessment & Plan (1) Acute respiratory failure with hypoxia: Impression:55-year-old male here for COVID pneumonia, transferred to the ICU on 07/18 for acute hypoxic RF, was proned, sedated and intubated. Extubated on 07/27 - doing well on BiPAP. 24-hour events: Overnight patient got in respiratory distress. He was put on BiPAP. He was still in respiratory distress at the time of examination today. Neuro -start the patient on Precedex Cardiac -Bilateral DVTs- continue Heparin gtt, titrate as necessary to keep PTT in therapeutic range - continue to follow clinically for changes in volume status - strict I/Os Respiratory - Acute hypoxic RF secondary to COVID PNA -extubated 07/27/2020 - s/p Decadron x10 days on 07/27 - continue BiPAP GI -N.p.o. while on continuous BiPAP - strict I/Os as above RENAL/LYTES -Monitor electrolytes -Replace as needed - No concerns at this time ENDO - glycemic control per ICU protocol HEME - Stable H&H ID - COVID-19 pneumonia, cultures no growth to date - s/p Dexamethasone -Procalcitonin 0.47 07/29/2020 --Prophylaxis VTE: Heparin drip GI: Pepcid Lines: Left subclavian Diet: N.p.o. Plan: In/out: -2241, urine output 3600. -1.4 L since admission. Chest x-ray 07/29/2020 does not show any significant change compared to chest x- ray from 07/28/2020. Bilateral peripheral hazy opacities persist. Patient had gotten 20 of Lasix around 5 AM. We will give another 40 of Lasix. Transfer the patient to MICU. Start the patient on Precedex. The patient is still in respiratory distress will intubate the patient. There is above been WBC count compared to before but it seems that it is a concentrated specimen. Everything went up including the platelets and hemoglobin. We will repeat CBC later today Procalcitonin 0.46. Give the patient azithromycin 500 mg for total of 5 days. Patient's QTC 432 07/17/2020 T-max 37.8. Given, Betty [phone], was called and updated regarding patient's condition today. I have personally spent 48 minutes of critical care time in the direct management of this patient. This is a life/limb threatening event. This includes time spent evaluating patient, direct bedside care, chart review, placing orders, interpretation of diagnostic studies, discussion with consultants, patient, and family members, as well as other required patient management activities. This time is exclusive of all separately billable procedures, and teaching time and separate from and in addition to any other critical care service time. Please note the above document was generated using voice recognition software. It may contain grammatical, syntax or spelling errors. Admission and Anticipated Discharge Date Admission Date: July 17, 2020 Subjective Patient seen and examined at bedside. Overnight patient was getting restless and hypoxic. He was put on BiPAP He was downgraded on 07/28/2020. At the time of examination patient was on BiPAP 8 60% saturating 92% he was breathing in the low 30s. Denied any chest pain, denied any headache. No nausea or vomiting. Denied any belly pain. Review of Systems Review of Systems: All systems reviewed & are unremarkable except as noted in Subjective Physical Exam Physical Exam: Constitutional: In acute distress HEENT: EOMI, PERRLA Respiratory system: Decreased air entry bilaterally, no wheeze, no rhonchi, positive crackles bilateral lower lobes CVS: S1-S2 positive, no murmurs or gallops, Tachycardia Abdomen: Soft, nontender, nondistended, positive bowel sounds x4 Extremities: +2 pulses bilaterally radialis/ dorsalis pedis, no cyanosis, +2 pitting edema bilateral lower extremity Neuro: Awake alert oriented x3 Psych: Restless G/U: No Lane Skin: no rashes, warm and dry Lymphatic: no cervical or axillary lymphadenopathy Results & Data Results & Data ([facility]) Vital Signs (Past 12 Hours) Vital Signs Temp Pulse Pulse Resp BP BP Pulse Ox 07/29/20 10:00 116 H 38 H 147/79 H 91 07/29/20 09:37 115 H 48 H 142/79 H 89 L 07/29/20 09:30 124 H 38 H 156/83 H 93 07/29/20 09:13 113 H 40 H 156/80 H 96 07/29/20 07:46 117 H 29 H 95 07/29/20 06:11 127 H 184/100 H 07/29/20 03:50 36.9 C 108 H 115 H 42 H 176/94 H 87 L 07/29/20 01:02 36.9 C 91 H 32 H 184/94 H 92 07/29/20 00:00 91 H 07/29/20 02:35 07/29/20 02:35 Coding Level of Care Code Critical Care 1st 30-74 mins Diagnoses Acute respiratory failure with hypoxia J96.01 Time Spent (min) 48
[2020-07-29] MEDS ORDERED: AZITHROMYCIN 500 MG in DEXTROSE 5% 250 ML IV ONE (10:30)
[2020-07-29] MEDS ORDERED: RAPID SEQUENCE INDUCTION BAG ONE (11:05)
[2020-07-29] MEDS: HEPARIN SODIUM/DEXTROSE 25,000 UNITS/500 ML BAG IV SCH (11:26)
[2020-07-29 11:30] LABS: Hematocrit (blood only) 39.9 % (42-52); Hemoglobin 13.4 g/dL (14.0-18.0); Mean Corpuscular Hemoglobin 29.5 pg (25-34); Mean Corpuscular Hgb Conc 33.6 g/dL (32-36); Mean Corpuscular Volume 87.7 fL (80-100); Mean Platelet Volume 11.1 fL (7.4-10.4); Platelet Count 336 K/uL (130-400); RDW Coefficient of Variation 13.7 % (11.5-14.5); RDW Standard Deviation 43.7 fL (36.4-46.3); Red Blood Count 4.55 M/uL (4.7-6.1); White Blood Count 20.81 K/uL (4.8-10.8)
[2020-07-29 11:48] LABS: Basophils # (auto) 0.02 K/uL (0-0.2); Basophils % (auto) 0.1 %; Immature Granulocytes # (auto) 0.36 K/uL (0.00-0.02); Immature Granulocytes % (auto) 1.7 %; Lymphocytes # (auto) 1.76 K/uL (1.2-3.4); Lymphocytes % (auto) 8.5 %; Monocytes # (auto) 1.15 K/uL (0.11-0.59); Monocytes % (auto) 5.5 %; Neutrophils # (auto) 17.52 K/uL (1.4-6.5); Neutrophils % (auto) 84.2 %
[2020-07-29] MEDS ORDERED: PROPOFOL IV EMULSION 10 MG/ML 100 ML VIAL IV ONE (11:52)
[2020-07-29] MEDS ORDERED: PROPOFOL BOLUS FROM BAG IV PRN (12:00)
[2020-07-29] MEDS: fentaNYL DRIP 1,250 MCG/250 ML BAG IV SCH ×2 (12:08→20:55)
[2020-07-29] MEDS: propofoL 1,000 MG/100 ML VIAL IV SCH ×3 (12:09→20:53)
[2020-07-29] MEDS ORDERED: ACETAMINOPHEN 1,000 MG/100 ML VIAL IV STA (12:11)
--- NOTE | 2020-07-29 12:42 | XRay Report ---
XR chest 1V portable CLINICAL HISTORY: Intubation, OG tube placed COMPARISON STUDY: Chest radiograph July 29, 2020 at 4:03 AM. FINDINGS: Tip of the endotracheal tube is 7.6 cm above the arlette. Tip of nasogastric tube is within the body of the stomach. A left subclavian central line remains in place. There is no pneumothorax. T here may be a trace left pleural effusion. Dense left basilar opacity with volume loss has increased. Multifocal airspace opacities within the remainder of the lungs are again noted. Cardiac size is nor mal. IMPRESSION: 1. Tip of endotracheal tube 7.6 cm above the arlette. 2. Increase in dense left basilar opacity with volume loss. This may reflect atelectasis or pneumonia . 3. Persistent bilateral airspace opacities within the lungs which favor an infectious process. ACT 112: Negative or not required by law. Electronically signed by: Fan Baltazar M.D. 07/29/2020 12:41 PM
--- NOTE | 2020-07-29 12:43 | Procedure Note ---
Procedure Note Date of Service July 29, 2020 INTUBATION PROCEDURE NOTE: Attending: Dr Joann Choudhary MD Patient was evaluated and plan to intubate was made for respiratory distress and ventilatory failure. Sedative agent used: Etomidate 20 mg, midazolam 4 mg Paralysis agent used: Rocuronium 50 mg Emergent consent was implied given patients rapidly declining clinical status and need for airway protection. Patient's was also made aware prior to the intubation. The patient was prepared in the appropriate fashion. The patient was easily pre-oxygenated by using [id number] ventilation. With help of CMAC grade grade 2 vocal cords were visualized and 7.5 [place] ETT was introduced on first attempt to 24 cm at the lip. The stylette was removed and balloon was inflated with 10mL of air. Appropriate Colorimetric change was appreciated for at least 10 breaths. Bilateral chest rise and breath sounds were appreciated without air sounds in the epigastrium. Patient tolerated the procedure well and there were no immediate complications. Chest Xray to follow for confirming placement. Coding CPT Codes Resuscitation - Resuscitation: 29711 Endotracheal Intubation, emergency ([id number]) [facility] [place] Procedure Codes (Charges) Resuscitation Resuscitation: 81418 Endotracheal Intubation, emergency
--- NOTE | 2020-07-29 12:45 | Procedure Note ---
Procedure Note Date of Service July 29, 2020 ARTERIAL LINE PROCEDURE NOTE: Procedure: Arterial Line Placement Attending: Dr. Joann Choudhary MD Indication: Monitoring on Pressors Anesthesia: General Emergent consent was applied A time-out was completed verifying correct patient, procedure, site, positioning, and implant(s) or special equipment if applicable. Allens test was performed to ensure adequate perfusion. Patients left wrist was prepped and draped in the usual sterile fashion. Ultrasound guidance was used to aid needle placement. A 20g Arrow arterial line was introduced into the left radial artery. Catheter was threaded, and the needle was removed with appropriate pulsatile blood return. Good waveform was observed on the monitor. The patient tolerated the procedure well. Confirmation of placement with ultrasound. Images saved to medical record. Complications: None Blood Loss: Less than 2 cc Coding CPT Codes Tubes, Drains, and Vasc Access - Tubes, Drains, and Vasc Access: [id number] Insertion Catheter, Artery ([id number]) Tubes, Drains, and Vasc Access - Tubes, Drains, and Vasc Access: [id number] Ultrasound Guidance For Vascular ([id number]) [facility] [place] Procedure Codes (Charges) Tubes, Drains, and Vasc Access Procedure 1: Tubes, Drains, and Vasc Access: [id number] Insertion Catheter, Artery Procedure 2: Tubes, Drains, and Vasc Access: [id number] Ultrasound Guidance For Vascular
[2020-07-29 13:22] LABS: iSTAT Arterial Blood Gas HCO3 23 meg/L (19-24); iSTAT Arterial Blood Gas pCO2 37 mmHg (35-46); iSTAT Arterial Blood Gas pO2 110 mmHg (80-95); iSTAT Carbon Dioxide 24 mmol/L (24-31); iSTAT FiO2 100 %; iSTAT Site Art Line
[2020-07-29] MEDS ORDERED: ROCURONIUM BROMIDE 10 MG/ML 5 ML VIAL IV ONE (13:51)
[2020-07-29] MEDS ORDERED: ETOMIDATE 2 MG/ML 20 ML VIAL IV ONE (13:51)
[2020-07-29] MEDS ORDERED: MIDAZOLAM HCL 5 MG/ML VIAL IV ONE (13:51)
[2020-07-29 15:59] LABS: Partial Thromboplastin Ratio 1.9
--- NOTE | 2020-07-29 18:31 | Hospitalist Progress Note ---
Date of Service July 29, 2020 Assessment & Plan (1) Pneumonia due to COVID-19 virus: Severe disease with resulting acute hypoxic respiratory failure/ARDS. Very high settings on HFNC at the onset of his admission, followed by use of CPAP, and then intubation/mech ventilation. s/p intubation AM of 07/19/20. completed 10 days of decadron 6mg daily s/p Convalescent plasma 07/20/20. Ventilated for a week extubated on 07/27 Was down to 6L NC for 1 day on 07/28 and then that evening had worsening respiratory distress requiring BiPAP along with acute metabolic encephalopathy/delirium Was significantly hypoxic again and remained febrile. He was given IV Lasix and IV Ativan for significant anxiety He was transferred back to the ICU on the morning of 07/29 and reintubated Now remains sedated on propofol, fentanyl He has completed a 10-day course of IV dexamethasone With fevers, leukocytosis, started on IV azithromycin by pulmonology Procalcitonin still negative Tylenol as needed for fevers Albuterol in line 6 times a day as needed He met with palliative care before intubation and was agreeable to tracheostomy if needed-palliative care consultation was reviewed (2) Acute respiratory failure with hypoxia: As above in "COVID-19 pneumonia (3) Fever: As above Has not had blood cultures since fever started again on 07/25-would recommend these but defer to area mechanic. Sputum culture was collected again on 07/29-we will follow Leukocytosis worsening today up to 20 3K Follow CBC (4) Leukocytosis: As above (5) Metabolic encephalopathy: With delirium secondary to hypoxia as well as possibly withdrawal from previously used medications while intubated and sedated We will follow (6) Volume overload: Previously responding well to Lasix Was given more IV Lasix today try to keep lungs dry to help recovery Follow urine output (7) Hypertension: BP quite elevated at times, getting Lopressor 5mg IV q4 and Labetalol 10mg IV pushes in ICU HR is in the 90-100's Continue p.o. Lopressor to 25mg TID to try to limit IV dosing not on medications previously, monitor to see if he can come off the Lopressor as he recovers (8) Anxiety: continue buspirone 7.5mg TID PRN (9) DVT, bilateral lower limbs: found on dopplers on 07/25 was on Lovenox 40mg q12 at that time changed to heparin drip with bolus-this has been subtherapeutic at times but is now therapeutic this evening continue heparin drip for now can convert to oral agent once out of the ICU again (10) Hyponatremia: Resolved (11) Abnormal LFTs: 2nd to COVID-19. stable (12) BPH (benign prostatic hyperplasia): Hold flomax while on vent No issues Lane (13) Chronic neck pain: Hold voltaren, etc (14) DVT prophylaxis: heparin drip for DVT in legs GI prophylaxis given severe stress - pepcid 20mg IV BID Disposition-transferred to ICU for reintubation on 07/29, prognosis is guarded Palliative care is involved Full code Admission and Anticipated Discharge Date Admission Date: July 17, 2020 Subjective Patient's care was discussed with the overnight physician who said that the patient began having increased respiratory distress and was hypoxemic, requiring BiPAP, with worsening chest x-ray. He was hypertensive and tachycardic and somewhat delirious. The ICU team was contacted and was seeing him first thing this morning and decision was made to transfer him to the ICU for reintubation. When I saw him, he was already reintubated-I observed him through the window. Telemetry with sinus tachycardia normal sinus rhythm with rates in the 90s to 100s. I discussed his care with palliative care nurse practitioner. Review of Systems Review of Systems: Unobtainable due to endotracheal tube and Unobtainable due to reduced consciousness Physical Exam Constitutional: well developed and + mechanically ventilated; no acute distress Results & Data Results & Data ([facility]) Vital Signs (Past 12 Hours) Vital Signs Temp Pulse Pulse Resp BP BP BP 07/29/20 17:00 37.9 C H 74 26 H 104/56 L 07/29/20 16:00 38.0 C H 74 26 H 82/52 L 07/29/20 15:27 72 27 H 07/29/20 14:53 38.0 C H 75 07/29/20 14:25 38.0 C H 85 30 H 91/64 L 07/29/20 14:00 38.2 C H 86 07/29/20 13:53 38.2 C H 86 94/57 L 07/29/20 13:23 38.3 C H 80 26 H 92/52 L 07/29/20 12:53 38.4 C H 81 99/56 L 07/29/20 12:23 87 07/29/20 12:00 98 H 07/29/20 11:55 98 H 26 H 07/29/20 11:53 98 H 120/72 07/29/20 11:50 98 H 26 H 123/70 07/29/20 11:48 94 H 120/71 07/29/20 11:45 102 H 177/94 H 07/29/20 11:43 93 H 180/103 H 07/29/20 11:40 103 H 99/64 L 07/29/20 11:39 87 124/71 07/29/20 11:30 99 H 07/29/20 11:17 91 H 07/29/20 11:16 92 H 07/29/20 11:01 38.2 C H 105 H 26 H 104/61 07/29/20 10:59 106 H 36 H 07/29/20 10:32 114 H 38 H 124/78 07/29/20 10:30 113 H 07/29/20 10:15 109 H 36 H 151/77 H 07/29/20 10:00 116 H 38 H 147/79 H 07/29/20 09:37 115 H 48 H 142/79 H 07/29/20 09:30 124 H 38 H 156/83 H 07/29/20 09:13 113 H 40 H 156/80 H 07/29/20 08:00 106 H 07/29/20 07:46 117 H 29 H Pulse Ox 07/29/20 17:00 98 07/29/20 16:00 97 07/29/20 15:27 95 07/29/20 14:53 96 07/29/20 14:25 98 07/29/20 14:00 98 07/29/20 13:53 97 07/29/20 13:23 95 07/29/20 12:53 100 07/29/20 12:23 99 07/29/20 12:00 96 07/29/20 11:55 100 07/29/20 11:53 95 07/29/20 11:50 95 07/29/20 11:48 95 07/29/20 11:45 95 07/29/20 11:43 95 07/29/20 11:40 100 07/29/20 11:39 100 03/22/21 11:30 96 07/29/20 11:17 93 07/29/20 11:16 94 07/29/20 11:01 93 07/29/20 10:59 94 07/29/20 10:32 94 07/29/20 10:30 07/29/20 10:15 94 07/29/20 10:00 91 07/29/20 09:37 89 L 07/29/20 09:30 93 07/29/20 09:13 96 07/29/20 08:00 07/29/20 07:46 95 Laboratory Results 07/29/20 07/29/20 07/29/20 Range/Units 14:41 12:39 11:08 WBC 20.81 H (4.8-10.8) K/uL RBC 4.55 L (4.7-6.1) M/uL Hgb 13.4 L (14.0-18.0) g/dL POC Hgb (14.0-18.0) g/dl Hct 39.9 L (42-52) % POC Hct (42-52) % MCV 87.7 (80-100) fL MCH 29.5 (25-34) pg MCHC 33.6 (32-36) g/dL RDW Std Deviation 43.7 (36.4-46.3) fL RDW Coeff of Wes 13.7 (11.5-14.5) % Plt Count 336 (130-400) K/uL MPV 11.1 H (7.4-10.4) fL Immature Gran % (Auto) 1.7 % Neut % (Auto) 84.2 % Lymph % (Auto) 8.5 % [place] % (Auto) 5.5 % Eos % (Auto) 0.0 % Baso % (Auto) 0.1 % Neut # (Auto) 17.52 H (1.4-6.5) K/uL Lymph # (Auto) 1.76 (1.2-3.4) K/uL [place] # (Auto) 1.15 H (0.11-0.59) K/uL Eos # (Auto) 0.00 (0-0.5) K/uL Baso # (Auto) 0.02 (0-0.2) K/uL Immature Gran # (Auto) 0.36 H (0.00-0.02) K/uL RBC Morphology APTT 51.0 H* (21.0-31.0) Seconds PTT Ratio 1.9 Sample Site Art Line POC pH 7.40 (7.35-7.45) POC pCO2 37 (35-46) mmHg POC pO2 110 H (80-95) mmHg POC HCO3 23 (19-24) juliano/L POC Total CO2 24 (24-31) mmol/L POC Base Excess -2.0 (-9-1.8) juliano/L ABG pH (Temp Correct) (7.35-7.45) ABG pCO2 (Temp Corrct (35-46) mmHg POC ABG pO2 at Pt Temp POC ABG O2 Sat 98.0 H (90-95) % Joshua Test NA O2 Delivery Device Ventilator POC O2 Rate 26 Minute Ventilation 16.1 POC FiO2 100 % Tidal Volume 450 PEEP 10 IPAP POC Sodium (135-144) mmol/L Sodium (136-145) mmol/L POC Potassium (3.3-5.0) mmol/L Potassium (3.5-5.1) mmol/L Chloride (98-107) mmol/L Carbon Dioxide (21-32) mmol/L Anion Gap (3-11) BUN (7-18) mg/dl Creatinine (0.6-1.4) mg/dl Est Cr Clr Drug Dosing ml/min Est GFR ( Amer) Est GFR (Non-Af Amer) BUN/Creatinine Ratio (10-20) Glucose (70-99) mg/dl Calcium (8.5-10.1) mg/dl Phosphorus (2.5-4.9) mg/dl Magnesium (1.8-2.4) mg/dl Procalcitonin (0-0.5) ng/ml 07/29/20 07/29/20 07/29/20 Range/Units 05:53 05:53 05:10 WBC (4.8-10.8) K/uL RBC (4.7-6.1) M/uL Hgb (14.0-18.0) g/dL POC Hgb 14.3 (14.0-18.0) g/dl Hct (42-52) % POC Hct 42 (42-52) % MCV (80-100) fL MCH (25-34) pg MCHC (32-36) g/dL RDW Std Deviation (36.4-46.3) fL RDW Coeff of Wes (11.5-14.5) % Plt Count (130-400) K/uL MPV (7.4-10.4) fL Immature Gran % (Auto) % Neut % (Auto) % Lymph % (Auto) % [place] % (Auto) % Eos % (Auto) % Baso % (Auto) % Neut # (Auto) (1.4-6.5) K/uL Lymph # (Auto) (1.2-3.4) K/uL [place] # (Auto) (0.11-0.59) K/uL Eos # (Auto) (0-0.5) K/uL Baso # (Auto) (0-0.2) K/uL Immature Gran # (Auto) (0.00-0.02) K/uL RBC Morphology APTT 37.6 H (21.0-31.0) Seconds PTT Ratio 1.4 Sample Site R Brachial POC pH 7.48 H (7.35-7.45) POC pCO2 30 L (35-46) mmHg POC pO2 55 L (80-95) mmHg POC HCO3 22 (19-24) juliano/L POC Total CO2 23 L (24-31) mmol/L POC Base Excess -1.0 (-9-1.8) juliano/L ABG pH (Temp Correct) 7.482 H (7.35-7.45) ABG pCO2 (Temp Corrct 30 L (35-46) mmHg POC ABG pO2 at Pt Temp 55 POC ABG O2 Sat 91.0 (90-95) % Joshua Test Pass O2 Delivery Device BIPAP POC O2 Rate 12 Minute Ventilation POC FiO2 60 % Tidal Volume PEEP IPAP 12 POC Sodium 136 (135-144) mmol/L Sodium (136-145) mmol/L POC Potassium 3.6 (3.3-5.0) mmol/L Potassium (3.5-5.1) mmol/L Chloride (98-107) mmol/L Carbon Dioxide (21-32) mmol/L Anion Gap (3-11) BUN (7-18) mg/dl Creatinine (0.6-1.4) mg/dl Est Cr Clr Drug Dosing ml/min Est GFR ( Amer) Est GFR (Non-Af Amer) BUN/Creatinine Ratio (10-20) Glucose (70-99) mg/dl Calcium (8.5-10.1) mg/dl Phosphorus (2.5-4.9) mg/dl Magnesium (1.8-2.4) mg/dl Procalcitonin 0.47 (0-0.5) ng/ml 07/29/20 07/29/20 07/29/20 Range/Units 02:35 02:35 02:35 WBC 23.39 H (4.8-10.8) K/uL RBC 4.98 (4.7-6.1) M/uL Hgb 15.1 (14.0-18.0) g/dL POC Hgb (14.0-18.0) g/dl Hct 43.4 (42-52) % POC Hct (42-52) % MCV 87.1 (80-100) fL MCH 30.3 (25-34) pg MCHC 34.8 (32-36) g/dL RDW Std Deviation 43.4 (36.4-46.3) fL RDW Coeff of Wes 13.8 (11.5-14.5) % Plt Count 403 H (130-400) K/uL MPV 10.9 H (7.4-10.4) fL Immature Gran % (Auto) 2.0 % Neut % (Auto) 82.7 % Lymph % (Auto) 11.8 % [place] % (Auto) 3.4 % Eos % (Auto) 0.0 % Baso % (Auto) 0.1 % Neut # (Auto) 19.32 H (1.4-6.5) K/uL Lymph # (Auto) 2.77 (1.2-3.4) K/uL [place] # (Auto) 0.79 H (0.11-0.59) K/uL Eos # (Auto) 0.01 (0-0.5) K/uL Baso # (Auto) 0.03 (0-0.2) K/uL Immature Gran # (Auto) 0.47 H (0.00-0.02) K/uL RBC Morphology Unremarkable APTT 38.4 H (21.0-31.0) Seconds PTT Ratio 1.5 Sample Site POC pH (7.35-7.45) POC pCO2 (35-46) mmHg POC pO2 (80-95) mmHg POC HCO3 (19-24) juliano/L POC Total CO2 (24-31) mmol/L POC Base Excess (-9-1.8) juliano/L ABG pH (Temp Correct) (7.35-7.45) ABG pCO2 (Temp Corrct (35-46) mmHg POC ABG pO2 at Pt Temp POC ABG O2 Sat (90-95) % Joshua Test O2 Delivery Device POC O2 Rate Minute Ventilation POC FiO2 % Tidal Volume PEEP IPAP POC Sodium (135-144) mmol/L Sodium 138 (136-145) mmol/L POC Potassium (3.3-5.0) mmol/L Potassium 3.8 (3.5-5.1) mmol/L Chloride 104 (98-107) mmol/L Carbon Dioxide 24 (21-32) mmol/L Anion Gap 10.0 (3-11) BUN 29 H (7-18) mg/dl Creatinine 0.82 (0.6-1.4) mg/dl Est Cr Clr Drug Dosing 96.2 ml/min Est GFR ( Amer) 113.8 Est GFR (Non-Af Amer) 98.2 BUN/Creatinine Ratio 35.3 H (10-20) Glucose 106 H (70-99) mg/dl Calcium 8.9 (8.5-10.1) mg/dl Phosphorus 2.8 (2.5-4.9) mg/dl Magnesium 2.0 (1.8-2.4) mg/dl Procalcitonin (0-0.5) ng/ml 07/28/20 Range/Units 19:38 WBC (4.8-10.8) K/uL RBC (4.7-6.1) M/uL Hgb (14.0-18.0) g/dL POC Hgb (14.0-18.0) g/dl Hct (42-52) % POC Hct (42-52) % MCV (80-100) fL MCH (25-34) pg MCHC (32-36) g/dL RDW Std Deviation (36.4-46.3) fL RDW Coeff of Wes (11.5-14.5) % Plt Count (130-400) K/uL MPV (7.4-10.4) fL Immature Gran % (Auto) % Neut % (Auto) % Lymph % (Auto) % [place] % (Auto) % Eos % (Auto) % Baso % (Auto) % Neut # (Auto) (1.4-6.5) K/uL Lymph # (Auto) (1.2-3.4) K/uL [place] # (Auto) (0.11-0.59) K/uL Eos # (Auto) (0-0.5) K/uL Baso # (Auto) (0-0.2) K/uL Immature Gran # (Auto) (0.00-0.02) K/uL RBC Morphology APTT 38.6 H (21.0-31.0) Seconds PTT Ratio 1.5 Sample Site POC pH (7.35-7.45) POC pCO2 (35-46) mmHg POC pO2 (80-95) mmHg POC HCO3 (19-24) juliano/L POC Total CO2 (24-31) mmol/L POC Base Excess (-9-1.8) juliano/L ABG pH (Temp Correct) (7.35-7.45) ABG pCO2 (Temp Corrct (35-46) mmHg POC ABG pO2 at Pt Temp POC ABG O2 Sat (90-95) % Joshua Test O2 Delivery Device POC O2 Rate Minute Ventilation POC FiO2 % Tidal Volume PEEP IPAP POC Sodium (135-144) mmol/L Sodium (136-145) mmol/L POC Potassium (3.3-5.0) mmol/L Potassium (3.5-5.1) mmol/L Chloride (98-107) mmol/L Carbon Dioxide (21-32) mmol/L Anion Gap (3-11) BUN (7-18) mg/dl Creatinine (0.6-1.4) mg/dl Est Cr Clr Drug Dosing ml/min Est GFR ( Amer) Est GFR (Non-Af Amer) BUN/Creatinine Ratio (10-20) Glucose (70-99) mg/dl Calcium (8.5-10.1) mg/dl Phosphorus (2.5-4.9) mg/dl Magnesium (1.8-2.4) mg/dl Procalcitonin (0-0.5) ng/ml Diagnostic Findings Chest x-ray image personally reviewed by me and agree with the following report: XR chest 1V portable HISTORY: tachypnea, hypoxia COMPARISON: Chest 07/28/2020. FINDINGS: Persistent hazy bilateral airspace opacities consistent with a multifocal pneumonia. No pneumothorax. Suspect a trace left pleural effusion. The heart is normal in size. Left subclavian central venous catheter terminates in the SVC. IMPRESSION: No change in the hazy multifocal airspace opacities consistent with a pneumonia. PG Care Time/CCT Total # of Minutes Spent Total Time Spent with Patient: Total time spent is greater than 50% in coordination of care (as documented) at patient's floor/unit and/or counseling patient: Coding Level of Care Code 19618 Subseq Hosp Care Lvl 1 Diagnoses Pneumonia due to COVID-19 virus U07.1; J12.82 Acute respiratory failure with hypoxia J96.01 Fever R50.9 Leukocytosis D72.829 Metabolic encephalopathy G93.41 Volume overload E87.70 Hypertension I10 Anxiety F41.9 DVT, bilateral lower limbs I82.403 Hyponatremia E87.1 Abnormal LFTs R94.5 BPH (benign prostatic hyperplasia) N40.0 Lower urinary tract symptom presence: symptoms absent Chronic neck pain M54.2; G89.29 DVT prophylaxis Z29.9 (1) BPH (benign prostatic hyperplasia) Lower urinary tract symptom presence: symptoms absent Qualified Code(s): N40.0 - Benign prostatic hyperplasia without lower urinary tract symptoms
[2020-07-30] MEDS: propofoL 1,000 MG/100 ML VIAL IV SCH ×6 (01:16→22:05)
[2020-07-30] MEDS: HEPARIN SODIUM/DEXTROSE 25,000 UNITS/500 ML BAG IV SCH (03:21)
[2020-07-30] MEDS: fentaNYL DRIP 1,250 MCG/250 ML BAG IV SCH ×6 (04:50→23:30)
[2020-07-30 05:24] LABS: iSTAT Arterial Blood Gas HCO3 24 meg/L (19-24); iSTAT Arterial Blood Gas pCO2 38 mmHg (35-46); iSTAT Arterial Blood Gas pO2 72 mmHg (80-95); iSTAT Carbon Dioxide 25 mmol/L (24-31); iSTAT FiO2 35 %; iSTAT Site Art Line
[2020-07-30 05:29] LABS: Hematocrit (blood only) 33.9 % (42-52); Hemoglobin 11.2 g/dL (14.0-18.0); Mean Corpuscular Hemoglobin 29.4 pg (25-34); Mean Platelet Volume 10.9 fL (7.4-10.4); Platelet Count 273 K/uL (130-400); RDW Coefficient of Variation 14.1 % (11.5-14.5); RDW Standard Deviation 45.7 fL (36.4-46.3); Red Blood Count 3.81 M/uL (4.7-6.1); White Blood Count 15.52 K/uL (4.8-10.8)
[2020-07-30 05:48] LABS: Partial Thromboplastin Ratio 1.9
[2020-07-30 05:56] LABS: Partial Thromboplastin Time 48.8 Seconds (21.0-31.0)
[2020-07-30 05:59] LABS: Est GFR (African American) 128.5; Est GFR (Non-African American) 110.9; Potassium 3.5 mmol/L (3.5-5.1)
[2020-07-30 06:00] LABS: BUN Creatinine Ratio 70.3 (10-20); Calcium 8.1 mg/dl (8.5-10.1); Creatinine Clr Calc Pharmacy 129.3 ml/min; Magnesium 2.2 mg/dl (1.8-2.4); Phosphorus 3.1 mg/dl (2.5-4.9)
[2020-07-30 06:10] LABS: Basophils # (auto) 0.01 K/uL (0-0.2); Basophils % (auto) 0.1 %; Eosinophils # (auto) 0.08 K/uL (0-0.5); Eosinophils % (auto) 0.5 %; Immature Granulocytes # (auto) 0.37 K/uL (0.00-0.02); Immature Granulocytes % (auto) 2.4 %; Lymphocytes # (auto) 2.15 K/uL (1.2-3.4); Lymphocytes % (auto) 13.9 %; Monocytes # (auto) 0.68 K/uL (0.11-0.59); Monocytes % (auto) 4.4 %; Neutrophils # (auto) 12.23 K/uL (1.4-6.5); Neutrophils % (auto) 78.7 %
[2020-07-30] MEDS ORDERED: FUROSEMIDE 40 MG in SYRINGE 0 ML IV ONE (08:30)
[2020-07-30] MEDS: MULTI VIT W/MINERALS LIQUID 15 ML UDP NG SCH (08:53)
[2020-07-30] MEDS: FAMOTIDINE 20 MG in SYRINGE 3 ML IV SCH ×2 (08:53→20:56)
[2020-07-30] MEDS: METOPROLOL TARTRATE 25 MG TAB PO SCH ×3 (08:53→20:56)
[2020-07-30] MEDS: ACETAMINOPHEN SUSP 325 MG/10.15 ML UDC PO PRN (08:54)
[2020-07-30] MEDS: AZITHROMYCIN 500 MG in DEXTROSE 5% 250 ML IV SCH (09:04)
--- NOTE | 2020-07-30 09:06 | XRay Report ---
XR chest 1V portable CLINICAL HISTORY: Respiratory failure COMPARISON STUDY: 07/29/2020 FINDINGS: There is an endotracheal tube 5 cm above the arlette. There is a left subclavian central leigh ous catheter unchanged in position. There is an enteric tube positioned within the stomach. The heart is normal in size. There are persistent bilateral pulmonary airspace opacities consistent with a mul tifocal pneumonia.[ IMPRESSION: 1. Persistent multifocal airspace opacities consistent with a multifocal pneumonia 2. Satisfactory positioning of the lines and tubes. ACT 112: Negative or not required by law. Electronically signed by: Braulio Chirinos M.D. 07/30/2020 9:05 AM
[2020-07-30] MEDS: POTASSIUM CHLORIDE / WTR 20 MEQ/100 ML PLCT IV SCH ×2 (10:10→11:47)
--- NOTE | 2020-07-30 11:23 | Critical Care Progress Note ---
Date of Service July 30, 2020 Assessment & Plan (1) Acute respiratory failure with hypoxia: Impression:55-year-old male here for COVID pneumonia, transferred to the ICU on 07/18 for acute hypoxic RF, was proned, sedated and intubated. Extubated on 07/27, reintubated 07/29/2020 24-hour events: Patient was reintubated yesterday for respiratory distress. Is on minimal settings when it comes to his ventilator. Neuro -sedated, patient is requiring high doses of sedation Cardiac - Bilateral DVTs-continue with anticoagulation - continue to follow clinically for changes in volume status - strict I/Os Respiratory - Acute hypoxic RF secondary to COVID PNA -extubated 07/27/2020 - s/p Decadron x10 days on 07/27 - continue BiPAP GI -Start feeding today - strict I/Os as above RENAL/LYTES -Monitor electrolytes -Replace as needed - No concerns at this time ENDO - glycemic control per ICU protocol HEME - Stable H&H ID - COVID-19 pneumonia, cultures no growth to date - s/p Dexamethasone - Procalcitonin 0.47 07/29/2020 --Prophylaxis VTE: Heparin drip --> changed to Lovenox therapeutic GI: Pepcid Lines: Left subclavian, left radial, positive Lane Diet: Start feeding today Plan: In/out: +285, urine output 2000. Give 40 of Lasix today. Chest x-ray did not show any significant change Continue with azithromycin for total of 4 more days. Repeat blood cultures today. Given the patient is requiring a lot of sedation. Part of reintubation was given his underlying anxiety as well. Reintubation was within 2 days after extubation. The likelihood of reintubation if I extubate him is again on the higher side. I would pursue tracheostomy and gradually wean him off the vent if possible. Potassium being replaced Patient does have underlying anxiety as per patient's . I will start him on seroquil. Repeat EKG in am Patient CRP is elevated at 20. He did have history of COVID-19 pneumonia is s/p dexamethasone. Given, Betty [phone], was updated regarding the patient's condition. She is agreeable to trach. ENT has been consulted. I have personally spent 40 minutes of critical care time in the direct management of this patient. This is a life/limb threatening event. This includes time spent evaluating patient, direct bedside care, chart review, placing orders, interpretation of diagnostic studies, discussion with consultants, patient, and family members, as well as other required patient management activities. This time is exclusive of all separately billable procedures, and teaching time and separate from and in addition to any other critical care service time. Please note the above document was generated using voice recognition software. It may contain grammatical, syntax or spelling errors. Admission and Anticipated Discharge Date Admission Date: July 17, 2020 Subjective Patient seen and examined at bedside. No acute distress, no adverse events overnight Patient was on propofol 50, continue 200 at the time of examination He had just gotten a bolus of propofol prior to me seeing him. He was RASS -2 As per the nurse he does get very restless, tachycardic and tachypneic when that he is weaned off of the sedation. T-max 37.8. Review of Systems Review of Systems: Unobtainable due to endotracheal tube Physical Exam Physical Exam: Constitutional: No acute distress HEENT: PERRLA, positive ETT Respiratory system: Decreased air entry bilaterally, no wheeze, no rhonchi, positive crackles bilateral lower lobes CVS: S1-S2 positive, no murmurs or gallops Abdomen: Soft, nontender, nondistended, positive bowel sounds x4 Extremities: +2 pulses bilaterally radialis/ dorsalis pedis, no cyanosis, +1 pitting edema bilateral lower extremity Neuro: Breathing over the vent, positive gag, positive corneal, positive pupillary, sedated Psych: Unable to assess G/U: Positive Lane Skin: no rashes, warm and dry Lymphatic: no cervical or axillary lymphadenopathy Results & Data Results & Data ([facility]) Vital Signs (Past 12 Hours) Vital Signs Temp Pulse Resp BP Pulse Ox 07/30/20 11:00 37.6 C H 71 18 122/62 99 07/30/20 10:00 37.9 C H 72 101/50 L 98 07/30/20 09:00 37.7 C H 82 122/66 97 07/30/20 08:00 37.7 C H 72 27 H 129/69 98 07/30/20 07:25 79 27 H 97 07/30/20 07:00 37.8 C H 77 109/59 L 98 07/30/20 06:00 37.8 C H 82 129/68 97 07/30/20 05:00 37.8 C H 76 122/64 95 07/30/20 04:35 86 28 H 96 07/30/20 04:00 37.8 C H 78 135/65 96 07/30/20 03:00 37.8 C H 75 127/59 L 96 07/30/20 02:00 37.8 C H 76 118/63 96 07/30/20 01:00 37.8 C H 80 110/59 L 95 07/30/20 00:00 37.8 C H 74 118/62 96 07/30/20 04:57 07/30/20 04:57 Coding Level of Care Code Critical Care 1st 30-74 mins Diagnoses Acute respiratory failure with hypoxia J96.01 Time Spent (min) 40
[2020-07-30] MEDS: ENOXAPARIN 80 MG/0.8 ML SYR SQ SCH (11:38)
[2020-07-30] MEDS: ICU ELECTROLYTE REPLACEMENT PROTOCOL SCH (11:48)
[2020-07-30] MEDS: QUEtiapine FUMARATE 25 MG TABLET PO SCH (13:00)
--- NOTE | 2020-07-30 14:39 | Electrocardiogram Report ---
Test Reason : Blood Pressure : / mmHG Vent. Rate : 081 BPM Atrial Rate : 081 BPM P-R Int : 130 ms QRS Dur : 086 ms QT Int : 368 ms P-R-T Axes : 070 064 011 degrees QTc Int : 427 ms Normal sinus rhythm Normal ECG When compared with ECG of 17-JUL-2020 10:20, No significant change was found Confirmed by Navdeep Hwang ([id number]) on 07/30/2020 2:39:39 PM Referred By: REFERRED SELF Confirmed By:Merrick Hwang
--- NOTE | 2020-07-30 17:12 | Hospitalist Progress Note ---
Date of Service July 30, 2020 Assessment & Plan (1) Pneumonia due to COVID-19 virus: Severe disease with resulting acute hypoxic respiratory failure/ARDS. Very high settings on HFNC at the onset of his admission, followed by use of CPAP, and then intubation/mech ventilation. s/p intubation AM of 07/19/20. completed 10 days of decadron 6mg daily s/p Convalescent plasma 07/20/20. Ventilated for a week extubated on 07/27 Was down to 6L NC for 1 day on 07/28 and then that evening had worsening respiratory distress requiring BiPAP along with acute metabolic encephalopathy/delirium Was significantly hypoxic again and remained febrile. He was given IV Lasix and IV Ativan for significant anxiety He was transferred back to the ICU on the morning of 07/29 and reintubated Now remains sedated on propofol, fentanyl He has completed a 10-day course of IV dexamethasone With fevers, leukocytosis, started on IV azithromycin by pulmonology Procalcitonin still negative Tylenol as needed for fevers Albuterol in line 6 times a day as needed He met with palliative care before intubation and was agreeable to tracheostomy if needed-palliative care consultation was reviewed Plan for tracheotomy tomorrow (2) Acute respiratory failure with hypoxia: As above in "COVID-19 pneumonia (3) Fever: As above, continue today Repeat blood cultures drawn on 07/30 Sputum culture was collected again on 07/29-with light normal chris Leukocytosis now improved to 15 K after starting azithromycin Follow CBC (4) Leukocytosis: As above, now improving (5) Metabolic encephalopathy: With delirium secondary to hypoxia as well as possibly withdrawal from previously used medications while intubated and sedated We will follow (6) Volume overload: Previously responding well to Lasix try to keep lungs dry to help recovery Follow urine output (7) Hypertension: BP quite elevated at times, getting Lopressor 5mg IV q4 and Labetalol 10mg IV pushes in ICU HR is in the 90-100's Continue p.o. Lopressor to 25mg TID to try to limit IV dosing not on medications previously, monitor to see if he can come off the Lopressor as he recovers (8) Anxiety: continue buspirone 7.5mg TID PRN Started Seroquel 25 mg daily (9) DVT, bilateral lower limbs: found on dopplers on 07/25 was on Lovenox 40mg q12 at that time changed to heparin drip and now today switched to therapeutic Lovenox can convert to oral agent once out of the ICU again -We will need to hold Lovenox before the procedure tomorrow (10) Hyponatremia: Resolved (11) Abnormal LFTs: 2nd to COVID-19. stable (12) BPH (benign prostatic hyperplasia): Hold flomax while on vent No issues Lane (13) Chronic neck pain: Hold voltaren, etc (14) DVT prophylaxis: heparin drip for DVT in legs now converted to therapeutic Lovenox GI prophylaxis given severe stress - pepcid 20mg IV BID Disposition-transferred to ICU for reintubation on 07/29, prognosis is guarded Palliative care is involved Full code Admission and Anticipated Discharge Date Admission Date: July 17, 2020 Subjective Pt remains intubated and sedated. Observed through the window due to being Covid and full ICU status. Nursing reports that patient can wake up and follow commands and give a thumbs up and asked if he was doing okay. He does get little bit anxious and hypertensive at times. He remains on propofol and fentanyl. Plan is for tracheostomy tomorrow. Review of Systems Review of Systems: Unobtainable due to endotracheal tube Physical Exam Constitutional: well developed and + mechanically ventilated; no acute distress Results & Data Results & Data ([facility]) Vital Signs (Past 12 Hours) Vital Signs Temp Pulse Resp BP Pulse Ox 07/30/20 16:01 37.7 C H 69 18 118/57 L 99 07/30/20 16:00 37.7 C H 64 99 07/30/20 15:57 70 18 99 07/30/20 15:00 37.6 C H 65 19 105/56 L 100 07/30/20 14:00 37.5 C 67 105/54 L 100 07/30/20 13:00 37.7 C H 70 20 113/58 L 99 07/30/20 12:00 37.5 C 83 20 150/72 H 100 07/30/20 11:15 66 21 97 07/30/20 11:00 37.6 C H 71 18 122/62 99 07/30/20 10:00 37.9 C H 72 101/50 L 98 07/30/20 09:00 37.7 C H 82 122/66 97 07/30/20 08:00 37.7 C H 72 27 H 129/69 98 07/30/20 07:25 79 27 H 97 07/30/20 07:00 37.8 C H 77 109/59 L 98 07/30/20 06:00 37.8 C H 82 129/68 97 Laboratory Results 07/30/20 07/30/20 07/30/20 Range/Units 04:57 04:57 04:57 WBC 15.52 H (4.8-10.8) K/uL RBC 3.81 L (4.7-6.1) M/uL Hgb 11.2 L (14.0-18.0) g/dL Hct 33.9 L (42-52) % MCV 89.0 (80-100) fL MCH 29.4 (25-34) pg MCHC 33.0 (32-36) g/dL RDW Std Deviation 45.7 (36.4-46.3) fL RDW Coeff of Wes 14.1 (11.5-14.5) % Plt Count 273 (130-400) K/uL MPV 10.9 H (7.4-10.4) fL Immature Gran % (Auto) 2.4 % Neut % (Auto) 78.7 % Lymph % (Auto) 13.9 % Austin % (Auto) 4.4 % Eos % (Auto) 0.5 % Baso % (Auto) 0.1 % Neut # (Auto) 12.23 H (1.4-6.5) K/uL Lymph # (Auto) 2.15 (1.2-3.4) K/uL Austin # (Auto) 0.68 H (0.11-0.59) K/uL Eos # (Auto) 0.08 (0-0.5) K/uL Baso # (Auto) 0.01 (0-0.2) K/uL Immature Gran # (Auto) 0.37 H (0.00-0.02) K/uL APTT (21.0-31.0) Seconds PTT Ratio Sample Site POC pH (7.35-7.45) POC pCO2 (35-46) mmHg POC pO2 (80-95) mmHg POC HCO3 (19-24) juliano/L POC Total CO2 (24-31) mmol/L POC Base Excess (-9-1.8) juliano/L POC ABG O2 Sat (90-95) % Joshua Test O2 Delivery Device POC O2 Rate Minute Ventilation POC FiO2 % Tidal Volume PEEP Sodium 137 (136-145) mmol/L Potassium 3.5 (3.5-5.1) mmol/L Chloride 107 (98-107) mmol/L Carbon Dioxide 24 (21-32) mmol/L Anion Gap 6.0 (3-11) BUN 43 H (7-18) mg/dl Creatinine 0.61 (0.6-1.4) mg/dl Est Cr Clr Drug Dosing 129.3 ml/min Est GFR ( Amer) 128.5 Est GFR (Non-Af Amer) 110.9 BUN/Creatinine Ratio 70.3 H (10-20) Glucose 107 H (70-99) mg/dl Calcium 8.1 L (8.5-10.1) mg/dl Phosphorus 3.1 (2.5-4.9) mg/dl Magnesium 2.2 (1.8-2.4) mg/dl C-Reactive Protein 20.20 H (0-0.29) mg/dl 07/30/20 07/30/20 Range/Units 04:57 04:34 WBC (4.8-10.8) K/uL RBC (4.7-6.1) M/uL Hgb (14.0-18.0) g/dL Hct (42-52) % MCV (80-100) fL MCH (25-34) pg MCHC (32-36) g/dL RDW Std Deviation (36.4-46.3) fL RDW Coeff of Wes (11.5-14.5) % Plt Count (130-400) K/uL MPV (7.4-10.4) fL Immature Gran % (Auto) % Neut % (Auto) % Lymph % (Auto) % Austin % (Auto) % Eos % (Auto) % Baso % (Auto) % Neut # (Auto) (1.4-6.5) K/uL Lymph # (Auto) (1.2-3.4) K/uL Austin # (Auto) (0.11-0.59) K/uL Eos # (Auto) (0-0.5) K/uL Baso # (Auto) (0-0.2) K/uL Immature Gran # (Auto) (0.00-0.02) K/uL APTT 48.8 H* (21.0-31.0) Seconds PTT Ratio 1.9 Sample Site Art Line POC pH 7.40 (7.35-7.45) POC pCO2 38 (35-46) mmHg POC pO2 72 L (80-95) mmHg POC HCO3 24 (19-24) juliano/L POC Total CO2 25 (24-31) mmol/L POC Base Excess -1.0 (-9-1.8) juliano/L POC ABG O2 Sat 94.0 (90-95) % Joshua Test NA O2 Delivery Device Ventilator POC O2 Rate 26 Minute Ventilation 11.2 POC FiO2 35 % Tidal Volume 450 PEEP 8 Sodium (136-145) mmol/L Potassium (3.5-5.1) mmol/L Chloride (98-107) mmol/L Carbon Dioxide (21-32) mmol/L Anion Gap (3-11) BUN (7-18) mg/dl Creatinine (0.6-1.4) mg/dl Est Cr Clr Drug Dosing ml/min Est GFR ( Amer) Est GFR (Non-Af Amer) BUN/Creatinine Ratio (10-20) Glucose (70-99) mg/dl Calcium (8.5-10.1) mg/dl Phosphorus (2.5-4.9) mg/dl Magnesium (1.8-2.4) mg/dl C-Reactive Protein (0-0.29) mg/dl PG Care Time/CCT Total # of Minutes Spent Total Time Spent with Patient: Total time spent is greater than 50% in coordination of care (as documented) at patient's floor/unit and/or counseling patient: Coding Level of Care Code 71167 Subseq Hosp Care Lvl 1 Diagnoses Pneumonia due to COVID-19 virus U07.1; J12.82 Acute respiratory failure with hypoxia J96.01 Fever R50.9 Leukocytosis D72.829 Metabolic encephalopathy G93.41 Volume overload E87.70 Hypertension I10 Anxiety F41.9 DVT, bilateral lower limbs I82.403 Hyponatremia E87.1 Abnormal LFTs R94.5 BPH (benign prostatic hyperplasia) N40.0 Lower urinary tract symptom presence: symptoms absent Chronic neck pain M54.2; G89.29 DVT prophylaxis Z29.9 (1) BPH (benign prostatic hyperplasia) Lower urinary tract symptom presence: symptoms absent Qualified Code(s): N40.0 - Benign prostatic hyperplasia without lower urinary tract symptoms
[2020-07-30] MEDS ORDERED: Nursing to Pharmacy Communication SCH ×2 (17:15→17:45)
--- NOTE | 2020-07-30 17:23 | ENT Consultation ---
Date of Consultation July 30, 2020 Assessment & Plan (1) Hypoxia: Plan for tracheotomy in the OR tomorrow. Stop Lovenox Stop tube feeds at midnight Discussed tracheotomy with patient's . Consent obtained. History of Present Illness Attending Physician: Lizbeth Garcia MD History of Present Illness 55 yo male admitted with COVID pneumonia. Was extubated on 07/27/20 and re- intubated for respiratory distress on 07/29/20. Patient was diagnosed with COVID on 07/11/20. Is requiring minimal vent settings but is agitated and requiring high doses of fentanyl and propofol. ICU service feels tracheotomy would help with weaning process and request ENT perform tracheotomy. Allergies Allergy/AdvReac Type Severity Reaction Status Date / Time Penicillins Allergy Severe "catatonic Verified 07/13/20 11:26 immediately" latex Allergy Mild Rash Verified 07/13/20 11:26 Home Medications Medication Instructions Recorded Confirmed Type Glucosamine Chondroitin 1 cap PO QAM #0 06/07/16 07/17/20 History multivitamin 1 tab PO QAM #0 tab 06/07/16 07/17/20 History omega 6-dfa-oqd-fish oil [Fish Oil] 1 cap PO QAM #0 cap 06/07/16 07/17/20 History cyanocobalamin (vitamin B-12) 1,000 mcg PO QAM #0 tab 10/08/16 07/17/20 History [Vitamin B-12] ascorbic acid (vitamin C) [Vitamin 2 g PO QAM 03/29/19 07/17/20 History C] cholecalciferol (vitamin D3) 2,000 unit PO QAM 03/29/19 07/17/20 History [Vitamin D3] ibuprofen [Advil] 200 mg PO QID PRN 03/29/19 07/17/20 History iron bisgl,ps [id number] 1 cap PO WK 03/29/19 07/17/20 History sildenafil 25 mg PO DAILY PRN 03/29/19 07/17/20 History glucosamine [id number] 1 tab PO DAILY 11/23/19 07/17/20 History preston 1,500 mg-400 unit-100 mg tablet ketoconazole 2 % shampoo 1 applic TOP .COMPLEX #120 ml 02/14/20 07/17/20 Rx tamsulosin 0.4 mg capsule 0.4 mg PO DAILY #90 cap 04/23/20 07/17/20 Rx albuterol sulfate 2 puffs INH 6XD PRN #6.7 gm 07/13/20 07/17/20 Rx benzonatate [Tessalon Perles] 100 mg PO UD PRN 07/13/20 07/17/20 History doxycycline monohydrate 100 mg PO BID 07/13/20 07/17/20 History Patient History Medical History (Updated 07/29/20 @ 18:30 by Lizbeth Garcia MD) Basal cell carcinoma of left forehead Chronic back pain Hypoxia Multiple nevi Palliative care encounter Reducible right inguinal hernia Verrucous keratosis Surgical History History of left inguinal hernia repair (10/30/16) Open Left inguinal hernia repair Dr. Calixto 10/30/2016 History of repair of anterior cruciate ligament of left knee History of root canal procedure History of tonsillectomy History of wisdom tooth extraction Status post biopsy of thyroid gland benign Status post correction of deviated nasal septum Status post Mohs surgery for basal cell carcinoma Family History Grandfather (Maternal) Family history of diabetes mellitus Father Prostate cancer Cardiac disorder Mother Hypertension Other No family history of adverse response to anesthesia Social History Smoking Status: Former smoker Second Hand Exposure: No; Hx Alcohol Use: No Hx Substance Use: No Preferred Language: Libyan Communication Ability: Effective Behavioral Health Tech Required: No Beliefs That Will Affect Care: None Current Living Situation: Spouse current occupational status: employed 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 Skin: no rashes, warm and dry Results & Data ([facility]) Vital Signs (Past 12 Hours) Vital Signs Temp Pulse Resp BP Pulse Ox 07/30/20 16:01 37.7 C H 69 18 118/57 L 99 07/30/20 16:00 37.7 C H 64 99 07/30/20 15:57 70 18 99 07/30/20 15:00 37.6 C H 65 19 105/56 L 100 07/30/20 14:00 37.5 C 67 105/54 L 100 07/30/20 13:00 37.7 C H 70 20 113/58 L 99 07/30/20 12:00 37.5 C 83 20 150/72 H 100 07/30/20 11:15 66 21 97 07/30/20 11:00 37.6 C H 71 18 122/62 99 07/30/20 10:00 37.9 C H 72 101/50 L 98 07/30/20 09:00 37.7 C H 82 122/66 97 07/30/20 08:00 37.7 C H 72 27 H 129/69 98 07/30/20 07:25 79 27 H 97 07/30/20 07:00 37.8 C H 77 109/59 L 98 07/30/20 06:00 37.8 C H 82 129/68 97
[2020-07-30] MEDS: PEPTAMEN INTENSE VHP 1.0 CAL 1,000 ML BAG OG SCH ×2 (17:37→17:42)
[2020-07-30] MEDS ORDERED: STAT IV Infusion **Titration per Protocol STA (21:48)
[2020-07-30] MEDS ORDERED: MIDAZOLAM HCL 5 MG/ML 1 ML VIAL IV STA (21:53)
[2020-07-30] MEDS ORDERED: MIDAZOLAM HCL 5 MG/ML 1 ML VIAL IV ONE (22:02)
[2020-07-30] MEDS: DEXMEDETOMIDINE HCL 200 MCG in SODIUM CHLORIDE 0.9% 48 ML IV SCH (22:09)
[2020-07-31] MEDS ORDERED: [UNRECOGNIZED DRUG - REMARK] ONE
[2020-07-31] MEDS: propofoL 1,000 MG/100 ML VIAL IV SCH ×6 (03:32→18:05)
[2020-07-31] MEDS: fentaNYL DRIP 1,250 MCG/250 ML BAG IV SCH ×6 (04:25→18:05)
[2020-07-31 05:59] LABS: iSTAT Arterial Blood Gas HCO3 24 meg/L (19-24); iSTAT Arterial Blood Gas pCO2 41 mmHg (35-46); iSTAT Arterial Blood Gas pH 7.37 (7.35-7.45); iSTAT Arterial Blood Gas pO2 76 mmHg (80-95); iSTAT Carbon Dioxide 25 mmol/L (24-31); iSTAT Site Art Line
[2020-07-31 06:51] LABS: Basophils # (auto) 0.01 K/uL (0-0.2); Basophils % (auto) 0.1 %; Eosinophils # (auto) 0.08 K/uL (0-0.5); Eosinophils % (auto) 0.7 %; Hematocrit (blood only) 32.3 % (42-52); Hemoglobin 10.9 g/dL (14.0-18.0); Immature Granulocytes # (auto) 0.37 K/uL (0.00-0.02); Immature Granulocytes % (auto) 3.3 %; Lymphocytes # (auto) 0.87 K/uL (1.2-3.4); Lymphocytes % (auto) 7.7 %; Mean Corpuscular Hemoglobin 30.2 pg (25-34); Mean Corpuscular Hgb Conc 33.7 g/dL (32-36); Mean Corpuscular Volume 89.5 fL (80-100); Mean Platelet Volume 11.2 fL (7.4-10.4); Monocytes # (auto) 1.27 K/uL (0.11-0.59); Monocytes % (auto) 11.3 %; Neutrophils # (auto) 8.68 K/uL (1.4-6.5); Neutrophils % (auto) 76.9 %; Platelet Count 246 K/uL (130-400); RDW Coefficient of Variation 13.8 % (11.5-14.5); Red Blood Count 3.61 M/uL (4.7-6.1); White Blood Count 11.28 K/uL (4.8-10.8)
[2020-07-31 07:22] LABS: Calcium 8.1 mg/dl (8.5-10.1); Creatinine Clr Calc Pharmacy 167.8 ml/min; Est GFR (Non-African American) 123.4; Magnesium 1.9 mg/dl (1.8-2.4); Phosphorus 2.8 mg/dl (2.5-4.9); Potassium 3.7 mmol/L (3.5-5.1)
[2020-07-31] MEDS: ICU ELECTROLYTE REPLACEMENT PROTOCOL SCH ×2 (07:26→17:37)
--- NOTE | 2020-07-31 08:33 | XRay Report ---
XR chest 1V portable CLINICAL HISTORY: f/u COMPARISON STUDY: Chest radiograph July 30, 2020. FINDINGS: Tip of the endotracheal tube is 4.8 cm above the arlette. Tip of nasogastric tube is at leas t within the body of the stomach. A left subclavian central line remains in place. There is no pneumo thorax. There is a small left pleural effusion. This has increased. Bilateral airspace opacities have progressed. Cardiomediastinal silhouette is stable. Left basilar opacity has increased. IMPRESSION: 1. Satisfactory positioning of lines and tubes. 2. Increase in a small left pleural effusion. Increase in bilateral airspace opacities suggestive of multifocal pneumonia. ACT 112: Negative or not required by law. Electronically signed by: Fan Baltazar M.D. 07/31/2020 8:31 AM
[2020-07-31] MEDS: POTASSIUM CHLORIDE / WTR 20 MEQ/100 ML PLCT IV SCH ×2 (08:41→11:31)
[2020-07-31] MEDS: MAGNESIUM SULFATE / D5W 1 GM/100 ML BAG IV SCH ×2 (08:44→11:36)
[2020-07-31] MEDS: AZITHROMYCIN 500 MG in DEXTROSE 5% 250 ML IV SCH (08:45)
[2020-07-31] MEDS: METOPROLOL TARTRATE 25 MG TAB PO SCH ×3 (08:45→20:29)
[2020-07-31] MEDS: QUEtiapine FUMARATE 25 MG TABLET PO SCH (08:45)
[2020-07-31] MEDS: FAMOTIDINE 20 MG in SYRINGE 3 ML IV SCH ×2 (08:45→20:29)
[2020-07-31] MEDS: MULTI VIT W/MINERALS LIQUID 15 ML UDP NG SCH (08:45)
[2020-07-31] MEDS: ACETAMINOPHEN SUSP 325 MG/10.15 ML UDC PO PRN ×2 (08:46→18:11)
--- NOTE | 2020-07-31 11:27 | Anesthesiology Consultation ---
Date of Service July 31, 2020 History Surgery Operation Date: 07/31/20 07:00 Proposed Procedures p Tracheostomy Tube Placement - Romain Funez DO Height/Weight Height: 5 ft 8 in Weight: 74.1 kg Allergies Allergy/AdvReac Type Severity Reaction Status Date / Time Penicillins Allergy Severe "catatonic Verified 07/13/20 11:26 immediately" latex Allergy Mild Rash Verified 07/13/20 11:26 Medications Home Medications Medication Instructions Recorded Confirmed Last Taken Glucosamine Chondroitin 1 cap PO QAM #0 06/07/16 07/17/20 07/12/20 multivitamin 1 tab PO QAM #0 tab 06/07/16 07/17/20 07/12/20 omega [id number]-khi-izh-fish oil [Fish Oil] 1 cap PO QAM #0 cap 06/07/16 07/17/20 07/12/20 cyanocobalamin (vitamin B-12) 1,000 mcg PO QAM #0 tab 10/08/16 07/17/20 07/12/20 [Vitamin B-12] ascorbic acid (vitamin C) [Vitamin 2 g PO QAM 03/29/19 07/17/20 07/12/20 C] cholecalciferol (vitamin D3) 2,000 unit PO QAM 03/29/19 07/17/20 07/12/20 [Vitamin D3] ibuprofen [Advil] 200 mg PO QID PRN 03/29/19 07/17/20 11/18/19 iron bisgl,ps [id number] 1 cap PO WK 03/29/19 07/17/20 11/18/19 sildenafil 25 mg PO DAILY PRN 03/29/19 07/17/20 11/18/19 glucosamine [id number] 1 tab PO DAILY 11/23/19 07/17/20 07/12/20 preston 1,500 mg-400 unit-100 mg tablet ketoconazole 2 % shampoo 1 applic TOP .COMPLEX #120 ml 02/14/20 07/17/20 07/10/20 tamsulosin 0.4 mg capsule 0.4 mg PO DAILY #90 cap 04/23/20 07/17/20 07/12/20 albuterol sulfate 2 puffs INH 6XD PRN #6.7 gm 07/13/20 07/17/20 Unknown benzonatate [Tessalon Perles] 100 mg PO UD PRN 07/13/20 07/17/20 Unknown doxycycline monohydrate 100 mg PO BID 07/13/20 07/17/20 07/13/20 Active Medications Generic Name Dose Route Start Last Admin Trade Name Freq PRN Reason Stop Dose Admin Acetaminophen 650 mg 07/29/20 12:12 07/31/20 08:46 Acetaminophen Susp 325 Mg/10.15 Ml Udc PO 08/28/20 12:11 650 mg Q6H PRN Administration Fever Buspirone HCl 7.5 mg 07/28/20 12:43 07/28/20 23:12 Buspirone 7.5 Mg Tab PO 08/27/20 13:59 7.5 mg TID PRN Administration anxiety Enoxaparin Sodium 70 mg 07/30/20 10:45 07/30/20 11:38 Enoxaparin 80 Mg/0.8 Ml Syr SQ 08/29/20 10:44 70 mg Q12H KARENA Administration Fentanyl Citrate 50 mcg 07/29/20 12:01 07/30/20 11:39 Fentanyl Bolus From Bag IV 08/12/20 12:00 50 mcg Q60M PRN Administration Pain or Agitation Heparin Sodium (Beef Lung) 5 ml 07/24/20 22:32 07/30/20 08:53 Heparin 10 Unit/Ml 5 Ml Flush FLUSH 08/23/20 22:31 5 ml PRN PRN Administration Flush Famotidine 20 mg/ Syringe 5 mls @ 2.5 mls/min 07/18/20 21:00 07/31/20 08:45 IV 08/17/20 20:59 2.5 mls/min BID KARENA Administration Azithromycin 500 mg/ Dextrose 255 mls @ 127.5 mls/hr 07/30/20 10:00 07/31/20 08:45 IV 08/02/20 11:59 127.5 mls/hr Q24H KARENA Administration Propofol 1,000 mg in 100 mls @ 21 mls/hr 07/29/20 12:00 07/31/20 08:46 Diprivan IV 08/01/20 11:59 50 mcg/kg/min .Q4H46M KARENA 21 mls/hr Administration Protocol 50 MCG/KG/MIN Fentanyl Citrate 1,250 mcg in 250 mls @ 60 mls/hr 07/29/20 12:15 07/31/20 08:45 Fentanyl Drip IV 08/12/20 12:14 300 mcg/hr .Q4H10M KARENA 60 mls/hr Administration Protocol 300 MCG/HR Dexmedetomidine HCl 200 mcg/ 50 mls @ 7.41 mls/hr 07/30/20 22:00 07/31/20 08:46 Sodium Chloride IV 08/03/20 21:59 0.4 mcg/kg/hr .Q6H45M [facility] 7.4 mls/hr Titration Protocol 0.4 MCG/KG/HR Magnesium Sulfate/Dextrose 1 gm in 100 mls @ 50 mls/hr 07/31/20 07:30 07/31/20 08:44 Magnesium Sulfate / D5w IV 07/31/20 11:29 50 mls/hr Q2H KARENA Administration Labetalol HCl 10 mg 07/29/20 03:55 07/29/20 06:10 Labetalol Hcl Iv 5 Mg/Ml 20ml IV 08/28/20 03:54 10 mg Q4H PRN Administration Hypertension Metoprolol Tartrate 5 mg 07/27/20 16:28 07/28/20 16:39 Metoprolol Tartrate 1 Mg/Ml Vial IV 08/26/20 19:59 5 mg Q4 PRN Administration Tachycardia Metoprolol Tartrate 25 mg 07/28/20 14:00 07/31/20 08:45 Metoprolol Tartrate 25 Mg Tab PO 08/27/20 13:59 25 mg TID [facility] Administration Miscellaneous 1 ea 07/30/20 18:00 07/31/20 07:26 Icu Electrolyte Replacement Protocol N/A 08/06/20 17:59 Not Given BID@18 [facility] Protocol Multivitamins/Minerals 15 ml 07/25/20 09:00 07/31/20 08:45 Multi Vit W/Minerals Liquid 15 Ml Udp NG 08/24/20 08:59 15 ml QAM [facility] Administration Nutritional Formula 1,000 ml 07/30/20 15:15 07/30/20 17:42 Peptamen Intense Vhp 1.0 Carlos A 1,000 Ml Bag OG 08/29/20 15:14 Not Given DAILY@1530 [facility] Protocol Quetiapine Fumarate 25 mg 07/30/20 11:45 07/31/20 08:45 Quetiapine Fumarate 25 Mg Tablet PO 08/29/20 11:44 25 mg DAILY KARENA Administration Past Medical History Medical History (Updated 07/31/20 @ 11:27 by Simone Guillermo MD) Basal cell carcinoma of left forehead Chronic back pain COVID-19 Hypoxia Multiple nevi Palliative care encounter Reducible right inguinal hernia Verrucous keratosis Past Family History Family History Grandfather (Maternal) Family history of diabetes mellitus Father Prostate cancer Cardiac disorder Mother Hypertension Other No family history of adverse response to anesthesia Past Surgical History Surgical History History of left inguinal hernia repair (10/30/16) Open Left inguinal hernia repair Dr. Calixto 10/30/2016 History of repair of anterior cruciate ligament of left knee History of root canal procedure History of tonsillectomy History of wisdom tooth extraction Status post biopsy of thyroid gland benign Status post correction of deviated nasal septum Status post Mohs surgery for basal cell carcinoma Social History Smoking Status: Former smoker Do You Dip or Chew Tobacco: No Hx Alcohol Use: No Hx Substance Use: No substance use type: does not use Physical Exam Vital Signs Last Vital Signs Temp 38.2 C H 07/31/20 09:01 Pulse 100 H 07/31/20 09:01 Resp 16 07/31/20 09:01 BP 141/70 H 07/31/20 09:01 Pulse Ox 96 07/31/20 09:01 Testing Laboratory Results 07/31/20 05:41 07/31/20 05:41 PT 10.8 Seconds (9.0-12.0) 07/25/20 23:14 INR 1.1 (0.9-1.1) 07/25/20 23:14 APTT 48.8 Seconds (21.0-31.0) H* 07/30/20 04:57 Blood Type A Positive 07/17/20 13:38 Antibody Screen NEGATIVE 07/17/20 13:38 07/29/20 Unknown Gram Stain - Final Sputum,Vent Suction Sputum Culture - Preliminary Light normal chris present, final report to follow. 07/22/20 11:39 Gram Stain - Final Sputum, Expectorated Sputum Culture - Final Light normal chris. 07/21/20 11:10 Gram Stain - Final Sputum,Vent Suction Sputum Culture - Final Light normal chris. 07/17/20 13:07 Aerobic Blood Culture - Final Blood No growth in Aerobic bottle after 5 days. Anaerobic Blood Culture - Final No growth in Anaerobic bottle after 5 days. 07/17/20 10:24 Aerobic Blood Culture - Final Blood No growth in Aerobic bottle after 5 days. Anaerobic Blood Culture - Final No growth in Anaerobic bottle after 5 days.
[2020-07-31] MEDS: DEXMEDETOMIDINE HCL 200 MCG in SODIUM CHLORIDE 0.9% 48 ML IV SCH ×4 (11:32→21:52)
[2020-07-31] MEDS ORDERED: MIDAZOLAM HCL 1 MG/ML 2ML VIAL ONE (12:13)
[2020-07-31] MEDS ORDERED: GLYCOPYRROLATE 0.2 MG/ML VIAL ONE (12:13)
[2020-07-31] MEDS ORDERED: HYDROCORTISONE SOD SUCCINATE 100 MG/2 ML VIAL ONE (12:13)
[2020-07-31] MEDS ORDERED: PROPOFOL IV EMULSION 10 MG/ML 20 ML VIAL IV ONE (12:13)
[2020-07-31] MEDS ORDERED: ROCURONIUM BROMIDE 10 MG/ML 5 ML VIAL IV ONE ×2 (12:13→14:49)
[2020-07-31] MEDS ORDERED: ONDANSETRON INJ 2 MG/ML 2 ML VIAL ONE (12:13)
[2020-07-31] MEDS ORDERED: SUCCINYLCHOLINE CHLORIDE 20 MG/ML 10 ML VIAL IV ONE (12:13)
[2020-07-31] MEDS ORDERED: NEOSTIGMINE METHYLSULFATE 5 MG/5 ML SYR ONE (12:13)
[2020-07-31] MEDS ORDERED: fentaNYL citrate 100 MCG/2 ML VIAL ONE (12:13)
[2020-07-31] MEDS ORDERED: HYDROmorphone INJ 1 MG/ML SYRINGE IV PRN (12:22)
[2020-07-31] MEDS ORDERED: ATROPINE SULFATE 0.1 MG/ML 10ML SYR IV PRN (12:22)
--- NOTE | 2020-07-31 12:35 | Critical Care Progress Note ---
Date of Service July 31, 2020 Assessment & Plan (1) Acute respiratory failure with hypoxia: Impression:55-year-old male here for COVID pneumonia, transferred to the ICU on 07/18 for acute hypoxic RF, was proned, sedated and intubated. Extubated on 07/27, reintubated 07/29/2020 24-hour events: Patient was reintubated yesterday for respiratory distress. Is on minimal settings when it comes to his ventilator. Neuro -sedated, patient is requiring high doses of sedation Cardiac - Bilateral DVTs-continue with anticoagulation - continue to follow clinically for changes in volume status - strict I/Os Respiratory - Acute hypoxic RF secondary to COVID PNA -extubated 07/27/2020 - s/p Decadron x10 days on 07/27 - continue BiPAP GI -on tube feeds. - strict I/Os as above RENAL/LYTES -Monitor electrolytes -Replace as needed - No concerns at this time ENDO - glycemic control per ICU protocol HEME - Stable H&H ID - COVID-19 pneumonia, cultures no growth to date - s/p Dexamethasone - Procalcitonin 0.47 07/29/2020 --Prophylaxis VTE:Lovenox therapeutic GI: Pepcid Lines: Left subclavian, left radial, positive Orellana Diet: Start feeding today Plan: In/out: +465, urine output 2049. AB.37/41/76 on 40%, PEEP 5 Patient vent requirements are back to minimal but unfortunately patient is on lot of sedative medications and weaning them off makes him restless, failing SBTs Continue with azithromycin for total of 3 more days. Will try to take out central line today after trach has been performed. DC orellana later today. DC propofol as patient is requiring very high doses for a prolonged time. Will change it to Midazolam instead. For Trach today. Feeding and Lovenox on hold. Given, Betty [phone] I have personally spent 36 minutes of critical care time in the direct management of this patient. This is a life/limb threatening event. This includes time spent evaluating patient, direct bedside care, chart review, placing orders, interpretation of diagnostic studies, discussion with consultants, patient, and family members, as well as other required patient management activities. This time is exclusive of all separately billable procedures, and teaching time and separate from and in addition to any other critical care service time. Please note the above document was generated using voice recognition software. It may contain grammatical, syntax or spelling errors. (2) COVID-19: (3) Hypoxia: (4) Anxiety: (5) DVT (deep venous thrombosis): Admission and Anticipated Discharge Date Admission Date: July 17, 2020 Subjective Patient seen and examined at bedside. Patient was on 50 of Propofol, fentanyl 300 and Precedex. He was awake, answering all questions appropriately. Denied any chest pain, no belly pain. No Headache. Review of Systems Review of Systems: All systems reviewed & are unremarkable except as noted in Subjective Physical Exam Physical Exam: Constitutional: No acute distress HEENT: PERRLA, positive ETT Respiratory system: Decreased air entry bilaterally, no wheeze, no rhonchi, positive crackles bilateral lower lobes CVS: S1-S2 positive, no murmurs or gallops Abdomen: Soft, nontender, nondistended, positive bowel sounds x4 Extremities: +2 pulses bilaterally radialis/ dorsalis pedis, no cyanosis, +1 pitting edema bilateral lower extremity Neuro: RASS -1, following commands Psych: Normal mood and affect G/U: Positive Orellana Skin: no rashes, warm and dry Lymphatic: no cervical or axillary lymphadenopathy Results & Data Results & Data ([facility]) Vital Signs (Past 12 Hours) Vital Signs Temp Pulse Resp BP Pulse Ox 07/31/20 11:37 70 17 100 07/31/20 11:01 38.0 C H 69 17 124/69 100 07/31/20 10:01 38.2 C H 83 100/61 100 07/31/20 10:00 38.3 C H 83 16 100 07/31/20 09:54 38.4 C H 70 100 07/31/20 09:01 38.2 C H 100 H 16 141/70 H 96 07/31/20 08:01 38.1 C H 105 H 16 154/76 H 96 07/31/20 07:54 95 H 23 96 07/31/20 07:01 38.0 C H 72 18 121/69 99 07/31/20 06:00 37.8 C H 90 96 07/31/20 05:01 37.9 C H 88 129/68 96 07/31/20 05:00 37.8 C H 93 H 96 07/31/20 04:54 37.8 C H 97 H 135/71 96 07/31/20 04:47 37.8 C H 98 H 146/75 H 97 07/31/20 04:18 37.8 C H 104 H 142/80 H 98 07/31/20 04:01 37.9 C H 78 117/64 98 07/31/20 04:00 37.9 C H 67 99 07/31/20 03:45 78 20 98 07/31/20 03:01 37.8 C H 78 128/64 99 07/31/20 03:00 37.8 C H 76 99 07/31/20 02:01 37.9 C H 73 113/57 L 100 07/31/20 02:00 37.9 C H 66 100 07/31/20 01:01 37.8 C H 78 138/76 99 07/31/20 01:00 37.8 C H 66 100 07/31/20 05:41 07/31/20 05:41 Coding Level of Care Code Critical Care 1st 30-74 mins Diagnoses Acute respiratory failure with hypoxia J96.01 COVID-19 U07.1 Hypoxia R09.02 Anxiety F41.9 DVT (deep venous thrombosis) I82.409 Time Spent (min) 36
--- NOTE | 2020-07-31 13:11 | History & Physical Bridge Note ---
Date of Service July 31, 2020 History & Physical Bridge Note I have examined the patient, reviewed the History & Physical and in the interval since the performance of the History & Physical I have noted the following changes of clinical significance: no changes noted
--- NOTE | 2020-07-31 13:13 | Operative Report ---
Post Operative Report Pre & Post Diagnosis Operation Date: 07/31/20 07:00 <No data on this case meets the specified criteria> Ventilator dependent respiratory failure I identified the patient and participated in the time-out.: Yes Procedure Operation Date: 07/31/20 07:00 <No data on this case meets the specified criteria> Surgeon Romain Funez DO Assembly Line Inspector Mary Lawler MD Estimated Blood Loss 5 Findings Consistent with Post-Op Diagnosis Specimens none Description of Procedure After the patient was prepped and draped in the usual sterile fashion for tracheotomy, incision was delineated with a marking pen and injected with 1% lidocaine, 1:100,000 epinephrine. Incision was carried down through skin and subcutaneous tissue with bovie. The strap muscles were identified and retracted laterally. There was some fat between the straps encountered. This was removed with bovie. The trachea was identified with palpation and then visually after remaining fascia was incised with bovie. At this point, anesthesia stop ventilating and made the patient apneic. The tracheotomy was made with a 15 blade and scissors between cartilage rings 2 and 3. Once adequate tracheotomy was made, a 6-0 shiley cuffed tracheostomy tube was placed without difficulty. A red rubber cathetery was placed through the trach and passed easily. The circuit was then hooked up to the tracheostomy tube and ventilation was started. CO2 was obtained and ventilation was easy as reported by anesthesia. The tracheostomy tube was secured with ties and 2-0 silk sutures to to skin. Patient was then returned to anesthesia. A 20-minute waiting period was observed prior to leaving the room. Patient was then transported back to ICU. I attest to the content of the Intraoperative Record and any orders documented therein. Any exceptions are noted below.
[2020-07-31] MEDS ORDERED: LIDOCAINE/EPINEPHRINE 1% 20 ML VIAL ONE (13:17)
--- NOTE | 2020-07-31 13:53 | Electrocardiogram Report ---
Test Reason : Blood Pressure : / mmHG Vent. Rate : 099 BPM Atrial Rate : 099 BPM P-R Int : 136 ms QRS Dur : 084 ms QT Int : 344 ms P-R-T Axes : 064 062 008 degrees QTc Int : 441 ms Normal sinus rhythm Possible Left atrial enlargement Borderline ECG When compared with ECG of 30-JUL-2020 11:55, No significant change was found Confirmed by Navdeep Hwang ([id number]) on 07/31/2020 1:53:18 PM Referred By: REFERRED SELF Confirmed By:Merrick Hwang
[2020-07-31] MEDS ORDERED: ROCURONIUM BROMID 50MG/5ML SYR ONE (14:48)
[2020-07-31] MEDS ORDERED: ALBUTEROL HFA INHALER 8.5 GM ONE (16:08)
[2020-07-31] MEDS ORDERED: STAT IV Infusion **Titration per Protocol STA (16:52)
[2020-07-31] MEDS: LABETALOL HCL IV 5 MG/ML 20ML IV PRN (16:57)
[2020-07-31] MEDS ORDERED: MIDAZOLAM HCL 125 MG/250 ML BAG IV SCH (17:00)
--- NOTE | 2020-07-31 17:52 | Hospitalist Progress Note ---
Date of Service July 31, 2020 Assessment & Plan (1) Pneumonia due to COVID-19 virus: Severe disease with resulting acute hypoxic respiratory failure/ARDS. Very high settings on HFNC at the onset of his admission, followed by use of CPAP, and then intubation/mech ventilation. s/p intubation AM of 07/19/20. completed 10 days of decadron 6mg daily s/p Convalescent plasma 07/20/20. Ventilated for a week extubated on 07/27 Was down to 6L NC for 1 day on 07/28 and then that evening had worsening respiratory distress requiring BiPAP along with acute metabolic encephalopathy/delirium Was significantly hypoxic again and remained febrile. He was given IV Lasix and IV Ativan for significant anxiety He was transferred back to the ICU on the morning of 07/29 and reintubated Now remains sedated on propofol, fentanyl He has completed a 10-day course of IV dexamethasone With fevers, leukocytosis, started on IV azithromycin by pulmonology and these are all improving Procalcitonin still negative Tylenol as needed for fevers Albuterol in line 6 times a day as needed He met with palliative care before intubation and was agreeable to tracheostomy if needed-palliative care consultation was reviewed Now status post tracheotomy on 07/31-continue to wean off ventilator as able to (2) Acute respiratory failure with hypoxia: As above (3) Fever: As above, improving Repeat blood cultures drawn on 07/30-no growth to date Sputum culture was collected again on 07/29-with light normal chris Leukocytosis now improved to 11 K after starting azithromycin-finish out a 5-day course Follow CBC (4) Leukocytosis: As above, now improving (5) Metabolic encephalopathy: With delirium secondary to hypoxia as well as possibly withdrawal from previously used medications while intubated and sedated Critical care discontinued propofol today and started Versed as needed -Continue Precedex and wean off as able to (6) Volume overload: Previously responded well to Lasix try to keep lungs dry to help recovery Follow urine output With small pleural effusion today-consider further IV Lasix (7) Hypertension: BP previously quite elevated at times likely secondary to significant anxiety and agitation Previously required lopressor 5mg IV q4 and Labetalol 10mg IV pushes in ICU but no longer requiring this HR is in the 90-100's Continue p.o. Lopressor to 25mg TID not on medications previously, monitor to see if he can come off the Lopressor as he recovers (8) Anxiety: Significant and contributing to failure of spontaneous breathing trials Continue buspirone 7.5mg TID PRN Started Seroquel 25 mg daily Continue Precedex and wean off as able to Midazolam as needed (9) DVT, bilateral lower limbs: found on dopplers on 07/25 was on Lovenox 40mg q12 at that time changed to heparin drip and then switched to therapeutic Lovenox can convert to oral agent once out of the ICU again -Currently holding Lovenox for procedure today-restart when okay with ENT (10) Hyponatremia: Resolved (11) Abnormal LFTs: 2nd to COVID-19. Now resolved (12) BPH (benign prostatic hyperplasia): Hold flomax while on vent No issues Lane remains in place (13) Chronic neck pain: Hold voltaren from home (14) DVT prophylaxis: heparin drip for DVT in legs now converted to therapeutic Lovenox GI prophylaxis given severe stress - pepcid 20mg IV BID Disposition-transferred to ICU for reintubation on 07/29, prognosis is guarded Palliative care is involved Full code Admission and Anticipated Discharge Date Admission Date: July 17, 2020 Subjective Patient had a tracheotomy done today. Remains mechanically ventilated. Review of Systems Review of Systems: Unobtainable due to endotracheal tube Physical Exam Physical Exam: Not seen today Results & Data Results & Data ([facility]) Vital Signs (Past 12 Hours) Vital Signs Temp Pulse Resp BP Pulse Ox 07/31/20 16:45 37.8 C H 91 H 17 155/78 H 92 07/31/20 16:40 37.7 C H 97 H 18 142/90 H 92 07/31/20 16:20 37.7 C H 75 123/59 L 90 07/31/20 16:15 37.8 C H 78 106/57 L 94 07/31/20 16:11 37.8 C H 81 90 07/31/20 16:09 37.8 C H 82 124/63 89 L 07/31/20 16:06 37.9 C H 109 H 92 07/31/20 16:05 37.9 C H 99 H 148/84 H 92 07/31/20 16:02 100 H 21 92 07/31/20 16:01 88 91 07/31/20 16:00 86 16 147/67 H 92 07/31/20 15:56 104 H 16 94 07/31/20 15:54 105 H 16 154/78 H 91 07/31/20 13:46 79 17 98 07/31/20 11:37 70 17 100 07/31/20 11:01 38.0 C H 69 17 124/69 100 07/31/20 10:01 38.2 C H 83 100/61 100 07/31/20 10:00 38.3 C H 83 16 100 07/31/20 09:54 38.4 C H 70 100 07/31/20 09:01 38.2 C H 100 H 16 141/70 H 96 07/31/20 08:01 38.1 C H 105 H 16 154/76 H 96 07/31/20 07:54 95 H 23 96 07/31/20 07:01 38.0 C H 72 18 121/69 99 07/31/20 06:00 37.8 C H 90 96 Laboratory Results 07/31/20 07/31/20 07/31/20 Range/Units 05:42 05:41 05:41 WBC (4.8-10.8) K/uL RBC (4.7-6.1) M/uL Hgb (14.0-18.0) g/dL Hct (42-52) % MCV (80-100) fL MCH (25-34) pg MCHC (32-36) g/dL RDW Std Deviation (36.4-46.3) fL RDW Coeff of Wes (11.5-14.5) % Plt Count (130-400) K/uL MPV (7.4-10.4) fL Immature Gran % (Auto) % Neut % (Auto) % Lymph % (Auto) % [place] % (Auto) % Eos % (Auto) % Baso % (Auto) % Neut # (Auto) (1.4-6.5) K/uL Lymph # (Auto) (1.2-3.4) K/uL [place] # (Auto) (0.11-0.59) K/uL Eos # (Auto) (0-0.5) K/uL Baso # (Auto) (0-0.2) K/uL Immature Gran # (Auto) (0.00-0.02) K/uL Sample Site Art Line POC pH 7.37 (7.35-7.45) POC pCO2 41 (35-46) mmHg POC pO2 76 L (80-95) mmHg POC HCO3 24 (19-24) juliano/L POC Total CO2 25 (24-31) mmol/L POC Base Excess -2.0 (-9-1.8) juliano/L POC ABG O2 Sat 95.0 (90-95) % Joshua Test NA Sodium (136-145) mmol/L Potassium (3.5-5.1) mmol/L Chloride (98-107) mmol/L Carbon Dioxide (21-32) mmol/L Anion Gap (3-11) BUN (7-18) mg/dl Creatinine (0.6-1.4) mg/dl Est Cr Clr Drug Dosing ml/min Est GFR ( Amer) Est GFR (Non-Af Amer) BUN/Creatinine Ratio (10-20) Glucose (70-99) mg/dl Calcium (8.5-10.1) mg/dl Phosphorus (2.5-4.9) mg/dl Magnesium (1.8-2.4) mg/dl C-Reactive Protein 17.60 H (0-0.29) mg/dl Triglycerides 50 (0-150) mg/dl 07/31/20 07/31/20 Range/Units 05:41 05:41 WBC 11.28 H (4.8-10.8) K/uL RBC 3.61 L (4.7-6.1) M/uL Hgb 10.9 L (14.0-18.0) g/dL Hct 32.3 L (42-52) % MCV 89.5 (80-100) fL MCH 30.2 (25-34) pg MCHC 33.7 (32-36) g/dL RDW Std Deviation 45.0 (36.4-46.3) fL RDW Coeff of Wes 13.8 (11.5-14.5) % Plt Count 246 (130-400) K/uL MPV 11.2 H (7.4-10.4) fL Immature Gran % (Auto) 3.3 % Neut % (Auto) 76.9 % Lymph % (Auto) 7.7 % Lenoir % (Auto) 11.3 % Eos % (Auto) 0.7 % Baso % (Auto) 0.1 % Neut # (Auto) 8.68 H (1.4-6.5) K/uL Lymph # (Auto) 0.87 L (1.2-3.4) K/uL [place] # (Auto) 1.27 H (0.11-0.59) K/uL Eos # (Auto) 0.08 (0-0.5) K/uL Baso # (Auto) 0.01 (0-0.2) K/uL Immature Gran # (Auto) 0.37 H (0.00-0.02) K/uL Sample Site POC pH (7.35-7.45) POC pCO2 (35-46) mmHg POC pO2 (80-95) mmHg POC HCO3 (19-24) juliano/L POC Total CO2 (24-31) mmol/L POC Base Excess (-9-1.8) juliano/L POC ABG O2 Sat (90-95) % Joshua Test Sodium 139 (136-145) mmol/L Potassium 3.7 (3.5-5.1) mmol/L Chloride 107 (98-107) mmol/L Carbon Dioxide 24 (21-32) mmol/L Anion Gap 8.0 (3-11) BUN 29 H (7-18) mg/dl Creatinine 0.47 L (0.6-1.4) mg/dl Est Cr Clr Drug Dosing 167.8 ml/min Est GFR ( Amer) 143.0 Est GFR (Non-Af Amer) 123.4 BUN/Creatinine Ratio 61.0 H (10-20) Glucose 71 (70-99) mg/dl Calcium 8.1 L (8.5-10.1) mg/dl Phosphorus 2.8 (2.5-4.9) mg/dl Magnesium 1.9 (1.8-2.4) mg/dl C-Reactive Protein (0-0.29) mg/dl Triglycerides (0-150) mg/dl Diagnostic Findings Chest x-ray image personally reviewed by me and agree with the following report: XR chest 1V portable CLINICAL HISTORY: f/u COMPARISON STUDY: Chest radiograph July 30, 2020. FINDINGS: Tip of the endotracheal tube is 4.8 cm above the arlette. Tip of nasogastric tube is at least within the body of the stomach. A left subclavian central line remains in place. There is no pneumothorax. There is a small left pleural effusion. This has increased. Bilateral airspace opacities have progressed. Cardiomediastinal silhouette is stable. Left basilar opacity has increased. IMPRESSION: 1. Satisfactory positioning of lines and tubes. 2. Increase in a small left pleural effusion. Increase in bilateral airspace opacities suggestive of multifocal pneumonia. KUB image reviewed after NG tube placement-NG tube in proper position PG Care Time/CCT Total # of Minutes Spent Total Time Spent with Patient: Total time spent is greater than 50% in coordination of care (as documented) at patient's floor/unit and/or counseling patient: Coding Level of Care Code None Diagnoses Pneumonia due to COVID-19 virus U07.1; J12.82 Acute respiratory failure with hypoxia J96.01 Fever R50.9 Leukocytosis D72.829 Metabolic encephalopathy G93.41 Volume overload E87.70 Hypertension I10 Anxiety F41.9 DVT, bilateral lower limbs I82.403 Hyponatremia E87.1 Abnormal LFTs R94.5 BPH (benign prostatic hyperplasia) N40.0 Lower urinary tract symptom presence: symptoms absent Chronic neck pain M54.2; G89.29 DVT prophylaxis Z29.9 (1) BPH (benign prostatic hyperplasia) Lower urinary tract symptom presence: symptoms absent Qualified Code(s): N40.0 - Benign prostatic hyperplasia without lower urinary tract symptoms
--- NOTE | 2020-07-31 18:01 | XRay Report ---
XR KUB/Abdomen 1 view CLINICAL HISTORY: New NG tube COMPARISON STUDY: 07/28/2020 FINDINGS: There is a nasogastric tube within the stomach. There are bilateral pulmonary airspace opac ities with left lower lobe air bronchograms. There is no pathologic bowel dilatation IMPRESSION: The recently placed nasogastric tube is positioned within the stomach ACT 112: Negative or not required by law. Electronically signed by: Braulio Chirinos M.D. 07/31/2020 6:00 PM
[2020-07-31] MEDS ORDERED: Nursing to Pharmacy Communication SCH (19:00)
[2020-08-01] MEDS: DEXMEDETOMIDINE HCL 200 MCG in SODIUM CHLORIDE 0.9% 48 ML IV SCH ×9 (00:45→12:35)
[2020-08-01 05:03] LABS: iSTAT Art Bld Gas pCO2 Correct 34 mmHg (35-46); iSTAT Arterial Blood Gas HCO3 26 meg/L (19-24); iSTAT Arterial Blood Gas pCO2 34 mmHg (35-46); iSTAT Arterial Blood Gas pO2 57 mmHg (80-95); iSTAT Arterial Blood Gas pO2 C 56; iSTAT Carbon Dioxide 27 mmol/L (24-31); iSTAT Hematocrit 31 % (42-52); iSTAT Hemoglobin 10.5 g/dl (14.0-18.0); iSTAT Potassium 3.8 mmol/L (3.3-5.0); iSTAT Site R Brachial; iSTAT Sodium 138 mmol/L (135-144)
[2020-08-01 05:03] LABS: iSTAT Art Bld Gas pCO2 Correct 33 mmHg (35-46); iSTAT Art Bld Gas pH Corrected 7.489 (7.35-7.45); iSTAT Arterial Blood Gas HCO3 25 meg/L (19-24); iSTAT Arterial Blood Gas pCO2 33 mmHg (35-46); iSTAT Arterial Blood Gas pH 7.49 (7.35-7.45); iSTAT Arterial Blood Gas pO2 53 mmHg (80-95); iSTAT Arterial Blood Gas pO2 C 52; iSTAT Carbon Dioxide 26 mmol/L (24-31); iSTAT FiO2 35 %; iSTAT Hematocrit 31 % (42-52); iSTAT Hemoglobin 10.5 g/dl (14.0-18.0); iSTAT Potassium 3.8 mmol/L (3.3-5.0); iSTAT Site Art Line; iSTAT Sodium 138 mmol/L (135-144)
[2020-08-01] MEDS: propofoL 1,000 MG/100 ML VIAL IV SCH ×3 (07:37→20:13)
[2020-08-01] MEDS: MULTI VIT W/MINERALS LIQUID 15 ML UDP NG SCH (07:56)
[2020-08-01] MEDS: METOPROLOL TARTRATE 25 MG TAB PO SCH ×3 (07:56→20:15)
[2020-08-01] MEDS: QUEtiapine FUMARATE 25 MG TABLET PO SCH (07:56)
[2020-08-01] MEDS: ACETAMINOPHEN SUSP 325 MG/10.15 ML UDC PO PRN (08:20)
[2020-08-01] MEDS: MIDAZOLAM BOLUS FROM BAG IV PRN (08:20)
[2020-08-01] MEDS: FAMOTIDINE 20 MG in SYRINGE 3 ML IV SCH ×2 (08:21→21:52)
--- NOTE | 2020-08-01 08:54 | XRay Report ---
XR chest 1V portable HISTORY: 55 years-old Male f/u follow-up study in a patient with respiratory failure COMPARISON: Chest radiograph 07/31/2020 TECHNIQUE: Portable AP view of the chest FINDINGS: Interval extubation with placement of a tracheostomy cannula overlies the midline. Left subclavian ce ntral venous catheter is unchanged. Feeding tube distal tip projects superiorly medially within the r egion of the proximal gastric body. Cardiomediastinal and hilar silhouettes are unchanged. There are persistent patchy bilateral airspace opacities which overall appears stable to slightly progressed. No pneumothorax. Probable trace pleur al effusions. Bones appear grossly intact. IMPRESSION: 1. Interval extubation with placement of a tracheostomy cannula. 2. Distal tip of feeding tube projects over the proximal stomach. 3. Stable to slightly progressed multifocal bilateral airspace opacities suggestive of multifocal pne umonia. ACT 112: Negative or not required by law. The above report was generated using voice recognition software. It may contain grammatical, syntax o r spelling errors. Electronically signed by: Chad Coughlin M.D. 08/01/2020 8:53 AM
[2020-08-01 09:24] LABS: Basophils # (auto) 0.01 K/uL (0-0.2); Basophils % (auto) 0.1 %; Eosinophils # (auto) 0.07 K/uL (0-0.5); Eosinophils % (auto) 0.6 %; Hematocrit (blood only) 31.9 % (42-52); Hemoglobin 10.6 g/dL (14.0-18.0); Immature Granulocytes # (auto) 0.17 K/uL (0.00-0.02); Immature Granulocytes % (auto) 1.5 %; Mean Corpuscular Hemoglobin 29.2 pg (25-34); Mean Corpuscular Hgb Conc 33.2 g/dL (32-36); Mean Corpuscular Volume 87.9 fL (80-100); Mean Platelet Volume 11.3 fL (7.4-10.4); Monocytes # (auto) 1.12 K/uL (0.11-0.59); Monocytes % (auto) 9.6 %; Neutrophils # (auto) 9.57 K/uL (1.4-6.5); Neutrophils % (auto) 82.2 %; Platelet Count 257 K/uL (130-400); RDW Coefficient of Variation 13.6 % (11.5-14.5); Red Blood Count 3.63 M/uL (4.7-6.1); White Blood Count 11.64 K/uL (4.8-10.8)
--- NOTE | 2020-08-01 09:45 | Anesthesiology Progress Note ---
Date of Service August 01, 2020 Anesthesia Post Procedure Vital Signs Vital Signs: Temp Pulse Resp BP Pulse Ox 08/01/20 07:59 38.7 C H 08/01/20 07:35 102 H 39 H 97 08/01/20 06:00 98 H 26 H 143/75 H 96 08/01/20 05:30 100 H 26 H 95 08/01/20 05:00 92 H 26 H 146/84 H 94 08/01/20 04:30 90 23 93 08/01/20 04:25 105 H 37 H 93 08/01/20 04:00 36.9 C 81 21 153/76 H 95 08/01/20 03:30 95 H 25 H 92 08/01/20 03:00 89 22 134/73 95 08/01/20 02:30 71 22 95 08/01/20 02:00 72 20 111/58 L 94 08/01/20 01:30 74 22 97 08/01/20 01:00 81 20 167/82 H 91 08/01/20 00:30 93 H 24 91 08/01/20 00:29 88 33 H 91 08/01/20 00:00 36.9 C 76 20 117/59 L 93 07/31/20 23:30 93 H 22 94 07/31/20 23:00 93 H 20 148/74 H 94 07/31/20 22:30 79 20 96 07/31/20 22:00 92 H 21 129/65 94 07/31/20 21:29 87 16 147/79 H 95 07/31/20 21:00 95 H 95 07/31/20 20:30 100 H 24 96 07/31/20 20:00 71 16 151/83 H 96 07/31/20 19:45 36.5 C 07/31/20 19:30 70 16 95 07/31/20 19:16 78 23 97 07/31/20 19:00 70 16 94 07/31/20 18:00 37.4 C 76 18 95 07/31/20 17:50 37.5 C 86 150/78 H 100 07/31/20 17:47 37.5 C 77 108/62 94 07/31/20 16:45 37.8 C H 91 H 17 155/78 H 92 07/31/20 16:40 37.7 C H 97 H 18 142/90 H 92 07/31/20 16:20 37.7 C H 75 123/59 L 90 07/31/20 16:15 37.8 C H 78 106/57 L 94 07/31/20 16:11 37.8 C H 81 90 07/31/20 16:09 37.8 C H 82 124/63 89 L 07/31/20 16:06 37.9 C H 109 H 92 07/31/20 16:05 37.9 C H 99 H 148/84 H 92 07/31/20 16:02 100 H 21 92 07/31/20 16:01 88 91 07/31/20 16:00 86 16 147/67 H 92 07/31/20 15:56 104 H 16 94 07/31/20 15:54 105 H 16 154/78 H 91 07/31/20 13:46 79 17 98 07/31/20 11:37 70 17 100 07/31/20 11:01 38.0 C H 69 17 124/69 100 07/31/20 10:01 38.2 C H 83 100/61 100 07/31/20 10:00 38.3 C H 83 16 100 07/31/20 09:54 38.4 C H 70 100 Transfer of Care Handoff Completed per policy Notes Mental Status: see notes below Patient Amnestic to Procedure: Yes Nausea / Vomiting: adequately controlled Pain: adequately controlled Airway Patency, RR, SpO2: see Notes below BP & HR: stable & adequate Hydration State: stable & adequate Anesthetic Complications: no major complications apparent Notes: patient with trach, on vent, vitals stable
[2020-08-01 09:58] LABS: BUN Creatinine Ratio 51.8 (10-20); Blood Urea Nitrogen 21 mg/dl (7-18); Carbon Dioxide 25 mmol/L (21-32); Chloride 107 mmol/L (98-107); Creatinine Clr Calc Pharmacy 192.3 ml/min; Est GFR (African American) > 150.0; Est GFR (Non-African American) 130.5; Glucose 84 mg/dl (70-99); Magnesium 1.8 mg/dl (1.8-2.4); Potassium 3.9 mmol/L (3.5-5.1); Sodium 139 mmol/L (136-145); Triglycerides 133 mg/dl (0-150)
[2020-08-01 09:59] LABS: Phosphorus 2.3 mg/dl (2.5-4.9)
[2020-08-01] MEDS: CEFEPIME 2,000 MG in SYRINGE 0 ML IV SCH ×2 (10:14→17:45)
[2020-08-01] MEDS: AZITHROMYCIN 500 MG in DEXTROSE 5% 250 ML IV SCH (10:15)
[2020-08-01] MEDS: ICU ELECTROLYTE REPLACEMENT PROTOCOL SCH ×2 (10:20→17:46)
--- NOTE | 2020-08-01 10:55 | Palliative Care Progress Note ---
Date of Service August 01, 2020 Assessment & Plan (1) Palliative care encounter: Mr. Del Castillo had a tracheostomy placed yesterday without incident. When I saw him he was tolerating a SBT FiO2 35%, PS 10, PEEP 5 and SpO2 92-95%. He is receiving Precedex but did wake up restless, pulling at his A-line, successfully pulled his NGT and did attempt to pull his trach out. Myself and Colleen, his RN, helped to reorient him and I was able to explain to him what is currently going on. He was able to respond appropriately with nodding and thumbs up. I did facilitate a ZOOM call with his Betty who was able to talk with him and reassure him all is taken care of at home, etc. He has been worried about her as she had COVID also. Was able to give Betty a room tour which helped orient her as well. Future zoom calls with nursing/providers would be beneficial for the patients anxiety and also his . 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 He responded with a thumbs up. If it does NOT look like he will have a meaningful recovery with no improvement, he would like to be kept comfortable at that time, which was communicated by a double thumbs up. For now, pt remains a FULL CODE. Palliative care will follow throughout his hospitalization. (2) Pneumonia due to COVID-19 virus: (3) Hypoxia: Trached and tolerating intermittent spontaneous breathing trials. FiO2 35%, PS 10, PEEP 5 and SpO2 92-95% (4) Fever: Has been febrile 37.8. Cultures Positive for Pseudomonas. Responding to Tylenol. Admission and Anticipated Discharge Date Admission Date: July 17, 2020 Subjective Pt tolerating new trach. Tolerating SBT. Now has developed fevers. + Pseudomonas. Appears comfortable at rest. He does waken and follow simple commands. Facilitated ZOOM call with his which helped both pt and . See A/P for further details. Review of Systems Review of Systems: [place] [facility] Assessment Scale: Pain: 1/3 Tiredness: 1/3 Shortness of breath: 3/3 Anxiety: 1/3 Palliative Performance Scale: 30% Physical Exam Constitutional: + acute distress, + ill appearing, cooperative and + in distress Respiratory: Auscultation: + diminished lung sounds Cardiovascular: Rate/Rhythm: + tachycardic Heart Sounds: normal S1 and normal S2 Extremities: no edema Gastrointestinal (Abdomen): normal bowel sounds, soft, nontender, no hepatosplenomegaly Skin: normal turgor and + lesion (right cheek stage 2 pressure ulcer ) Psychiatric: A+Ox3, euthymic affect Insight: + limited insight Judgement: + limited judgement Results & Data ([facility]) Vital Signs (Past 12 Hours) Vital Signs Temp Pulse Resp BP Pulse Ox 08/01/20 08:50 85 101/49 L 94 08/01/20 08:27 100 H 151/76 H 95 08/01/20 07:59 38.7 C H 08/01/20 07:50 88 139/63 94 08/01/20 07:35 102 H 39 H 97 08/01/20 06:50 95 H 131/66 95 08/01/20 06:00 98 H 26 H 143/75 H 96 08/01/20 05:30 100 H 26 H 95 08/01/20 05:00 92 H 26 H 146/84 H 94 08/01/20 04:30 90 23 93 08/01/20 04:25 105 H 37 H 93 08/01/20 04:00 36.9 C 81 21 153/76 H 95 08/01/20 03:30 95 H 25 H 92 08/01/20 03:00 89 22 134/73 95 08/01/20 02:30 71 22 95 08/01/20 02:00 72 20 111/58 L 94 08/01/20 01:30 74 22 97 08/01/20 01:00 81 20 167/82 H 91 08/01/20 00:30 93 H 24 91 08/01/20 00:29 88 33 H 91 08/01/20 00:00 36.9 C 76 20 117/59 L 93 07/31/20 23:30 93 H 22 94 07/31/20 23:00 93 H 20 148/74 H 94 PG Care Time/CCT Total # of Minutes Spent Total Time Spent with Patient: Total time spent is greater than 50% in c oordination of care (as documented) at patient's floor/unit and/or counseling patient: Total time spent 45 minutes with > 50% of that time spent assessing the patient, discussing goals of care, facilitating and zoom call with his and collaborating with IDT Coding Level of Care Code 36598 Subseq Hosp Care Lvl 3 Diagnoses Palliative care encounter Z51.5 Pneumonia due to COVID-19 virus U07.1; J12.82 Hypoxia R09.02 Fever R50.9 Time Spent (min) 45
[2020-08-01] MEDS: POT PHOSPHATE MONOBASIC W/ SOD TAB NG SCH ×2 (11:27→12:35)
[2020-08-01] MEDS: MAGNESIUM OXIDE 400 MG TAB NG SCH ×2 (11:27→12:55)
[2020-08-01] MEDS: POTASSIUM CHLORIDE 20 MEQ/15 ML UDC NG SCH ×2 (11:27→12:54)
--- NOTE | 2020-08-01 11:31 | Ears,Nose,Throat Progress Note ---
Date of Service August 01, 2020 Assessment & Plan (1) COVID-19: s/p tracheotomy POD 1 No issues with trach continue to change inner cannula as often as needed with his mucopurulence from his pneumonia. will plan to change trach on POD 10-14 Admission and Anticipated Discharge Date Admission Date: July 17, 2020 Subjective doing well. is interactive this am. No issues with trach tube per nursing staff. Physical Exam Neck: # 6 cuffed shiley trach tube secured with sutures and ties. Results & Data ([facility]) Vital Signs (Past 12 Hours) Vital Signs Temp Pulse Resp BP Pulse Ox 08/01/20 11:27 88 32 H 96 08/01/20 08:50 85 101/49 L 94 08/01/20 08:27 100 H 151/76 H 95 08/01/20 07:59 38.7 C H 08/01/20 07:50 88 139/63 94 08/01/20 07:35 102 H 39 H 97 08/01/20 06:50 95 H 131/66 95 08/01/20 06:00 98 H 26 H 143/75 H 96 08/01/20 05:30 100 H 26 H 95 08/01/20 05:00 92 H 26 H 146/84 H 94 08/01/20 04:30 90 23 93 08/01/20 04:25 105 H 37 H 93 08/01/20 04:00 36.9 C 81 21 153/76 H 95 08/01/20 03:30 95 H 25 H 92 08/01/20 03:00 89 22 134/73 95 08/01/20 02:30 71 22 95 08/01/20 02:00 72 20 111/58 L 94 08/01/20 01:30 74 22 97 08/01/20 01:00 81 20 167/82 H 91 08/01/20 00:30 93 H 24 91 08/01/20 00:29 88 33 H 91 08/01/20 00:00 36.9 C 76 20 117/59 L 93 07/31/20 23:30 93 H 22 94
[2020-08-01] MEDS ORDERED: SODIUM PHOSPHATE 3 MMOL/1 ML INFUSION IV STA (12:16)
--- NOTE | 2020-08-01 12:35 | Critical Care Progress Note ---
Date of Service August 01, 2020 Assessment & Plan (1) Acute respiratory failure with hypoxia: Impression:55-year-old male here for COVID pneumonia, transferred to the ICU on 07/18 for acute hypoxic RF, was proned, sedated and intubated. Extubated on 07/27, reintubated 07/29/2020, s/p trach 07/31/2020 24-hour events: S/p trach 07/31/2020. Neuro -Precedex. -Midazolam -Wean off as possible. Patient started on quetiapine and buspirone. Cardiac - Bilateral DVTs-continue with anticoagulation - continue to follow clinically for changes in volume status - strict I/Os Respiratory - TDRF sec to Acute hypoxic RF secondary to COVID PNA -extubated 07/27/2020--> reintubated 07/29/20--> trach 07/31/20 - s/p Decadron x10 days on 07/27 - continue BiPAP GI -on tube feeds. - strict I/Os as above RENAL/LYTES -Monitor electrolytes -Replace as needed - No concerns at this time ENDO - glycemic control per ICU protocol HEME - Stable H&H ID - COVID-19 pneumonia - s/p Dexamethasone - Procalcitonin 0.47 07/29/2020 --Sputum culture 07/31/2020 showing Pseudomonas aeruginosa pansensitive. Started on cefepime --Prophylaxis VTE:Lovenox therapeutic on hold. Resume tomorrow which would be 48 hours after surgery. GI: Pepcid Lines: Left subclavian, left radial, [place] [address] Diet: Tube feeds Plan: In/out: Positive 595, urine output 1700 Continue with aggressive weaning. Try trach collar later today. Aggressive physical therapy. I want the patient off midazolam. Fentanyl 50 MCG every 4 hours as needed pain Continue with Precedex for the time being. Gradually wean off. Patient does have underlying anxiety which is playing a role. We will start him on buspirone as well. Patient is already on quetiapine. For the Pseudomonas in the sputum. Start the patient on cefepime. Yesterday the IV team were notable to get any peripheral access. I asked him to try again today. I wonder subclavian line out. Given, Betty [phone] I have personally spent 37 minutes of critical care time in the direct management of this patient. This is a life/limb threatening event. This includes time spent evaluating patient, direct bedside care, chart review, placing orders, interpretation of diagnostic studies, discussion with consultants, patient, and family members, as well as other required patient management activities. This time is exclusive of all separately billable procedures, and teaching time and separate from and in addition to any other critical care service time. Please note the above document was generated using voice recognition software. It may contain grammatical, syntax or spelling errors. (2) COVID-19: (3) Hypoxia: (4) Anxiety: (5) DVT (deep venous thrombosis): Admission and Anticipated Discharge Date Admission Date: July 17, 2020 Subjective Patient seen and examined at bedside. No acute distress, no adverse events overnight. Patient got trach 07/31/2020. He was on 4 of midazolam, 1 of Precedex at the time of examination. He was bolused with midazolam just prior to me seeing him. He was breathing in the low 30s. He was febrile at the time of examination. He spiking fever T-max of 38.1. Review of Systems Review of Systems: All systems reviewed & are unremarkable except as noted in Subjective Physical Exam Physical Exam: Constitutional: No acute distress HEENT: PERRLA, positive size 6 trach Respiratory system: Decreased air entry bilaterally, no wheeze, no rhonchi, positive crackles bilateral lower lobes CVS: S1-S2 positive, no murmurs or gallops Abdomen: Soft, nontender, nondistended, positive bowel sounds x4 Extremities: +2 pulses bilaterally radialis/ dorsalis pedis, no cyanosis, +1 pitting edema bilateral lower extremity Neuro: RASS -2 Psych: Unable to assess G/U: [address] Skin: no rashes, warm and dry Lymphatic: no cervical or axillary lymphadenopathy Results & Data Results & Data ([facility]) Vital Signs (Past 12 Hours) Vital Signs Temp Pulse Resp BP Pulse Ox 08/01/20 11:36 96 08/01/20 11:29 37.8 C H 08/01/20 11:27 88 32 H 96 08/01/20 08:50 85 101/49 L 94 08/01/20 08:27 100 H 151/76 H 95 08/01/20 07:59 38.7 C H 08/01/20 07:50 88 139/63 94 08/01/20 07:35 102 H 39 H 97 08/01/20 06:50 95 H 131/66 95 08/01/20 06:00 98 H 26 H 143/75 H 96 08/01/20 05:30 100 H 26 H 95 08/01/20 05:00 92 H 26 H 146/84 H 94 08/01/20 04:30 90 23 93 08/01/20 04:25 105 H 37 H 93 08/01/20 04:00 36.9 C 81 21 153/76 H 95 08/01/20 03:30 95 H 25 H 92 08/01/20 03:00 89 22 134/73 95 08/01/20 02:30 71 22 95 08/01/20 02:00 72 20 111/58 L 94 08/01/20 01:30 74 22 97 08/01/20 01:00 81 20 167/82 H 91 08/01/20 07:30 08/01/20 07:30 Coding Level of Care Code Critical Care 1st 30-74 mins Diagnoses Acute respiratory failure with hypoxia J96.01 COVID-19 U07.1 Hypoxia R09.02 Anxiety F41.9 DVT (deep venous thrombosis) I82.409 Time Spent (min) 37
[2020-08-01] MEDS ORDERED: SODIUM PHOSPHATE 15 MMOL in SODIUM CHLORIDE 0.9% 250 ML IV ONE (12:45)
[2020-08-01] MEDS: POTASSIUM CHLORIDE / WTR 10 MEQ/100 ML PLCT IV SCH ×4 (12:50→16:22)
[2020-08-01] MEDS: MAGNESIUM SULFATE / D5W 1 GM/100 ML BAG IV SCH ×2 (12:51→14:46)
[2020-08-01] MEDS ORDERED: FUROSEMIDE 40 MG in SYRINGE 0 ML IV ONE (13:00)
[2020-08-01] MEDS: fentaNYL citrate 100 MCG/2 ML VIAL IV PRN (13:32)
[2020-08-01] MEDS: DEXMEDETOMIDINE HCL 400 MCG in SODIUM CHLORIDE 0.9% 96 ML IV SCH ×5 (14:01→22:20)
[2020-08-01] MEDS ORDERED: ROCURONIUM BROMIDE 10 MG/ML 5 ML VIAL IV ONE (19:12)
[2020-08-01] MEDS ORDERED: PROPOFOL IV EMULSION 10 MG/ML 100 ML VIAL IV ONE (19:12)
[2020-08-01] MEDS: PEPTAMEN INTENSE VHP 1.0 CAL 1,000 ML BAG OG SCH (19:33)
--- NOTE | 2020-08-01 19:37 | Hospitalist Progress Note ---
Date of Service August 01, 2020 Assessment & Plan (1) Pneumonia due to COVID-19 virus: Severe disease with resulting acute hypoxic respiratory failure/ARDS. Very high settings on HFNC at the onset of his admission, followed by use of CPAP, and then intubation/mech ventilation. s/p intubation AM of 07/19/20. completed 10 days of decadron 6mg daily s/p Convalescent plasma 07/20/20. Ventilated for a week extubated on 07/27 Was down to 6L NC for 1 day on 07/28 and then that evening had worsening respiratory distress requiring BiPAP along with acute metabolic encephalopathy/delirium Was significantly hypoxic again and remained febrile. He was given IV Lasix and IV Ativan for significant anxiety He was transferred back to the ICU on the morning of 07/29 and reintubated Now status post tracheotomy on 07/31 On CPAP on trach during day on 08/01 Midazolam discontinued, remains on high settings of Precedex, boluses fentanyl as needed Continue Seroquel 25 mg daily With fevers, leukocytosis, started on IV azithromycin and now sputum growing Pseudomonas aeruginosa Procalcitonin still negative -Start cefepime for Pseudomonas Tylenol as needed for fevers Albuterol in line 6 times a day as needed He met with palliative care before intubation and was agreeable to tracheostomy if needed-palliative care consultation was reviewed -Daily chest x-rays, ICU managing weaning off vent (2) Acute respiratory failure with hypoxia: As above (3) Fever: As above, continues, now with known Pseudomonas aeruginosa pneumonia growing on sputum culture Repeat blood cultures drawn on 07/30-no growth to date Leukocytosis now improved to 11 K Follow CBC -Started cefepime on 08/01 -Finish out 5-day course of azithromycin (4) Leukocytosis: As above, now improving (5) Metabolic encephalopathy: With delirium secondary to hypoxia as well as possibly withdrawal from previously used medications while intubated and sedated Critical care managing -Continue Precedex and wean off as able to -Discontinued midazolam -Continue fentanyl boluses as needed for pain -Continue Seroquel (6) Volume overload: Previously responded well to Lasix-was given another dose of IV Lasix on 08/01 try to keep lungs dry to help recovery Follow urine output and oxygenation (7) Hypertension: BP previously quite elevated at times likely secondary to significant anxiety and agitation Previously required lopressor 5mg IV q4 and Labetalol 10mg IV pushes in ICU but no longer requiring this HR is in the 90-100's Continue p.o. Lopressor to 25mg TID not on medications previously, monitor to see if he can come off the Lopressor as he recovers (8) Anxiety: Significant and contributing to failure of spontaneous breathing trials Continue buspirone 7.5mg twice daily scheduled -Continue Seroquel 25 mg daily Continue Precedex and wean off as able to Discontinue midazolam (9) DVT, bilateral lower limbs: found on dopplers on 07/25 was on Lovenox 40mg q12 at that time changed to heparin drip and then switched to therapeutic Lovenox can convert to oral agent once out of the ICU again -Currently holding Lovenox for tracheotomy-can restart 48 hours after procedure which would be on 08/02 (10) Hyponatremia: Resolved (11) Abnormal LFTs: 2nd to COVID-19. Now resolved (12) BPH (benign prostatic hyperplasia): Hold flomax while on vent No issues Lane remains in place (13) Chronic neck pain: Hold voltaren from home (14) DVT prophylaxis: heparin drip for DVT in legs now converted to therapeutic Lovenox GI prophylaxis given severe stress - pepcid 20mg IV BID Disposition-transferred to ICU for reintubation on 07/29, prognosis is guarded. He will need LTAC placement most likely Palliative care is involved Full code Admission and Anticipated Discharge Date Admission Date: July 17, 2020 Subjective Patient is awake and alert and remains agitated at times today. He did mouth the words "when can I get out of here?" And I explained it would probably be at least another week and then he would have to go to rehab and he shook his head and understanding. He denies pain anywhere. He is on CPAP on his trach. He did have a fever earlier today. He remains on a Precedex drip at max doses, with boluses of fentanyl and midaz olam has been discontinued. He is still becoming quite anxious at times with tachypnea. Telemetry with normal sinus rhythm with rates in the 80s to 90s Review of Systems Review of Systems: Unobtainable due to endotracheal tube Physical Exam Constitutional: + ill appearing, + thin and cooperative; no acute distress Eyes: + anicteric sclerae ENMT: Ears: no hearing impairment Neck: + tracheostomy present Respiratory: + tachypneic (Mild) Auscultation: + rhonchi (On the right side); no crackles and no wheezes Cardiovascular: Rate/Rhythm: regular rate and regular rhythm Heart Sounds: no murmur Extremities: + edema (Trace edema bilateral feet and ankles) Chest (Breasts): Chest: normal inspection of chest Gastrointestinal (Abdomen): normal bowel sounds, soft, nontender, no hepatosplenomegaly Musculoskeletal: Extremities: extremities normal to inspection; no cyanosis and no clubbing Skin: no rashes, warm and dry Neurologic: moves all extremities and awake; no focal motor deficits Psychiatric: Orientation: alert, oriented to person, oriented to place and cooperative Eye Contact: good eye contact Genitourinary: Condom catheter in place draining pink-tinged urine Lymphatic: no lymphedema Results & Data Results & Data ([facility]) Vital Signs (Past 12 Hours) Vital Signs Temp Pulse Resp BP Pulse Ox 08/01/20 14:51 95 H 90/63 L 93 08/01/20 14:49 36.7 C 08/01/20 14:10 83 33 H 92 08/01/20 13:50 79 117/62 90 08/01/20 12:50 83 111/61 89 L 08/01/20 11:50 87 116/68 93 08/01/20 11:36 96 08/01/20 11:29 37.8 C H 08/01/20 11:27 88 32 H 96 08/01/20 10:50 78 95/50 L 95 08/01/20 09:50 77 97/48 L 95 08/01/20 08:50 85 101/49 L 94 08/01/20 08:27 100 H 151/76 H 95 08/01/20 07:59 38.7 C H 08/01/20 07:50 88 139/63 94 08/01/20 07:35 102 H 39 H 97 Laboratory Results 08/01/20 08/01/20 08/01/20 Range/Units 07:30 07:30 04:46 WBC 11.64 H (4.8-10.8) K/uL RBC 3.63 L (4.7-6.1) M/uL Hgb 10.6 L (14.0-18.0) g/dL POC Hgb 10.5 L (14.0-18.0) g/dl Hct 31.9 L (42-52) % POC Hct 31 L (42-52) % MCV 87.9 (80-100) fL MCH 29.2 (25-34) pg MCHC 33.2 (32-36) g/dL RDW Std Deviation 44.0 (36.4-46.3) fL RDW Coeff of Wes 13.6 (11.5-14.5) % Plt Count 257 (130-400) K/uL MPV 11.3 H (7.4-10.4) fL Immature Gran % (Auto) 1.5 % Neut % (Auto) 82.2 % Lymph % (Auto) 6.0 % [place] % (Auto) 9.6 % Eos % (Auto) 0.6 % Baso % (Auto) 0.1 % Neut # (Auto) 9.57 H (1.4-6.5) K/uL Lymph # (Auto) 0.70 L (1.2-3.4) K/uL [place] # (Auto) 1.12 H (0.11-0.59) K/uL Eos # (Auto) 0.07 (0-0.5) K/uL Baso # (Auto) 0.01 (0-0.2) K/uL Immature Gran # (Auto) 0.17 H (0.00-0.02) K/uL Sample Site Art Line POC pH 7.49 H (7.35-7.45) POC pCO2 33 L (35-46) mmHg POC pO2 53 L (80-95) mmHg POC HCO3 25 H (19-24) juliano/L POC Total CO2 26 (24-31) mmol/L POC Base Excess 2.0 H (-9-1.8) juliano/L ABG pH (Temp Correct) 7.489 H (7.35-7.45) ABG pCO2 (Temp Corrct 33 L (35-46) mmHg POC ABG pO2 at Pt Temp 52 POC ABG O2 Sat 90.0 (90-95) % Joshua Test NA O2 Delivery Device Ventilator POC O2 Rate 16 POC FiO2 35 % Tidal Volume 450 PEEP 5 POC Sodium 138 (135-144) mmol/L Sodium 139 (136-145) mmol/L POC Potassium 3.8 (3.3-5.0) mmol/L Potassium 3.9 (3.5-5.1) mmol/L Chloride 107 (98-107) mmol/L Carbon Dioxide 25 (21-32) mmol/L Anion Gap 6.0 (3-11) BUN 21 H (7-18) mg/dl Creatinine 0.41 L (0.6-1.4) mg/dl Est Cr Clr Drug Dosing 192.3 ml/min Est GFR ( Amer) > 150.0 Est GFR (Non-Af Amer) 130.5 BUN/Creatinine Ratio 51.8 H (10-20) Glucose 84 (70-99) mg/dl POC Glucose (70-99) mg/dl Calcium 8.0 L (8.5-10.1) mg/dl Phosphorus 2.3 L (2.5-4.9) mg/dl Magnesium 1.8 (1.8-2.4) mg/dl Triglycerides 133 (0-150) mg/dl 08/01/20 07/31/20 Range/Units 04:37 23:03 WBC (4.8-10.8) K/uL RBC (4.7-6.1) M/uL Hgb (14.0-18.0) g/dL POC Hgb 10.5 L (14.0-18.0) g/dl Hct (42-52) % POC Hct 31 L (42-52) % MCV (80-100) fL MCH (25-34) pg MCHC (32-36) g/dL RDW Std Deviation (36.4-46.3) fL RDW Coeff of Wes (11.5-14.5) % Plt Count (130-400) K/uL MPV (7.4-10.4) fL Immature Gran % (Auto) % Neut % (Auto) % Lymph % (Auto) % [place] % (Auto) % Eos % (Auto) % Baso % (Auto) % Neut # (Auto) (1.4-6.5) K/uL Lymph # (Auto) (1.2-3.4) K/uL [place] # (Auto) (0.11-0.59) K/uL Eos # (Auto) (0-0.5) K/uL Baso # (Auto) (0-0.2) K/uL Immature Gran # (Auto) (0.00-0.02) K/uL Sample Site R Brachial POC pH 7.50 H (7.35-7.45) POC pCO2 34 L (35-46) mmHg POC pO2 57 L (80-95) mmHg POC HCO3 26 H (19-24) juliano/L POC Total CO2 27 (24-31) mmol/L POC Base Excess 3.0 H (-9-1.8) juliano/L ABG pH (Temp Correct) 7.500 H (7.35-7.45) ABG pCO2 (Temp Corrct 34 L (35-46) mmHg POC ABG pO2 at Pt Temp 56 POC ABG O2 Sat 92.0 (90-95) % Joshua Test NA O2 Delivery Device POC O2 Rate POC FiO2 % Tidal Volume PEEP POC Sodium 138 (135-144) mmol/L Sodium (136-145) mmol/L POC Potassium 3.8 (3.3-5.0) mmol/L Potassium (3.5-5.1) mmol/L Chloride (98-107) mmol/L Carbon Dioxide (21-32) mmol/L Anion Gap (3-11) BUN (7-18) mg/dl Creatinine (0.6-1.4) mg/dl Est Cr Clr Drug Dosing ml/min Est GFR ( Amer) Est GFR (Non-Af Amer) BUN/Creatinine Ratio (10-20) Glucose (70-99) mg/dl POC Glucose 108 H (70-99) mg/dl Calcium (8.5-10.1) mg/dl Phosphorus (2.5-4.9) mg/dl Magnesium (1.8-2.4) mg/dl Triglycerides (0-150) mg/dl Diagnostic Findings XR chest 1V portable HISTORY: 55 years-old Male f/u follow-up study in a patient with respiratory failure COMPARISON: Chest radiograph 07/31/2020 TECHNIQUE: Portable AP view of the chest FINDINGS: Interval extubation with placement of a tracheostomy cannula overlies the midline. Left subclavian central venous catheter is unchanged. Feeding tube distal tip projects superiorly medially within the region of the proximal gastric body. Cardiomediastinal and hilar silhouettes are unchanged. There are persistent patchy bilateral airspace opacities which overall appears stable to slightly progressed. No pneumothorax. Probable trace pleural effusions. Bones appear grossly intact. IMPRESSION: 1. Interval extubation with placement of a tracheostomy cannula. 2. Distal tip of feeding tube projects over the proximal stomach. 3. Stable to slightly progressed multifocal bilateral airspace opacities suggestive of multifocal pneumonia. PG Care Time/CCT Total # of Minutes Spent Total Time Spent with Patient: Total time spent is greater than 50% in coordination of care (as documented) at patient's floor/unit and/or counseling patient: Coding Level of Care Code 45354 Subseq Hosp Care Lvl 3 Diagnoses Pneumonia due to COVID-19 virus U07.1; J12.82 Acute respiratory failure with hypoxia J96.01 Fever R50.9 Leukocytosis D72.829 Metabolic encephalopathy G93.41 Volume overload E87.70 Hypertension I10 Anxiety F41.9 DVT, bilateral lower limbs I82.403 Hyponatremia E87.1 Abnormal LFTs R94.5 BPH (benign prostatic hyperplasia) N40.0 Lower urinary tract symptom presence: symptoms absent Chronic neck pain M54.2; G89.29 DVT prophylaxis Z29.9 (1) BPH (benign prostatic hyperplasia) Lower urinary tract symptom presence: symptoms absent Qualified Code(s): N40.0 - Benign prostatic hyperplasia without lower urinary tract symptoms
[2020-08-01] MEDS ORDERED: LIDOCAINE HCL 1% 20 ML VIAL ONE (19:47)
[2020-08-01 20:01] LABS: iSTAT Art Bld Gas pCO2 Correct 33 mmHg (35-46); iSTAT Art Bld Gas pH Corrected 7.466 (7.35-7.45); iSTAT Arterial Blood Gas HCO3 24 meg/L (19-24); iSTAT Arterial Blood Gas pCO2 33 mmHg (35-46); iSTAT Arterial Blood Gas pH 7.47 (7.35-7.45); iSTAT Arterial Blood Gas pO2 71 mmHg (80-95); iSTAT Arterial Blood Gas pO2 C 71; iSTAT Carbon Dioxide 25 mmol/L (24-31); iSTAT FiO2 100 %; iSTAT Hematocrit 35 % (42-52); iSTAT Hemoglobin 11.9 g/dl (14.0-18.0); iSTAT Potassium 3.8 mmol/L (3.3-5.0); iSTAT Site R Brachial; iSTAT Sodium 139 mmol/L (135-144)
--- NOTE | 2020-08-01 20:05 | XRay Report ---
XR chest 1V portable CLINICAL HISTORY: intubation COMPARISON STUDY: Chest radiograph August 01, 2020 at 7:48 AM. FINDINGS: The tip of the endotracheal tube is 5.1 cm above the arlette. There has been interval develo pment of a moderate right pneumothorax. Superior pleural separation measures 3.6 cm. There may be mil d left mediastinal shift. Interval development of extensive subcutaneous gas within the lower neck is noted. There is gas within the chest wall. Pneumomediastinum is present. Bilateral airspace opacitie s persist. Cardiac size is normal. IMPRESSION: 1. Interval development of a moderate right pneumothorax with suspected mild left mediastinal shift, pneumomediastinum and extensive subcutaneous gas within the lower neck and chest wall. Discussed with Dr. Garcia at time of dictation. 2. Persistent extensive bilateral airspace opacities which favor an infectious process. 3. Tip of endotracheal tube 5.1 cm above the arlette. ACT 112: Negative or not required by law. Electronically signed by: Fan Baltazar M.D. 08/01/2020 8:03 PM
[2020-08-01] MEDS ORDERED: MIDAZOLAM BOLUS FROM BAG IV PRN (20:06)
[2020-08-01] MEDS ORDERED: PROPOFOL BOLUS FROM BAG IV PRN (20:06)
[2020-08-01] MEDS ORDERED: STAT IV Infusion **Titration per Protocol STA (20:06)
[2020-08-01] MEDS: fentaNYL DRIP 1,250 MCG/250 ML BAG IV SCH (20:13)
[2020-08-01] MEDS: busPIRone 7.5 MG TAB PO SCH (20:15)
[2020-08-01] MEDS: MIDAZOLAM HCL 125 MG/250 ML BAG IV SCH (20:16)
[2020-08-01] MEDS ORDERED: ROCURONIUM BROMIDE 10 MG/ML 5 ML VIAL IV STA (20:23)
--- NOTE | 2020-08-01 20:23 | XRay Report ---
XR chest 1V portable CLINICAL HISTORY: chest tube insertion COMPARISON STUDY: Chest radiograph August 01, 2020 at 7:12 PM. FINDINGS: Tip of endotracheal tube is 4.7 cm above the arlette. Note is made of interval placement of a right basilar pleural catheter. The right pneumothorax has significantly decreased in size. There i s a small residual pneumothorax with pleural separation of 5 mm. There is persistent extensive subcut aneous gas within the right neck and chest wall. Pneumomediastinum is again noted. Extensive bilatera l airspace opacities persist. IMPRESSION: 1. Interval placement of a right pleural catheter. Significant decrease in size of the right pneumoth orax. Small residual pneumothorax. 2. Persistent pneumomediastinum and extensive subcutaneous gas within the neck and chest wall. 3. Persistent extensive bilateral airspace opacities which favor an infectious process although ARDS could appear similar. 4. Tip of endotracheal tube 4.7 cm above the arlette. ACT 112: Negative or not required by law. Electronically signed by: Fan Baltazar M.D. 08/01/2020 8:22 PM
--- NOTE | 2020-08-01 20:34 | Communication Note ---
Date of Service: August 01, 2020 Critical CARE addendum: I was called by the nurse as patient had pulled out his A-line and there was a possibility he even pulled out his went and trach. When I went upstairs the trach sutures were in place. Trach seem to be in place but on connecting the when the pressures are very high. The catheter was not able to pass through the lumen of the trach. Patient was saturating 90-92% through the oxygen mask. OxiMax was increased to 15 L. Given the fresh trach no manipulation was made to the trach. As there was obstruction of the distal end of the lumen plan was to see with bronc if there is anything which can be suctioned out given the saturation was still good in the 90s. Bronc showed at that trachea is not in the trach lumen. Bronc was immediately stopped and plan to intubate the patient was made. Patient was successfully intubated with size 8 ET tube with the help of a bronchoscope. He did have subcu emphysema on the chest as well as on the neck which did make it difficult to intubate. Patient did go down on saturation to mid 70s which lasted less than a minute and it went directly up to mid 90s after connecting the tube to the vent Chest x-ray post intubation showed right-sided pneumothorax. Chest tube was placed in. Family was called and updated regarding the unfortunate events that happened. Patient will be sedated with propofol and fentanyl. We will add midazolam if need be. I have personally spent additional 45 minutes of critical care time in the direct management of this patient. This is a life/limb threatening event. This includes time spent evaluating patient, direct bedside care, chart review, placing orders, interpretation of diagnostic studies, discussion with consultants, patient, and family members, as well as other required patient management activities. This time is exclusive of all separately billable procedures, and teaching time and separate from and in addition to any other critical care service time. Please note the above document was generated using voice recognition software. It may contain grammatical, syntax or spelling errors. Coding Level of Care Code Critical Care ea addt'l 30 min Time Spent (min) 45
--- NOTE | 2020-08-01 20:37 | Procedure Note ---
Procedure Note Date of Service August 01, 2020 INTUBATION PROCEDURE NOTE: Attending: Dr Joann Choudhary MD Patient was evaluated and plan to intubate was made for ventilatory failure. Sedative agent used: 10 mg of midazolam, patient was already on Precedex 1.5 Emergent consent was implied given patients rapidly declining clinical status and need for airway protection. The patient was prepared in the appropriate fashion. The patient was easily pre-oxygenated by using [id number] ventilation. With help of bronchoscope after passing through the vocal cords into the trachea size 8 Khmer ETT was passed to 25 cm at the lip. DL MAC 2 was used to pull the tongue up and glide the ET tube through the vocal cord. Bronchoscope was removed and balloon was inflated with 10mL of air. Appropriate Colorimetric change was appreciated for at least 10 breaths. Bilateral chest rise and breath sounds were appreciated without air sounds in the epigastrium. Patient tolerated the procedure well and there were no immediate complications. Chest Xray to follow for confirming placement. Coding CPT Codes Resuscitation - Resuscitation: 74681 Endotracheal Intubation, emergency ([id number]) [facility] [place] Procedure Codes (Charges) Resuscitation Resuscitation: 34795 Endotracheal Intubation, emergency
--- NOTE | 2020-08-01 20:43 | Procedure Note ---
Procedure Note: Bronchoscopy Procedure PREOPERATIVE DIAGNOSIS: To check the position of trach POSTOPERATIVE DIAGNOSIS: To check the position of trach PROCEDURE PERFORMED: Flexible fiberoptic bronchoscopy COMPLICATIONS: None. INDICATION: To check the position of the trach PROCEDURE: 6 mg of midazolam was given. Patient was on Precedex 1.5 There was normal vocal cord motion without masses or lesions. The trachea appeared normal.there was no evidence of tracheostomy tube within the tracheal lumen. There was no evidence of bleeding. The bronchoscope was then advanced through the arlette, which was sharp. There was copious amount of thick yellow secretion. On confirming that there is no tracheostomy tube and a tracheal lumen, emergent intubation was done. No samples were obtained. Please note the above document was generated using voice recognition software. It may contain grammatical, syntax or spelling errors.Any formal questions or concerns about the content, text or information contained within the body of this dictation should be directly addressed to the provider for clarification.
[2020-08-02] MEDS: propofoL 1,000 MG/100 ML VIAL IV SCH ×2 (01:58→13:10)
[2020-08-02] MEDS: CEFEPIME 2,000 MG in SYRINGE 0 ML IV SCH ×3 (01:58→18:24)
[2020-08-02 04:22] LABS: iSTAT Allen Test Pass; iSTAT Art Bld Gas pCO2 Correct 35 mmHg (35-46); iSTAT Art Bld Gas pH Corrected 7.463 (7.35-7.45); iSTAT Arterial Blood Gas HCO3 25 meg/L (19-24); iSTAT Arterial Blood Gas pCO2 34 mmHg (35-46); iSTAT Arterial Blood Gas pH 7.47 (7.35-7.45); iSTAT Arterial Blood Gas pO2 72 mmHg (80-95); iSTAT Arterial Blood Gas pO2 C 73; iSTAT Carbon Dioxide 26 mmol/L (24-31); iSTAT FiO2 45 %; iSTAT Hematocrit 43 % (42-52); iSTAT Hemoglobin 14.6 g/dl (14.0-18.0); iSTAT Potassium 3.7 mmol/L (3.3-5.0); iSTAT Site R Brachial; iSTAT Sodium 138 mmol/L (135-144)
[2020-08-02] MEDS: DEXMEDETOMIDINE HCL 400 MCG in SODIUM CHLORIDE 0.9% 96 ML IV SCH ×3 (04:28→07:26)
[2020-08-02] MEDS: ACETAMINOPHEN 1,000 MG/100 ML VIAL IV PRN ×2 (06:03→18:15)
[2020-08-02] MEDS: fentaNYL DRIP 1,250 MCG/250 ML BAG IV SCH ×2 (06:03→19:08)
[2020-08-02 07:31] LABS: Basophils # (auto) 0.01 K/uL (0-0.2); Basophils % (auto) 0.1 %; Eosinophils # (auto) 0.09 K/uL (0-0.5); Eosinophils % (auto) 0.9 %; Hemoglobin 10.6 g/dL (14.0-18.0); Immature Granulocytes # (auto) 0.11 K/uL (0.00-0.02); Immature Granulocytes % (auto) 1.1 %; Lymphocytes # (auto) 1.01 K/uL (1.2-3.4); Lymphocytes % (auto) 9.9 %; Mean Corpuscular Hemoglobin 29.2 pg (25-34); Mean Corpuscular Hgb Conc 33.1 g/dL (32-36); Mean Corpuscular Volume 88.2 fL (80-100); Monocytes # (auto) 0.72 K/uL (0.11-0.59); Neutrophils # (auto) 8.31 K/uL (1.4-6.5); Platelet Count 215 K/uL (130-400); RDW Coefficient of Variation 13.8 % (11.5-14.5); RDW Standard Deviation 44.4 fL (36.4-46.3); Red Blood Count 3.63 M/uL (4.7-6.1); White Blood Count 10.25 K/uL (4.8-10.8)
[2020-08-02 07:57] LABS: BUN Creatinine Ratio 57.9 (10-20); Calcium 8.3 mg/dl (8.5-10.1); Creatinine Clr Calc Pharmacy 138.3 ml/min; Est GFR (African American) 132.1; Magnesium 2.2 mg/dl (1.8-2.4); Potassium 3.7 mmol/L (3.5-5.1)
[2020-08-02 07:59] LABS: Phosphorus 3.9 mg/dl (2.5-4.9)
[2020-08-02] MEDS: FAMOTIDINE 20 MG in SYRINGE 3 ML IV SCH ×2 (08:08→20:36)
[2020-08-02] MEDS: busPIRone 7.5 MG TAB PO SCH ×3 (08:09→20:32)
[2020-08-02] MEDS: METOPROLOL TARTRATE 25 MG TAB PO SCH ×2 (08:09→10:04)
[2020-08-02] MEDS: MULTI VIT W/MINERALS LIQUID 15 ML UDP NG SCH ×2 (08:09→15:22)
[2020-08-02] MEDS: QUEtiapine FUMARATE 25 MG TABLET PO SCH ×2 (08:10→15:22)
--- NOTE | 2020-08-02 08:46 | XRay Report ---
XR chest 1V portable CLINICAL HISTORY: Respiratory failure. pneumothorax COMPARISON STUDY: 08/01/2020 FINDINGS: There is an endotracheal tube 46 mm above the arlette. There is pneumomediastinum. There are bilateral pulmonary airspace opacities. There is a pigtail right-sided pleural catheter. No pneumoth orax is visualized. There are no significant pleural effusions.[ IMPRESSION: 1. No change in the position of the pigtail right-sided pleural catheter 2. No pneumothorax identified 3. Persistent multifocal airspace opacities consistent with a multifocal pneumonia 4. Pneumomediastinum 5. Endotracheal tube 4.6 cm above the arlette ACT 112: Negative or not required by law. Electronically signed by: Braulio Chirinos M.D. 08/02/2020 8:44 AM
--- NOTE | 2020-08-02 09:38 | Critical Care Progress Note ---
Date of Service August 02, 2020 Assessment & Plan (1) Acute respiratory failure with hypoxia: Impression:55-year-old male here for COVID pneumonia, transferred to the ICU on 07/18 for acute hypoxic RF, was proned, sedated and intubated. Extubated on 07/27, reintubated 07/29/2020, s/p trach 07/31/2020. Self dislodgment of the trach 08/01/2020, intubated 08/01/2020 with size 8 ETT 24-hour events: Patient dislodged the trach on 08/01/2020 late in the evening. He was intubated and trach was removed. Neuro -propofol, fentanyl, midazolam and Precedex -Wean as possible Patient started on quetiapine and buspirone. Cardiac - Bilateral DVTs-continue with anticoagulation - continue to follow clinically for changes in volume status - strict I/Os Respiratory - VDRF sec to Acute hypoxic RF secondary to COVID PNA -extubated 07/27/2020--> reintubated 07/29/20--> trach 07/31/20 --> trach dislodged 08/01/2020 --> intubated 08/01/2020 s/p Decadron x10 days on 07/27 Keep RASS -1 --Right-sided pneumothorax S/p pigtail catheter placement 08/01/2020 Monitor with daily chest x-rays -Subcu emphysema with pneumomediastinum Likely from dislodgment of the trach Improving Monitor GI - strict I/Os as above RENAL/LYTES -Monitor electrolytes -Replace as needed - No concerns at this time ENDO - glycemic control per ICU protocol HEME - Stable H&H ID - COVID-19 pneumonia - s/p Dexamethasone - Procalcitonin 0.47 07/29/2020 --Sputum culture 07/31/2020 showing Pseudomonas aeruginosa pansensitive. Started on cefepime --Prophylaxis VTE:Lovenox on hold GI: Pepcid Lines: Peripheral, [place] [address] Diet: We will put NGT and start feeding. Plan: In/out: -530, urine output 2710 ABG 7.46/34/72 on 45% FiO2, PEEP 5 Chest x-ray from today shows no pneumothorax. Pigtail catheter in place. Patient does have diffuse infiltrates from before. Subcu emphysema seems to have decreased in amount. Try to wean off propofol and fentanyl as much as we can. I would like to see if the patient has purposeful movements and follows commands. We will put NG tube in so that we can feed the patient and give him p.o. medications Resume Lovenox in the evening given the patient has DVT as well. There is no acute bleeding even from the trach site. Given, Betty [phone], was called and updated about patient's condition. I have personally spent 38 minutes of critical care time in the direct management of this patient. This is a life/limb threatening event. This includes time spent evaluating patient, direct bedside care, chart review, placing orders, interpretation of diagnostic studies, discussion with consultants, patient, and family members, as well as other required patient management activities. This time is exclusive of all separately billable procedures, and teaching time and separate from and in addition to any other critical care service time. Please note the above document was generated using voice recognition software. It may contain grammatical, syntax or spelling errors. (2) COVID-19: (3) Hypoxia: (4) Anxiety: (5) DVT (deep venous thrombosis): Admission and Anticipated Discharge Date Admission Date: July 17, 2020 Subjective Patient seen and examined at bedside. No acute distress. Patient was on propofol 20, fentanyl 100, Precedex 1, midazolam 2 with the time of examination Patient responds well to midazolam Patient is RASS was -2. He was breathing over the vent. He was on 40% FiO2, PEEP of 5 and saturating 93%. Review of Systems Review of Systems: Unobtainable due to endotracheal tube Physical Exam Physical Exam: Constitutional: No acute distress HEENT: PERRLA, positive ETT Respiratory system: Decreased air entry bilaterally, no wheeze, no rhonchi, positive crackles bilateral lower lobes, positive subcu emphysema appreciated around the neck CVS: S1-S2 positive, no murmurs or gallops Abdomen: Soft, nontender, nondistended, positive bowel sounds x4 Extremities: +2 pulses bilaterally radialis/ dorsalis pedis, no cyanosis, +1 pitting edema bilateral lower extremity Neuro: RASS -2, breathing over the vent, positive pupillary, positive corneal Psych: Unable to assess G/U: [place] [address] Right-sided pigtail chest tube Skin: no rashes, warm and dry Lymphatic: no cervical or axillary lymphadenopathy Results & Data Results & Data ([facility]) Vital Signs (Past 12 Hours) Vital Signs Temp Pulse Resp BP Pulse Ox 08/02/20 08:12 67 21 94 08/02/20 08:11 36.6 C 08/02/20 06:30 71 21 96/49 L 94 08/02/20 06:00 76 26 H 111/52 L 95 08/02/20 05:30 78 26 H 105/56 L 93 08/02/20 05:00 79 25 H 127/59 L 94 08/02/20 04:30 85 26 H 125/63 96 08/02/20 04:00 38 C H 80 25 H 123/59 L 97 08/02/20 03:53 77 24 97 08/02/20 03:30 77 26 H 114/55 L 96 08/02/20 03:00 76 26 H 128/66 95 08/02/20 02:30 79 26 H 94/50 L 91 08/02/20 02:00 82 26 H 94/50 L 92 08/02/20 01:30 81 26 H 113/63 94 08/02/20 01:00 81 25 H 110/58 L 93 08/02/20 00:46 86 29 H 93 08/02/20 00:30 83 26 H 99/57 L 93 08/02/20 00:00 37.1 C 87 24 104/61 93 08/01/20 23:30 83 24 99/54 L 93 08/01/20 23:00 85 26 H 96/53 L 95 08/01/20 22:30 87 28 H 100/57 L 100 08/01/20 22:00 88 26 H 106/63 99 08/02/20 06:53 08/02/20 06:53 Coding Level of Care Code Critical Care 1st 30-74 mins Diagnoses Acute respiratory failure with hypoxia J96.01 COVID-19 U07.1 Hypoxia R09.02 Anxiety F41.9 DVT (deep venous thrombosis) I82.409 Time Spent (min) 38
[2020-08-02] MEDS: AZITHROMYCIN 500 MG in DEXTROSE 5% 250 ML IV SCH (09:49)
[2020-08-02] MEDS: DEXMEDETOMIDINE HCL 400 MCG in 0.9 % SODIUM CHLORIDE 96 ML IV SCH ×4 (09:53→21:54)
[2020-08-02] MEDS: ICU ELECTROLYTE REPLACEMENT PROTOCOL SCH ×2 (10:05→15:26)
[2020-08-02] MEDS: POTASSIUM CHLORIDE / WTR 10 MEQ/100 ML PLCT IV SCH ×4 (13:10→18:23)
--- NOTE | 2020-08-02 13:22 | Palliative Care Progress Note ---
Date of Service August 02, 2020 Assessment & Plan (1) Palliative care encounter: Called Mrs. Del Castillo and spoke with her on the phone. She is having very difficult time being home alone, struggling with her own covid infection, managing work and home, as well as Severo's illness. Reassured her that he is being closely monitored and cared for. She has support from family, friends and her syn[employer] community. Palliative care will follow. Admission and Anticipated Discharge Date Admission Date: July 17, 2020 Subjective Events of last night noted. He is resting comfortably at this time. Review of Systems Review of Systems: Unobtainable due to reduced consciousness Physical Exam Constitutional: not in distress sedated Respiratory: no labored breathing Cardiovascular: Rate/Rhythm: regular rate and regular rhythm Musculoskeletal: Extremities: extremities normal to inspection Results & Data ([facility]) Vital Signs (Past 12 Hours) Vital Signs Temp Pulse Resp BP Pulse Ox 08/02/20 11:40 65 20 95 08/02/20 09:54 70 105/68 90 08/02/20 09:24 63 88/46 L 92 08/02/20 08:54 63 99/53 L 94 08/02/20 08:24 64 110/51 L 95 08/02/20 08:12 67 21 94 08/02/20 08:11 97.9 F 08/02/20 07:54 66 84/45 L 94 08/02/20 07:24 68 92/47 L 94 08/02/20 06:54 71 92/46 L 95 08/02/20 06:30 71 21 96/49 L 94 08/02/20 06:00 76 26 H 111/52 L 95 08/02/20 05:30 78 26 H 105/56 L 93 08/02/20 05:00 79 25 H 127/59 L 94 08/02/20 04:30 85 26 H 125/63 96 08/02/20 04:00 100.4 F H 80 25 H 123/59 L 97 08/02/20 03:53 77 24 97 08/02/20 03:30 77 26 H 114/55 L 96 08/02/20 03:00 76 26 H 128/66 95 08/02/20 02:30 79 26 H 94/50 L 91 08/02/20 02:00 82 26 H 94/50 L 92 08/02/20 01:30 81 26 H 113/63 94 PG Care Time/CCT Total # of Minutes Spent Total Time Spent with Patient: Total time spent is greater than 50% in coordination of care (as documented) at patient's floor/unit and/or counseling patient: Coding Level of Care Code 69191 Subseq Hosp Care Lvl 2 Diagnoses Palliative care encounter Z51.5 Time Spent (min) 25
--- NOTE | 2020-08-02 13:43 | XRay Report ---
KUB HISTORY: Acute respiratory failure. Status post placement of a feeding tube NGT re-insertion COMPARISON: KUB 07/31/2020 FINDINGS: There is a feeding tube present with distal tip terminating in the abdominal left upper analy drant expected location of the gastric body. Contrast pattern appears to be nonobstructive. Endotrach eal tube terminating 2.9 cm superior to the arlette. Bilateral airspace opacities are noted with a pig tail catheter overlying the right lung base laterally. No renal calculi. No ureteral calculi. No pne umoperitoneum or pneumatosis. No fracture. IMPRESSION: Distal tip of enteric tube overlies the gastric body. ACT 112: Negative or not required by law. The above report was generated using voice recognition software. It may contain grammatical, syntax o r spelling errors. Electronically signed by: Chad Coughlin M.D. 08/02/2020 1:42 PM
[2020-08-02] MEDS: PEPTAMEN INTENSE VHP 1.0 CAL 1,000 ML BAG OG SCH (15:23)
[2020-08-02] MEDS ORDERED: DEXTROSE 50% 50 ML SYRINGE IV ONE (18:10)
[2020-08-02] MEDS ORDERED: DEXTROSE 50% 50 ML SYRINGE IV PRN (18:12)
[2020-08-02] MEDS: ENOXAPARIN 80 MG/0.8 ML SYR SQ SCH (18:38)
--- NOTE | 2020-08-02 19:12 | Hospitalist Progress Note ---
Date of Service August 02, 2020 Assessment & Plan (1) Pneumonia due to COVID-19 virus: Severe disease with resulting acute hypoxic respiratory failure/ARDS. Very high settings on HFNC at the onset of his admission, followed by use of CPAP, and then intubation/mech ventilation. s/p intubation AM of 07/19/20. completed 10 days of decadron 6mg daily s/p Convalescent plasma 07/20/20. Ventilated for a week extubated on 07/27 Was down to 6L NC for 1 day on 07/28 and then that evening had worsening respiratory distress requiring BiPAP along with acute metabolic encephalopathy/delirium Was significantly hypoxic again and remained febrile. He was given IV Lasix and IV Ativan for significant anxiety He was transferred back to the ICU on the morning of 07/29 and reintubated Now status post tracheotomy on 07/31 On CPAP on trach during day on 08/01 Unfortunately on the evening of 08/01, in a delirious state, he pulled out his tracheostomy tube and became family hypoxic, he was unable to have it replaced and was emergently intubated again, tracheostomy was removed then by the pattern grader supervisor. Continues to be treated for Pseudomonas pneumonia and continues to have fevers Procalcitonin negative -Continue cefepime Tylenol as needed for fevers Albuterol in line 6 times a day as needed He met with palliative care before intubation and was agreeable to tracheostomy if needed-palliative care consultation was reviewed -Daily chest x-rays, ICU managing weaning off vent -Question if ENT needs to be reconsulted? (2) Pneumothorax: On the right which occurred after patient pulled out his tracheostomy tube and had to be urgently reintubated Chest tube in place Management as per pattern grader supervisor (3) Acute respiratory failure with hypoxia: As above (4) Fever: As above, continues, now with known Pseudomonas aeruginosa pneumonia growing on sputum culture Repeat blood cultures drawn on 07/30-no growth to date Leukocytosis now improved to 10 K Follow CBC -Started cefepime on 08/01 -Finished out 5-day course of azithromycin (5) Leukocytosis: As above, now improving (6) Metabolic encephalopathy: With delirium secondary to hypoxia as well as possibly withdrawal from previously used medications while intubated and sedated Critical care managing -Continue Precedex, midazolam, propofol and wean off as able to -Continue fentanyl boluses as needed for pain -Continue Seroquel (7) Volume overload: Previously responded well to Lasix-was given another dose of IV Lasix on 08/01 try to keep lungs dry to help recovery Follow urine output and oxygenation (8) Hypertension: BP previously quite elevated at times likely secondary to significant anxiety and agitation, and then low at times-labile Continue p.o. Lopressor to 25mg TID with hold parameters (9) Anxiety: Significant and contributing to failure of spontaneous breathing trials Continue buspirone 7.5mg twice daily scheduled -Continue Seroquel 25 mg daily Continue Precedex, midazolam (10) DVT, bilateral lower limbs: found on dopplers on 07/25 was on Lovenox 40mg q12 at that time changed to heparin drip and then switched to therapeutic Lovenox can convert to oral agent once out of the ICU again -Okay to restart therapeutic Lovenox which was on hold for tracheotomy (11) Hyponatremia: Resolved (12) Abnormal LFTs: 2nd to COVID-19. Now resolved (13) BPH (benign prostatic hyperplasia): Hold flomax while on vent No issues Lane remains in place (14) Chronic neck pain: Hold voltaren from home (15) DVT prophylaxis: therapeutic Lovenox GI prophylaxis given severe stress - pepcid 20mg IV BID Disposition-transferred to ICU for reintubation on 07/29, prognosis is guarded. He will need LTAC placement most likely Palliative care is involved Full code Admission and Anticipated Discharge Date Admission Date: July 17, 2020 Subjective Unfortunately, patient pulled out his A-line and trach last evening and had to be emergently reintubated as the tracheostomy tube could not be relocated. He then also suffered a right sided pneumothorax and had a chest tube placed. He remains on sedation with midazolam, propofol, Precedex, and fentanyl but nursing reports he still wakes up and gets anxious at times. Telemetry with normal sinus rhythm with rates in the 70s to 80s Review of Systems Review of Systems: Unobtainable due to endotracheal tube and Unobtainable due to reduced consciousness Physical Exam Constitutional: + ill appearing, + thin and + mechanically ventilated; no acute distress Neck: + abnormal visual inspection (Occlusive dressing in place over previous tracheotomy site) Respiratory: Auscultation: lungs clear to auscultation bilaterally Cardiovascular: Rate/Rhythm: regular rate and regular rhythm Heart Sounds: no murmur Extremities: + edema (Trace edema bilateral feet and ankles) Chest (Breasts): Chest: normal inspection of chest Gastrointestinal (Abdomen): normal bowel sounds, soft, nontender, no hepatosplenomegaly Musculoskeletal: Extremities: extremities normal to inspection; no cyanosis and no clubbing Skin: no rashes, warm and dry Results & Data Results & Data ([facility]) Vital Signs (Past 12 Hours) Vital Signs Temp Pulse Resp BP Pulse Ox 08/02/20 18:25 38.1 C H 08/02/20 16:25 115 H 158/72 H 93 08/02/20 16:05 88 25 H 93 08/02/20 16:00 88 08/02/20 15:54 112 H 153/75 H 92 08/02/20 15:25 93 H 145/68 H 90 08/02/20 15:20 37.8 C H 08/02/20 14:54 80 145/72 H 92 08/02/20 14:24 83 128/69 92 08/02/20 13:54 87 136/71 94 08/02/20 13:24 89 134/68 91 08/02/20 12:54 76 139/62 93 08/02/20 12:24 72 130/69 92 08/02/20 11:54 66 116/60 91 08/02/20 11:40 65 16 95 08/02/20 11:24 66 100/54 L 95 08/02/20 10:54 65 99/52 L 95 08/02/20 10:24 66 96/50 L 93 08/02/20 09:54 70 105/68 90 08/02/20 09:24 63 88/46 L 92 08/02/20 08:54 63 99/53 L 94 08/02/20 08:24 64 110/51 L 95 08/02/20 08:12 67 21 94 08/02/20 08:11 36.6 C 08/02/20 07:54 66 84/45 L 94 08/02/20 07:24 68 92/47 L 94 Laboratory Results 08/02/20 08/02/20 08/02/20 Range/Units 18:04 18:02 17:58 WBC (4.8-10.8) K/uL RBC (4.7-6.1) M/uL Hgb (14.0-18.0) g/dL POC Hgb (14.0-18.0) g/dl Hct (42-52) % POC Hct (42-52) % MCV (80-100) fL MCH (25-34) pg MCHC (32-36) g/dL RDW Std Deviation (36.4-46.3) fL RDW Coeff of Wes (11.5-14.5) % Plt Count (130-400) K/uL MPV (7.4-10.4) fL Immature Gran % (Auto) % Neut % (Auto) % Lymph % (Auto) % [place] % (Auto) % Eos % (Auto) % Baso % (Auto) % Neut # (Auto) (1.4-6.5) K/uL Lymph # (Auto) (1.2-3.4) K/uL [place] # (Auto) (0.11-0.59) K/uL Eos # (Auto) (0-0.5) K/uL Baso # (Auto) (0-0.2) K/uL Immature Gran # (Auto) (0.00-0.02) K/uL Sample Site POC pH (7.35-7.45) POC pCO2 (35-46) mmHg POC pO2 (80-95) mmHg POC HCO3 (19-24) juliano/L POC Total CO2 (24-31) mmol/L POC Base Excess (-9-1.8) juliano/L ABG pH (Temp Correct) (7.35-7.45) ABG pCO2 (Temp Corrct (35-46) mmHg POC ABG pO2 at Pt Temp POC ABG O2 Sat (90-95) % Joshua Test O2 Delivery Device POC O2 Rate Minute Ventilation POC FiO2 % Tidal Volume PEEP POC Sodium (135-144) mmol/L Sodium (136-145) mmol/L POC Potassium (3.3-5.0) mmol/L Potassium (3.5-5.1) mmol/L Chloride (98-107) mmol/L Carbon Dioxide (21-32) mmol/L Anion Gap (3-11) BUN (7-18) mg/dl Creatinine (0.6-1.4) mg/dl Est Cr Clr Drug Dosing ml/min Est GFR ( Amer) Est GFR (Non-Af Amer) BUN/Creatinine Ratio (10-20) Glucose (70-99) mg/dl POC Glucose 62 L* 80 64 L* (70-99) mg/dl Calcium (8.5-10.1) mg/dl Phosphorus (2.5-4.9) mg/dl Magnesium (1.8-2.4) mg/dl 08/02/20 08/02/20 08/02/20 Range/Units 12:11 06:53 06:53 WBC 10.25 (4.8-10.8) K/uL RBC 3.63 L (4.7-6.1) M/uL Hgb 10.6 L (14.0-18.0) g/dL POC Hgb (14.0-18.0) g/dl Hct 32.0 L (42-52) % POC Hct (42-52) % MCV 88.2 (80-100) fL MCH 29.2 (25-34) pg MCHC 33.1 (32-36) g/dL RDW Std Deviation 44.4 (36.4-46.3) fL RDW Coeff of Wes 13.8 (11.5-14.5) % Plt Count 215 (130-400) K/uL MPV 11.0 H (7.4-10.4) fL Immature Gran % (Auto) 1.1 % Neut % (Auto) 81.0 % Lymph % (Auto) 9.9 % [place] % (Auto) 7.0 % Eos % (Auto) 0.9 % Baso % (Auto) 0.1 % Neut # (Auto) 8.31 H (1.4-6.5) K/uL Lymph # (Auto) 1.01 L (1.2-3.4) K/uL [place] # (Auto) 0.72 H (0.11-0.59) K/uL Eos # (Auto) 0.09 (0-0.5) K/uL Baso # (Auto) 0.01 (0-0.2) K/uL Immature Gran # (Auto) 0.11 H (0.00-0.02) K/uL Sample Site POC pH (7.35-7.45) POC pCO2 (35-46) mmHg POC pO2 (80-95) mmHg POC HCO3 (19-24) juliano/L POC Total CO2 (24-31) mmol/L POC Base Excess (-9-1.8) juliano/L ABG pH (Temp Correct) (7.35-7.45) ABG pCO2 (Temp Corrct (35-46) mmHg POC ABG pO2 at Pt Temp POC ABG O2 Sat (90-95) % Joshua Test O2 Delivery Device POC O2 Rate Minute Ventilation POC FiO2 % Tidal Volume PEEP POC Sodium (135-144) mmol/L Sodium 140 (136-145) mmol/L POC Potassium (3.3-5.0) mmol/L Potassium 3.7 (3.5-5.1) mmol/L Chloride 107 (98-107) mmol/L Carbon Dioxide 27 (21-32) mmol/L Anion Gap 5.0 (3-11) BUN 33 H D (7-18) mg/dl Creatinine 0.57 L (0.6-1.4) mg/dl Est Cr Clr Drug Dosing 138.3 ml/min Est GFR ( Amer) 132.1 Est GFR (Non-Af Amer) 114.0 BUN/Creatinine Ratio 57.9 H (10-20) Glucose 91 (70-99) mg/dl POC Glucose 89 (70-99) mg/dl Calcium 8.3 L (8.5-10.1) mg/dl Phosphorus 3.9 D (2.5-4.9) mg/dl Magnesium 2.2 (1.8-2.4) mg/dl 08/02/20 08/01/20 Range/Units 03:55 19:47 WBC (4.8-10.8) K/uL RBC (4.7-6.1) M/uL Hgb (14.0-18.0) g/dL POC Hgb 14.6 11.9 L (14.0-18.0) g/dl Hct (42-52) % POC Hct 43 35 L (42-52) % MCV (80-100) fL MCH (25-34) pg MCHC (32-36) g/dL RDW Std Deviation (36.4-46.3) fL RDW Coeff of Wes (11.5-14.5) % Plt Count (130-400) K/uL MPV (7.4-10.4) fL Immature Gran % (Auto) % Neut % (Auto) % Lymph % (Auto) % [place] % (Auto) % Eos % (Auto) % Baso % (Auto) % Neut # (Auto) (1.4-6.5) K/uL Lymph # (Auto) (1.2-3.4) K/uL [place] # (Auto) (0.11-0.59) K/uL Eos # (Auto) (0-0.5) K/uL Baso # (Auto) (0-0.2) K/uL Immature Gran # (Auto) (0.00-0.02) K/uL Sample Site R Brachial R Brachial POC pH 7.47 H 7.47 H (7.35-7.45) POC pCO2 34 L 33 L (35-46) mmHg POC pO2 72 L 71 L (80-95) mmHg POC HCO3 25 H 24 (19-24) juliano/L POC Total CO2 26 25 (24-31) mmol/L POC Base Excess 1.0 0.0 (-9-1.8) juliano/L ABG pH (Temp Correct) 7.463 H 7.466 H (7.35-7.45) ABG pCO2 (Temp Corrct 35 33 L (35-46) mmHg POC ABG pO2 at Pt Temp 73 71 POC ABG O2 Sat 95.0 95.0 (90-95) % Joshua Test Pass NA O2 Delivery Device Ventilator Ventilator POC O2 Rate 16 22 Minute Ventilation 10.8 POC FiO2 45 100 % Tidal Volume 450 450 PEEP 5 5 POC Sodium 138 139 (135-144) mmol/L Sodium (136-145) mmol/L POC Potassium 3.7 3.8 (3.3-5.0) mmol/L Potassium (3.5-5.1) mmol/L Chloride (98-107) mmol/L Carbon Dioxide (21-32) mmol/L Anion Gap (3-11) BUN (7-18) mg/dl Creatinine (0.6-1.4) mg/dl Est Cr Clr Drug Dosing ml/min Est GFR ( Amer) Est GFR (Non-Af Amer) BUN/Creatinine Ratio (10-20) Glucose (70-99) mg/dl POC Glucose (70-99) mg/dl Calcium (8.5-10.1) mg/dl Phosphorus (2.5-4.9) mg/dl Magnesium (1.8-2.4) mg/dl PG Care Time/CCT Total # of Minutes Spent Total Time Spent with Patient: Total time spent is greater than 50% in coordination of care (as documented) at patient's floor/unit and/or counseling patient: Coding Level of Care Code 76288 Subseq Hosp Care Lvl 3 Diagnoses Pneumonia due to COVID-19 virus U07.1; J12.82 Pneumothorax J93.9 Acute respiratory failure with hypoxia J96.01 Fever R50.9 Leukocytosis D72.829 Metabolic encephalopathy G93.41 Volume overload E87.70 Hypertension I10 Anxiety F41.9 DVT, bilateral lower limbs I82.403 Hyponatremia E87.1 Abnormal LFTs R94.5 BPH (benign prostatic hyperplasia) N40.0 Lower urinary tract symptom presence: symptoms absent Chronic neck pain M54.2; G89.29 DVT prophylaxis Z29.9 (1) BPH (benign prostatic hyperplasia) Lower urinary tract symptom presence: symptoms absent Qualified Code(s): N40.0 - Benign prostatic hyperplasia without lower urinary tract symptoms
[2020-08-02] MEDS ORDERED: ALBUMIN 5% 250 ML IV ONE (20:55)
[2020-08-02] MEDS ORDERED: METOPROLOL TARTRATE 25 MG TAB PO SCH (21:00)
[2020-08-03] MEDS: CEFEPIME 2,000 MG in SYRINGE 0 ML IV SCH ×4 (03:41→17:53)
[2020-08-03 03:47] LABS: iSTAT Allen Test Pass; iSTAT Art Bld Gas pCO2 Correct 37 mmHg (35-46); iSTAT Art Bld Gas pH Corrected 7.422 (7.35-7.45); iSTAT Arterial Blood Gas HCO3 24 meg/L (19-24); iSTAT Arterial Blood Gas pCO2 37 mmHg (35-46); iSTAT Arterial Blood Gas pH 7.42 (7.35-7.45); iSTAT Arterial Blood Gas pO2 103 mmHg (80-95); iSTAT Arterial Blood Gas pO2 C 101; iSTAT Carbon Dioxide 25 mmol/L (24-31); iSTAT FiO2 30 %; iSTAT Hematocrit 31 % (42-52); iSTAT Hemoglobin 10.5 g/dl (14.0-18.0); iSTAT Potassium 3.8 mmol/L (3.3-5.0); iSTAT Site L Radial; iSTAT Sodium 136 mmol/L (135-144)
[2020-08-03] MEDS: propofoL 1,000 MG/100 ML VIAL IV SCH ×2 (04:26→18:57)
[2020-08-03] MEDS: DEXMEDETOMIDINE HCL 400 MCG in 0.9 % SODIUM CHLORIDE 96 ML IV SCH ×3 (04:26→17:27)
[2020-08-03] MEDS: fentaNYL DRIP 1,250 MCG/250 ML BAG IV SCH ×5 (04:42→20:22)
[2020-08-03 06:31] LABS: Basophils # (auto) 0.02 K/uL (0-0.2); Basophils % (auto) 0.2 %; Eosinophils # (auto) 0.18 K/uL (0-0.5); Eosinophils % (auto) 1.6 %; Hematocrit (blood only) 30.7 % (42-52); Hemoglobin 10.1 g/dL (14.0-18.0); Immature Granulocytes % (auto) 0.9 %; Lymphocytes # (auto) 0.95 K/uL (1.2-3.4); Lymphocytes % (auto) 8.3 %; Mean Corpuscular Hemoglobin 29.3 pg (25-34); Mean Corpuscular Hgb Conc 32.9 g/dL (32-36); Mean Platelet Volume 10.9 fL (7.4-10.4); Monocytes % (auto) 7.8 %; Neutrophils # (auto) 9.33 K/uL (1.4-6.5); Neutrophils % (auto) 81.2 %; Platelet Count 216 K/uL (130-400); Red Blood Count 3.45 M/uL (4.7-6.1); White Blood Count 11.48 K/uL (4.8-10.8)
[2020-08-03 06:49] LABS: BUN Creatinine Ratio 66.8 (10-20); Calcium 7.9 mg/dl (8.5-10.1); Creatinine Clr Calc Pharmacy 164.3 ml/min; Est GFR (African American) 141.8; Est GFR (Non-African American) 122.3; Magnesium 1.7 mg/dl (1.8-2.4); Potassium 3.8 mmol/L (3.5-5.1)
[2020-08-03 06:56] LABS: Phosphorus 2.4 mg/dl (2.5-4.9)
[2020-08-03] MEDS: ENOXAPARIN 80 MG/0.8 ML SYR SQ SCH ×2 (07:43→17:59)
[2020-08-03] MEDS: busPIRone 7.5 MG TAB PO SCH (07:54)
[2020-08-03] MEDS: QUEtiapine FUMARATE 25 MG TABLET PO SCH (07:54)
[2020-08-03] MEDS: MULTI VIT W/MINERALS LIQUID 15 ML UDP NG SCH (07:54)
[2020-08-03] MEDS: ACETAMINOPHEN 1,000 MG/100 ML VIAL IV PRN ×2 (08:13→18:58)
[2020-08-03] MEDS: FAMOTIDINE 20 MG in SYRINGE 3 ML IV SCH ×2 (08:15→20:12)
--- NOTE | 2020-08-03 08:29 | XRay Report ---
XR chest 1V portable HISTORY: Respiratory failure. COMPARISON: Chest 08/02/2020. FINDINGS: Right pleural pigtail catheter is unchanged in position. No pneumothorax. A feeding tube is located within the body the stomach. Endotracheal tube terminates 3.9 cm from the arlette. Patchy sabina ateral airspace opacities persist. Subcutaneous emphysema within the neck base has improved. Small le ft pleural effusion and left basilar densities have slightly progressed. IMPRESSION: 1. Feeding tube terminates in the body the stomach. 2. Endotracheal tube and right pleural catheter are unchanged in position. 3. No pneumothorax. 4. Progressive left base airspace opacities and a small left pleural effusion. ACT 112: Negative or not required by law. Electronically signed by: Ishan Plata M.D. 08/03/2020 8:28 AM
[2020-08-03] MEDS: ICU ELECTROLYTE REPLACEMENT PROTOCOL SCH ×2 (09:22→16:33)
[2020-08-03] MEDS: MAGNESIUM SULFATE / D5W 1 GM/100 ML BAG IV SCH ×2 (10:02→12:14)
[2020-08-03] MEDS: POT PHOSPHATE MONOBASIC W/ SOD TAB NG SCH ×3 (10:02→16:33)
[2020-08-03] MEDS: POTASSIUM CHLORIDE 20 MEQ/15 ML UDC NG SCH ×2 (10:02→12:13)
[2020-08-03] MEDS ORDERED: NOREPINEPHRINE/D5W 8 MG/508 ML IV ONE (11:13)
[2020-08-03] MEDS ORDERED: STAT IV Infusion **Titration per Protocol STA (11:26)
[2020-08-03] MEDS: NOREPINEPHRINE/D5W 8 MG/508 ML BAG IV SCH (11:30)
[2020-08-03] MEDS ORDERED: VANCOMYCIN HCL 1,750 MG in SODIUM CHLORIDE 0.9% 500 ML IV ONE (12:00)
[2020-08-03] MEDS ORDERED: VANCOMYCIN CONSULT ACTIVE PRN (12:00)
--- NOTE | 2020-08-03 12:32 | Pharmacy Report ---
Pharmacy Abx Dose Short Note - Date of Service August 03, 2020 - Assessment & Plan Assessment * 55 year old M admitted w COVID-19 on 07/17 and s/p convalescent plasma x1, dexamethasone x10 days, remdesivir x1, azithromycin x5 days now receiving cefepime and vancomycin for treatment of superimposed HAP with lopez-sensitive Pseudomonas isolated from sputum on 07/29 * Patient is s/p trach on 07/31. Was re-intubated afterwards after trach pulled. Now extubated and on CPAP * Currently ordered norepinephrine Vancomycin * Nasal MRSA swab ordered * Goal vancomycin trough 15-20 mcg/mL * 23 mg/kg IV x1 initially then 16 mg/kg IV q8h 2nd severity of illness and excellent renal function * Trough in 24 hours Plan * Vancomycin 1750 mg IV x1 then 1250 mg IV q8h * Trough 08/04 @ 1130 Pharmacy will continue to follow and will adjust dose/frequency as necessary. Thank you.
--- NOTE | 2020-08-03 12:50 | Procedure Note ---
Procedure Note Date of Service August 03, 2020 Procedure: Inserting ultrasound-guided central rubber liner: Dr. Joann Choudhary Indication: Hypotension Consent: Emergent Anesthesia: 1% lidocaine without epinephrine local. Procedure: Consent was verified and timeout performed. Appropriate imaging studies were reviewed prior to the procedure. Under aseptic and sterile condition, right femoral vein was accessed under direct ultrasound guidance. Guidewire was confirmed to be within the lumen of vein with the help of ultrasound. Catheter was introduced via Seldinger technique. Guide a wire was removed. Good non-pulsatile blood flow was appreciated from all the ports. The catheter was placed at 24 cm and sut[address] in place. BioPatch was applied to the catheter and a sterile Tegaderm dressing was applied over the catheter with careful attention to sterility. Patient tolerated the procedure well. Blood loss: Less than 2 cc Complications: None Coding CPT Codes Tubes, Drains, and Vasc Access - Tubes, Drains, and Vasc Access: [id number] Place catheter in vein superior or inferior vena cava ([id number]) Tubes, Drains, and Vasc Access - Tubes, Drains, and Vasc Access: [id number] Ultrasound Guidance For Vascular ([id number]) [facility] [place] Procedure Codes (Charges) Tubes, Drains, and Vasc Access Procedure 1: Tubes, Drains, and Vasc Access: [id number] Place catheter in vein superior or i nferior vena cava Procedure 2: Tubes, Drains, and Vasc Access: [id number] Ultrasound Guidance For Vascular
--- NOTE | 2020-08-03 12:53 | Critical Care Progress Note ---
Date of Service August 03, 2020 Assessment & Plan (1) Acute respiratory failure with hypoxia: Impression:55-year-old male here for COVID pneumonia, transferred to the ICU on 07/18 for acute hypoxic RF, was proned, sedated and intubated. Extubated on 07/27, reintubated 07/29/2020, s/p trach 07/31/2020. Self dislodgment of the trach 08/01/2020, intubated 08/01/2020 with size 8 ETT 24-hour events: Patient's blood pressure has been on the lower side. He is spiking fever again. Neuro -propofol, fentanyland Precedex -Wean as possible to RASS -1 Patient started on quetiapine and buspirone. Cardiac - Bilateral DVTs-continue with anticoagulation - continue to follow clinically for changes in volume status - strict I/Os Respiratory - VDRF sec to Acute hypoxic RF secondary to COVID PNA -extubated 07/27/2020--> reintubated 07/29/20--> trach 07/31/20 --> trach dislodged 08/01/2020 --> intubated 08/01/2020 s/p Decadron x10 days on 07/27 Keep RASS -1 --Right-sided pneumothorax S/p pigtail catheter placement 08/01/2020 Monitor with daily chest x-rays -Subcu emphysema with pneumomediastinum Likely from dislodgment of the trach Improving Monitor GI - strict I/Os as above RENAL/LYTES -Monitor electrolytes -Replace as needed - No concerns at this time ENDO - glycemic control per ICU protocol HEME - Stable H&H ID - COVID-19 pneumonia - s/p Dexamethasone - Procalcitonin 0.47 07/29/2020 --Sputum culture 07/31/2020 showing Pseudomonas aeruginosa pansensitive. Started on cefepime --Prophylaxis VTE:Lovenox GI: Pepcid Lines: Right femoral TLC, [place] [address] Diet: Tube feeds Plan: In/out: +[id number], urine output 1361 AB.4/37/103 on 40% FiO2, PEEP of 5 Chest x-ray from today shows no pneumothorax. Left lower lobe haziness has increased. Aggressive suctioning. I did dress the tracheal stoma. There is leak from the tracheal stoma especially when the patient is coughing. ENT has been made aware regarding the trach dislodgment. No air leak appreciated from the chest tube. We will clamp the chest tube tomorrow and see if you are able to take it out. Patient is spiking fever again. I will repeat blood cultures, sputum culture and urine culture. Give vancomycin on top of cefepime which he is getting. Patient is also hypotensive. He has been hypotensive overnight and he is on sedation but not that high. I put a central line in to start the patient on vasopressors. Given, Betty [phone], was called and updated regarding the patient's condition I have personally spent 40 minutes of critical care time in the direct management of this patient. This is a life/limb threatening event. This includes time spent evaluating patient, direct bedside care, chart review, placing orders, interpretation of diagnostic studies, discussion with consultants, patient, and family members, as well as other required patient management activities. This time is exclusive of all separately billable procedures, and teaching time and separate from and in addition to any other critical care service time. Please note the above document was generated using voice recognition software. It may contain grammatical, syntax or spelling errors. (2) COVID-19: (3) Hypoxia: (4) Anxiety: (5) DVT (deep venous thrombosis): Admission and Anticipated Discharge Date Admission Date: July 17, 2020 Subjective Patient seen and examined at bedside. No acute distress. Overnight patient was hypotensive he got 250 ml of albumin and his blood p ressure improved. His urine output has gone down. He was on an a propofol, 100 of fentanyl, 1 of Precedex at the time of examination. His blood pressure at the time of examination systolic was in the mid 80s. I repeated multiple times and was still the same. I decided to put a central line in as he was spiking fever as well. Review of Systems Review of Systems: Unobtainable due to endotracheal tube Physical Exam Physical Exam: Constitutional: No acute distress HEENT: PERRLA, positive ETT, tracheal stoma dressed Respiratory system: Decreased air entry bilaterally, no wheeze, no rhonchi, positive crackles bilateral lower lobes, lymphedema normal appreciated CVS: S1-S2 positive, no murmurs or gallops Abdomen: Soft, nontender, nondistended, positive bowel sounds x4 Extremities: +2 pulses bilaterally radialis/ dorsalis pedis, no cyanosis, +1 pitting edema bilateral lower extremity Neuro: RASS -2, breathing over the vent, positive pupillary, positive corneal Psych: Unable to assess G/U: [address] Right-sided pigtail chest tube Skin: no rashes, warm and dry Lymphatic: no cervical or axillary lymphadenopathy Results & Data Results & Data ([facility]) Vital Signs (Past 12 Hours) Vital Signs Temp Pulse Resp BP Pulse Ox 08/03/20 12:40 72 26 H 95 08/03/20 11:49 68 115/56 L 94 08/03/20 11:39 70 109/54 L 93 08/03/20 11:29 70 109/56 L 93 08/03/20 11:28 72 113/55 L 93 08/03/20 11:24 64 116/58 L 95 08/03/20 11:22 66 101/53 L 94 08/03/20 11:19 70 74/40 L 91 08/03/20 11:09 70 77/40 L 91 08/03/20 10:55 70 85/42 L 92 08/03/20 10:54 73 111/50 L 92 08/03/20 10:48 69 81/44 L 93 08/03/20 10:45 73 86/45 L 93 08/03/20 10:25 69 80/43 L 93 08/03/20 10:12 70 80/44 L 93 08/03/20 09:59 77 84/45 L 93 08/03/20 09:55 73 77/41 L 93 08/03/20 09:29 75 72/43 L 92 08/03/20 08:58 81 75/37 L 93 08/03/20 08:55 82 75/39 L 92 08/03/20 08:51 86 27 H 92 08/03/20 08:25 91 H 88/43 L 92 08/03/20 08:00 92 H 08/03/20 07:55 96 H 106/57 L 93 08/03/20 07:34 39 C H 08/03/20 07:25 96 H 150/70 H 93 08/03/20 06:55 94 H 118/61 93 08/03/20 06:25 99 H 149/67 H 92 08/03/20 05:55 94 H 109/55 L 89 L 08/03/20 05:25 91 H 123/64 93 08/03/20 04:55 105 H 150/70 H 92 08/03/20 04:25 94 H 139/70 92 08/03/20 03:55 91 H 110/59 L 92 08/03/20 03:31 30 H 08/03/20 03:25 98 H 156/79 H 97 08/03/20 03:18 101 H 140/74 87 L 08/03/20 02:55 104 H 168/90 H 91 08/03/20 02:25 88 36 H 124/63 91 08/03/20 01:55 102 H 30 H 174/85 H 90 08/03/20 01:25 88 28 H 147/67 H 95 08/03/20 00:55 91 H 18 160/79 H 92 08/03/20 05:39 08/03/20 05:39 Coding Level of Care Code Critical Care 1st 30-74 mins Diagnoses Acute respiratory failure with hypoxia J96.01 COVID-19 U07.1 Hypoxia R09.02 Anxiety F41.9 DVT (deep venous thrombosis) I82.409 Time Spent (min) 40
[2020-08-03 13:06] LABS: Appearance Urine Clear (Clear); Bilirubin Urine Negative (Negative); Blood Urine Negative (Negative); Color Urine Yellow; Glucose Urine UA Negative (Negative); Ketones Urine Negative (Negative); Leukocyte Esterase Urine Negative (Negative); Nitrite Urine Negative (Negative); Protein Urine Negative (Negative); Specific Gravity Urine 1.013 (1.000-1.030); Urobilinogen Urine Negative (Negative); pH Urine 6.5 (4.5-7.5)
[2020-08-03] MEDS: PEPTAMEN INTENSE VHP 1.0 CAL 1,000 ML BAG OG SCH (16:33)
[2020-08-03] MEDS: MIDAZOLAM HCL 125 MG/250 ML BAG IV SCH (17:28)
--- NOTE | 2020-08-03 17:54 | Hospitalist Progress Note ---
Date of Service August 03, 2020 Assessment & Plan (1) Pneumonia due to COVID-19 virus: Severe disease with resulting acute hypoxic respiratory failure/ARDS. Very high settings on HFNC at the onset of his admission, followed by use of CPAP, and then intubation/mech ventilation. s/p intubation AM of 07/19/20. completed 10 days of decadron 6mg daily s/p Convalescent plasma 07/20/20. Ventilated for a week extubated on 07/27 Was down to 6L NC for 1 day on 07/28 and then that evening had worsening respiratory distress requiring BiPAP along with acute metabolic encephalopathy/delirium Was significantly hypoxic again and remained febrile. He was given IV Lasix and IV Ativan for significant anxiety He was transferred back to the ICU on the morning of 07/29 and reintubated Now status post tracheotomy on 07/31 On CPAP on trach during day on 08/01 Unfortunately on the evening of 08/01, in a delirious state, he pulled out his tracheostomy tube and became family hypoxic, he was unable to have it replaced and was emergently intubated again, tracheostomy was removed then by the rn school. He also suffered a right-sided pneumothorax during this event. A chest tube was placed and remains in place. Continues to be treated for Pseudomonas pneumonia and continues to have fevers, worsening today Procalcitonin negative -Continue cefepime and added vancomycin on 08/03 Tylenol as needed for fevers Albuterol in line 6 times a day as needed He met with palliative care before intubation and was agreeable to tracheostomy if needed-palliative care consultation was reviewed -Daily chest x-rays, ICU managing weaning off vent, removal of chest tube -ENT is aware of tracheostomy removal as per ICU Continue sedation as per ICU (2) Sepsis: With worsening fever, hypotension, tachycardia on 08/03 despite treatment with cefepime for Pseudomonas -Started back on Levophed and central line placed in the right femoral vein -Added vancomycin to the cefepime UA on 08/03 normal Recultured-follow cultures-blood, sputum (3) Pneumothorax: On the right which occurred after patient pulled out his tracheostomy tube and had to be urgently reintubated Chest tube in place Chest x-ray on 08/03 without residual pneumothorax Management as per rn school-repeat chest x-ray in the morning to see if can pull chest tube tomorrow (4) Acute respiratory failure with hypoxia: As above (5) Fever: As above, on cefepime for Pseudomonas and recultured, added vancomycin (6) Leukocytosis: As above, with fevers Follow CBC (7) Metabolic encephalopathy: Secondary to ICU delirium, infection, hypoxia, sedating medications Critical care managing Continue sedation and wean off as able to -Continue Seroquel Reorientation (8) Volume overload: Previously responded well to Lasix-was given another dose of IV Lasix on 08/01 try to keep lungs dry to help recovery Follow urine output and oxygenation (9) Hypertension: BP previously quite elevated at times likely secondary to significant anxiety and agitation, and then low at times-labile Currently hypotensive on 08/03 with worsening fever-back on Levophed Hold Lopressor (10) Anxiety: Significant and contributing to failure of spontaneous breathing trials Continue buspirone but increased to 10 mg twice daily scheduled -Continue Seroquel 25 mg daily Continue Precedex, midazolam (11) DVT, bilateral lower limbs: found on dopplers on 07/25 was on Lovenox 40mg q12 at that time changed to heparin drip and then switched to therapeutic Lovenox can convert to oral agent once out of the ICU again Continue therapeutic Lovenox (12) Hyponatremia: Resolved (13) Abnormal LFTs: 2nd to COVID-19. Now resolved (14) BPH (benign prostatic hyperplasia): Hold flomax while on vent No issues Lane remains in place (15) Chronic neck pain: Hold voltaren from home (16) DVT prophylaxis: therapeutic Lovenox GI prophylaxis given severe stress - pepcid 20mg IV BID Disposition-transferred to ICU for reintubation on 07/29, prognosis is guarded. He will need LTAC placement most likely Palliative care is involved Full code Admission and Anticipated Discharge Date Admission Date: July 17, 2020 Subjective Patient was febrile this morning. Is more sedated today as per nursing but did open eyes and squeeze hands on command. Remains mechanically ventilated/intubated. His blood pressure did drop low this morning he was started back on Levophed and a central line was placed. Telemetry with normal sinus rhythm with rates in the 80s to 90s Review of Systems Review of Systems: Unobtainable due to endotracheal tube and Unobtainable due to reduced consciousness Physical Exam Constitutional: + ill appearing, + thin and + mechanically ventilated; no acute distress Eyes: + anicteric sclerae Neck: + abnormal visual inspection (Occlusive dressing in place over previous tracheotomy site) Respiratory: Auscultation: + rhonchi (Right side); no crackles and no wheezes Cardiovascular: Rate/Rhythm: regular rate and regular rhythm Heart Sounds: no murmur Extremities: + edema (Trace edema bilateral feet and ankles) Chest (Breasts): Chest: normal inspection of chest Gastrointestinal (Abdomen): normal bowel sounds, soft, nontender, no hepatosplenomegaly Musculoskeletal: Extremities: extremities normal to inspection; no cyanosis and no clubbing Skin: no rashes, warm and dry Results & Data Results & Data ([facility]) Vital Signs (Past 12 Hours) Vital Signs Temp Pulse Resp BP Pulse Ox 08/03/20 17:26 87 129/66 95 08/03/20 16:56 86 130/67 94 08/03/20 16:20 98 H 149/71 H 93 08/03/20 16:15 98 H 33 H 98 08/03/20 16:00 85 39 H 159/73 H 97 08/03/20 15:54 74 27 H 97 08/03/20 15:30 75 117/60 97 08/03/20 15:00 77 126/64 94 08/03/20 14:30 78 142/66 H 93 08/03/20 14:13 37.3 C 08/03/20 14:10 77 145/64 H 93 08/03/20 14:00 70 121/59 L 95 08/03/20 13:50 70 112/56 L 94 08/03/20 13:40 72 112/56 L 94 08/03/20 13:30 73 111/56 L 96 08/03/20 13:20 74 124/58 L 96 08/03/20 13:10 74 122/57 L 95 08/03/20 13:00 72 115/53 L 95 08/03/20 12:49 77 131/63 95 08/03/20 12:40 81 26 H 110/60 100 08/03/20 12:19 78 138/66 93 08/03/20 12:09 69 114/57 L 93 08/03/20 11:59 69 112/56 L 93 08/03/20 11:49 68 115/56 L 94 08/03/20 11:39 70 109/54 L 93 08/03/20 11:29 70 109/56 L 93 08/03/20 11:28 72 113/55 L 93 08/03/20 11:24 64 116/58 L 95 08/03/20 11:22 66 101/53 L 94 08/03/20 11:19 70 74/40 L 91 08/03/20 11:09 70 77/40 L 91 08/03/20 10:55 70 85/42 L 92 08/03/20 10:54 73 111/50 L 92 08/03/20 10:48 69 81/44 L 93 08/03/20 10:45 73 86/45 L 93 08/03/20 10:25 69 80/43 L 93 08/03/20 10:12 70 80/44 L 93 08/03/20 09:59 77 84/45 L 93 08/03/20 09:55 73 77/41 L 93 08/03/20 09:29 75 72/43 L 92 08/03/20 08:58 81 75/37 L 93 08/03/20 08:55 82 75/39 L 92 08/03/20 08:51 86 27 H 92 08/03/20 08:25 91 H 88/43 L 92 08/03/20 08:00 92 H 08/03/20 07:55 96 H 106/57 L 93 08/03/20 07:34 39 C H 08/03/20 07:25 96 H 150/70 H 93 08/03/20 06:55 94 H 118/61 93 08/03/20 06:25 99 H 149/67 H 92 08/03/20 05:55 94 H 109/55 L 89 L Laboratory Results 08/03/20 08/03/20 08/03/20 Range/Units 13:20 12:10 11:56 WBC (4.8-10.8) K/uL RBC (4.7-6.1) M/uL Hgb (14.0-18.0) g/dL POC Hgb (14.0-18.0) g/dl Hct (42-52) % POC Hct (42-52) % MCV (80-100) fL MCH (25-34) pg MCHC (32-36) g/dL RDW Std Deviation (36.4-46.3) fL RDW Coeff of Wes (11.5-14.5) % Plt Count (130-400) K/uL MPV (7.4-10.4) fL Immature Gran % (Auto) % Neut % (Auto) % Lymph % (Auto) % Noble % (Auto) % Eos % (Auto) % Baso % (Auto) % Neut # (Auto) (1.4-6.5) K/uL Lymph # (Auto) (1.2-3.4) K/uL Noble # (Auto) (0.11-0.59) K/uL Eos # (Auto) (0-0.5) K/uL Baso # (Auto) (0-0.2) K/uL Immature Gran # (Auto) (0.00-0.02) K/uL Sample Site POC pH (7.35-7.45) POC pCO2 (35-46) mmHg POC pO2 (80-95) mmHg POC HCO3 (19-24) juliano/L POC Total CO2 (24-31) mmol/L POC Base Excess (-9-1.8) juliano/L ABG pH (Temp Correct) (7.35-7.45) ABG pCO2 (Temp Corrct (35-46) mmHg POC ABG pO2 at Pt Temp POC ABG O2 Sat (90-95) % Joshua Test O2 Delivery Device POC O2 Rate POC FiO2 % Tidal Volume PEEP POC Sodium (135-144) mmol/L Sodium (136-145) mmol/L POC Potassium (3.3-5.0) mmol/L Potassium (3.5-5.1) mmol/L Chloride (98-107) mmol/L Carbon Dioxide (21-32) mmol/L Anion Gap (3-11) BUN (7-18) mg/dl Creatinine (0.6-1.4) mg/dl Est Cr Clr Drug Dosing ml/min Est GFR ( Amer) Est GFR (Non-Af Amer) BUN/Creatinine Ratio (10-20) Glucose (70-99) mg/dl POC Glucose 109 H (70-99) mg/dl Calcium (8.5-10.1) mg/dl Phosphorus (2.5-4.9) mg/dl Magnesium (1.8-2.4) mg/dl Urine Color Yellow Urine Appearance Clear (Clear) Urine pH 6.5 (4.5-7.5) Ur Specific [place] 1.013 (1.000-1.030) Urine Protein Negative (Negative) Urine Glucose (UA) Negative (Negative) Urine Ketones Negative (Negative) Urine Blood Negative (Negative) Urine Nitrite Negative (Negative) Urine Bilirubin Negative (Negative) Urine Urobilinogen Negative (Negative) Ur Leukocyte Esterase Negative (Negative) Nasal Screen MRSA (PCR) Negative (Negative) 08/03/20 08/03/20 08/03/20 Range/Units 05:39 05:39 03:27 WBC 11.48 H (4.8-10.8) K/uL RBC 3.45 L (4.7-6.1) M/uL Hgb 10.1 L (14.0-18.0) g/dL POC Hgb 10.5 L (14.0-18.0) g/dl Hct 30.7 L (42-52) % POC Hct 31 L (42-52) % MCV 89.0 (80-100) fL MCH 29.3 (25-34) pg MCHC 32.9 (32-36) g/dL RDW Std Deviation 45.0 (36.4-46.3) fL RDW Coeff of Wes 14.0 (11.5-14.5) % Plt Count 216 (130-400) K/uL MPV 10.9 H (7.4-10.4) fL Immature Gran % (Auto) 0.9 % Neut % (Auto) 81.2 % Lymph % (Auto) 8.3 % Noble % (Auto) 7.8 % Eos % (Auto) 1.6 % Baso % (Auto) 0.2 % Neut # (Auto) 9.33 H (1.4-6.5) K/uL Lymph # (Auto) 0.95 L (1.2-3.4) K/uL Noble # (Auto) 0.90 H (0.11-0.59) K/uL Eos # (Auto) 0.18 (0-0.5) K/uL Baso # (Auto) 0.02 (0-0.2) K/uL Immature Gran # (Auto) 0.10 H (0.00-0.02) K/uL Sample Site L Radial POC pH 7.42 (7.35-7.45) POC pCO2 37 (35-46) mmHg POC pO2 103 H (80-95) mmHg POC HCO3 24 (19-24) juliano/L POC Total CO2 25 (24-31) mmol/L POC Base Excess 0.0 (-9-1.8) juliano/L ABG pH (Temp Correct) 7.422 (7.35-7.45) ABG pCO2 (Temp Corrct 37 (35-46) mmHg POC ABG pO2 at Pt Temp 101 POC ABG O2 Sat 98.0 H (90-95) % Joshua Test Pass O2 Delivery Device Ventilator POC O2 Rate 16 POC FiO2 30 % Tidal Volume 450 PEEP 5 POC Sodium 136 (135-144) mmol/L Sodium 139 (136-145) mmol/L POC Potassium 3.8 (3.3-5.0) mmol/L Potassium 3.8 (3.5-5.1) mmol/L Chloride 109 H (98-107) mmol/L Carbon Dioxide 24 (21-32) mmol/L Anion Gap 6.0 (3-11) BUN 32 H (7-18) mg/dl Creatinine 0.48 L (0.6-1.4) mg/dl Est Cr Clr Drug Dosing 164.3 ml/min Est GFR ( Amer) 141.8 Est GFR (Non-Af Amer) 122.3 BUN/Creatinine Ratio 66.8 H (10-20) Glucose 112 H (70-99) mg/dl POC Glucose (70-99) mg/dl Calcium 7.9 L (8.5-10.1) mg/dl Phosphorus 2.4 L D (2.5-4.9) mg/dl Magnesium 1.7 L (1.8-2.4) mg/dl Urine Color Urine Appearance (Clear) Urine pH (4.5-7.5) Ur Specific [place] (1.000-1.030) Urine Protein (Negative) Urine Glucose (UA) (Negative) Urine Ketones (Negative) Urine Blood (Negative) Urine Nitrite (Negative) Urine Bilirubin (Negative) Urine Urobilinogen (Negative) Ur Leukocyte Esterase (Negative) Nasal Screen MRSA (PCR) (Negative) 08/03/20 08/02/20 08/02/20 Range/Units 00:39 19:07 18:04 WBC (4.8-10.8) K/uL RBC (4.7-6.1) M/uL Hgb (14.0-18.0) g/dL POC Hgb (14.0-18.0) g/dl Hct (42-52) % POC Hct (42-52) % MCV (80-100) fL MCH (25-34) pg MCHC (32-36) g/dL RDW Std Deviation (36.4-46.3) fL RDW Coeff of Wes (11.5-14.5) % Plt Count (130-400) K/uL MPV (7.4-10.4) fL Immature Gran % (Auto) % Neut % (Auto) % Lymph % (Auto) % Noble % (Auto) % Eos % (Auto) % Baso % (Auto) % Neut # (Auto) (1.4-6.5) K/uL Lymph # (Auto) (1.2-3.4) K/uL Noble # (Auto) (0.11-0.59) K/uL Eos # (Auto) (0-0.5) K/uL Baso # (Auto) (0-0.2) K/uL Immature Gran # (Auto) (0.00-0.02) K/uL Sample Site POC pH (7.35-7.45) POC pCO2 (35-46) mmHg POC pO2 (80-95) mmHg POC HCO3 (19-24) juliano/L POC Total CO2 (24-31) mmol/L POC Base Excess (-9-1.8) juliano/L ABG pH (Temp Correct) (7.35-7.45) ABG pCO2 (Temp Corrct (35-46) mmHg POC ABG pO2 at Pt Temp POC ABG O2 Sat (90-95) % Joshua Test O2 Delivery Device POC O2 Rate POC FiO2 % Tidal Volume PEEP POC Sodium (135-144) mmol/L Sodium (136-145) mmol/L POC Potassium (3.3-5.0) mmol/L Potassium (3.5-5.1) mmol/L Chloride (98-107) mmol/L Carbon Dioxide (21-32) mmol/L Anion Gap (3-11) BUN (7-18) mg/dl Creatinine (0.6-1.4) mg/dl Est Cr Clr Drug Dosing ml/min Est GFR ( Amer) Est GFR (Non-Af Amer) BUN/Creatinine Ratio (10-20) Glucose (70-99) mg/dl POC Glucose 87 172 H 62 L* (70-99) mg/dl Calcium (8.5-10.1) mg/dl Phosphorus (2.5-4.9) mg/dl Magnesium (1.8-2.4) mg/dl Urine Color Urine Appearance (Clear) Urine pH (4.5-7.5) Ur Specific [place] (1.000-1.030) Urine Protein (Negative) Urine Glucose (UA) (Negative) Urine Ketones (Negative) Urine Blood (Negative) Urine Nitrite (Negative) Urine Bilirubin (Negative) Urine Urobilinogen (Negative) Ur Leukocyte Esterase (Negative) Nasal Screen MRSA (PCR) (Negative) 08/02/20 08/02/20 Range/Units 18:02 17:58 WBC (4.8-10.8) K/uL RBC (4.7-6.1) M/uL Hgb (14.0-18.0) g/dL POC Hgb (14.0-18.0) g/dl Hct (42-52) % POC Hct (42-52) % MCV (80-100) fL MCH (25-34) pg MCHC (32-36) g/dL RDW Std Deviation (36.4-46.3) fL RDW Coeff of Wes (11.5-14.5) % Plt Count (130-400) K/uL MPV (7.4-10.4) fL Immature Gran % (Auto) % Neut % (Auto) % Lymph % (Auto) % Noble % (Auto) % Eos % (Auto) % Baso % (Auto) % Neut # (Auto) (1.4-6.5) K/uL Lymph # (Auto) (1.2-3.4) K/uL Noble # (Auto) (0.11-0.59) K/uL Eos # (Auto) (0-0.5) K/uL Baso # (Auto) (0-0.2) K/uL Immature Gran # (Auto) (0.00-0.02) K/uL Sample Site POC pH (7.35-7.45) POC pCO2 (35-46) mmHg POC pO2 (80-95) mmHg POC HCO3 (19-24) juliano/L POC Total CO2 (24-31) mmol/L POC Base Excess (-9-1.8) juliano/L ABG pH (Temp Correct) (7.35-7.45) ABG pCO2 (Temp Corrct (35-46) mmHg POC ABG pO2 at Pt Temp POC ABG O2 Sat (90-95) % Joshua Test O2 Delivery Device POC O2 Rate POC FiO2 % Tidal Volume PEEP POC Sodium (135-144) mmol/L Sodium (136-145) mmol/L POC Potassium (3.3-5.0) mmol/L Potassium (3.5-5.1) mmol/L Chloride (98-107) mmol/L Carbon Dioxide (21-32) mmol/L Anion Gap (3-11) BUN (7-18) mg/dl Creatinine (0.6-1.4) mg/dl Est Cr Clr Drug Dosing ml/min Est GFR ( Amer) Est GFR (Non-Af Amer) BUN/Creatinine Ratio (10-20) Glucose (70-99) mg/dl POC Glucose 80 64 L* (70-99) mg/dl Calcium (8.5-10.1) mg/dl Phosphorus (2.5-4.9) mg/dl Magnesium (1.8-2.4) mg/dl Urine Color Urine Appearance (Clear) Urine pH (4.5-7.5) Ur Specific [place] (1.000-1.030) Urine Protein (Negative) Urine Glucose (UA) (Negative) Urine Ketones (Negative) Urine Blood (Negative) Urine Nitrite (Negative) Urine Bilirubin (Negative) Urine Urobilinogen (Negative) Ur Leukocyte Esterase (Negative) Nasal Screen MRSA (PCR) (Negative) PG Care Time/CCT Total # of Minutes Spent Total Time Spent with Patient: Total time spent is greater than 50% in coordination of care (as documented) at patient's floor/unit and/or counseling patient: Coding Level of Care Code 64728 Subseq Hosp Care Lvl 3 Diagnoses Pneumonia due to COVID-19 virus U07.1; J12.82 Sepsis A41.9 Pneumothorax J93.9 Acute respiratory failure with hypoxia J96.01 Fever R50.9 Leukocytosis D72.829 Metabolic encephalopathy G93.41 Volume overload E87.70 Hypertension I10 Anxiety F41.9 DVT, bilateral lower limbs I82.403 Hyponatremia E87.1 Abnormal LFTs R94.5 BPH (benign prostatic hyperplasia) N40.0 Lower urinary tract symptom presence: symptoms absent Chronic neck pain M54.2; G89.29 DVT prophylaxis Z29.9 (1) BPH (benign prostatic hyperplasia) Lower urinary tract symptom presence: symptoms absent Qualified Code(s): N40.0 - Benign prostatic hyperplasia without lower urinary tract symptoms
[2020-08-03] MEDS ORDERED: RAPID SEQUENCE INDUCTION BAG ONE (19:33)
[2020-08-03] MEDS: busPIRone 5 MG TAB PO SCH (20:23)
[2020-08-03] MEDS: VANCOMYCIN HCL 1,250 MG in SODIUM CHLORIDE 0.9% 250 ML IV SCH (22:00)
[2020-08-04] MEDS: CEFEPIME 2,000 MG in SYRINGE 0 ML IV SCH ×3 (01:20→18:26)
[2020-08-04] MEDS: propofoL 1,000 MG/100 ML VIAL IV SCH ×2 (01:27→14:59)
[2020-08-04] MEDS: DEXMEDETOMIDINE HCL 400 MCG in 0.9 % SODIUM CHLORIDE 96 ML IV SCH ×3 (01:28→18:26)
[2020-08-04] MEDS: VANCOMYCIN HCL 1,250 MG in SODIUM CHLORIDE 0.9% 250 ML IV SCH (04:30)
[2020-08-04 06:04] LABS: iSTAT Allen Test Pass; iSTAT Art Bld Gas pCO2 Correct 34 mmHg (35-46); iSTAT Arterial Blood Gas HCO3 22 meg/L (19-24); iSTAT Arterial Blood Gas pCO2 34 mmHg (35-46); iSTAT Arterial Blood Gas pH 7.42 (7.35-7.45); iSTAT Arterial Blood Gas pO2 70 mmHg (80-95); iSTAT Arterial Blood Gas pO2 C 70; iSTAT Carbon Dioxide 23 mmol/L (24-31); iSTAT FiO2 30 %; iSTAT Hematocrit 25 % (42-52); iSTAT Hemoglobin 8.5 g/dl (14.0-18.0); iSTAT Potassium 3.9 mmol/L (3.3-5.0); iSTAT Site L Radial; iSTAT Sodium 137 mmol/L (135-144)
[2020-08-04] MEDS ORDERED: ePHEDrine sulfate 50 MG/ML AMP ONE (07:01)
[2020-08-04] MEDS ORDERED: PHENYLEPHRINE HCL 10 MG/ML VIAL ONE ×2 (07:01→11:37)
[2020-08-04] MEDS ORDERED: PROPOFOL IV EMULSION 10 MG/ML 20 ML VIAL IV ONE (07:01)
[2020-08-04] MEDS ORDERED: ROCURONIUM BROMIDE 10 MG/ML 5 ML VIAL IV ONE ×6 (07:01→11:37)
[2020-08-04] MEDS ORDERED: fentaNYL citrate 100 MCG/2 ML VIAL ONE (07:01)
[2020-08-04] MEDS ORDERED: ONDANSETRON INJ 2 MG/ML 2 ML VIAL ONE (07:01)
[2020-08-04] MEDS ORDERED: LIDOCAINE HCL 2% 2 ML VIAL/AMP(20MG/ML) INFIL ONE (07:01)
--- NOTE | 2020-08-04 07:35 | ENT Consultation ---
Date of Consultation August 04, 2020 Assessment & Plan (1) Acute respiratory failure with hypoxia: 18 days on ventilator with 3 intubations and tracheostomy which was pulled out. Due to the progression of the left lower lobe consolidation and pleural effusion I would agree with replacement of the tracheostomy tube. This was also being performed in hopes of preventing subglottic stenosis and that he is intubated x18 days. This was explained to Mrs. Del Castillo who understood and gives permission for the procedure. (2) Pneumonia due to COVID-19 virus: (3) Multifocal pneumonia: History of Present Illness Reason for Consultation: Worsening pneumonia and pleural effusion Attending Physician: Lizbeth Garcia MD History of Present Illness This 55-year-old gentleman was admitted 18 days ago for respiratory failure with multifocal infiltrate from Covid was intubated failed extubation and had tracheostomy earlier this week but pulled out his tracheostomy tube the day after and developed pneumomediastinum and pneumothorax requiring chest tube followed by left pleural effusion and left lower lobe pneumonia with co nsolidation on chest x-ray with continued requirement for ventilatory assistance. Dr. Garcia and Dr. Choudhary requested replacement of the tracheostomy tube. Allergies Allergy/AdvReac Type Severity Reaction Status Date / Time Penicillins Allergy Severe "catatonic Verified 07/13/20 11:26 immediately" latex Allergy Mild Rash Verified 07/13/20 11:26 Home Medications Medication Instructions Recorded Confirmed Type Glucosamine Chondroitin 1 cap PO QAM #0 06/07/16 07/17/20 History multivitamin 1 tab PO QAM #0 tab 06/07/16 07/17/20 History omega 9-vki-bwm-fish oil [Fish Oil] 1 cap PO QAM #0 cap 06/07/16 07/17/20 History cyanocobalamin (vitamin B-12) 1,000 mcg PO QAM #0 tab 10/08/16 07/17/20 History [Vitamin B-12] ascorbic acid (vitamin C) [Vitamin 2 g PO QAM 03/29/19 07/17/20 History C] cholecalciferol (vitamin D3) 2,000 unit PO QAM 03/29/19 07/17/20 History [Vitamin D3] ibuprofen [Advil] 200 mg PO QID PRN 03/29/19 07/17/20 History iron bisgl,ps [id number] 1 cap PO WK 03/29/19 07/17/20 History sildenafil 25 mg PO DAILY PRN 03/29/19 07/17/20 History glucosamine [id number]-M2-[id number] 1 tab PO DAILY 11/23/19 07/17/20 History preston 1,500 mg-400 unit-100 mg tablet ketoconazole 2 % shampoo 1 applic TOP .COMPLEX #120 ml 02/14/20 07/17/20 Rx tamsulosin 0.4 mg capsule 0.4 mg PO DAILY #90 cap 04/23/20 07/17/20 Rx albuterol sulfate 2 puffs INH 6XD PRN #6.7 gm 07/13/20 07/17/20 Rx benzonatate [Tessalon Perles] 100 mg PO UD PRN 07/13/20 07/17/20 History doxycycline monohydrate 100 mg PO BID 07/13/20 07/17/20 History Patient History Medical History (Updated 08/03/20 @ 18:04 by Lizbeth Garcia MD) Basal cell carcinoma of left forehead Chronic back pain COVID-19 Fever Hypoxia Multiple nevi Palliative care encounter Reducible right inguinal hernia Verrucous keratosis Surgical History History of left inguinal hernia repair (10/30/16) Open Left inguinal hernia repair Dr. Calixto 10/30/2016 History of repair of anterior cruciate ligament of left knee History of root canal procedure History of tonsillectomy History of wisdom tooth extraction Status post biopsy of thyroid gland benign Status post correction of deviated nasal septum Status post Mohs surgery for basal cell carcinoma Family History Grandfather (Maternal) Family history of diabetes mellitus Father Prostate cancer Cardiac disorder Mother Hypertension Other No family history of adverse response to anesthesia Social History Smoking Status: Former smoker Second Hand Exposure: No; Hx Alcohol Use: No Hx Substance Use: No Preferred Language: Turkish Communication Ability: Effective Caustic Liquor Maker Required: No Beliefs That Will Affect Care: None Current Living Situation: Spouse current occupational status: employed 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 Feels Safe at Home: Yes Assistive Devices: Oxygen - Continuous Physical Exam Constitutional: + ill appearing and + altered mental status Intubated, sedated Eyes: PERRL, conjunctivae normal, anicteric sclerae ENMT: external ear and nose normal, oropharynx normal Neck: Opening lower neck from previous tracheostomy with granulation tissue Respiratory: On ventilator Cardiovascular: Rate/Rhythm: regular rate and regular rhythm Results & Data ([facility]) Vital Signs (Past 12 Hours) Vital Signs Temp Pulse Resp BP Pulse Ox 08/04/20 06:56 37.4 C 69 119/66 98 08/04/20 06:26 37.2 C 69 124/65 98 08/04/20 05:58 37.0 C 76 114/61 95 08/04/20 05:26 37.1 C 65 92/49 L 94 08/04/20 04:56 37.4 C 68 21 90/49 L 93 08/04/20 04:51 37.5 C 67 20 97/52 L 93 08/04/20 04:26 37.8 C H 73 86/46 L 92 08/04/20 03:56 38.0 C H 78 96/52 L 92 08/04/20 03:34 92 H 29 H 95 08/04/20 03:26 38.2 C H 86 33 H 128/59 L 93 08/04/20 02:56 38.4 C H 108 H 40 H 174/86 H 100 08/04/20 02:26 38.3 C H 90 164/80 H 92 08/04/20 01:56 38.2 C H 79 149/72 H 93 08/04/20 01:26 38.0 C H 83 145/69 H 92 08/04/20 00:56 37.9 C H 73 114/60 90 08/04/20 00:26 37.8 C H 71 107/56 L 93 08/04/20 00:00 76 08/03/20 23:56 37.6 C H 75 136/59 L 93 08/03/20 23:26 37.5 C 84 155/72 H 89 L 08/03/20 23:22 89 35 H 90 08/03/20 22:56 69 84/46 L 96 08/03/20 22:26 69 86/48 L 97 08/03/20 21:56 70 91/47 L 96 08/03/20 21:26 74 95/48 L 95 08/03/20 20:56 86 98/52 L 95 08/03/20 20:26 83 107/55 L 96 08/03/20 19:56 84 104/53 L 95
--- NOTE | 2020-08-04 07:54 | Anesthesiology Consultation ---
Date of Service August 04, 2020 Assessment & Plan (1) Encounter for pre-operative examination: Chart Review Chart Review: Acceptable Risk for Surgery History Surgery Operation Date: 07/31/20 07:00 Proposed Procedures p Tracheostomy Tube Placement - Romain Funez DO Operation Date: 08/04/20 07:15 Proposed Procedures p Tracheostomy - Moriah Felton MD Height/Weight Height: 5 ft 8 in Weight: 76.1 kg Allergies Allergy/AdvReac Type Severity Reaction Status Date / Time Penicillins Allergy Severe "catatonic Verified 07/13/20 11:26 immediately" latex Allergy Mild Rash Verified 07/13/20 11:26 Medications Home Medications Medication Instructions Recorded Confirmed Last Taken Glucosamine Chondroitin 1 cap PO QAM #0 06/07/16 07/17/20 07/12/20 multivitamin 1 tab PO QAM #0 tab 06/07/16 07/17/20 07/12/20 omega 4-mie-ilh-fish oil [Fish Oil] 1 cap PO QAM #0 cap 06/07/16 07/17/20 07/12/20 cyanocobalamin (vitamin B-12) 1,000 mcg PO QAM #0 tab 10/08/16 07/17/20 07/12/20 [Vitamin B-12] ascorbic acid (vitamin C) [Vitamin 2 g PO QAM 03/29/19 07/17/20 07/12/20 C] cholecalciferol (vitamin D3) 2,000 unit PO QAM 03/29/19 07/17/20 07/12/20 [Vitamin D3] ibuprofen [Advil] 200 mg PO QID PRN 03/29/19 07/17/20 11/18/19 iron bisgl,ps [id number] 1 cap PO WK 03/29/19 07/17/20 11/18/19 sildenafil 25 mg PO DAILY PRN 03/29/19 07/17/20 11/18/19 glucosamine [id number] 1 tab PO DAILY 11/23/19 07/17/20 07/12/20 preston 1,500 mg-400 unit-100 mg tablet ketoconazole 2 % shampoo 1 applic TOP .COMPLEX #120 ml 02/14/20 07/17/20 07/10/20 tamsulosin 0.4 mg capsule 0.4 mg PO DAILY #90 cap 04/23/20 07/17/20 07/12/20 albuterol sulfate 2 puffs INH 6XD PRN #6.7 gm 07/13/20 07/17/20 Unknown benzonatate [Tessalon Perles] 100 mg PO UD PRN 07/13/20 07/17/20 Unknown doxycycline monohydrate 100 mg PO BID 07/13/20 07/17/20 07/13/20 Active Medications Generic Name Dose Route Start Last Admin Trade Name Freq PRN Reason Stop Dose Admin Buspirone HCl 10 mg 08/03/20 21:00 08/03/20 20:23 Buspirone 5 Mg Tab PO 09/02/20 20:59 10 mg BID KARENA Administration Dextrose 50 ml 08/02/20 18:12 08/02/20 18:32 Dextrose 50% 50 Ml Syringe IV 09/01/20 18:11 50 ml PRN PRN Administration Hypoglycemia Treatment Enoxaparin Sodium 70 mg 07/30/20 10:45 08/03/20 17:59 Enoxaparin 80 Mg/0.8 Ml Syr SQ 08/29/20 10:44 70 mg Q12H KARENA Administration Fentanyl Citrate 50 mcg 08/01/20 09:59 08/01/20 13:32 Fentanyl Citrate 100 Mcg/2 Ml Vial IV 08/15/20 09:58 50 mcg Q4H PRN Administration Pain Heparin Sodium (Beef Lung) 5 ml 07/24/20 22:32 07/30/20 08:53 Heparin 10 Unit/Ml 5 Ml Flush FLUSH 08/23/20 22:31 5 ml PRN PRN Administration Flush Famotidine 20 mg/ Syringe 5 mls @ 2.5 mls/min 07/18/20 21:00 08/03/20 20:12 IV 08/17/20 20:59 2.5 mls/min BID KARENA Administration Cefepime HCl 2,000 mg/ Syringe 20 mls @ 5 mls/min 08/01/20 10:00 08/04/20 01:20 IV 08/08/20 09:59 5 mls/min Q8H KARENA Administration Propofol 1,000 mg in 100 mls @ 4.488 mls/hr 08/01/20 20:15 08/04/20 01:27 Diprivan IV 08/04/20 20:14 10 mcg/kg/min .[id number] KARENA 4.5 mls/hr Administration Protocol 10 MCG/KG/MIN Midazolam HCl 125 mg in 250 mls @ 6 mls/hr 08/01/20 20:15 08/03/20 19:14 Versed IV 08/31/20 20:14 3 mg/hr .[id number] KARENA 6 mls/hr Titration Protocol 3 MG/HR Fentanyl Citrate 1,250 mcg in 250 mls @ 10 mls/hr 08/01/20 20:15 08/03/20 20:22 Fentanyl Drip IV 08/15/20 20:14 50 mcg/hr .Q25H KARENA 10 mls/hr Administration Protocol 50 MCG/HR Acetaminophen 1,000 mg in 100 mls @ 400 mls/hr 08/02/20 04:52 08/03/20 19:14 Ofirmev IV 08/05/20 04:51 Infused Q8H PRN Infusion Fever Dexmedetomidine HCl 400 mcg/ 100 mls @ 12.968 mls/hr 08/02/20 08:00 08/04/20 01:28 Sodium Chloride IV 08/05/20 10:44 0.7 mcg/kg/hr .[id number] KARENA 13 mls/hr Administration Protocol 0.7 MCG/KG/HR Norepinephrine Bitartrate 8 mg in 508 mls @ 14.192 mls/hr 08/03/20 11:30 08/03/20 19:14 Levophed/D5w IV 09/02/20 11:29 0 mcg/kg/min .Q24H KARENA 0 mls/hr Titration Protocol 0.05 MCG/KG/MIN Vancomycin HCl 1,250 mg/ 275 mls @ 200 mls/hr 08/03/20 20:00 08/04/20 05:54 Sodium Chloride IV 08/10/20 19:59 Infused Q8H KARENA Infusion Protocol Labetalol HCl 10 mg 07/29/20 03:55 07/31/20 16:57 Labetalol Hcl Iv 5 Mg/Ml 20ml IV 08/28/20 03:54 10 mg Q4H PRN Administration Hypertension Lactulose 20 gm 07/29/20 03:59 08/02/20 18:24 Lactulose Syrup 20 Gm/30 Ml Udc PO 08/20/20 13:29 20 gm DAILY PRN Administration constipation Metoprolol Tartrate 5 mg 07/27/20 16:28 07/28/20 16:39 Metoprolol Tartrate 1 Mg/Ml Vial IV 08/26/20 19:59 5 mg Q4 PRN Administration Tachycardia Midazolam HCl 2 mg 07/31/20 16:52 08/01/20 08:20 Midazolam Bolus From Bag IV 08/30/20 16:51 2 mg Q60M PRN Administration Sedation Miscellaneous 1 ea 07/30/20 18:00 08/03/20 16:33 Icu Electrolyte Replacement Protocol N/A 08/06/20 17:59 1 ea BID@06,18 KARENA Administration Protocol Multivitamins/Minerals 15 ml 07/25/20 09:00 08/03/20 07:54 Multi Vit W/Minerals Liquid 15 Ml Udp NG 08/24/20 08:59 15 ml QAM KARENA Administration Nutritional Formula 1,000 ml 07/30/20 15:15 08/03/20 16:33 Peptamen Intense Vhp 1.0 Carlos A 1,000 Ml Bag OG 08/29/20 15:14 1,000 ml DAILY@1530 KARENA Administration Protocol Quetiapine Fumarate 25 mg 07/30/20 11:45 08/03/20 07:54 Quetiapine Fumarate 25 Mg Tablet PO 08/29/20 11:44 25 mg DAILY KARENA Administration NPO Date Last Intake of Fluids: 07/30/20 Time Last Intake of Fluids: 23:00 Last Intake of Solids Comment: several days Past Medical History Medical History Basal cell carcinoma of left forehead Chronic back pain COVID-19 Fever Hypoxia Multiple nevi Palliative care encounter Reducible right inguinal hernia Verrucous keratosis Past Family History Family History Grandfather (Maternal) Family history of diabetes mellitus Father Prostate cancer Cardiac disorder Mother Hypertension Other No family history of adverse response to anesthesia Past Surgical History Surgical History History of left inguinal hernia repair (10/30/16) Open Left inguinal hernia repair Dr. Calixto 10/30/2016 History of repair of anterior cruciate ligament of left knee History of root canal procedure History of tonsillectomy History of wisdom tooth extraction Status post biopsy of thyroid gland benign Status post correction of deviated nasal septum Status post Mohs surgery for basal cell carcinoma Social History Smoking Status: Former smoker Do You Dip or Chew Tobacco: No Hx Alcohol Use: No Hx Substance Use: No substance use type: does not use Physical Exam Vital Signs Last Vital Signs Temp 37.4 C 08/04/20 06:56 Pulse 69 08/04/20 06:56 Resp 21 08/04/20 04:56 BP 119/66 08/04/20 06:56 Pulse Ox 98 08/04/20 06:56 Testing Laboratory Results PT 10.8 Seconds (9.0-12.0) 07/25/20 23:14 INR 1.1 (0.9-1.1) 07/25/20 23:14 APTT 48.8 Seconds (21.0-31.0) H* 07/30/20 04:57 Urine Color Yellow 08/03/20 12:10 Urine Appearance Clear (Clear) 08/03/20 12:10 Urine pH 6.5 (4.5-7.5) 08/03/20 12:10 Ur Specific Thrall 1.013 (1.000-1.030) 08/03/20 12:10 Urine Protein Negative (Negative) 08/03/20 12:10 Urine Glucose (UA) Negative (Negative) 08/03/20 12:10 Urine Ketones Negative (Negative) 08/03/20 12:10 Urine Nitrite Negative (Negative) 08/03/20 12:10 Ur Leukocyte Esterase Negative (Negative) 08/03/20 12:10 Blood Type A Positive 07/17/20 13:38 Antibody Screen NEGATIVE 07/17/20 13:38 08/03/20 Unknown Gram Stain - Final Sputum,Vent Suction 07/30/20 11:44 Aerobic Blood Culture - Preliminary Blood No growth in Aerobic bottle after 48 hours. Anaerobic Blood Culture - Preliminary No growth in Anaerobic bottle after 48 hours. 07/30/20 11:30 Aerobic Blood Culture - Preliminary Blood No growth in Aerobic bottle after 48 hours. Anaerobic Blood Culture - Preliminary No growth in Anaerobic bottle after 48 hours. 07/29/20 Unknown Gram Stain - Final Sputum,Vent Suction Sputum Culture - Final Pseudomonas aeruginosa 07/22/20 11:39 Gram Stain - Final Sputum, Expectorated Sputum Culture - Final Light normal chris. 07/21/20 11:10 Gram Stain - Final Sputum,Vent Suction Sputum Culture - Final Light normal chris. 07/17/20 13:07 Aerobic Blood Culture - Final Blood No growth in Aerobic bottle after 5 days. Anaerobic Blood Culture - Final No growth in Anaerobic bottle after 5 days. 07/17/20 10:24 Aerobic Blood Culture - Final Blood No growth in Aerobic bottle after 5 days. Anaerobic Blood Culture - Final No growth in Anaerobic bottle after 5 days. 08/04/20 08/03/20 06:04 23:19 POC Glucose 72 89
[2020-08-04 07:55] LABS: Basophils # (auto) 0.01 K/uL (0-0.2); Basophils % (auto) 0.1 %; Eosinophils # (auto) 0.22 K/uL (0-0.5); Hematocrit (blood only) 27.9 % (42-52); Hemoglobin 9.2 g/dL (14.0-18.0); Immature Granulocytes # (auto) 0.07 K/uL (0.00-0.02); Lymphocytes # (auto) 0.74 K/uL (1.2-3.4); Lymphocytes % (auto) 10.2 %; Mean Platelet Volume 10.7 fL (7.4-10.4); Monocytes # (auto) 0.72 K/uL (0.11-0.59); Monocytes % (auto) 9.9 %; Neutrophils # (auto) 5.52 K/uL (1.4-6.5); Neutrophils % (auto) 75.8 %; Platelet Count 213 K/uL (130-400); RDW Standard Deviation 45.2 fL (36.4-46.3); Red Blood Count 3.17 M/uL (4.7-6.1); White Blood Count 7.28 K/uL (4.8-10.8)
[2020-08-04 08:34] LABS: BUN Creatinine Ratio 50.6 (10-20); Calcium 7.9 mg/dl (8.5-10.1); Creatinine Clr Calc Pharmacy 179.2 ml/min; Est GFR (Non-African American) 126.8; Magnesium 1.8 mg/dl (1.8-2.4); Potassium 3.9 mmol/L (3.5-5.1)
[2020-08-04 08:40] LABS: Phosphorus 3.4 mg/dl (2.5-4.9)
--- NOTE | 2020-08-04 10:00 | XRay Report ---
XR chest 1V portable HISTORY: 55 years-old Male resp failure acute respiratory failure COMPARISON: Chest radiograph 08/03/2020 TECHNIQUE: Portable AP view of the chest FINDINGS: Endotracheal tube overlies the midline, 2.8 cm superior to the arlette. Feeding tube distal tip projec ts over the mid stomach. Subcutaneous emphysema of the neck with probable pneumomediastinum redemonst rated. Unchanged positioning of the pigtail catheter projects over the lateral right lung base. No pn eumothorax identified. Small left pleural effusion. Bilateral mixed interstitial and alveolar opaciti es are unchanged. The bones appear grossly intact. IMPRESSION: 1. Lines and tubes as above. 2. Subcutaneous emphysema of the neck and supraclavicular distributions with probable pneumomediastin um, unchanged from comparison 3. Small left pleural effusion. 4. Unchanged bilateral mixed interstitial and alveolar opacities. ACT 112: Negative or not required by law. The above report was generated using voice recognition software. It may contain grammatical, syntax o r spelling errors. Electronically signed by: Chad Coughlin M.D. 08/04/2020 9:59 AM
--- NOTE | 2020-08-04 10:03 | Operative Report ---
PG Post Operative Report Pre & Post Diagnosis Operation Date: 07/31/20 07:00 Pre-Op Diagnosis: Covid pneumonia Post-Op Diagnosis: Covid pneumonia Operation Date: 08/04/20 07:15 Pre-Op Diagnosis: Acute respiratory failure with hypoxia, Pneumonia due to COVID-19 virus, Displaced Tracheostomy Tube Post-Op Diagnosis: Acute respiratory failure with hypoxia, Pneumonia due to COVID-19 virus, Displaced Tracheostomy Tube I identified the patient and participated in the time-out.: Yes Procedure Operation Date: 07/31/20 07:00 Actual Procedures p Tracheostomy tube Placement(Not Applicable) - Romain Funez DO Operation Date: 08/04/20 07:15 Actual Procedures p Tracheostomy Revision(Not Applicable) - Moriah Felton MD Surgeon Moriah Felton MD Medical Equipment Technician None Estimated Blood Loss 2 Findings Consistent with Post-Op Diagnosis Specimens None Anesthesia Type General Complications none Disposition Accompanied Patient To Recovery: Yes Disposition: Surgical ICU Indications Trach pulled out by patient with continuing respiratory failure, pleural effusion, and increasing left lower lobe pneumonia Description of Procedure He was brought to the operating room, properly identified, prepped and draped with Betadine paint in the usual sterile manner. He was maintained on general anesthesia. Fragments of the old stay sutures were removed. The previous tracheostomy site was opened by spreading with a hemostat exposing the trachea. There was already a 1 cm section of anterior wall of the trachea missing. The balloon was visible. The endotracheal tube was pulled back. The #8 Shiley tracheostomy tube was loaded on top of a bougie which was inserted into the trachea and then the tracheostomy tube was slid into the trachea with minimal resistance. The tracheostomy tube was sewn in with 4 corner stay sutures of 0 Prolene. The trach tape was used completely around the trach and square knotted in place. He tolerated the procedure well and was taken to the surgical ICU. I attest to the content of the Intraoperative Record and any orders documented therein. Any exceptions are noted below.
[2020-08-04] MEDS: ICU ELECTROLYTE REPLACEMENT PROTOCOL SCH ×2 (10:40→19:20)
--- NOTE | 2020-08-04 10:43 | Anesthesiology Progress Note ---
Date of Service August 04, 2020 Anesthesia Post Procedure Vital Signs Vital Signs: Temp Pulse Resp BP Pulse Ox 08/04/20 10:18 94 H 32 H 94 08/04/20 06:56 37.4 C 69 119/66 98 08/04/20 06:26 37.2 C 69 124/65 98 08/04/20 05:58 37.0 C 76 114/61 95 08/04/20 05:26 37.1 C 65 92/49 L 94 08/04/20 04:56 37.4 C 68 21 90/49 L 93 08/04/20 04:51 37.5 C 67 20 97/52 L 93 08/04/20 04:26 37.8 C H 73 86/46 L 92 08/04/20 03:56 38.0 C H 78 96/52 L 92 08/04/20 03:34 92 H 29 H 95 08/04/20 03:26 38.2 C H 86 33 H 128/59 L 93 08/04/20 02:56 38.4 C H 108 H 40 H 174/86 H 100 08/04/20 02:26 38.3 C H 90 164/80 H 92 08/04/20 01:56 38.2 C H 79 149/72 H 93 08/04/20 01:26 38.0 C H 83 145/69 H 92 08/04/20 00:56 37.9 C H 73 114/60 90 08/04/20 00:26 37.8 C H 71 107/56 L 93 08/04/20 00:00 76 08/03/20 23:56 37.6 C H 75 136/59 L 93 08/03/20 23:26 37.5 C 84 155/72 H 89 L 08/03/20 23:22 89 35 H 90 08/03/20 22:56 69 84/46 L 96 08/03/20 22:26 69 86/48 L 97 08/03/20 21:56 70 91/47 L 96 08/03/20 21:26 74 95/48 L 95 08/03/20 20:56 86 98/52 L 95 08/03/20 20:26 83 107/55 L 96 08/03/20 19:56 84 104/53 L 95 08/03/20 19:28 98 H 34 H 93 08/03/20 19:26 103 H 222/104 H 91 08/03/20 18:56 97 H 136/66 95 08/03/20 18:01 38 C H 08/03/20 17:26 87 129/66 95 08/03/20 16:56 86 130/67 94 08/03/20 16:20 98 H 149/71 H 93 08/03/20 16:15 98 H 33 H 98 08/03/20 16:00 85 39 H 159/73 H 97 08/03/20 15:54 74 27 H 97 08/03/20 15:30 75 117/60 97 08/03/20 15:00 77 126/64 94 08/03/20 14:30 78 142/66 H 93 08/03/20 14:13 37.3 C 08/03/20 14:10 77 145/64 H 93 08/03/20 14:00 70 121/59 L 95 08/03/20 13:50 70 112/56 L 94 08/03/20 13:40 72 112/56 L 94 08/03/20 13:30 73 111/56 L 96 08/03/20 13:20 74 124/58 L 96 08/03/20 13:10 74 122/57 L 95 08/03/20 13:00 72 115/53 L 95 08/03/20 12:49 77 131/63 95 08/03/20 12:40 81 26 H 110/60 100 08/03/20 12:19 78 138/66 93 08/03/20 12:09 69 114/57 L 93 08/03/20 11:59 69 112/56 L 93 08/03/20 11:49 68 115/56 L 94 08/03/20 11:39 70 109/54 L 93 08/03/20 11:29 70 109/56 L 93 08/03/20 11:28 72 113/55 L 93 08/03/20 11:24 64 116/58 L 95 08/03/20 11:22 66 101/53 L 94 08/03/20 11:19 70 74/40 L 91 08/03/20 11:09 70 77/40 L 91 08/03/20 10:55 70 85/42 L 92 08/03/20 10:54 73 111/50 L 92 08/03/20 10:48 69 81/44 L 93 08/03/20 10:45 73 86/45 L 93 Pain Intensity Anterior Neck: Pain Intensity: 3 Transfer of Care Handoff Completed per policy Notes Mental Status: see notes below Patient Amnestic to Procedure: Yes Nausea / Vomiting: adequately controlled Pain: adequately controlled Airway Patency, RR, SpO2: see Notes below BP & HR: stable & adequate Hydration State: stable & adequate Anesthetic Complications: no major complications apparent Notes: continues on ventilator through trach now.
[2020-08-04] MEDS ORDERED: POTASSIUM PHOS 3 MMOL/1 ML INFUSION IV STA (10:48)
[2020-08-04] MEDS ORDERED: POTASSIUM PHOSPHATE 15 MMOL in SODIUM CHLORIDE 0.9% 250 ML IV ONE (11:00)
--- NOTE | 2020-08-04 11:08 | XRay Report ---
XR chest 1V portable HISTORY: 55 years-old Male post or status post placement of a tracheostomy cannula COMPARISON: Chest radiograph of same day TECHNIQUE: AP view of the chest FINDINGS: Interval extubation with placement of a tracheostomy cannula with distal tip overlying the midline be low the level of the clavicular heads. Feeding tube distal tip projects over the mid stomach. Subcuta neous emphysema of the neck with pneumomediastinum redemonstrated. Unchanged positioning of the pigta il catheter projects over the lateral right lung base. No pneumothorax identified. Small left pleural effusion. Bilateral mixed interstitial and alveolar opacities are unchanged. The bones appear grossl y intact. IMPRESSION: 1. Interval placement of a tracheostomy cannula which appears to be in satisfactory positioning. 2. Stable findings as above. ACT 112: Negative or not required by law. The above report was generated using voice recognition software. It may contain grammatical, syntax o r spelling errors. Electronically signed by: Chad Coughlin M.D. 08/04/2020 11:07 AM
[2020-08-04] MEDS: busPIRone 5 MG TAB PO SCH ×2 (11:17→20:17)
[2020-08-04] MEDS: PEPTAMEN INTENSE VHP 1.0 CAL 1,000 ML BAG OG SCH (11:20)
[2020-08-04] MEDS: FAMOTIDINE 20 MG in SYRINGE 3 ML IV SCH ×2 (11:27→20:16)
[2020-08-04] MEDS: MULTI VIT W/MINERALS LIQUID 15 ML UDP NG SCH (11:27)
[2020-08-04] MEDS: QUEtiapine FUMARATE 25 MG TABLET PO SCH (11:27)
[2020-08-04] MEDS: MAGNESIUM SULFATE / D5W 1 GM/100 ML BAG IV SCH ×2 (11:27→13:37)
[2020-08-04] MEDS ORDERED: VANCOMYCIN TROUGH ONE (11:30)
--- NOTE | 2020-08-04 11:31 | Critical Care Progress Note ---
Date of Service August 04, 2020 Assessment & Plan (1) Acute respiratory failure with hypoxia: Impression:55-year-old male here for COVID pneumonia, transferred to the ICU on 07/18 for acute hypoxic RF, was proned, sedated and intubated. Extubated on 07/27, reintubated 07/29/2020, s/p trach 07/31/2020. Self dislodgment of the trach 08/01/2020, intubated 08/01/2020 with size 8 ETT 24-hour events: Neuro -propofol, fentanyl, midazolam and Precedex -Wean as possible to RASS -1 Patient started on quetiapine and buspirone. Cardiac - Bilateral DVTs-continue with anticoagulation - continue to follow clinically for changes in volume status - strict I/Os Respiratory - VDRF sec to Acute hypoxic RF secondary to COVID PNA -extubated 07/27/2020--> reintubated 07/29/20--> trach 07/31/20 --> trach dislodged 08/01/2020 --> intubated 08/01/2020 --> Trach 8DCT 08/04/20 s/p Decadron x10 days on 07/27 Keep RASS -1 --Right-sided pneumothorax S/p pigtail catheter placement 08/01/2020 Monitor with daily chest x-rays -Subcu emphysema with pneumomediastinum Likely from dislodgment of the trach Improving Monitor GI - strict I/Os as above RENAL/LYTES -Monitor electrolytes -Replace as needed - No concerns at this time ENDO - glycemic control per ICU protocol HEME - Stable H&H ID - COVID-19 pneumonia - s/p Dexamethasone - Procalcitonin 0.47 07/29/2020 --Sputum culture 07/31/2020 showing Pseudomonas aeruginosa pansensitive. Started on cefepime --Patient spiking high fever again. New left lower lobe haziness appreciated on 08/03/2020 Repeat blood cultures and urine done on 08/03/2020 UA is clean, sputum culture and blood culture not growing anything today --Prophylaxis VTE:Lovenox GI: Pepcid Lines: Right femoral TLC, [place] [address], Size 8DCT 08/04/20 Diet: Tube feeds Plan: In/out: +702, urine output 1785 AB.42/34/70 on PEEP 5, 30% Repeat blood cultures and sputum culture done 08/03/2020 shows no growth to date. UA was clean. Continue with Vanco and cefepime. Cefepime and is per the history of Pseudomonas on sputum 07/31/2020 Patient had placement of size [address] Felton today. No air leak appreciated from the chest tube. We will count the tube later today. If the lung is still up it can be removed tomorrow. Hypomagnesemia being replaced. We will do an EKG to look at the QTC. K-Phos 15 mmol also given to the patient. Given, Betty [phone], was called and updated regarding patient's condition. Will need to start working on LTAC. Resume Lovenox later today. H&H at 12. FOBT as well as the patient's hemoglobin is slowly trending down. BMP mag Phos at 3 PM. I have personally spent 38 minutes of critical care time in the direct management of this patient. This is a life/limb threatening event. This includes time spent evaluating patient, direct bedside care, chart review, placing orders, interpretation of diagnostic studies, discussion with consultants, patient, and family members, as well as other required patient management activities. This time is exclusive of all separately billable procedures, and teaching time and separate from and in addition to any other critical care service time. Please note the above document was generated using voice recognition software. It may contain grammatical, syntax or spelling errors. (2) COVID-19: (3) Hypoxia: (4) Anxiety: (5) DVT (deep venous thrombosis): Admission and Anticipated Discharge Date Admission Date: July 17, 2020 Subjective Patient seen and examined at bedside. No acute distress. Patient just came out of the OR after placement of size [address] Felton. Patient is on 15 of propofol, 50 of fentanyl, midazolam 2, Precedex 0.7 at the time of examination Patient is still spiking fever. Chest tube in place. Review of Systems Review of Systems: Unobtainable due to reduced consciousness Physical Exam Physical Exam: Constitutional: No acute distress HEENT: PERRLA, size 8 DCT trach Respiratory system: Decreased air entry bilaterally, no wheeze, no rhonchi, positive crackles bilateral lower lobes, lymphedema normal appreciated CVS: S1-S2 positive, no murmurs or gallops Abdomen: Soft, nontender, nondistended, positive bowel sounds x4 Extremities: +2 pulses bilaterally radialis/ dorsalis pedis, no cyanosis, +1 pitting edema bilateral lower extremity Neuro: RASS -2, breathing over the vent, positive pupillary, positive corneal Psych: Unable to assess G/U: [place] [address] Right-sided pigtail chest tube Skin: no rashes, warm and dry Lymphatic: no cervical or axillary lymphadenopathy Results & Data Results & Data ([facility]) Vital Signs (Past 12 Hours) Vital Signs Temp Pulse Pulse Resp BP BP Pulse Ox 08/04/20 10:18 94 H 32 H 94 08/04/20 10:15 37.8 C H 101 H 24 159/91 H 91 08/04/20 10:05 37.8 C H 102 H 26 H 158/92 H 94 08/04/20 09:55 37.8 C H 91 H 32 H 139/79 100 08/04/20 08:00 37.3 C 78 16 137/78 96 08/04/20 06:56 37.4 C 69 119/66 98 08/04/20 06:26 37.2 C 69 124/65 98 08/04/20 05:58 37.0 C 76 114/61 95 08/04/20 05:26 37.1 C 65 92/49 L 94 08/04/20 04:56 37.4 C 68 21 90/49 L 93 08/04/20 04:51 37.5 C 67 20 97/52 L 93 08/04/20 04:26 37.8 C H 73 86/46 L 92 08/04/20 03:56 38.0 C H 78 96/52 L 92 08/04/20 03:34 92 H 29 H 95 08/04/20 03:26 38.2 C H 86 33 H 128/59 L 93 08/04/20 02:56 38.4 C H 108 H 40 H 174/86 H 100 08/04/20 02:26 38.3 C H 90 164/80 H 92 08/04/20 01:56 38.2 C H 79 149/72 H 93 08/04/20 01:26 38.0 C H 83 145/69 H 92 08/04/20 00:56 37.9 C H 73 114/60 90 08/04/20 00:26 37.8 C H 71 107/56 L 93 08/04/20 00:00 76 08/03/20 23:56 37.6 C H 75 136/59 L 93 08/04/20 07:14 08/04/20 07:14 Coding Level of Care Code Critical Care 1st 30-74 mins Diagnoses Acute respiratory failure with hypoxia J96.01 COVID-19 U07.1 Hypoxia R09.02 Anxiety F41.9 DVT (deep venous thrombosis) I82.409 Time Spent (min) 38
[2020-08-04 12:05] LABS: Hematocrit (blood only) 28.6 % (42-52); Hemoglobin 9.6 g/dL (14.0-18.0)
--- NOTE | 2020-08-04 12:26 | Pharmacy Report ---
Pharmacy Abx Dose Short Note - Date of Service August 04, 2020 - Assessment & Plan Assessment * 55 year old M admitted w COVID-19 on 07/17 and s/p convalescent plasma x1, dexamethasone x10 days, remdesivir x1, azithromycin x5 days now receiving cefepime and vancomycin for treatment of superimposed HAP with lopez-sensitive Pseudomonas isolated from sputum on 07/29 * Patient is s/p trach on 07/31. Was re-intubated afterwards after trach pulled. Now extubated and on CPAP * Currently ordered norepinephrine * Nasal MRSA swab negative, but WBC has trended down and fever has somewhat improved with addition of vancomycin yesterday. Therefore OK to continue for now, especially given severity of illness Vancomycin * Goal vancomycin trough 15-20 mcg/mL * Trough of 13.9 mcg/mL is slightly subtherapeutic. Furthermore, this was a 7 hour (instead of target 8 hour) level. * Will slightly increase dose Plan * Increase vancomycin 1500 mg IV q8h * Repeat trough 08/05 @ 1130 Pharmacy will continue to follow and will adjust dose/frequency as necessary. Thank you.
[2020-08-04] MEDS: VANCOMYCIN HCL 1,500 MG in SODIUM CHLORIDE 0.9% 500 ML IV SCH ×2 (13:37→20:16)
--- NOTE | 2020-08-04 13:44 | Hospitalist Progress Note ---
Date of Service August 04, 2020 Assessment & Plan (1) Pneumonia due to COVID-19 virus: Severe disease with resulting acute hypoxic respiratory failure/ARDS. Initially very high settings on HFNC at the onset of his admission, followed by use of CPAP, and then intubation/mech ventilation. s/p intubation AM of 07/19/20. completed 10 days of decadron 6mg daily s/p Convalescent plasma 07/20/20. Ventilated for a week extubated on 07/27 Was down to 6L NC for 1 day on 07/28 and then that evening had worsening respiratory distress requiring BiPAP along with acute metabolic encephalopathy/delirium Was significantly hypoxic again and remained febrile. He was given IV Lasix and IV Ativan for significant anxiety He was transferred back to the ICU on the morning of 07/29 and reintubated Now status post tracheotomy on 07/31 On CPAP on trach during day on 08/01 Unfortunately on the evening of 08/01, in a delirious state, he pulled out his tracheostomy tube and became acutely hypoxic, he was unable to have it replaced at the bedside by telegraph office telephone clerk and was emergently intubated again; tracheostomy was removed then by the telegraph office telephone clerk. He also suffered a right-sided pneumothorax during this event. A chest tube was placed and remains in place with minimal drainage -Now status post replacement of tracheostomy tube on 08/[address] Felton and now extubated again Continues to be treated for Pseudomonas pneumonia and continues to have fevers Procalcitonin negative -Continue cefepime and added vancomycin on 08/03 -Tylenol as needed for fevers -Albuterol in line 6 times a day as needed -Daily chest x-rays -ICU managing weaning off vent, removal of chest tube -Continue sedation as per ICU-currently on propofol, Versed, Precedex, and fentanyl -Now that trach is replaced, can perform better pulmonary toilet with suctioning (2) Sepsis: With worsening fever, hypotension requiring vasopressors, tachycardia on 08/03 despite treatment with cefepime for Pseudomonas -Started back on Levophed and central line placed in the right femoral vein on 08/03-Levophed is now weaned off -Continue vancomycin and cefepime as above UA on 08/03 normal Recultured-follow cultures-blood, sputum-no growth to date Alternatively, fevers could be from known DVT but seems less likely (3) Pneumothorax: On the right which occurred after patient pulled out his tracheostomy tube and had to be urgently reintubated Chest tube in place with minimal drainage Chest x-ray on 08/03 without residual pneumothorax Management as per telegraph office telephone clerk-repeat chest x-ray in the morning to see if can pull chest tube tomorrow (4) Acute respiratory failure with hypoxia: As above (5) Fever: As above (6) Leukocytosis: As above, with fevers, leukocytosis now resolved Follow CBC (7) Metabolic encephalopathy: Secondary to ICU delirium, infection, hypoxia, sedating medications and withdrawal from such after prolonged periods of time being on them i.e. Versed, fentanyl, Precedex, propofol Critical care managing Continue sedation and wean off as able to -Continue Seroquel Reorientation (8) Volume overload: Previously responded well to Lasix-was given another dose of IV Lasix on 08/01 try to keep lungs dry to help recovery Follow urine output and oxygenation (9) Hypertension: BP previously quite elevated at times likely secondary to significant anxiety and agitation, and then low at times requiring vasopressors-labile Blood pressures are improved Continue to hold Lopressor (10) Anxiety: Significant and contributing to failure of spontaneous breathing trials Continue buspirone 10 mg twice daily scheduled -Continue Seroquel 25 mg daily Continue Precedex, midazolam (11) DVT, bilateral lower limbs: found on dopplers on 07/25 was on Lovenox 40mg q12 at that time changed to heparin drip and then switched to therapeutic Lovenox can convert to oral agent once out of the ICU again Continue therapeutic Lovenox to be restarted this evening after tracheostomy tube replaced this morning (12) Hyponatremia: Resolved (13) Abnormal LFTs: 2nd to COVID-19. Now resolved (14) BPH (benign prostatic hyperplasia): Hold flomax while on vent No issues Lane remains in place (15) Chronic neck pain: Hold voltaren from home (16) DVT prophylaxis: therapeutic Lovenox GI prophylaxis given severe stress - pepcid 20mg IV BID Disposition-transferred to ICU for reintubation on 07/29, prognosis remains guarded. He will need LTAC placement most likely Palliative care is involved Full code Admission and Anticipated Discharge Date Admission Date: July 17, 2020 Subjective Patient had tracheostomy tube replaced today in the OR. Is weaned off Levophed last night. Continues to spike fevers. Telemetry with normal sinus rhythm with rates in the 60s to 70s Review of Systems Review of Systems: Unobtainable due to endotracheal tube and Unobtainable due to reduced consciousness Physical Exam Constitutional: + ill appearing, + thin and + mechanically ventilated; no acute distress Results & Data Results & Data ([facility]) Vital Signs (Past 12 Hours) Vital Signs Temp Pulse Pulse Resp BP BP Pulse Ox 08/04/20 10:18 94 H 32 H 94 08/04/20 10:15 37.8 C H 101 H 24 159/91 H 91 08/04/20 10:05 37.8 C H 102 H 26 H 158/92 H 94 08/04/20 09:55 37.8 C H 91 H 32 H 139/79 100 08/04/20 08:00 37.3 C 78 16 137/78 96 08/04/20 06:56 37.4 C 69 119/66 98 08/04/20 06:26 37.2 C 69 124/65 98 08/04/20 05:58 37.0 C 76 114/61 95 08/04/20 05:26 37.1 C 65 92/49 L 94 08/04/20 04:56 37.4 C 68 21 90/49 L 93 08/04/20 04:51 37.5 C 67 20 97/52 L 93 08/04/20 04:26 37.8 C H 73 86/46 L 92 08/04/20 03:56 38.0 C H 78 96/52 L 92 08/04/20 03:34 92 H 29 H 95 08/04/20 03:26 38.2 C H 86 33 H 128/59 L 93 08/04/20 02:56 38.4 C H 108 H 40 H 174/86 H 100 08/04/20 02:26 38.3 C H 90 164/80 H 92 08/04/20 01:56 38.2 C H 79 149/72 H 93 Laboratory Results 08/04/20 08/04/20 08/04/20 Range/Units 16:09 11:39 11:39 WBC (4.8-10.8) K/uL RBC (4.7-6.1) M/uL Hgb 9.6 L (14.0-18.0) g/dL POC Hgb (14.0-18.0) g/dl Hct 28.6 L (42-52) % POC Hct (42-52) % MCV (80-100) fL MCH (25-34) pg MCHC (32-36) g/dL RDW Std Deviation (36.4-46.3) fL RDW Coeff of Wes (11.5-14.5) % Plt Count (130-400) K/uL MPV (7.4-10.4) fL Immature Gran % (Auto) % Neut % (Auto) % Lymph % (Auto) % [place] % (Auto) % Eos % (Auto) % Baso % (Auto) % Neut # (Auto) (1.4-6.5) K/uL Lymph # (Auto) (1.2-3.4) K/uL [place] # (Auto) (0.11-0.59) K/uL Eos # (Auto) (0-0.5) K/uL Baso # (Auto) (0-0.2) K/uL Immature Gran # (Auto) (0.00-0.02) K/uL Sample Site POC pH (7.35-7.45) POC pCO2 (35-46) mmHg POC pO2 (80-95) mmHg POC HCO3 (19-24) juliano/L POC Total CO2 (24-31) mmol/L POC Base Excess (-9-1.8) juliano/L ABG pH (Temp Correct) (7.35-7.45) ABG pCO2 (Temp Corrct (35-46) mmHg POC ABG pO2 at Pt Temp POC ABG O2 Sat (90-95) % Joshua Test O2 Delivery Device POC O2 Rate POC FiO2 % Tidal Volume PEEP POC Sodium (135-144) mmol/L Sodium 139 (136-145) mmol/L POC Potassium (3.3-5.0) mmol/L Potassium 4.0 (3.5-5.1) mmol/L Chloride 108 H (98-107) mmol/L Carbon Dioxide 24 (21-32) mmol/L Anion Gap 7.0 (3-11) BUN 15 (7-18) mg/dl Creatinine 0.43 L (0.6-1.4) mg/dl Est Cr Clr Drug Dosing 183.4 ml/min Est GFR ( Amer) 148.3 Est GFR (Non-Af Amer) 128.0 BUN/Creatinine Ratio 33.7 H (10-20) Glucose 93 (70-99) mg/dl POC Glucose (70-99) mg/dl Calcium 7.7 L (8.5-10.1) mg/dl Phosphorus 3.0 (2.5-4.9) mg/dl Magnesium 2.1 (1.8-2.4) mg/dl Vancomycin Trough 13.9 (See Comment) mcg/ml 08/04/20 08/04/20 08/04/20 Range/Units 07:14 07:14 06:04 WBC 7.28 (4.8-10.8) K/uL RBC 3.17 L (4.7-6.1) M/uL Hgb 9.2 L (14.0-18.0) g/dL POC Hgb (14.0-18.0) g/dl Hct 27.9 L (42-52) % POC Hct (42-52) % MCV 88.0 (80-100) fL MCH 29.0 (25-34) pg MCHC 33.0 (32-36) g/dL RDW Std Deviation 45.2 (36.4-46.3) fL RDW Coeff of Wes 14.0 (11.5-14.5) % Plt Count 213 (130-400) K/uL MPV 10.7 H (7.4-10.4) fL Immature Gran % (Auto) 1.0 % Neut % (Auto) 75.8 % Lymph % (Auto) 10.2 % [place] % (Auto) 9.9 % Eos % (Auto) 3.0 % Baso % (Auto) 0.1 % Neut # (Auto) 5.52 (1.4-6.5) K/uL Lymph # (Auto) 0.74 L (1.2-3.4) K/uL [place] # (Auto) 0.72 H (0.11-0.59) K/uL Eos # (Auto) 0.22 (0-0.5) K/uL Baso # (Auto) 0.01 (0-0.2) K/uL Immature Gran # (Auto) 0.07 H (0.00-0.02) K/uL Sample Site POC pH (7.35-7.45) POC pCO2 (35-46) mmHg POC pO2 (80-95) mmHg POC HCO3 (19-24) juliano/L POC Total CO2 (24-31) mmol/L POC Base Excess (-9-1.8) juliano/L ABG pH (Temp Correct) (7.35-7.45) ABG pCO2 (Temp Corrct (35-46) mmHg POC ABG pO2 at Pt Temp POC ABG O2 Sat (90-95) % Joshua Test O2 Delivery Device POC O2 Rate POC FiO2 % Tidal Volume PEEP POC Sodium (135-144) mmol/L Sodium 138 (136-145) mmol/L POC Potassium (3.3-5.0) mmol/L Potassium 3.9 (3.5-5.1) mmol/L Chloride 109 H (98-107) mmol/L Carbon Dioxide 23 (21-32) mmol/L Anion Gap 6.0 (3-11) BUN 22 H (7-18) mg/dl Creatinine 0.44 L (0.6-1.4) mg/dl Est Cr Clr Drug Dosing 179.2 ml/min Est GFR ( Amer) 147.0 Est GFR (Non-Af Amer) 126.8 BUN/Creatinine Ratio 50.6 H (10-20) Glucose 81 (70-99) mg/dl POC Glucose 72 (70-99) mg/dl Calcium 7.9 L (8.5-10.1) mg/dl Phosphorus 3.4 D (2.5-4.9) mg/dl Magnesium 1.8 (1.8-2.4) mg/dl Vancomycin Trough (See Comment) mcg/ml 08/04/20 08/03/20 08/03/20 Range/Units 05:50 23:19 18:56 WBC (4.8-10.8) K/uL RBC (4.7-6.1) M/uL Hgb (14.0-18.0) g/dL POC Hgb 8.5 L (14.0-18.0) g/dl Hct (42-52) % POC Hct 25 L (42-52) % MCV (80-100) fL MCH (25-34) pg MCHC (32-36) g/dL RDW Std Deviation (36.4-46.3) fL RDW Coeff of Wes (11.5-14.5) % Plt Count (130-400) K/uL MPV (7.4-10.4) fL Immature Gran % (Auto) % Neut % (Auto) % Lymph % (Auto) % [place] % (Auto) % Eos % (Auto) % Baso % (Auto) % Neut # (Auto) (1.4-6.5) K/uL Lymph # (Auto) (1.2-3.4) K/uL [place] # (Auto) (0.11-0.59) K/uL Eos # (Auto) (0-0.5) K/uL Baso # (Auto) (0-0.2) K/uL Immature Gran # (Auto) (0.00-0.02) K/uL Sample Site L Radial POC pH 7.42 (7.35-7.45) POC pCO2 34 L (35-46) mmHg POC pO2 70 L (80-95) mmHg POC HCO3 22 (19-24) juliano/L POC Total CO2 23 L (24-31) mmol/L POC Base Excess -3.0 (-9-1.8) juliano/L ABG pH (Temp Correct) 7.420 (7.35-7.45) ABG pCO2 (Temp Corrct 34 L (35-46) mmHg POC ABG pO2 at Pt Temp 70 POC ABG O2 Sat 94.0 (90-95) % Joshua Test Pass O2 Delivery Device Ventilator POC O2 Rate 16 POC FiO2 30 % Tidal Volume 450 PEEP 5 POC Sodium 137 (135-144) mmol/L Sodium (136-145) mmol/L POC Potassium 3.9 (3.3-5.0) mmol/L Potassium (3.5-5.1) mmol/L Chloride (98-107) mmol/L Carbon Dioxide (21-32) mmol/L Anion Gap (3-11) BUN (7-18) mg/dl Creatinine (0.6-1.4) mg/dl Est Cr Clr Drug Dosing ml/min Est GFR ( Amer) Est GFR (Non-Af Amer) BUN/Creatinine Ratio (10-20) Glucose (70-99) mg/dl POC Glucose 89 91 (70-99) mg/dl Calcium (8.5-10.1) mg/dl Phosphorus (2.5-4.9) mg/dl Magnesium (1.8-2.4) mg/dl Vancomycin Trough (See Comment) mcg/ml PG Care Time/CCT Total # of Minutes Spent Total Time Spent with Patient: Total time spent is greater than 50% in coordination of care (as documented) at patient's floor/unit and/or counseling patient: Coding Level of Care Code 73477 Subseq Hosp Care Lvl 1 Diagnoses Pneumonia due to COVID-19 virus U07.1; J12.82 Sepsis A41.9 Pneumothorax J93.9 Acute respiratory failure with hypoxia J96.01 Fever R50.9 Leukocytosis D72.829 Metabolic encephalopathy G93.41 Volume overload E87.70 Hypertension I10 Anxiety F41.9 DVT, bilateral lower limbs I82.403 Hyponatremia E87.1 Abnormal LFTs R94.5 BPH (benign prostatic hyperplasia) N40.0 Lower urinary tract symptom presence: symptoms absent Chronic neck pain M54.2; G89.29 DVT prophylaxis Z29.9 (1) BPH (benign prostatic hyperplasia) Lower urinary tract symptom presence: symptoms absent Qualified Code(s): N40.0 - Benign prostatic hyperplasia without lower urinary tract symptoms
--- NOTE | 2020-08-04 15:18 | Electrocardiogram Report ---
Test Reason : Blood Pressure : / mmHG Vent. Rate : 097 BPM Atrial Rate : 097 BPM P-R Int : 140 ms QRS Dur : 080 ms QT Int : 330 ms P-R-T Axes : 041 059 023 degrees QTc Int : 419 ms Normal sinus rhythm Normal ECG When compared with ECG of 31-JUL-2020 08:57, T wave amplitude has increased in Anterior leads Confirmed by Ralph Jamil [id number]) on 08/04/2020 3:18:20 PM Referred By: REFERRED SELF Confirmed By:Ralph Jamil
[2020-08-04] MEDS: fentaNYL DRIP 1,250 MCG/250 ML BAG IV SCH ×2 (15:42→19:15)
[2020-08-04] MEDS: ACETAMINOPHEN 1,000 MG/100 ML VIAL IV PRN (16:45)
[2020-08-04 17:06] LABS: BUN Creatinine Ratio 33.7 (10-20); Calcium 7.7 mg/dl (8.5-10.1); Creatinine Clr Calc Pharmacy 183.4 ml/min; Est GFR (African American) 148.3; Magnesium 2.1 mg/dl (1.8-2.4)
[2020-08-04] MEDS: ENOXAPARIN 80 MG/0.8 ML SYR SQ SCH (18:27)
[2020-08-04] MEDS: NOREPINEPHRINE/D5W 8 MG/508 ML BAG IV SCH (20:15)
[2020-08-04] MEDS: MIDAZOLAM BOLUS FROM BAG IV PRN (22:56)
[2020-08-04] MEDS: fentaNYL citrate 100 MCG/2 ML VIAL IV PRN (22:56)
[2020-08-05] MEDS: DEXMEDETOMIDINE HCL 400 MCG in 0.9 % SODIUM CHLORIDE 96 ML IV SCH ×4 (01:17→23:09)
[2020-08-05] MEDS: fentaNYL DRIP 1,250 MCG/250 ML BAG IV SCH ×2 (01:17→14:24)
[2020-08-05] MEDS: ACETAMINOPHEN 1,000 MG/100 ML VIAL IV PRN ×3 (01:17→23:09)
[2020-08-05] MEDS: CEFEPIME 2,000 MG in SYRINGE 0 ML IV SCH ×3 (02:13→18:33)
[2020-08-05] MEDS: VANCOMYCIN HCL 1,500 MG in SODIUM CHLORIDE 0.9% 500 ML IV SCH (03:47)
[2020-08-05] MEDS: MIDAZOLAM HCL 125 MG/250 ML BAG IV SCH ×2 (03:48→18:04)
[2020-08-05 04:44] LABS: iSTAT Allen Test Pass; iSTAT Art Bld Gas pCO2 Correct 33 mmHg (35-46); iSTAT Art Bld Gas pH Corrected 7.421 (7.35-7.45); iSTAT Arterial Blood Gas HCO3 21 meg/L (19-24); iSTAT Arterial Blood Gas pCO2 31 mmHg (35-46); iSTAT Arterial Blood Gas pH 7.43 (7.35-7.45); iSTAT Arterial Blood Gas pO2 71 mmHg (80-95); iSTAT Arterial Blood Gas pO2 C 75; iSTAT Carbon Dioxide 22 mmol/L (24-31); iSTAT FiO2 30 %; iSTAT Hematocrit 34 % (42-52); iSTAT Hemoglobin 11.6 g/dl (14.0-18.0); iSTAT Potassium 3.9 mmol/L (3.3-5.0); iSTAT Site L Radial; iSTAT Sodium 136 mmol/L (135-144)
[2020-08-05 05:03] LABS: Basophils # (auto) 0.01 K/uL (0-0.2); Basophils % (auto) 0.1 %; Eosinophils # (auto) 0.21 K/uL (0-0.5); Eosinophils % (auto) 2.4 %; Hematocrit (blood only) 29.4 % (42-52); Hemoglobin 9.7 g/dL (14.0-18.0); Immature Granulocytes % (auto) 1.1 %; Lymphocytes # (auto) 0.79 K/uL (1.2-3.4); Mean Corpuscular Hemoglobin 29.4 pg (25-34); Mean Corpuscular Volume 89.1 fL (80-100); Mean Platelet Volume 10.4 fL (7.4-10.4); Monocytes # (auto) 0.87 K/uL (0.11-0.59); Neutrophils # (auto) 6.75 K/uL (1.4-6.5); Neutrophils % (auto) 77.4 %; Platelet Count 242 K/uL (130-400); RDW Coefficient of Variation 13.9 % (11.5-14.5); RDW Standard Deviation 45.5 fL (36.4-46.3); White Blood Count 8.73 K/uL (4.8-10.8)
[2020-08-05 05:21] LABS: BUN Creatinine Ratio 33.6 (10-20); Calcium 7.3 mg/dl (8.5-10.1); Creatinine Clr Calc Pharmacy 175.2 ml/min; Est GFR (African American) 145.6; Est GFR (Non-African American) 125.6; Magnesium 1.6 mg/dl (1.8-2.4)
[2020-08-05 05:22] LABS: Phosphorus 2.8 mg/dl (2.5-4.9)
[2020-08-05] MEDS: ICU ELECTROLYTE REPLACEMENT PROTOCOL SCH ×2 (05:46→18:10)
[2020-08-05] MEDS: ENOXAPARIN 80 MG/0.8 ML SYR SQ SCH ×2 (06:04→18:32)
[2020-08-05] MEDS: MAGNESIUM SULFATE / D5W 1 GM/100 ML BAG IV SCH ×4 (06:04→11:29)
[2020-08-05] MEDS: QUEtiapine FUMARATE 25 MG TABLET PO SCH ×2 (07:51→19:54)
[2020-08-05] MEDS: MULTI VIT W/MINERALS LIQUID 15 ML UDP NG SCH (07:51)
[2020-08-05] MEDS: busPIRone 5 MG TAB PO SCH ×2 (07:51→19:54)
[2020-08-05] MEDS: FAMOTIDINE 20 MG in SYRINGE 3 ML IV SCH ×2 (07:53→19:54)
--- NOTE | 2020-08-05 08:08 | XRay Report ---
XR chest 1V portable HISTORY: 55 years-old Male resp failure acute respiratory failure COMPARISON: Chest radiograph 08/04/2020 TECHNIQUE: Portable AP view of the chest FINDINGS: Tracheostomy cannula overlies the midline with distal tip at the level of the inferior clavicular hea ds. Feeding tube distal tip projects over the mid stomach. Decreasing amount of subcutaneous emphysem a of the neck. The previously noted pneumomediastinum is not identified.. Unchanged positioning of th e pigtail catheter projects over the lateral right lung base. No pneumothorax identified. Small left pleural effusion. Bilateral mixed interstitial and alveolar opacities are unchanged. The bones appear grossly intact. IMPRESSION: 1. Lines and tubes as above. 2. No pneumothorax. 3. Small left pleural effusion with unchanged extensive bilateral pulmonary opacities. 4. Decreasing subcutaneous emphysema of the supraclavicular distributions. Previously noted pneumomed iastinum is not identified on today's exam. ACT 112: Negative or not required by law. The above report was generated using voice recognition software. It may contain grammatical, syntax o r spelling errors. Electronically signed by: Chad Coughlin M.D. 08/05/2020 8:07 AM
--- NOTE | 2020-08-05 09:30 | Critical Care Progress Note ---
Date of Service August 05, 2020 Assessment & Plan (1) Pneumonia due to COVID-19 virus: Neurologic: We will start to wean fentanyl and Versed off. Will start on oxycodone 7.5 mg every 6 hours and Klonopin 0.5 mg twice daily. We will also increase quetiapine to 25 mg twice daily. He is also on 10 mg twice daily of BuSpar. QTC yesterday noted to be 419 ms. Continue with Precedex for today. Delirium precautions Pulmonary: Currently requiring minimal ventilatory support via the tracheostomy. Will attempt transitioning to trach collar trials today. He has a right-sided pigtail catheter in place. No residual pneumothorax seen. Pigtail catheter has been on waterseal for last 24 hours. We will clamp the chest tube and obtain a chest x-ray tomorrow morning. If no evidence of pneumothorax tomorrow morning, will remove the pigtail catheter. Cardiovascular: Continue metoprolol 25 mg twice daily for blood pressure control Gastrointestinal: Increase tube feed goals and continue with famotidine twice daily. Renal: No issues at present. Electrolytes to be replaced per ICU protocol. Infectious disease: Being treated for pseudomonal pneumonia with cefepime. We will treat for 10 days. MRSA negative on 08/03/2020. Will discontinue vancomycin. Hematologic: We will check a D-dimer and if D-dimer is dropping back to normal values, will change Lovenox to 40 mg daily. Endocrine: Electrolyte replacement per ICU protocol VTE prophylaxis: Lovenox as noted above CODE STATUS: Full code Family at bedside: None available at bedside due to the COVID-19 pandemic Disposition: Remain in ICU I have personally spent 48 minutes of critical care time in the direct management of this patient. This is a life/limb threatening event. This includes time spent evaluating patient, direct bedside care, chart review, placing orders, interpretation of diagnostic studies, discussion with consultants, patient, and family members, as well as other required patient management activities. This time is exclusive of all separately billable procedures, and teaching time and separate from and in addition to any other critical care service time. Thank you for allowing us to participate in the care of this patient. (2) COVID-19: (3) DVT (deep venous thrombosis): (4) Anxiety: (5) Acute respiratory failure with hypoxia: (6) Pneumothorax: Admission and Anticipated Discharge Date Admission Date: July 17, 2020 Subjective Patient seen and examined today. Currently on low-dose Versed drip, fentanyl and Precedex. He is following commands. He does not appear to be in any distress. Unable to get complete review of systems given the tracheostomy status. Physical Exam Constitutional: Patient currently has a tracheostomy in place and a right pigtail catheter. Does not appear in any distress Respiratory: normal respiratory effort, lungs clear to auscultation Cardiovascular: RRR, no murmur, no edema Gastrointestinal (Abdomen): normal bowel sounds, soft, nontender, no hepatosplenomegaly Feeding tube in place to the nares. Musculoskeletal: no cyanosis or clubbing, extremities motor strength 5/5 Skin: no rashes, warm and dry Neurologic: CN's II-XI intact bilaterally Psychiatric: Unable to assess due to tracheostomy status Results & Data Results & Data ([facility]) Vital Signs (Past 12 Hours) Vital Signs Temp Pulse Resp BP Pulse Ox 08/05/20 08:00 83 08/05/20 07:53 98 H 29 H 93 08/05/20 06:30 100.4 F H 82 95 08/05/20 06:00 100.4 F H 82 95 08/05/20 05:47 100.4 F H 80 138/70 95 08/05/20 05:01 85 23 95 08/05/20 04:47 100.2 F H 85 149/68 H 96 08/05/20 04:00 100.2 F H 84 96 08/05/20 03:47 100.0 F H 85 136/64 94 08/05/20 03:00 100.8 F H 103 H 93 08/05/20 02:47 100.9 F H 104 H 157/72 H 92 08/05/20 02:00 101.5 F H 87 92 08/05/20 01:47 101.7 F H 99 H 155/71 H 92 08/05/20 01:15 96 H 24 94 08/05/20 01:00 101.8 F H 93 H 95 08/05/20 00:47 101.8 F H 98 H 181/87 H 96 08/05/20 00:00 101.5 F H 91 H 96 08/04/20 23:47 101.3 F H 91 H 162/76 H 95 03/28/21 23:14 91 H 08/04/20 23:00 100.9 F H 94 H 94 08/04/20 22:52 100.8 F H 101 H 155/78 H 94 08/04/20 22:50 94 H 24 95 08/04/20 22:30 100.4 F H 99 H 94 08/04/20 22:25 108 H 35 H 96 08/04/20 22:00 100.2 F H 83 95 08/04/20 21:47 100.2 F H 85 132/68 95 vital signs, labs and imaging reviewed. Coding Level of Care Code Critical Care 1st 30-74 mins Diagnoses Pneumonia due to COVID-19 virus U07.1; J12.82 COVID-19 U07.1 DVT (deep venous thrombosis) I82.409 Anxiety F41.9 Acute respiratory failure with hypoxia J96.01 Pneumothorax J93.9 Time Spent (min) 48
[2020-08-05] MEDS ORDERED: oxyCODONE HCL IR 5 MG TAB (IMMEDIATE RELEASE) PO PRN (09:35)
--- NOTE | 2020-08-05 10:11 | Palliative Care Progress Note ---
Date of Service August 05, 2020 Assessment & Plan (1) Palliative care encounter: Severo had another tracheostomy placed over the weekend and is tolerating SBT and this morning was placed on trach collar for a few hours. His SpO2 stayed low to mid 90's. Severo was able to communicate with me by nodding his head and giving thumbs up. He does well when he is informed and updated about what is happening when you are in the room. His sedation is being weaned and is currently on Fentanyl and Precedex. I called Betty and offered her a window visit. I met her at the [facility], walked her back and went in the room to be with Severo while she saw him through the window. He does become anxious when anyone leaves the room. Staff has started to keep him on a sleep/wake cycle. Continue weaning from ventilator as tolerated, working with PT/OT and continued orientation with safety restraints in place. Pt to remain a full code. (2) Pneumothorax: Chest tube clamped today. Subcutaneous emphysema resolving. Goal to remove tomorrow 08/06/20. (3) Fever: Continued fevers intermittently. WBC 8.73 repeat sputum and blood cultures negative. 07/29 pt was positive pseudomonas (4) Anxiety: Anxiety remains an issue, but is better with frequent updating of events when you are with Severo to provide care. He has Buspar, Klonopin BID and Seroquel on board. Ativan PRN ordered today. (5) Pneumonia due to COVID-19 virus: Official diagnosis date 07/13. Discussed with Elsy Self from Infection Control regarding isolation precautions being removed. She agreed that his isolation precautions could be removed. With discussion internally with the after school coordinator, keep on isolation today, but goal is to remove precautions tomorrow, allowing bedside visitation. Admission and Anticipated Discharge Date Admission Date: July 17, 2020 Subjective Pt tolerating re-insertion of trach, day #2. Severo does much better when he is informed and updated about what is happening when you are in the room Versed is now off, Fentanyl and Precedex on board Anxiety remains an issue, but is better with frequent updating. Also has BUspar, Klonopin and Seroquel on board. Ativan PRN Tolerated trach collar today. See A/P for further details. Review of Systems Review of Systems: [place] [facility] Assessment Scale: Pain: 1/3 Tiredness: 1/3 Shortness of breath: 1/3 Anxiety: 2/3 Palliative Performance Scale: 30% Physical Exam Constitutional: + acute distress, + ill appearing, cooperative and + in distress Respiratory: normal respiratory effort and + cough Auscultation: + diminished lung sounds right lateral chest tube, clamped Cardiovascular: Rate/Rhythm: + tachycardic Heart Sounds: normal S1 and normal S2 Extremities: no edema Gastrointestinal (Abdomen): normal bowel sounds, soft, nontender, no hepatosplenomegaly Skin: normal turgor and + lesion (right cheek stage 2 pressure ulcer ) Psychiatric: A+Ox3, euthymic affect Insight: + limited insight Judgement: + limited judgement Results & Data ([facility]) Vital Signs (Past 12 Hours) Vital Signs Temp Pulse Resp BP Pulse Ox 08/05/20 08:00 83 08/05/20 07:53 98 H 29 H 93 08/05/20 06:30 38.0 C H 82 95 08/05/20 06:00 38.0 C H 82 95 08/05/20 05:47 38.0 C H 80 138/70 95 08/05/20 05:01 85 23 95 08/05/20 04:47 37.9 C H 85 149/68 H 96 08/05/20 04:00 37.9 C H 84 96 08/05/20 03:47 37.8 C H 85 136/64 94 08/05/20 03:00 38.2 C H 103 H 93 08/05/20 02:47 38.3 C H 104 H 157/72 H 92 08/05/20 02:00 38.6 C H 87 92 08/05/20 01:47 38.7 C H 99 H 155/71 H 92 08/05/20 01:15 96 H 24 94 08/05/20 01:00 38.8 C H 93 H 95 08/05/20 00:47 38.8 C H 98 H 181/87 H 96 08/05/20 00:00 38.6 C H 91 H 96 08/04/20 23:47 38.5 C H 91 H 162/76 H 95 08/04/20 23:14 91 H 08/04/20 23:00 38.3 C H 94 H 94 08/04/20 22:52 38.2 C H 101 H 155/78 H 94 08/04/20 22:50 94 H 24 95 08/04/20 22:30 38.0 C H 99 H 94 08/04/20 22:25 108 H 35 H 96 PG Care Time/CCT Total # of Minutes Spent Total Time Spent with Patient: Total time spent is greater than 50% in coordination of care (as documented) at patient's floor/unit and/or counseling patient: Total time spent 45 minutes with > 50% of that time spent assessing the patient, discussing goals of care with the patient and his , discussing symptom management and collaborating with IDT Coding Level of Care Code 01644 Subseq Hosp Care Lvl 3 Diagnoses Palliative care encounter Z51.5 Pneumothorax J93.9 Fever R50.9 Anxiety F41.9 Pneumonia due to COVID-19 virus U07.1; J12.82 Time Spent (min) 45
[2020-08-05] MEDS: clonazePAM 0.5 MG TAB PO SCH ×2 (10:24→19:54)
[2020-08-05] MEDS ORDERED: DOCUSATE SODIUM SYRUP 100 MG/10 ML UDC PO ONE (10:30)
[2020-08-05] MEDS ORDERED: SENNOSIDES 8.8 MG/5 ML UDC PO ONE (10:30)
[2020-08-05] MEDS ORDERED: VANCOMYCIN TROUGH ONE (11:30)
[2020-08-05 12:48] LABS: D Dimer 5490 ug/L FEU (0-500)
--- NOTE | 2020-08-05 13:10 | Hospitalist Progress Note ---
Date of Service August 05, 2020 Assessment & Plan (1) Pneumonia due to COVID-19 virus: Severe disease with resulting acute hypoxic respiratory failure/ARDS. Initially very high settings on HFNC at the onset of his admission, followed by use of CPAP, and then intubation/mech ventilation. s/p intubation AM of 07/19/20. completed 10 days of decadron 6mg daily s/p Convalescent plasma 07/20/20. Ventilated for a week extubated on 07/27 Was down to 6L NC for 1 day on 07/28 and then that evening had worsening respiratory distress requiring BiPAP along with acute metabolic encephalopathy/delirium Was significantly hypoxic again and remained febrile. He was given IV Lasix and IV Ativan for significant anxiety He was transferred back to the ICU on the morning of 07/29 and reintubated Now status post tracheotomy on 07/31 On CPAP on trach during day on 08/01 Unfortunately on the evening of 08/01, in a delirious state, he pulled out his tracheostomy tube and became acutely hypoxic, he was unable to have it replaced at the bedside by air deodorizer servicer and was emergently intubated again; tracheostomy was removed then by the air deodorizer servicer. He also suffered a right-sided pneumothorax during this event. -Now status post replacement of tracheostomy tube on 08/[address] Felton and now extubated again Continues to be treated for Pseudomonas pneumonia repeat tracheostomy cultures from 08/03 with no growth Procalcitonin negative -Continue cefepime for 10 days for Pseudomonas cultures from 07/29 -Tylenol as needed for fevers -Daily chest x-rays -ICU managing weaning off vent (on 30% FiO2, pressure support), removal of chest tube (plan for tomorrow) -Continue sedation with Precedex, oxycodone, Klonopin -Now that trach is replaced, can perform better pulmonary toilet with suctioning (2) Sepsis: With worsening fever, hypotension requiring vasopressors, tachycardia on 08/03 despite treatment with cefepime for Pseudomonas -Started back on Levophed and central line placed in the right femoral vein on 08/03-Levophed is now weaned off -Continue cefepime as above UA on 08/03 normal Recultured-follow cultures-blood, sputum from 08/03 -no growth to date Alternatively, fevers could be from known DVT but seems less likely (3) Pneumothorax: On the right which occurred after patient pulled out his tracheostomy tube and had to be urgently reintubated Chest tube in place with minimal drainage, placed to water seal if still no PTX tomorrow plan to pull per ICU (4) Acute respiratory failure with hypoxia: As above (5) Fever: As above (6) Leukocytosis: As above, with fevers, leukocytosis now resolved WBC is 8k (7) Metabolic encephalopathy: Secondary to ICU delirium, infection, hypoxia, sedating medications and withdrawal from such after prolonged periods of time being on them i.e. Versed, fentanyl, Precedex, oxycodone, Klonopin Critical care managing Continue sedation and wean off as able to -Continue Seroquel Reorientation working on getting precautions lifted so that his can be with him, might help calm him down (8) Volume overload: Previously responded well to Lasix-was given another dose of IV Lasix on 08/01 try to keep lungs dry to help recovery Follow urine output and oxygenation (9) Hypertension: BP previously quite elevated at times likely secondary to significant anxiety and agitation, and then low at times requiring vasopressors-labile Blood pressures are elevated, back on Lopressor 25mg BID (10) Anxiety: Significant and contributing to failure of spontaneous breathing trials Continue buspirone 10 mg twice daily scheduled -Continue Seroquel 25 mg daily Continue Klonopin (11) DVT, bilateral lower limbs: found on dopplers on 07/25 was on Lovenox 40mg q12 at that time changed to heparin drip and then switched to therapeutic Lovenox can convert to oral agent once out of the ICU again (12) Hyponatremia: Resolved (13) Abnormal LFTs: 2nd to COVID-19. Now resolved (14) BPH (benign prostatic hyperplasia): Hold flomax while on vent No issues Lane remains in place (15) Chronic neck pain: Hold voltaren from home (16) DVT prophylaxis: therapeutic Lovenox GI prophylaxis given severe stress - pepcid 20mg IV BID Disposition-transferred to ICU for reintubation on 07/29, prognosis remains guarded. He will need LTAC placement most likely Palliative care is involved Full code Admission and Anticipated Discharge Date Admission Date: July 17, 2020 Subjective reviewed charts, events of the past week including his unplanned removal of tracheostomy with emergent re-intubation and now new tracheostomy management per Dr. Guevara working on pain control and sedation with oxycodone and Klonopin, Precedex blood pressure control with metoprolol patient very anxious but doing well on tracheostomy tentatively plan for right pigtail chest tube to be removed tomorrow if still no pneumothorax I spoke with Ruchi with palliative care, she has been following closely and updated family patient's able to come and see him through the window today, working on removing airborne isolation so she can visit with him I updated his outside the room, discussed plans for next few days she feels that once she can be there with him and let him know she is taking care of everything he will be able to rest easier recent cultures from tracheostomy show no growth, most recent blood cultures with no growth Review of Systems Review of Systems: Unobtainable due to reduced consciousness (confusion) Physical Exam Constitutional: well developed, + thin and + frail appearing; no acute distress Neck: trachea midline, no thyromegaly + tracheostomy present Respiratory: normal respiratory effort and + tachypneic; no respiratory distress and no cough Auscultation: lungs clear to auscultation bilaterally Cardiovascular: Rate/Rhythm: regular rate and + tachycardic Heart Sounds: normal S1 and normal S2; no murmur Extremities: normal capillary refill; no edema Gastrointestinal (Abdomen): normal bowel sounds, soft, nontender, no hepatosplenomegaly Musculoskeletal: no cyanosis or clubbing, extremities motor strength 5/5 Head/Neck/Chest: normocephalic, head atraumatic and neck supple Skin: no rashes, warm and dry Neurologic: CN's II-XI intact bilaterally and + obtunded; no focal motor deficits Lymphatic: no cervical or axillary lymphadenopathy Results & Data Results & Data ([facility]) Vital Signs (Past 12 Hours) Vital Signs Temp Pulse Resp BP Pulse Ox 08/05/20 12:06 38.2 C H 115 H 183/82 H 93 08/05/20 12:00 38.2 C H 111 H 92 08/05/20 11:48 38.2 C H 121 H 162/100 H 93 08/05/20 11:00 38.0 C H 87 96 08/05/20 10:00 37.8 C H 99 H 92 08/05/20 09:47 37.8 C H 89 138/70 94 08/05/20 09:00 37.8 C H 90 94 08/05/20 08:47 37.9 C H 87 129/61 94 08/05/20 08:00 37.9 C H 105 H 94 08/05/20 07:53 98 H 29 H 93 08/05/20 07:48 38.0 C H 99 H 171/80 H 93 08/05/20 07:00 38.1 C H 81 96 08/05/20 06:47 38.0 C H 79 141/71 H 96 08/05/20 06:30 38.0 C H 82 95 08/05/20 06:00 38.0 C H 82 95 08/05/20 05:47 38.0 C H 80 138/70 95 08/05/20 05:01 85 23 95 08/05/20 04:47 37.9 C H 85 149/68 H 96 08/05/20 04:00 37.9 C H 84 96 08/05/20 03:47 37.8 C H 85 136/64 94 08/05/20 03:00 38.2 C H 103 H 93 08/05/20 02:47 38.3 C H 104 H 157/72 H 92 08/05/20 02:00 38.6 C H 87 92 08/05/20 01:47 38.7 C H 99 H 155/71 H 92 08/05/20 01:15 96 H 24 94 Laboratory Results Laboratory Results - last 24 hr 08/04/20 08/05/20 08/05/20 16:09 04:31 04:32 WBC 8.73 RBC 3.30 L Hgb 9.7 L POC Hgb 11.6 L Hct 29.4 L POC Hct 34 L MCV 89.1 MCH 29.4 MCHC 33.0 RDW Std Deviation 45.5 RDW Coeff of Wes 13.9 Plt Count 242 MPV 10.4 Immature Gran % (Auto) 1.1 Neut % (Auto) 77.4 Lymph % (Auto) 9.0 [place] % (Auto) 10.0 Eos % (Auto) 2.4 Baso % (Auto) 0.1 Neut # (Auto) 6.75 H Lymph # (Auto) 0.79 L [place] # (Auto) 0.87 H Eos # (Auto) 0.21 Baso # (Auto) 0.01 Immature Gran # (Auto) 0.10 H D-Dimer Sample Site L Radial POC pH 7.43 POC pCO2 31 L POC pO2 71 L POC HCO3 21 POC Total CO2 22 L POC Base Excess -3.0 ABG pH (Temp Correct) 7.421 ABG pCO2 (Temp Corrct 33 L POC ABG pO2 at Pt Temp 75 POC ABG O2 Sat 95.0 Joshua Test Pass O2 Delivery Device Ventilator POC FiO2 30 PEEP 5 POC Sodium 136 Sodium 139 POC Potassium 3.9 Potassium 4.0 Chloride 108 H Carbon Dioxide 24 Anion Gap 7.0 BUN 15 Creatinine 0.43 L Est Cr Clr Drug Dosing 183.4 Est GFR ( Amer) 148.3 Est GFR (Non-Af Amer) 128.0 BUN/Creatinine Ratio 33.7 H Glucose 93 Calcium 7.7 L Phosphorus 3.0 Magnesium 2.1 Vancomycin Trough 08/05/20 08/05/20 08/05/20 04:32 11:36 11:36 WBC RBC Hgb POC Hgb Hct POC Hct MCV MCH MCHC RDW Std Deviation RDW Coeff of Wes Plt Count MPV Immature Gran % (Auto) Neut % (Auto) Lymph % (Auto) [place] % (Auto) Eos % (Auto) Baso % (Auto) Neut # (Auto) Lymph # (Auto) [place] # (Auto) Eos # (Auto) Baso # (Auto) Immature Gran # (Auto) D-Dimer 5490 H* Sample Site POC pH POC pCO2 POC pO2 POC HCO3 POC Total CO2 POC Base Excess ABG pH (Temp Correct) ABG pCO2 (Temp Corrct POC ABG pO2 at Pt Temp POC ABG O2 Sat Joshua Test O2 Delivery Device POC FiO2 PEEP POC Sodium Sodium 139 POC Potassium Potassium 4.0 Chloride 109 H Carbon Dioxide 25 Anion Gap 5.0 BUN 15 Creatinine 0.45 L Est Cr Clr Drug Dosing 175.2 Est GFR ( Amer) 145.6 Est GFR (Non-Af Amer) 125.6 BUN/Creatinine Ratio 33.6 H Glucose 86 Calcium 7.3 L Phosphorus 2.8 Magnesium 1.6 L Vancomycin Trough 18.8 Medications Administered Current Inpatient Medications Albuterol (Albuterol Hfa 8 Gm Inhaler) 2 puffs INH 6XD PRN PRN Reason: shortness of breath or wheezing Stop: 08/16/20 14:58 Buspirone HCl (Buspirone 5 Mg Tab) 10 mg PO BID [facility] Stop: 09/02/20 20:59 Last Admin: 08/05/20 07:51 Dose: 10 mg Documented by: Clonazepam (Clonazepam 0.5 Mg Tab) 0.5 mg PO BID [facility] Stop: 09/04/20 09:29 Last Admin: 08/05/20 10:24 Dose: 0.5 mg Documented by: Dextrose (Dextrose 50% 50 Ml Syringe) 50 ml IV PRN PRN PRN Reason: Hypoglycemia Treatment Stop: 09/01/20 18:11 Last Admin: 08/02/20 18:32 Dose: 50 ml Documented by: Docusate Sodium (Docusate Sodium Syrup 100 Mg/10 Ml Udc) 100 mg PO BID [facility] Stop: 09/04/20 20:59 Enoxaparin Sodium (Enoxaparin 80 Mg/0.8 Ml Syr) 70 mg SQ Q12H [facility] Stop: 08/29/20 10:44 Last Admin: 08/05/20 06:04 Dose: 70 mg Documented by: Fentanyl Citrate (Fentanyl Bolus From Bag) 50 mcg IV Q60M PRN PRN Reason: Pain or Agitation Stop: 08/15/20 20:05 Heparin Sodium (Beef Lung) (Heparin 10 Unit/Ml 5 Ml Flush) 5 ml FLUSH PRN PRN PRN Reason: Flush Stop: 08/23/20 22:31 Last Admin: 07/30/20 08:53 Dose: 5 ml Documented by: Famotidine 20 mg/ Syringe 5 mls @ 2.5 mls/min IV BID [facility] Stop: 08/17/20 20:59 Last Admin: 08/05/20 07:53 Dose: 2.5 mls/min Documented by: Lorazepam (Ativan) 1 mg in 2 mls @ 2 mls/min IV Q4H PRN PRN Reason: Anxiety Stop: 08/28/20 05:19 Cefepime HCl 2,000 mg/ Syringe 20 mls @ 5 mls/min IV Q8H [facility] Stop: 08/08/20 09:59 Last Admin: 08/05/20 09:22 Dose: 5 mls/min Documented by: Midazolam HCl (Versed) 125 mg in 250 mls @ 0 mls/hr IV .Q0M [facility]; Protocol Stop: 08/31/20 20:14 Last Titration: 03/29/21 11:30 Dose: 0 mg/hr, 0 mls/hr Documented by: Fentanyl Citrate (Fentanyl Drip) 1,250 mcg in 250 mls @ 20 mls/hr IV .[id number] [facility]; Protocol Stop: 08/15/20 20:14 Last Titration: 08/05/20 06:57 Dose: 100 mcg/hr, 20 mls/hr Documented by: Dexmedetomidine HCl 400 mcg/ (Sodium Chloride) 100 mls @ 12.968 mls/hr IV .Q7H43M [facility]; Protocol Stop: 08/08/20 13:00 Last Admin: 08/05/20 09:22 Dose: 0.7 mcg/kg/hr, 13 mls/hr Documented by: Norepinephrine Bitartrate (Levophed/D5w) 8 mg in 508 mls @ 14.192 mls/hr IV .Q24H [facility]; Protocol Stop: 09/02/20 11:29 Last Admin: 08/04/20 20:15 Dose: Not Given Documented by: Magnesium Sulfate/Dextrose (Magnesium Sulfate / D5w) 1 gm in 100 mls @ 50 mls/hr IV Q2H [facility] Stop: 08/05/20 13:59 Last Admin: 08/05/20 11:29 Dose: 50 mls/hr Documented by: Labetalol HCl (Labetalol Hcl Iv 5 Mg/Ml 20ml) 10 mg IV Q4H PRN PRN Reason: Hypertension Stop: 08/28/20 03:54 Last Admin: 07/31/20 16:57 Dose: 10 mg Documented by: Lactulose (Lactulose Syrup 20 Gm/30 Ml Udc) 20 gm PO DAILY PRN PRN Reason: constipation Stop: 08/20/20 13:29 Last Admin: 08/02/20 18:24 Dose: 20 gm Documented by: Metoprolol Tartrate (Metoprolol Tartrate 1 Mg/Ml Vial) 5 mg IV Q4 PRN PRN Reason: Tachycardia Stop: 08/26/20 19:59 Last Admin: 07/28/20 16:39 Dose: 5 mg Documented by: Metoprolol Tartrate (Metoprolol Tartrate 25 Mg Tab) 25 mg PO BID [facility] Stop: 09/01/20 20:59 Midazolam HCl (Midazolam Bolus From Bag) 2 mg IV Q60M PRN PRN Reason: Sedation Stop: 08/30/20 16:51 Last Admin: 08/04/20 22:56 Dose: 2 mg Documented by: Miscellaneous (Icu Electrolyte Replacement Protocol) 1 ea N/A BID@06,18 [facility]; Protocol Stop: 08/06/20 17:59 Last Admin: 08/05/20 05:46 Dose: 1 ea Documented by: Multivitamins/Minerals (Multi Vit W/Minerals Liquid 15 Ml Udp) 15 ml NG QAM [facility] Stop: 08/24/20 08:59 Last Admin: 08/05/20 07:51 Dose: 15 ml Documented by: Mupirocin (Mupirocin 2% Oint 22 Gm Tube) 1 appln EXT TID [facility] Stop: 09/04/20 13:59 Nutritional Formula (Peptamen Intense Vhp 1.0 Carlos A 1,000 Ml Bag) 1,000 ml OG DAILY@1530 [facility]; Protocol Stop: 08/29/20 15:14 Last Admin: 08/04/20 11:20 Dose: 1,000 ml Documented by: Oxycodone HCl (Oxycodone Hcl Ir 5 Mg Tab (Immediate Release)) 7.5 mg PO Q6H [facility] Stop: 08/19/20 16:29 Polyethylene Glycol (Polyethylene (Miralax) 17 Gm Pack) 17 gm PO QAM [facility] Stop: 09/05/20 08:59 Quetiapine Fumarate (Quetiapine Fumarate 25 Mg Tablet) 25 mg PO BID [facility] Stop: 09/04/20 20:59 Sennosides (Sennosides 8.8 Mg/5 Ml Udc) 8.8 mg PO BID [facility] Stop: 09/04/20 20:59 PG Care Time/CCT Total # of Minutes Spent Total Time Spent with Patient: Total time spent is greater than 50% in coordination of care (as documented) at patient's floor/unit and/or counseling patient: Coding Level of Care Code 60264 Subseq Hosp Care Lvl 3 Diagnoses Pneumonia due to COVID-19 virus U07.1; J12.82 Sepsis A41.9 Pneumothorax J93.9 Acute respiratory failure with hypoxia J96.01 Fever R50.9 Leukocytosis D72.829 Metabolic encephalopathy G93.41 Volume overload E87.70 Hypertension I10 Anxiety F41.9 DVT, bilateral lower limbs I82.403 Hyponatremia E87.1 Abnormal LFTs R94.5 BPH (benign prostatic hyperplasia) N40.0 Lower urinary tract symptom presence: symptoms absent Chronic neck pain M54.2; G89.29 DVT prophylaxis Z29.9 (1) BPH (benign prostatic hyperplasia) Lower urinary tract symptom presence: symptoms absent Qualified Code(s): N40.0 - Benign prostatic hyperplasia without lower urinary tract symptoms
[2020-08-05] MEDS: MUPIROCIN 2% OINT 22 GM TUBE EXT SCH ×2 (14:24→19:54)
[2020-08-05] MEDS: LORazepam 1 MG/2 ML VIAL IV PRN ×2 (15:07→23:09)
[2020-08-05] MEDS: PEPTAMEN INTENSE VHP 1.0 CAL 1,000 ML BAG OG SCH (15:10)
[2020-08-05] MEDS: oxyCODONE HCL IR 5 MG TAB (IMMEDIATE RELEASE) PO SCH ×2 (17:08→21:27)
[2020-08-05] MEDS: NOREPINEPHRINE/D5W 8 MG/508 ML BAG IV SCH (18:05)
[2020-08-05] MEDS: DOCUSATE SODIUM SYRUP 100 MG/10 ML UDC PO SCH (19:54)
[2020-08-05] MEDS: SENNOSIDES 8.8 MG/5 ML UDC PO SCH (19:54)
[2020-08-06] MEDS: CEFEPIME 2,000 MG in SYRINGE 0 ML IV SCH ×3 (01:41→17:48)
[2020-08-06] MEDS: oxyCODONE HCL IR 5 MG TAB (IMMEDIATE RELEASE) PO SCH ×4 (04:33→21:38)
[2020-08-06 05:11] LABS: Basophils # (auto) 0.02 K/uL (0-0.2); Basophils % (auto) 0.3 %; Eosinophils # (auto) 0.28 K/uL (0-0.5); Eosinophils % (auto) 3.6 %; Hematocrit (blood only) 31.5 % (42-52); Hemoglobin 10.4 g/dL (14.0-18.0); Immature Granulocytes # (auto) 0.11 K/uL (0.00-0.02); Immature Granulocytes % (auto) 1.4 %; Lymphocytes # (auto) 0.75 K/uL (1.2-3.4); Lymphocytes % (auto) 9.6 %; Mean Corpuscular Hemoglobin 29.2 pg (25-34); Mean Corpuscular Volume 88.5 fL (80-100); Mean Platelet Volume 10.5 fL (7.4-10.4); Monocytes # (auto) 0.83 K/uL (0.11-0.59); Monocytes % (auto) 10.7 %; Neutrophils % (auto) 74.4 %; Platelet Count 309 K/uL (130-400); RDW Coefficient of Variation 14.1 % (11.5-14.5); RDW Standard Deviation 45.7 fL (36.4-46.3); Red Blood Count 3.56 M/uL (4.7-6.1); White Blood Count 7.79 K/uL (4.8-10.8)
[2020-08-06 05:33] LABS: BUN Creatinine Ratio 30.7 (10-20); Calcium 7.9 mg/dl (8.5-10.1); Creatinine Clr Calc Pharmacy 167.8 ml/min; Est GFR (Non-African American) 123.4; Magnesium 1.9 mg/dl (1.8-2.4); Phosphorus 2.7 mg/dl (2.5-4.9); Potassium 3.9 mmol/L (3.5-5.1)
[2020-08-06] MEDS: LORazepam 1 MG/2 ML VIAL IV PRN ×2 (05:43→19:45)
[2020-08-06] MEDS: ENOXAPARIN 80 MG/0.8 ML SYR SQ SCH ×2 (05:53→17:45)
[2020-08-06] MEDS: DEXMEDETOMIDINE HCL 400 MCG in 0.9 % SODIUM CHLORIDE 96 ML IV SCH ×9 (05:53→19:41)
[2020-08-06] MEDS: ICU ELECTROLYTE REPLACEMENT PROTOCOL SCH (06:11)
[2020-08-06] MEDS: MAGNESIUM OXIDE 400 MG TAB NG SCH ×2 (06:29→10:12)
[2020-08-06] MEDS: POTASSIUM CHLORIDE 20 MEQ/15 ML UDC NG SCH ×2 (06:29→10:12)
--- NOTE | 2020-08-06 08:36 | XRay Report ---
XR chest 1V portable CLINICAL HISTORY: s/p clamping chest tube COMPARISON STUDY: Chest radiograph August 05, 2020. FINDINGS: Tracheostomy tube is in place. Tip of feeding tube is within the body of the stomach. Right pleural catheter remains in place. There is no pneumothorax. A small amount of subcutaneous gas with in the neck is again noted. A small left pleural effusion is noted. Cardiomediastinal silhouette is u nremarkable. Bilateral airspace opacities persist. IMPRESSION: 1. Right pleural catheter in place. No pneumothorax. 2. Small amount of subcutaneous gas within the neck, similar to prior exam. 3. Persistent bilateral airspace opacities and a small left pleural effusion. ACT 112: Negative or not required by law. Electronically signed by: Fan aBltazar M.D. 08/06/2020 8:35 AM
[2020-08-06] MEDS: POLYETHYLENE (MIRALAX) 17 GM PACK PO SCH (08:43)
[2020-08-06] MEDS: QUEtiapine FUMARATE 25 MG TABLET PO SCH ×2 (08:43→19:45)
[2020-08-06] MEDS: busPIRone 5 MG TAB PO SCH ×2 (08:44→19:42)
[2020-08-06] MEDS: DOCUSATE SODIUM SYRUP 100 MG/10 ML UDC PO SCH ×3 (08:44→21:39)
[2020-08-06] MEDS: MULTI VIT W/MINERALS LIQUID 15 ML UDP NG SCH (08:44)
[2020-08-06] MEDS: SENNOSIDES 8.8 MG/5 ML UDC PO SCH ×3 (08:44→21:40)
[2020-08-06] MEDS: MUPIROCIN 2% OINT 22 GM TUBE EXT SCH ×3 (08:45→19:41)
[2020-08-06] MEDS: FAMOTIDINE 20 MG in SYRINGE 3 ML IV SCH (08:48)
[2020-08-06] MEDS: clonazePAM 0.5 MG TAB PO SCH ×2 (08:48→19:42)
[2020-08-06] MEDS: ACETAMINOPHEN 1,000 MG/100 ML VIAL IV PRN ×2 (08:49→21:39)
--- NOTE | 2020-08-06 09:02 | Critical Care Progress Note ---
Date of Service August 06, 2020 Assessment & Plan (1) Pneumonia due to COVID-19 virus: Neurologic: Versed is weaned off. Fentanyl is in the process of being weaned off. Continue oxycodone 7.5 mg every 6 hours and Klonopin 0.5 mg twice daily. Continue quetiapine to 25 mg twice daily. He is also on 10 mg twice daily of BuSpar. We will begin weaning Precedex. Continue delirium precautions. Pulmonary: Continue trach collar trials. He is tolerating this very well. Pigtail catheter removed at bedside. No residual pneumothorax seen on chest x-ray this morning. Cardiovascular: Continue metoprolol 25 mg twice daily for blood pressure control Gastrointestinal: Increase tube feed to goal and continue with famotidine twice daily. Renal: No issues at present. Electrolytes to be replaced per ICU protocol. Infectious disease: Being treated for pseudomonal pneumonia with cefepime. We will treat for 10 days. MRSA negative on 08/03/2020. Still spiking high-grade fevers. Checking procalcitonin and urinalysis. Hematologic: Continue with therapeutic Lovenox given his DVT. Endocrine: Electrolyte replacement per ICU protocol VTE prophylaxis: Lovenox as noted above CODE STATUS: Full code Family at bedside: None available at bedside due to the COVID-19 pandemic Disposition: Remain in ICU I have personally spent 45 minutes of critical care time in the direct management of this patient. This is a life/limb threatening event. This includes time spent evaluating patient, direct bedside care, chart review, placing orders, interpretation of diagnostic studies, discussion with consultants, patient, and family members, as well as other required patient management activities. This time is exclusive of all separately billable procedures, and teaching time and separate from and in addition to any other critical care service time. Thank you for allowing us to participate in the care of this patient. (2) COVID-19: (3) DVT (deep venous thrombosis): (4) Anxiety: (5) Acute respiratory failure with hypoxia: (6) Pneumothorax: Admission and Anticipated Discharge Date Admission Date: July 17, 2020 Subjective Patient seen and examined this morning. No significant issues overnight. Chest tube removed at bedside this morning. Fentanyl is down to 25mcg/h. He is currently on 0.7 and Precedex 1 hour. Versed is off. Patient following commands. Review of Systems Review of Systems: Review of systems is limited due to tracheostomy status Physical Exam Constitutional: Patient currently has a tracheostomy in place and a right pigtail catheter. Does not appear in any distress Respiratory: normal respiratory effort, lungs clear to auscultation Cardiovascular: RRR, no murmur, no edema Gastrointestinal (Abdomen): normal bowel sounds, soft, nontender, no hepatosplenomegaly Feeding tube in place to the nares. Musculoskeletal: no cyanosis or clubbing, extremities motor strength 5/5 Skin: no rashes, warm and dry Neurologic: CN's II-XI intact bilaterally Psychiatric: Unable to assess due to tracheostomy status Results & Data Results & Data ([facility]) Vital Signs (Past 12 Hours) Vital Signs Temp Pulse Resp BP Pulse Ox 08/06/20 06:47 102.4 F H 131 H 173/84 H 95 08/06/20 06:38 102.2 F H 124 H 185/87 H 97 08/06/20 06:00 101.8 F H 126 H 93 08/06/20 05:39 101.7 F H 110 H 189/92 H 95 08/06/20 05:00 101.1 F H 90 08/06/20 04:10 38 H 08/06/20 04:00 100.0 F H 124 H 100 08/06/20 03:48 100.0 F H 117 H 165/82 H 94 08/06/20 03:00 99.9 F H 108 H 98 08/06/20 02:47 99.7 F H 94 H 136/83 98 08/06/20 02:00 99.5 F 87 98 08/06/20 01:47 99.5 F 86 125/64 98 08/06/20 01:00 99.9 F H 85 98 08/06/20 00:47 100.0 F H 88 113/55 L 99 08/06/20 00:30 100.4 F H 90 99 08/06/20 00:00 100.8 F H 95 H 97 08/05/20 23:47 100.8 F H 101 H 117/59 L 97 08/05/20 23:26 100.8 F H 111 H 157/78 H 96 08/05/20 23:16 124 H 08/05/20 23:00 100.6 F H 110 H 41 H 94 03/29/21 22:47 100.4 F H 120 H 178/94 H 91 08/05/20 22:00 100.2 F H 101 H 98 08/05/20 21:47 100.0 F H 110 H 142/81 H 97 08/05/20 21:00 100.0 F H 97 H 93 Vital signs labs and imaging reviewed Coding Level of Care Code Critical Care 1st 30-74 mins Diagnoses Pneumonia due to COVID-19 virus U07.1; J12.82 COVID-19 U07.1 DVT (deep venous thrombosis) I82.409 Anxiety F41.9 Acute respiratory failure with hypoxia J96.01 Pneumothorax J93.9 Time Spent (min) 45
[2020-08-06 09:09] LABS: Appearance Urine Clear (Clear); Bilirubin Urine Negative (Negative); Blood Urine 1+ (Negative); Color Urine Dark Yellow; Glucose Urine UA Negative (Negative); Ketones Urine 2+ (Negative); Leukocyte Esterase Urine Negative (Negative); Nitrite Urine Negative (Negative); Protein Urine 1+ (Negative); Specific Gravity Urine 1.024 (1.000-1.030); Urobilinogen Urine Negative (Negative)
[2020-08-06 09:28] LABS: Bacteria Urine Automated 1+ (Negative); Mucus Urine Present (None Prsent)
[2020-08-06 09:47] LABS: Influenza A virus by PCR Negative (Neg); Influenza B virus by PCR Negative (Neg); RSV by PCR Negative (Neg)
[2020-08-06 10:12] LABS: SARS CoV2 RNA(COVID-19) InHosp POSITIVE (Negative)
[2020-08-06] MEDS: METOPROLOL TARTRATE 25 MG TAB PO SCH ×2 (10:54→19:42)
[2020-08-06] MEDS: levoFLOXacin/D5W 750 MG/150 ML BAG IV SCH (14:20)
--- NOTE | 2020-08-06 15:15 | Electrocardiogram Report ---
Test Reason : Blood Pressure : / mmHG Vent. Rate : 114 BPM Atrial Rate : 114 BPM P-R Int : 136 ms QRS Dur : 078 ms QT Int : 336 ms P-R-T Axes : 034 037 005 degrees QTc Int : 463 ms Sinus tachycardia Possible Left atrial enlargement Borderline ECG When compared with ECG of 04-AUG-2020 12:17, No significant change was found Confirmed by Ralph Jamil ([id number]) on 08/06/2020 3:15:18 PM Referred By: REFERRED SELF Confirmed By:Ralph Jamil
[2020-08-06] MEDS: PEPTAMEN INTENSE VHP 1.0 CAL 1,000 ML BAG OG SCH (17:46)
[2020-08-06] MEDS: FAMOTIDINE 20 MG TAB PO SCH (19:43)
--- NOTE | 2020-08-06 21:54 | Hospitalist Progress Note ---
Date of Service August 06, 2020 Assessment & Plan (1) Pneumonia due to COVID-19 virus: Severe disease with resulting acute hypoxic respiratory failure/ARDS. Initially very high settings on HFNC at the onset of his admission, followed by use of CPAP, and then intubation/mech ventilation. s/p intubation AM of 07/19/20. completed 10 days of decadron 6mg daily s/p Convalescent plasma 07/20/20. Ventilated for a week extubated on 07/27 Was down to 6L NC for 1 day on 07/28 and then that evening had worsening respiratory distress requiring BiPAP along with acute metabolic encephalopathy/delirium Was significantly hypoxic again and remained febrile. He was given IV Lasix and IV Ativan for significant anxiety He was transferred back to the ICU on the morning of 07/29 and reintubated Now status post tracheotomy on 07/31 On CPAP on trach during day on 08/01 Unfortunately on the evening of 08/01, in a delirious state, he pulled out his tracheostomy tube and became acutely hypoxic, he was unable to have it replaced at the bedside by manager audit and was emergently intubated again; tracheostomy was removed then by the manager audit. He also suffered a right-sided pneumothorax during this event. -Now status post replacement of tracheostomy tube on 08/[address] Felton and now extubated again Continues to be treated for Pseudomonas pneumonia repeat tracheostomy cultures from 08/03 now with continued growth add Levaquin to Cefepime for double coverage Procalcitonin negative -Tylenol as needed for fevers -Daily chest x-rays -ICU managing weaning off vent (on 30% FiO2, pressure support), removal of chest tube (plan for tomorrow) -Continue sedation with Precedex, oxycodone, Klonopin -Now that trach is replaced, can perform better pulmonary toilet with suctioning (2) Sepsis: With worsening fever, hypotension requiring vasopressors, tachycardia on 08/03 despite treatment with cefepime for Pseudomonas -Started back on Levophed and central line placed in the right femoral vein on 08/03-Levophed is now weaned off -Continue cefepime as above UA on 08/03 normal Recultured-follow cultures-blood, sputum from 08/03 - now growth Pseudomonas again Alternatively, fevers could be from known DVT but seems less likely (3) Pneumothorax: On the right which occurred after patient pulled out his tracheostomy tube and had to be urgently reintubated Chest tube in place with minimal drainage, placed to water seal pneumothorax resolved, tube pulled (4) Acute respiratory failure with hypoxia: As above (5) Fever: As above (6) Leukocytosis: As above, with fevers, leukocytosis now resolved (7) Metabolic encephalopathy: Secondary to ICU delirium, infection, hypoxia, sedating medications and withdrawal from such after prolonged periods of time being on them i.e. Versed, fentanyl, Precedex, oxycodone, Klonopin Critical care managing Continue sedation and wean off as able to -Continue Seroquel Reorientation working on getting precautions lifted so that his can be with him, might help calm him down (8) Volume overload: Previously responded well to Lasix-was given another dose of IV Lasix on 08/01 try to keep lungs dry to help recovery Follow urine output and oxygenation (9) Hypertension: BP previously quite elevated at times likely secondary to significant anxiety and agitation, and then low at times requiring vasopressors-labile Blood pressures are elevated, back on Lopressor 25mg BID (10) Anxiety: Significant and contributing to failure of spontaneous breathing trials Continue buspirone 10 mg twice daily scheduled -Continue Seroquel 25 mg daily Continue Klonopin (11) DVT, bilateral lower limbs: found on dopplers on 07/25 was on Lovenox 40mg q12 at that time changed to heparin drip and then switched to therapeutic Lovenox (12) Hyponatremia: Resolved (13) Abnormal LFTs: 2nd to COVID-19. Now resolved (14) BPH (benign prostatic hyperplasia): Hold flomax while on vent No issues Lane remains in place (15) Chronic neck pain: Hold voltaren from home (16) DVT prophylaxis: therapeutic Lovenox GI prophylaxis given severe stress - Pepcid Palliative care is involved Full code Admission and Anticipated Discharge Date Admission Date: July 17, 2020 Subjective patient on trach collar today, maintaining saturations remains on Precedex to stay calm still with fevers, tachycardia, elevated RR, hypertensive reviewed labs, WBC 7k, Hb 10.4, plts 309k Cr 0.47, K 3.9 repeat sputum culture from 08/03 now growing Pseudomonas Review of Systems Review of Systems: Unobtainable due to cognitive status Physical Exam Constitutional: well developed, + thin and + frail appearing; no acute distress Neck: trachea midline, no thyromegaly + tracheostomy present Respiratory: normal respiratory effort and + tachypneic; no respiratory distress and no cough Auscultation: lungs clear to auscultation bilaterally Cardiovascular: Rate/Rhythm: regular rate and + tachycardic Heart Sounds: normal S1 and normal S2; no murmur Extremities: normal capillary refill; no edema Gastrointestinal (Abdomen): normal bowel sounds, soft, nontender, no hepatosplenomegaly Musculoskeletal: no cyanosis or clubbing, extremities motor strength 5/5 Head/Neck/Chest: normocephalic, head atraumatic and neck supple Skin: no rashes, warm and dry Neurologic: CN's II-XI intact bilaterally and + obtunded; no focal motor deficits Psychiatric: Orientation: alert and oriented x 3 Affect: euthymic affect Lymphatic: no cervical or axillary lymphadenopathy Results & Data Results & Data ([facility]) Vital Signs (Past 12 Hours) Vital Signs Temp Pulse BP Pulse Ox 08/06/20 18:00 38.2 C H 109 H 95 08/06/20 17:48 38.1 C H 102 H 181/104 H 94 08/06/20 17:00 37.8 C H 118 H 95 08/06/20 16:48 37.7 C H 111 H 141/77 H 95 08/06/20 16:00 37.7 C H 110 H 95 08/06/20 15:48 37.7 C H 111 H 142/78 H 95 08/06/20 15:00 37.5 C 115 H 97 08/06/20 14:48 37.4 C 107 H 156/97 H 96 08/06/20 14:24 37.3 C 109 H 163/116 H 96 08/06/20 14:00 37.4 C 74 99 08/06/20 13:47 37.4 C 75 97/53 L 99 08/06/20 13:00 37.4 C 77 99 08/06/20 12:47 37.4 C 92 H 92/49 L 98 08/06/20 12:00 37.6 C H 84 98 08/06/20 11:48 37.7 C H 87 84/54 L 98 08/06/20 11:00 38.0 C H 119 H 97 08/06/20 10:47 38.0 C H 114 H 148/77 H 95 08/06/20 10:44 38.0 C H 118 H 129/72 98 08/06/20 10:00 38.4 C H 127 H 99 Laboratory Results Laboratory Results - last 24 hr 08/06/20 08/06/20 08/06/20 04:30 04:30 08:37 WBC 7.79 RBC 3.56 L Hgb 10.4 L Hct 31.5 L MCV 88.5 MCH 29.2 MCHC 33.0 RDW Std Deviation 45.7 RDW Coeff of Wes 14.1 Plt Count 309 MPV 10.5 H Immature Gran % (Auto) 1.4 Neut % (Auto) 74.4 Lymph % (Auto) 9.6 [place] % (Auto) 10.7 Eos % (Auto) 3.6 Baso % (Auto) 0.3 Neut # (Auto) 5.80 Lymph # (Auto) 0.75 L [place] # (Auto) 0.83 H Eos # (Auto) 0.28 Baso # (Auto) 0.02 Immature Gran # (Auto) 0.11 H Sodium 139 Potassium 3.9 Chloride 108 H Carbon Dioxide 27 Anion Gap 4.0 BUN 14 Creatinine 0.47 L Est Cr Clr Drug Dosing 167.8 Est GFR ( Amer) 143.0 Est GFR (Non-Af Amer) 123.4 BUN/Creatinine Ratio 30.7 H Glucose 115 H Calcium 7.9 L Phosphorus 2.7 Magnesium 1.9 Procalcitonin 0.25 Urine Color Urine Appearance Urine pH Ur Specific Fabius Urine Protein Urine Glucose (UA) Urine Ketones Urine Blood Urine Nitrite Urine Bilirubin Urine Urobilinogen Ur Leukocyte Esterase Urine WBC (Auto) Urine RBC (Auto) U Hyaline Cast (Auto) U Epithel Cells (Auto) Urine Bacteria (Auto) Urine Mucus Stool Occult Bld Scrn COVID-19 Eval Order SARS-CoV-2 (PCR) Influenza Type A (PCR) Influenza Type B (PCR) RSV (RT-PCR) 08/06/20 08/06/20 08/06/20 Unknown Unknown Unknown WBC RBC Hgb Hct MCV MCH MCHC RDW Std Deviation RDW Coeff of Wes Plt Count MPV Immature Gran % (Auto) Neut % (Auto) Lymph % (Auto) [place] % (Auto) Eos % (Auto) Baso % (Auto) Neut # (Auto) Lymph # (Auto) [place] # (Auto) Eos # (Auto) Baso # (Auto) Immature Gran # (Auto) Sodium Potassium Chloride Carbon Dioxide Anion Gap BUN Creatinine Est Cr Clr Drug Dosing Est GFR ( Amer) Est GFR (Non-Af Amer) BUN/Creatinine Ratio Glucose Calcium Phosphorus Magnesium Procalcitonin Urine Color Urine Appearance Urine pH Ur Specific Fabius Urine Protein Urine Glucose (UA) Urine Ketones Urine Blood Urine Nitrite Urine Bilirubin Urine Urobilinogen Ur Leukocyte Esterase Urine WBC (Auto) Urine RBC (Auto) U Hyaline Cast (Auto) U Epithel Cells (Auto) Urine Bacteria (Auto) Urine Mucus Stool Occult Bld Scrn Positive A COVID-19 Eval Order CovFluRsv at [facility] SARS-CoV-2 (PCR) POSITIVE A* Influenza Type A (PCR) Negative Influenza Type B (PCR) Negative RSV (RT-PCR) Negative 08/06/20 Unknown WBC RBC Hgb Hct MCV MCH MCHC RDW Std Deviation RDW Coeff of Wes Plt Count MPV Immature Gran % (Auto) Neut % (Auto) Lymph % (Auto) [place] % (Auto) Eos % (Auto) Baso % (Auto) Neut # (Auto) Lymph # (Auto) [place] # (Auto) Eos # (Auto) Baso # (Auto) Immature Gran # (Auto) Sodium Potassium Chloride Carbon Dioxide Anion Gap BUN Creatinine Est Cr Clr Drug Dosing Est GFR ( Amer) Est GFR (Non-Af Amer) BUN/Creatinine Ratio Glucose Calcium Phosphorus Magnesium Procalcitonin Urine Color Dark Yellow Urine Appearance Clear Urine pH 5.0 Ur Specific Fabius 1.024 Urine Protein 1+ H Urine Glucose (UA) Negative Urine Ketones 2+ H Urine Blood 1+ H Urine Nitrite Negative Urine Bilirubin Negative Urine Urobilinogen Negative Ur Leukocyte Esterase Negative Urine WBC (Auto) 1-5 Urine RBC (Auto) 5-10 H U Hyaline Cast (Auto) 5-10 H U Epithel Cells (Auto) 5-10 H Urine Bacteria (Auto) 1+ H Urine Mucus Present A Stool Occult Bld Scrn COVID-19 Eval Order SARS-CoV-2 (PCR) Influenza Type A (PCR) Influenza Type B (PCR) RSV (RT-PCR) Medications Administered Current Inpatient Medications Albuterol (Albuterol Hfa 8 Gm Inhaler) 2 puffs INH 6XD PRN PRN Reason: shortness of breath or wheezing Stop: 08/16/20 14:58 Buspirone HCl (Buspirone 5 Mg Tab) 10 mg PO BID [facility] Stop: 09/02/20 20:59 Last Admin: 08/06/20 19:42 Dose: 10 mg Documented by: Clonazepam (Clonazepam 0.5 Mg Tab) 0.5 mg PO BID [facility] Stop: 09/04/20 09:29 Last Admin: 08/06/20 19:42 Dose: 0.5 mg Documented by: Dextrose (Dextrose 50% 50 Ml Syringe) 50 ml IV PRN PRN PRN Reason: Hypoglycemia Treatment Stop: 09/01/20 18:11 Last Admin: 08/02/20 18:32 Dose: 50 ml Documented by: Docusate Sodium (Docusate Sodium Syrup 100 Mg/10 Ml Udc) 100 mg PO BID [facility] Stop: 09/04/20 20:59 Last Admin: 08/06/20 21:39 Dose: Not Given Documented by: Enoxaparin Sodium (Enoxaparin 80 Mg/0.8 Ml Syr) 70 mg SQ Q12H [facility] Stop: 08/29/20 10:44 Last Admin: 08/06/20 17:45 Dose: 70 mg Documented by: Famotidine (Famotidine 20 Mg Tab) 20 mg PO BID [facility]; Protocol Stop: 09/05/20 20:59 Last Admin: 08/06/20 19:43 Dose: 20 mg Documented by: Heparin Sodium (Beef Lung) (Heparin 10 Unit/Ml 5 Ml Flush) 5 ml FLUSH PRN PRN PRN Reason: Flush Stop: 08/23/20 22:31 Last Admin: 07/30/20 08:53 Dose: 5 ml Documented by: Lorazepam (Ativan) 1 mg in 2 mls @ 2 mls/min IV Q4H PRN PRN Reason: Anxiety Stop: 08/28/20 05:19 Last Admin: 08/06/20 19:45 Dose: 2 mls/min Documented by: Cefepime HCl 2,000 mg/ Syringe 20 mls @ 5 mls/min IV Q8H [facility] Stop: 08/15/20 02:03 Last Admin: 08/06/20 17:48 Dose: 5 mls/min Documented by: Dexmedetomidine HCl 400 mcg/ (Sodium Chloride) 100 mls @ 14.82 mls/hr IV .Q6H45M [facility]; Protocol Stop: 08/08/20 13:00 Last Admin: 08/06/20 19:41 Dose: 0.8 mcg/kg/hr, 14.8 mls/hr Documented by: Acetaminophen (Ofirmev) 1,000 mg in 100 mls @ 400 mls/hr IV Q8H PRN PRN Reason: Pain or Fever Stop: 08/08/20 14:37 Last Admin: 08/06/20 21:39 Dose: 400 mls/hr Documented by: Levofloxacin/Dextrose (Levaquin/D5w) 750 mg in 150 mls @ 100 mls/hr IV Q24H [facility] Stop: 08/13/20 12:29 Last Infusion: 08/06/20 18:33 Dose: Infused Documented by: Labetalol HCl (Labetalol Hcl Iv 5 Mg/Ml 20ml) 10 mg IV Q4H PRN PRN Reason: Hypertension Stop: 08/28/20 03:54 Last Admin: 07/31/20 16:57 Dose: 10 mg Documented by: Lactulose (Lactulose Syrup 20 Gm/30 Ml Udc) 20 gm PO DAILY PRN PRN Reason: constipation Stop: 08/20/20 13:29 Last Admin: 08/02/20 18:24 Dose: 20 gm Documented by: Metoprolol Tartrate (Metoprolol Tartrate 1 Mg/Ml Vial) 5 mg IV Q4 PRN PRN Reason: Tachycardia Stop: 08/26/20 19:59 Last Admin: 07/28/20 16:39 Dose: 5 mg Documented by: Metoprolol Tartrate (Metoprolol Tartrate 25 Mg Tab) 12.5 mg PO BID [facility] Stop: 09/05/20 09:59 Last Admin: 08/06/20 19:42 Dose: 12.5 mg Documented by: Multivitamins/Minerals (Multi Vit W/Minerals Liquid 15 Ml Udp) 15 ml NG QAM [facility] Stop: 08/24/20 08:59 Last Admin: 08/06/20 08:44 Dose: 15 ml Documented by: Mupirocin (Mupirocin 2% Oint 22 Gm Tube) 1 appln EXT TID [facility] Stop: 09/04/20 13:59 Last Admin: 08/06/20 19:41 Dose: 1 appln Documented by: Nutritional Formula (Peptamen Intense Vhp 1.0 Carlos A 1,000 Ml Bag) 1,000 ml OG D ALYSHA@1530 [facility]; Protocol Stop: 08/29/20 15:14 Last Admin: 08/06/20 17:46 Dose: 1,000 ml Documented by: Oxycodone HCl (Oxycodone Hcl Ir 5 Mg Tab (Immediate Release)) 7.5 mg PO Q6H [facility] Stop: 08/19/20 16:29 Last Admin: 08/06/20 21:38 Dose: 7.5 mg Documented by: Polyethylene Glycol (Polyethylene (Miralax) 17 Gm Pack) 17 gm PO QAM [facility] Stop: 09/05/20 08:59 Last Admin: 08/06/20 08:43 Dose: 17 gm Documented by: Quetiapine Fumarate (Quetiapine Fumarate 25 Mg Tablet) 25 mg PO BID [facility] Stop: 09/04/20 20:59 Last Admin: 08/06/20 19:45 Dose: 25 mg Documented by: Sennosides (Sennosides 8.8 Mg/5 Ml Udc) 8.8 mg PO BID [facility] Stop: 09/04/20 20:59 Last Admin: 08/06/20 21:40 Dose: Not Given Documented by: PG Care Time/CCT Total # of Minutes Spent Total Time Spent with Patient: Total time spent is greater than 50% in coordination of care (as documented) at patient's floor/unit and/or counseling patient: Coding Level of Care Code 66189 Subseq Hosp Care Lvl 2 Diagnoses Pneumonia due to COVID-19 virus U07.1; J12.82 Sepsis A41.9 Pneumothorax J93.9 Acute respiratory failure with hypoxia J96.01 Fever R50.9 Leukocytosis D72.829 Metabolic encephalopathy G93.41 Volume overload E87.70 Hypertension I10 Anxiety F41.9 DVT, bilateral lower limbs I82.403 Hyponatremia E87.1 Abnormal LFTs R94.5 BPH (benign prostatic hyperplasia) N40.0 Lower urinary tract symptom presence: symptoms absent Chronic neck pain M54.2; G89.29 DVT prophylaxis Z29.9 (1) BPH (benign prostatic hyperplasia) Lower urinary tract symptom presence: symptoms absent Qualified Code(s): N40.0 - Benign prostatic hyperplasia without lower urinary tract symptoms
[2020-08-07] MEDS: DEXMEDETOMIDINE HCL 400 MCG in 0.9 % SODIUM CHLORIDE 96 ML IV SCH ×6 (00:06→17:12)
[2020-08-07] MEDS: LORazepam 1 MG/2 ML VIAL IV PRN ×3 (00:29→14:07)
[2020-08-07] MEDS ORDERED: PANTOprazole 80 MG in DEXTROSE 5% 100 ML IV ONE (00:47)
[2020-08-07] MEDS ORDERED: PANTOPRAZOLE BOLUS/DRIP 1 EA IV STA (00:47)
[2020-08-07] MEDS: PANTOprazole 40 MG in DEXTROSE 5% 100 ML IV SCH ×5 (01:12→19:57)
[2020-08-07] MEDS: CEFEPIME 2,000 MG in SYRINGE 0 ML IV SCH ×3 (01:12→15:51)
[2020-08-07 01:49] LABS: Hematocrit (blood only) 25.8 % (42-52); Hemoglobin 8.7 g/dL (14.0-18.0); Mean Corpuscular Hemoglobin 29.8 pg (25-34); Mean Corpuscular Volume 88.4 fL (80-100); Mean Platelet Volume 10.1 fL (7.4-10.4); Platelet Count 268 K/uL (130-400); RDW Coefficient of Variation 14.1 % (11.5-14.5); RDW Standard Deviation 45.5 fL (36.4-46.3); Red Blood Count 2.92 M/uL (4.7-6.1); White Blood Count 7.75 K/uL (4.8-10.8)
[2020-08-07 02:10] LABS: Mean Corpuscular Hgb Conc 33.7 g/dL (32-36)
[2020-08-07 03:09] LABS: INR 1.3 (0.9-1.1); Partial Thromboplastin Ratio 1.2; Partial Thromboplastin Time 30.8 Seconds (21.0-31.0)
[2020-08-07 04:35] LABS: Basophils # (auto) 0.02 K/uL (0-0.2); Basophils % (auto) 0.2 %; Eosinophils # (auto) 0.42 K/uL (0-0.5); Hematocrit (blood only) 24.6 % (42-52); Hemoglobin 8.2 g/dL (14.0-18.0); Immature Granulocytes # (auto) 0.18 K/uL (0.00-0.02); Immature Granulocytes % (auto) 2.2 %; Lymphocytes # (auto) 1.07 K/uL (1.2-3.4); Lymphocytes % (auto) 12.8 %; Mean Corpuscular Hemoglobin 29.6 pg (25-34); Mean Corpuscular Hgb Conc 33.3 g/dL (32-36); Mean Corpuscular Volume 88.8 fL (80-100); Mean Platelet Volume 10.5 fL (7.4-10.4); Monocytes # (auto) 0.83 K/uL (0.11-0.59); Neutrophils # (auto) 5.81 K/uL (1.4-6.5); Neutrophils % (auto) 69.8 %; Platelet Count 282 K/uL (130-400); RDW Coefficient of Variation 13.9 % (11.5-14.5); Red Blood Count 2.77 M/uL (4.7-6.1); White Blood Count 8.33 K/uL (4.8-10.8)
[2020-08-07] MEDS: oxyCODONE HCL IR 5 MG TAB (IMMEDIATE RELEASE) PO SCH ×4 (04:43→23:23)
[2020-08-07 04:55] LABS: BUN Creatinine Ratio 43.4 (10-20); Calcium 7.7 mg/dl (8.5-10.1); Creatinine Clr Calc Pharmacy 164.3 ml/min; Est GFR (African American) 141.8; Est GFR (Non-African American) 122.3; Magnesium 1.6 mg/dl (1.8-2.4); Potassium 3.9 mmol/L (3.5-5.1)
[2020-08-07 04:56] LABS: Fibrinogen 507 mg/dl (184-400); Phosphorus 2.3 mg/dl (2.5-4.9)
[2020-08-07] MEDS ORDERED: SODIUM PHOSPHATE 3 MMOL/1 ML INFUSION IV STA (06:34)
[2020-08-07] MEDS: ICU ELECTROLYTE REPLACEMENT PROTOCOL SCH ×2 (06:37→17:11)
[2020-08-07] MEDS ORDERED: SODIUM PHOSPHATE 15 MMOL in SODIUM CHLORIDE 0.9% 250 ML IV ONE (07:00)
[2020-08-07] MEDS: POTASSIUM CHLORIDE / WTR 10 MEQ/100 ML PLCT IV SCH ×4 (07:01→11:07)
[2020-08-07] MEDS: MAGNESIUM SULFATE / D5W 1 GM/100 ML BAG IV SCH ×4 (08:24→14:06)
[2020-08-07] MEDS: SENNOSIDES 8.8 MG/5 ML UDC PO SCH ×2 (08:25→19:57)
[2020-08-07] MEDS: DOCUSATE SODIUM SYRUP 100 MG/10 ML UDC PO SCH ×2 (08:26→19:58)
[2020-08-07] MEDS: FAMOTIDINE 20 MG TAB PO SCH (08:26)
[2020-08-07] MEDS: busPIRone 5 MG TAB PO SCH ×2 (08:26→19:59)
[2020-08-07] MEDS: METOPROLOL TARTRATE 25 MG TAB PO SCH ×2 (08:27→19:58)
[2020-08-07] MEDS: MULTI VIT W/MINERALS LIQUID 15 ML UDP NG SCH (08:28)
[2020-08-07 08:29] LABS: Alanine Aminotransferase 55 U/L (12-78); Albumin Level 1.4 gm/dl (3.4-5.0); Alkaline Phosphatase 84 U/L (45-117); Aspartate Aminotransferase 44 U/L (15-37); Bilirubin Direct < 0.1 mg/dl (0-0.2); Bilirubin,Total 0.4 mg/dl (0.2-1); Total Protein 5.2 gm/dl (6.4-8.2)
[2020-08-07] MEDS: MUPIROCIN 2% OINT 22 GM TUBE EXT SCH ×3 (08:29→19:57)
[2020-08-07] MEDS: QUEtiapine FUMARATE 25 MG TABLET PO SCH ×2 (08:29→19:59)
[2020-08-07] MEDS: clonazePAM 0.5 MG TAB PO SCH ×2 (08:30→19:54)
[2020-08-07] MEDS: POLYETHYLENE (MIRALAX) 17 GM PACK PO SCH (08:36)
--- NOTE | 2020-08-07 09:05 | Critical Care Progress Note ---
Date of Service August 07, 2020 Assessment & Plan (1) Pneumonia due to COVID-19 virus: Neurologic: Continue oxycodone 7.5 mg every 6 hours and Klonopin 0.5 mg twice daily. Continue quetiapine to 25 mg twice daily. He is also on 10 mg twice daily of BuSpar. We will wean the Precedex off today. Continue delirium precautions. Pulmonary: Continue trach collar trials. He is tolerating this very well. Previously seen pneumothorax is resolved. Cardiovascular: Continue metoprolol 25 mg twice daily for blood pressure control Gastrointestinal: Tube feeds on hold at this time due to concerns of GI bleed. Continue Protonix drip. GI consulted. Renal: No issues at present. Electrolytes to be replaced per ICU protocol. Infectious disease: Continue cefepime for total of 14 days. Levaquin added 08/06/2020 for double coverage of pseudomonal pneumonia. COVID-19 testing was positive on repeat testing on 08/06/2020. Hematologic: Anticoagulation held given concern for lower GI bleed. He does have DVT. Will need to restart anticoagulation as soon as possible. Bilateral DVT seen on 07/25/2020. May need to consider IVC filter, however vascular surgery is not available this week. Trend hemoglobin every 6 hours. Endocrine: Electrolyte replacement per ICU protocol VTE prophylaxis: Lovenox held this morning. CODE STATUS: Full code Family at bedside: None available at bedside due to the COVID-19 pandemic Disposition: Remain in ICU I have personally spent 49 minutes of critical care time in the direct management of this patient. This is a life/limb threatening event. This includes time spent evaluating patient, direct bedside care, chart review, placing orders, interpretation of diagnostic studies, discussion with consultants, patient, and family members, as well as other required patient management activities. This time is exclusive of all separately billable procedures, and teaching time and separate from and in addition to any other critical care service time. Thank you for allowing us to participate in the care of this patient. (2) COVID-19: (3) DVT (deep venous thrombosis): (4) Anxiety: (5) Acute respiratory failure with hypoxia: (6) Pneumothorax: (7) GIB (gastrointestinal bleeding): Admission and Anticipated Discharge Date Admission Date: July 17, 2020 Subjective Patient seen and examined this morning. There was concern for melena overnight and the patient was started on a Protonix drip. Hemoglobin has been slowly dropping. GI was consulted overnight. Patient denies any abdominal complaints. Review of systems is limited due to tracheostomy placement. Does have thick secretions noted from the tracheostomy. Currently on Precedex. Received Ativan several times overnight for agitation. Review of Systems Review of Systems: All systems reviewed & are unremarkable except as noted in HPI & below Physical Exam Constitutional: WD/WN, vitals as above + thin Neck: Tracheostomy in place with thick secretions noted Respiratory: normal respiratory effort, lungs clear to auscultation Cardiovascular: RRR, no murmur, no edema Gastrointestinal (Abdomen): normal bowel sounds, soft, nontender, no hepatosplenomegaly Feeding tube in place to the nares. Musculoskeletal: no cyanosis or clubbing, extremities motor strength 5/5 Skin: no rashes, warm and dry Neurologic: CN's II-XI intact bilaterally Psychiatric: Unable to assess due to tracheostomy status Results & Data Results & Data ([facility]) Vital Signs (Past 12 Hours) Vital Signs Temp Pulse BP Pulse Ox 08/07/20 02:48 100.0 F H 108 H 133/68 100 08/07/20 02:00 100.0 F H 94 H 96 08/07/20 01:48 100.0 F H 87 106/56 L 96 08/07/20 01:00 100.2 F H 100 H 96 08/07/20 00:48 100.0 F H 119 H 136/63 95 08/07/20 00:00 100.0 F H 100 H 96 08/06/20 23:48 100.0 F H 86 97/50 L 97 08/06/20 22:48 100.8 F H 88 104/49 L 96 08/06/20 21:48 101.8 F H 114 H 142/78 H 99 Vital signs labs and imaging reviewed. Coding Level of Care Code Critical Care 1st 30-74 mins Diagnoses Pneumonia due to COVID-19 virus U07.1; J12.82 COVID-19 U07.1 DVT (deep venous thrombosis) I82.409 Anxiety F41.9 Acute respiratory failure with hypoxia J96.01 Pneumothorax J93.9 GIB (gastrointestinal bleeding) K92.2 Time Spent (min) 49
[2020-08-07 09:06] LABS: Hematocrit (blood only) 25.9 % (42-52); Hemoglobin 8.7 g/dL (14.0-18.0)
--- NOTE | 2020-08-07 10:26 | Gastrointestinal Consultation ---
Date of Consultation August 07, 2020 Assessment & Plan (1) GIB (gastrointestinal bleeding): Pt is a 56 y.o. male admitted with respiratory failure in in the setting of COVID-19 pneumonia with melena last evening. 1. H&H is currently stable. 2. No further melena today. 3. No plan for invasive GI work up given medical comorbidities. 4. Continue PPI ggt with Protonix at 8 mg/hr. 5. Supportive care per primary team. Thank you for allowing us to participate in the care of this patient. If you have questions or concerns, please do not hesitate to contact us. Supervising Physician Co-Signing Physician Notes I agree with the findings as documented by KRISTI Miller History of Present Illness Reason for Consultation: Melena Requesting Physician: KRISTI Hernandez Attending Physician: Marin Day DO History of Present Illness Patient is a 55 y.o. male admitted to the ICU with COVID-19 pneumonia and respiratory failure requiring mechanical ventilation. He is now receiving byrne pplemental oxygen via trach collar. Per nursing, he was noted to have a melanotic stool overnight. H&H dropped slightly overnight but rebounded to 8.7/25.9. PPI ggt has been initiated. Per VLAD Palmer, the patient has not had a bm this morning. Patient is able to respond with head shaking. He shakes the head no when asked about any abdominal pain. Allergies Allergy/AdvReac Type Severity Reaction Status Date / Time Penicillins Allergy Severe "catatonic Verified 07/13/20 11:26 immediately" latex Allergy Mild Rash Verified 07/13/20 11:26 Home Medications Medication Instructions Recorded Confirmed Type Glucosamine Chondroitin 1 cap PO QAM #0 06/07/16 07/17/20 History multivitamin 1 tab PO QAM #0 tab 06/07/16 07/17/20 History omega 5-euw-cqg-fish oil [Fish Oil] 1 cap PO QAM #0 cap 06/07/16 07/17/20 History cyanocobalamin (vitamin B-12) 1,000 mcg PO QAM #0 tab 10/08/16 07/17/20 History [Vitamin B-12] ascorbic acid (vitamin C) [Vitamin 2 g PO QAM 03/29/19 07/17/20 History C] cholecalciferol (vitamin D3) 2,000 unit PO QAM 03/29/19 07/17/20 History [Vitamin D3] ibuprofen [Advil] 200 mg PO QID PRN 03/29/19 07/17/20 History iron bisgl,ps [id number]-[id number] 1 cap PO WK 03/29/19 07/17/20 History sildenafil 25 mg PO DAILY PRN 03/29/19 07/17/20 History glucosamine [id number]-[id number] 1 tab PO DAILY 11/23/19 07/17/20 History preston 1,500 mg-400 unit-100 mg tablet ketoconazole 2 % shampoo 1 applic TOP .COMPLEX #120 ml 02/14/20 07/17/20 Rx tamsulosin 0.4 mg capsule 0.4 mg PO DAILY #90 cap 04/23/20 07/17/20 Rx albuterol sulfate 2 puffs INH 6XD PRN #6.7 gm 07/13/20 07/17/20 Rx benzonatate [Tessalon Perles] 100 mg PO UD PRN 07/13/20 07/17/20 History doxycycline monohydrate 100 mg PO BID 07/13/20 07/17/20 History Patient History Medical History Basal cell carcinoma of left forehead Chronic back pain COVID-19 Fever GIB (gastrointestinal bleeding) Hypoxia Multiple nevi Palliative care encounter Reducible right inguinal hernia Verrucous keratosis Surgical History History of left inguinal hernia repair (10/30/16) Open Left inguinal hernia repair Dr. Calixto 10/30/2016 History of repair of anterior cruciate ligament of left knee History of root canal procedure History of tonsillectomy History of wisdom tooth extraction Status post biopsy of thyroid gland benign Status post correction of deviated nasal septum Status post Mohs surgery for basal cell carcinoma Family History Grandfather (Maternal) Family history of diabetes mellitus Father Prostate cancer Cardiac disorder Mother Hypertension Other No family history of adverse response to anesthesia Social History Smoking Status: Former smoker Second Hand Exposure: No; Hx Alcohol Use: No Hx Substance Use: No Preferred Language: Czech Communication Ability: Effective 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 Required: No Beliefs That Will Affect Care: None Current Living Situation: Spouse current occupational status: employed 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 Feels Safe at Home: Yes Assistive Devices: Oxygen - Continuous Review of Systems Review of Systems: Other (Unobtainable due to respiratory status) Physical Exam Constitutional: + in distress Eyes: EOM intact bilaterally Neck: + tracheostomy present Respiratory: + respiratory distress, + cough and + tachypneic Auscultation: + rhonchi Cardiovascular: Rate/Rhythm: regular rhythm and + tachycardic Gastrointestinal (Abdomen): Inspection/Auscultation: abdomen normal to inspection and normal bowel sounds Percussion/Palpation: abdomen soft; abdomen nontender Psychiatric: Orientation: alert Results & Data ([facility]) Vital Signs (Past 12 Hours) Vital Signs Temp Pulse BP Pulse Ox 08/07/20 02:48 37.8 C H 108 H 133/68 100 08/07/20 02:00 37.8 C H 94 H 96 08/07/20 01:48 37.8 C H 87 106/56 L 96 08/07/20 01:00 37.9 C H 100 H 96 08/07/20 00:48 37.8 C H 119 H 136/63 95 08/07/20 00:00 37.8 C H 100 H 96 08/06/20 23:48 37.8 C H 86 97/50 L 97 08/06/20 22:48 38.2 C H 88 104/49 L 96 Laboratory Results Abnormal lab results 08/07/20 08/07/20 08/07/20 Range/Units 01:42 01:42 03:58 RBC 2.92 L 2.77 L (4.7-6.1) M/uL Hgb 8.7 L 8.2 L (14.0-18.0) g/dL Hct 25.8 L 24.6 L (42-52) % MPV 10.5 H (7.4-10.4) fL Lymph # (Auto) 1.07 L (1.2-3.4) K/uL [place] # (Auto) 0.83 H (0.11-0.59) K/uL Immature Gran # (Auto) 0.18 H (0.00-0.02) K/uL PT 13.0 H (9.0-12.0) Seconds INR 1.3 H (0.9-1.1) Fibrinogen (184-400) mg/dl Chloride (98-107) mmol/L BUN (7-18) mg/dl Creatinine (0.6-1.4) mg/dl BUN/Creatinine Ratio (10-20) Glucose (70-99) mg/dl POC Glucose (70-99) mg/dl Calcium (8.5-10.1) mg/dl Phosphorus (2.5-4.9) mg/dl Magnesium (1.8-2.4) mg/dl AST (15-37) U/L Total Protein (6.4-8.2) gm/dl Albumin (3.4-5.0) gm/dl 08/07/20 08/07/20 08/07/20 Range/Units 03:58 03:58 03:58 RBC (4.7-6.1) M/uL Hgb (14.0-18.0) g/dL Hct (42-52) % MPV (7.4-10.4) fL Lymph # (Auto) (1.2-3.4) K/uL [place] # (Auto) (0.11-0.59) K/uL Immature Gran # (Auto) (0.00-0.02) K/uL PT (9.0-12.0) Seconds INR (0.9-1.1) Fibrinogen 507 H (184-400) mg/dl Chloride 108 H (98-107) mmol/L BUN 21 H (7-18) mg/dl Creatinine 0.48 L (0.6-1.4) mg/dl BUN/Creatinine Ratio 43.4 H (10-20) Glucose 113 H (70-99) mg/dl POC Glucose (70-99) mg/dl Calcium 7.7 L (8.5-10.1) mg/dl Phosphorus 2.3 L (2.5-4.9) mg/dl Magnesium 1.6 L (1.8-2.4) mg/dl AST 44 H (15-37) U/L Total Protein 5.2 L (6.4-8.2) gm/dl Albumin 1.4 L (3.4-5.0) gm/dl 08/07/20 08/07/20 Range/Units 08:55 11:13 RBC (4.7-6.1) M/uL Hgb 8.7 L (14.0-18.0) g/dL Hct 25.9 L (42-52) % MPV (7.4-10.4) fL Lymph # (Auto) (1.2-3.4) K/uL [place] # (Auto) (0.11-0.59) K/uL Immature Gran # (Auto) (0.00-0.02) K/uL PT (9.0-12.0) Seconds INR (0.9-1.1) Fibrinogen (184-400) mg/dl Chloride (98-107) mmol/L BUN (7-18) mg/dl Creatinine (0.6-1.4) mg/dl BUN/Creatinine Ratio (10-20) Glucose (70-99) mg/dl POC Glucose 125 H (70-99) mg/dl Calcium (8.5-10.1) mg/dl Phosphorus (2.5-4.9) mg/dl Magnesium (1.8-2.4) mg/dl AST (15-37) U/L Total Protein (6.4-8.2) gm/dl Albumin (3.4-5.0) gm/dl PG Care Time/CCT Total # of Minutes Spent Total Time Spent with Patient: Total time spent is greater than 50% in coordination of care (as documented) at patient's floor/unit and/or counseling patient: Coding Level of Care Code 58722 Inpt Consult Level 4 Diagnoses GIB (gastrointestinal bleeding) K92.2
[2020-08-07] MEDS: levoFLOXacin/D5W 750 MG/150 ML BAG IV SCH (12:17)
[2020-08-07 15:08] LABS: Hematocrit (blood only) 30.9 % (42-52); Hemoglobin 10.4 g/dL (14.0-18.0)
[2020-08-07] MEDS ORDERED: METOPROLOL TARTRATE 25 MG TAB PO STA (16:01)
[2020-08-07] MEDS: ACETAMINOPHEN 1,000 MG/100 ML VIAL IV PRN (19:54)
[2020-08-07] MEDS: METOPROLOL TARTRATE 1 MG/ML VIAL IV PRN (19:55)
[2020-08-07 21:33] LABS: Hematocrit (blood only) 25.7 % (42-52); Hemoglobin 8.5 g/dL (14.0-18.0)
[2020-08-08] MEDS: PANTOprazole 40 MG in DEXTROSE 5% 100 ML IV SCH ×3 (01:17→11:16)
[2020-08-08] MEDS: CEFEPIME 2,000 MG in SYRINGE 0 ML IV SCH ×2 (01:17→10:56)
[2020-08-08] MEDS: METOPROLOL TARTRATE 1 MG/ML VIAL IV PRN (04:14)
[2020-08-08] MEDS: oxyCODONE HCL IR 5 MG TAB (IMMEDIATE RELEASE) PO SCH ×2 (04:15→11:21)
[2020-08-08 04:18] LABS: Basophils # (auto) 0.04 K/uL (0-0.2); Basophils % (auto) 0.6 %; Eosinophils # (auto) 0.46 K/uL (0-0.5); Eosinophils % (auto) 6.4 %; Hematocrit (blood only) 29.1 % (42-52); Hemoglobin 9.6 g/dL (14.0-18.0); Immature Granulocytes # (auto) 0.29 K/uL (0.00-0.02); Lymphocytes # (auto) 1.32 K/uL (1.2-3.4); Lymphocytes % (auto) 18.4 %; Mean Corpuscular Hemoglobin 29.4 pg (25-34); Mean Platelet Volume 10.3 fL (7.4-10.4); Monocytes # (auto) 0.84 K/uL (0.11-0.59); Monocytes % (auto) 11.7 %; Neutrophils # (auto) 4.24 K/uL (1.4-6.5); Neutrophils % (auto) 58.9 %; Platelet Count 446 K/uL (130-400); RDW Coefficient of Variation 14.4 % (11.5-14.5); RDW Standard Deviation 47.3 fL (36.4-46.3); Red Blood Count 3.27 M/uL (4.7-6.1); White Blood Count 7.19 K/uL (4.8-10.8)
[2020-08-08 04:30] LABS: BUN Creatinine Ratio 26.7 (10-20); Calcium 8.3 mg/dl (8.5-10.1); Creatinine Clr Calc Pharmacy 148.8 ml/min; Est GFR (African American) 136.1; Est GFR (Non-African American) 117.5; Potassium 3.9 mmol/L (3.5-5.1)
[2020-08-08 04:31] LABS: Phosphorus 3.2 mg/dl (2.5-4.9)
[2020-08-08] MEDS: ACETAMINOPHEN 1,000 MG/100 ML VIAL IV PRN (05:43)
[2020-08-08] MEDS: ICU ELECTROLYTE REPLACEMENT PROTOCOL SCH (06:26)
[2020-08-08] MEDS: MAGNESIUM OXIDE 400 MG TAB NG SCH ×2 (06:44→10:56)
[2020-08-08] MEDS: POTASSIUM CHLORIDE 20 MEQ/15 ML UDC NG SCH ×2 (06:44→10:56)
[2020-08-08] MEDS: busPIRone 5 MG TAB PO SCH (07:16)
[2020-08-08] MEDS: MULTI VIT W/MINERALS LIQUID 15 ML UDP NG SCH (07:17)
[2020-08-08] MEDS: SENNOSIDES 8.8 MG/5 ML UDC PO SCH (07:17)
[2020-08-08] MEDS: METOPROLOL TARTRATE 25 MG TAB PO SCH (07:18)
[2020-08-08] MEDS: QUEtiapine FUMARATE 25 MG TABLET PO SCH (07:18)
[2020-08-08] MEDS: MUPIROCIN 2% OINT 22 GM TUBE EXT SCH ×2 (07:18→11:56)
[2020-08-08] MEDS: DOCUSATE SODIUM SYRUP 100 MG/10 ML UDC PO SCH (07:18)
[2020-08-08] MEDS: clonazePAM 0.5 MG TAB PO SCH (07:21)
[2020-08-08 08:23] LABS: Basophils # (auto) 0.02 K/uL (0-0.2); Basophils % (auto) 0.2 %; Eosinophils # (auto) 0.24 K/uL (0-0.5); Eosinophils % (auto) 2.6 %; Hematocrit (blood only) 27.2 % (42-52); Immature Granulocytes # (auto) 0.29 K/uL (0.00-0.02); Immature Granulocytes % (auto) 3.1 %; Lymphocytes # (auto) 1.76 K/uL (1.2-3.4); Mean Corpuscular Hemoglobin 29.3 pg (25-34); Mean Corpuscular Hgb Conc 33.1 g/dL (32-36); Mean Corpuscular Volume 88.6 fL (80-100); Mean Platelet Volume 10.1 fL (7.4-10.4); Monocytes # (auto) 0.16 K/uL (0.11-0.59); Monocytes % (auto) 1.7 %; Neutrophils # (auto) 6.77 K/uL (1.4-6.5); Neutrophils % (auto) 73.4 %; Platelet Count 430 K/uL (130-400); RDW Coefficient of Variation 14.4 % (11.5-14.5); RDW Standard Deviation 46.8 fL (36.4-46.3); Red Blood Count 3.07 M/uL (4.7-6.1); White Blood Count 9.24 K/uL (4.8-10.8)
--- NOTE | 2020-08-08 09:02 | Discharge Summary ---
Date of Service August 08, 2020 Admission HPI Per Admitting Provider 55 YOM with significant medical history of calcified aorta, normal stress test and EF from February 2020, BPH, inguinal hernia. Patient is 8 days into COVID infection. He and his are both positive, they believe they got it at congregation, where a lot of the parishioners are positive. Patient came to the emergency room on 06July for somnolence, with increased fatigue. He felt better at discharge and was sent home on Doxycycline and Albuterol. He came in today for worsening shortness of breath and was hypoxic on arrival at 68% was placed to oxymask that he was tolerating until he went to CT scan. After CT sc an he got hypoxic again with his RR remaining in the 30s and was placed on BiPAP. Patient is oxygenating and tolerating the BiPAP 10/5 60% at this time with with RR in the mid 20s. Patient will be admitted to the hospital for COVID pneumonia, trial/treatment with NIPPV/HFNC/intubation if required, Dexamethasone, Albuterol PRN, self proning and will discuss convalescent plasma. Patient's is at home with COVID as well, patient states she is sick but not as bad as he is and she does have a way to call for help and assistance if she would need it. Principal Diagnosis COVID 19 pneumonia causing acute hypoxic respiratory failure, subsequent tracheostomy Discharge Exam Constitutional well developed, + thin and + frail appearing; no acute distress Neck trachea midline, no thyromegaly + tracheostomy present Respiratory normal respiratory effort and + tachypneic; no respiratory distress and no cough Auscultation: lungs clear to auscultation bilaterally Cardiovascular Rate/Rhythm: regular rate and + tachycardic Heart Sounds: normal S1 and normal S2; no murmur Extremities: normal capillary refill; no edema Gastrointestinal (Abdomen) normal bowel sounds, soft, nontender, no hepatosplenomegaly Musculoskeletal no cyanosis or clubbing, extremities motor strength 5/5 Head/Neck/Chest: normocephalic, head atraumatic and neck supple Skin no rashes, warm and dry Neurologic CN's II-XI intact bilaterally and + obtunded; no focal motor deficits Psychiatric Orientation: alert and oriented x 3 Affect: euthymic affect Lymphatic no cervical or axillary lymphadenopathy Discharge Data Allergies Allergy/AdvReac Type Severity Reaction Status Date / Time Penicillins Allergy Severe "catatonic Verified 07/13/20 11:26 immediately" latex Allergy Mild Rash Verified 07/13/20 11:26 Consultations 07/17/20 12:02 ED Decision to Admit Stat 07/18/20 14:48 Consult Pulmonology Routine 07/29/20 09:57 Consult Palliative Care Routine 07/29/20 11:10 Consult Senior Controller Stat 07/30/20 11:26 Consult Otolaryngology (Head and Neck) Routine 08/07/20 03:40 Consult Gastroenterology Routine 08/08/20 08:33 Burn CD for patient Stat Procedures Performed Operation Date: 07/31/20 07:00 Actual Procedures p Tracheostomy Tube Placement(Not Applicable) - Romain Funez DO Operation Date: 08/04/20 07:15 Actual Procedures p Tracheostomy Tube Placement(Not Applicable) - Moriah Felton MD Ordered Studies 07/17/20 11:03 CT angio chest PE protocol Stat 07/25/20 10:37 US point of care ultrasound Stat 07/25/20 19:49 US venous doppler LE BI Urgent 07/29/20 11:18 US point of care ultrasound Urgent 08/03/20 10:56 US point of care ultrasound Urgent Hospital Course (1) Pneumonia due to COVID-19 virus: Severe disease with resulting acute hypoxic respiratory failure/ARDS. Initially very high settings on HFNC at the onset of his admission, followed by use of CPAP, and then intubation/mech ventilation. initially intubated 07/19/20. completed 10 days of decadron 6mg daily s/p Convalescent plasma 07/20/20. Ventilated for a week extubated on 07/27/20 Was down to 6L NC for 1 day on 07/28 and then that evening had worsening respiratory distress requiring BiPAP along with acute metabolic encephalopa thy/delirium Was significantly hypoxic again and remained febrile. He was given IV Lasix and IV Ativan for significant anxiety He was transferred back to the ICU on the morning of 07/29 and reintubated Now status post tracheotomy on 07/31 On CPAP on trach during day on 08/01 Unfortunately on the evening of 08/01, in a delirious state, he pulled out his tracheostomy tube and became acutely hypoxic, he was unable to have it replaced at the bedside by orthopedics nurse and was emergently intubated again; tracheostomy was removed then by the orthopedics nurse. He also suffered a right-sided pneumothorax during this event. -Now status post replacement of tracheostomy tube on 08/[address] Felton and now extubated again Continues to be treated for Pseudomonas pneumonia repeat tracheostomy cultures from 08/03 now with continued growth add Levaquin to Cefepime for double coverage will need 14 days total Procalcitonin negative -Tylenol as needed for fevers, continue to spike low grade fevers -ICU managing, he is on 30% FiO2, trach collar, 99% saturations slightly tachypneic but no distress, anxiety drives his respiratory rate sedation: Buspirone 10mg BID scheduled, Klonopin 0.5mg BID scheduled, lorazepam 1mg IV q4 PRN, Oxycodone 7.5mg q6 scheduled, Seroquel 25mg BID scheduled weaned off Precedex on 08/07/20 (2) GIB (gastrointestinal bleeding): started with melena two days ago Hb is stable today at 9.0, was 8.6, has not received any transfusions he was on Pepcid for GI prophylaxis, now on Protonix IV tube feeds on hold anticoagulation stopped but he has bilateral lower extremity DVT, cannot hold anticoagulation for long transfer to [place] for IVC filter (3) DVT, bilateral lower limbs: found on dopplers on 07/25 was on Lovenox 40mg q12 at that time changed to heparin drip and then switched to therapeutic Lovenox now Lovenox is on hold due to GI bleeding transfer to [place] for IVC filter as we do not have vascular surgery available to us (4) Acute respiratory failure with hypoxia: As above stable on trach collar, 30% FiO2, 99% saturations pneumothorax resolved (5) Sepsis: With worsening fever, hypotension requiring vasopressors, tachycardia on 08/03 despite treatment with cefepime for Pseudomonas -Started back on Levophed and central line placed in the right femoral vein on 08/03-Levophed is now weaned off for several days -Continue cefepime as above, added Levaquin IV for double coverage of Pseudomonas UA on 08/03 normal Recultured-follow cultures-blood, sputum from 08/03 - now growing Pseudomonas a gain Alternatively, fevers could be from known DVT but seems less likely (6) Pneumothorax: On the right which occurred after patient pulled out his tracheostomy tube and had to be urgently reintubated Chest tube in place with minimal drainage, placed to water seal pneumothorax resolved, tube pulled (7) Fever: As above (8) Leukocytosis: As above, with fevers, leukocytosis now resolved (9) Metabolic encephalopathy: Secondary to ICU delirium, infection, hypoxia, sedating medications and withdrawal from such after prolonged periods of time being on them i.e. Versed, fentanyl, Precedex, oxycodone, Klonopin Reorientation currently on scheduled Klonopin, buspirone, oxycodone, Seroquel and Ativan 1mg IV q4 PRN (10) Volume overload: Previously responded well to Lasix-was given another dose of IV Lasix on 08/01 try to keep lungs dry to help recovery Follow urine output and oxygenation (11) Hypertension: BP previously quite elevated at times likely secondary to significant anxiety and agitation, and then low at times requiring vasopressors-labile Blood pressures are elevated, back on Lopressor 25mg BID (12) Anxiety: Significant and contributing to failure of spontaneous breathing trials Continue buspirone 10 mg twice daily scheduled, Klonopin 0.5mg BID, Ativan 1mg IV q4 PRN -Continue Seroquel 25 mg daily (13) Hyponatremia: Resolved (14) Abnormal LFTs: 2nd to COVID-19. Now resolved (15) BPH (benign prostatic hyperplasia): Hold flomax while on vent No issues Lane remains in place (16) Chronic neck pain: Hold voltaren from home (17) DVT prophylaxis: on hold due to concurrent GI bleeding needs IVC filter, transfer out today Palliative care is involved Full code Total Time Total Time Spent Total Time Spent (In Minutes): 45 Total Time Includes: Examination of the Patient, Discharge Planning, Medication Reconciliation and Communication With Other Providers Discharge Plan Discharge Items Patient Disposition: Transfer Acute Care Hospital Reason For Visit: COVID 19 Discharge Diagnosis: COVID 19 pneumonia Acute hypoxic respiratory failure Tracheostomy Pseudomonas pneumonia/tracheitis GI bleed Condition on Discharge: Critical Goals: transfer to [place] Activity: Per Instructions section Activity Comment: per d/c instructions from [place] Non-emergency contact: Primary Care Provider Call non-emergency contact if: you have any medication questions Follow-up/Referrals: Tom Harris MD [Physician] - Diet: Nothing by Mouth Pending Studies at Discharge: No Stand-Alone Forms: My [facility] Skilled Items Patient informed of condition?: Yes DNR: No Discharge Level of Care: Other Communicable Disease: No Discharge Prognosis: Deteriorating Lines: PICC Urinary Catheter: Yes Medications and DC Order Prescriptions: Continued multivitamin Tablet 1 tab PO QAM Qty: 0 RF: 0 omega 7-xwj-osv-fish oil [Fish Oil] 1,000 mg (120 mg-180 mg) Capsule 1 cap PO QAM Qty: 0 RF: 0 Glucosamine Chondroitin 550-30-1 mg Capsule 1 cap PO QAM Qty: 0 RF: 0 cyanocobalamin (vitamin B-12) [Vitamin B-12] 1,000 mcg Tablet 1,000 mcg PO QAM Qty: 0 RF: 0 ketoconazole 2 % shampoo 1 applic TOP .COMPLEX Qty: 120 RF: 3 tamsulosin 0.4 mg capsule 0.4 mg PO DAILY Qty: 90 RF: 2 ryuyjbxqhbf-N9-Nqcaerggk serr 1,500-400-100 mg-unit-mg tablet 1 tab PO DAILY RF: 0 ascorbic acid (vitamin C) [Vitamin C] 1,000 mg Tablet 2 g PO QAM RF: 0 sildenafil 25 mg Tablet 25 mg PO DAILY PRN (Reason: Sexual Activity) RF: 0 ibuprofen [Advil] 200 mg Tablet 200 mg PO QID PRN (Reason: Pain) RF: 0 iron bisgl,ps [id number]-[id number]-FA-Ca 150-60-25-1 cu-mk-ebk-mg Capsule 1 cap PO WK RF: 0 cholecalciferol (vitamin D3) [Vitamin D3] 2,000 unit Tablet 2,000 unit PO QAM RF: 0 benzonatate [Tessalon Perles] 100 mg capsule 100 mg PO UD PRN (Reason: Cough) RF: 0 albuterol sulfate 90 mcg/actuation HFA aerosol inhaler 2 puffs INH 6XD PRN (Reason: shortness of breath or wheezing) Qty: 6.7 RF: 0 Discontinued doxycycline monohydrate 100 mg capsule 100 mg PO BID RF: 0 Discharge Orders: Discharge Order (Routine); Ordered 08/08/20 Ordered By: Marin Day Admission Data Admit Date/Time: 07/17/20 13:14 Attending Provider: Marin Day Admit Provider: Lizbeth Garcia Primary Care Provider: PCP,NO Other Providers: Lizbeth Garcia ; Baldo Casper ; Azul Hardwick ; Joann Choudhary ; Moriah Felton ; Mitch Luque ; Romain Funez ; [facility] Coding Level of Care Code D/C Day Management >30 mins Diagnoses Pneumonia due to COVID-19 virus U07.1; J12.82 GIB (gastrointestinal bleeding) K92.2 DVT, bilateral lower limbs I82.403 Acute respiratory failure with hypoxia J96.01 Sepsis A41.9 Pneumothorax J93.9 Fever R50.9 Leukocytosis D72.829 Metabolic encephalopathy G93.41 Volume overload E87.70 Hypertension I10 Anxiety F41.9 Hyponatremia E87.1 Abnormal LFTs R94.5 BPH (benign prostatic hyperplasia) N40.0 Lower urinary tract symptom presence: symptoms absent Chronic neck pain M54.2; G89.29 DVT prophylaxis Z29.9
--- NOTE | 2020-08-08 09:20 | Critical Care Progress Note ---
Date of Service August 08, 2020 Assessment & Plan (1) Pneumonia due to COVID-19 virus: Neurologic: Continue oxycodone 7.5 mg every 6 hours and Klonopin 0.5 mg twice daily. Continue quetiapine to 25 mg twice daily. He is also on 10 mg twice daily of BuSpar. Continue delirium precautions. Pulmonary: Continue trach collar trials. He is tolerating this very well. Previously seen pneumothorax is resolved. Cardiovascular: Continue metoprolol 25 mg twice daily for blood pressure control Gastrointestinal: Continue Protonix drip suspected upper GI bleed. Gastroenterology following. No indications for EGD at this time per the recommendations. Renal: No issues at present. Electrolytes to be replaced per ICU protocol. Infectious disease: Continue cefepime for total of 14 days. Levaquin added 08/06/2020 for double coverage of pseudomonal pneumonia. COVID-19 testing was positive on repeat testing on 08/06/2020. Hematologic: Anticoagulation held given concern for lower GI bleed. 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 Unable to restart anticoagulation today. Spoke with Jason with regards to transferring the patient for IVC filter. We do not have vascular surgery available this week. They have agreed to accept the patient into their ICU and to have the IVC filter placed in their facility. Will need to restart anticoagulation as soon as possible. Thus far, hemoglobin has been stable. Endocrine: Electrolyte replacement per ICU protocol VTE prophylaxis: To need to hold Lovenox. IVC filter placement will be pursued as noted above. CODE STATUS: Full code Family at bedside: None available at bedside due to the COVID-19 pandemic. Patient's updated over the phone. She is agreeable to transfer. Disposition: Remain in ICU I have personally spent 44 minutes of critical care time in the direct management of this patient. This is a life/limb threatening event. This includes time spent evaluating patient, direct bedside care, chart review, placing orders, interpretation of diagnostic studies, discussion with consultants, patient, and family members, as well as other required patient management activities. This time is exclusive of all separately billable procedures, and teaching time and separate from and in addition to any other critical care service time. Thank you for allowing us to participate in the care of this patient. (2) COVID-19: (3) DVT (deep venous thrombosis): (4) Anxiety: (5) Acute respiratory failure with hypoxia: (6) Pneumothorax: (7) GIB (gastrointestinal bleeding): Admission and Anticipated Discharge Date Admission Date: July 17, 2020 Subjective Patient seen and examined this morning. He had approximately 100 cc of melena this morning. He denies any abdominal complaints. No chest pain. Still having low-grade fevers overnight. Tolerating trach collar trials for the last 24 hours. Review of Systems Review of Systems: All systems reviewed & are unremarkable except as noted in HPI & below Physical Exam Constitutional: WD/WN, vitals as above + thin Neck: Tracheostomy in place with thick secretions noted Respiratory: normal respiratory effort, lungs clear to auscultation Cardiovascular: RRR, no murmur, no edema Gastrointestinal (Abdomen): normal bowel sounds, soft, nontender, no hepatosplenomegaly Feeding tube in place to the nares. Musculoskeletal: no cyanosis or clubbing, extremities motor strength 5/5 Skin: no rashes, warm and dry Neurologic: CN's II-XI intact bilaterally Psychiatric: Unable to assess due to tracheostomy status Results & Data Results & Data ([facility]) Vital Signs (Past 12 Hours) Vital Signs Temp Pulse BP Pulse Ox 08/08/20 08:00 100.2 F H 103 H 99 08/08/20 07:48 100.4 F H 104 H 140/73 98 08/08/20 07:00 100.4 F H 112 H 99 08/08/20 06:49 100.4 F H 113 H 125/71 100 08/08/20 06:30 100.6 F H 112 H 100 08/08/20 05:48 101.5 F H 114 H 131/74 94 08/08/20 04:48 100.8 F H 106 H 131/83 99 08/08/20 04:14 122 H 150/76 H 08/08/20 03:48 100.2 F H 114 H 150/76 H 96 08/08/20 02:49 100.0 F H 122 H 133/65 94 08/08/20 01:48 99.9 F H 108 H 127/65 96 08/08/20 00:48 100.0 F H 102 H 116/61 94 08/08/20 00:01 103 H 08/07/20 23:48 100.2 F H 103 H 118/70 96 08/07/20 22:48 100.0 F H 107 H 128/68 93 08/07/20 21:48 100.4 F H 103 H 105/61 97 08/07/20 21:40 100.2 F H 110 H 130/71 93 08/07/20 21:30 100.4 F H 107 H 95 I reviewed vital signs, labs and imaging Coding Level of Care Code Critical Care 1st 30-74 mins Diagnoses Pneumonia due to COVID-19 virus U07.1; J12.82 COVID-19 U07.1 DVT (deep venous thrombosis) I82.409 Anxiety F41.9 Acute respiratory failure with hypoxia J96.01 Pneumothorax J93.9 GIB (gastrointestinal bleeding) K92.2 Time Spent (min) 44
[2020-08-08] MEDS: POLYETHYLENE (MIRALAX) 17 GM PACK PO SCH (10:57)
[2020-08-08] MEDS: levoFLOXacin/D5W 750 MG/150 ML BAG IV SCH (11:16)
--- NOTE | 2020-08-08 12:31 | Palliative Care Progress Note ---
Date of Service August 08, 2020 Assessment & Plan (1) Palliative care encounter: Severo continues to be interactive and cooperative with his care. In speaking with Dr. Guevara, based on his coaguopathy concerns, a transfer has been arranged for him to go to [facility] today for IVC filter placement and transition to LTACH from there. Severo's Betty and daughter Cristiane came in for a window visit today and Severo interacted well. His daughter called him on the phone and was able to talk with him. Severo had another tracheostomy placed over the weekend and is tolerating SBT and this morning was placed on trach collar for a few hours. His SpO2 stayed low to mid 90's. Severo was able to communicate with me by nodding his head and giving thumbs up. He does well when he is informed and updated about what is happening when you are in the room. His sedation has being weaned and is currently on Precedex. Staff has started to keep him on a sleep/wake cycle. Continue working with PT/OT and continued orientation with safety restraints in place. Pt to remain a full code. Will await transition for transfer. (2) Pneumothorax: Subcutaneous emphysema resolving. (3) Fever: Continued fevers intermittently. WBC 8.73 repeat sputum and blood cultures negative. 07/29 pt was positive pseudomonas (4) Anxiety: Anxiety remains an issue, but is better with frequent updating of events when you are with Severo to provide care. He has Buspar, Klonopin BID and Seroquel on board. Ativan PRN ordered. (5) Pneumonia due to COVID-19 virus: Official diagnosis date 07/13. Repeat COVID test was still positive. Isolation precautions to remain intact. Admission and Anticipated Discharge Date Admission Date: July 17, 2020 Subjective Mr. Del Castillo has tolerated trach collar for two days now. On Precedex to help with anxiety continues to have low fevers and does become tachycardic when anxious. He was started on betablockers which has helped Hgb 10.4 See AP for further details Review of Systems Review of Systems: [place] System Assessment Scale: Pain: 0/3 Tiredness: 1/3 Shortness of breath: 0/3 Anxiety: 1/3 Palliative Performance Scale: 40% Physical Exam Constitutional: + acute distress, + ill appearing, cooperative and + in distress Respiratory: normal respiratory effort and + cough Auscultation: + diminished lung sounds Cardiovascular: Rate/Rhythm: + tachycardic Heart Sounds: normal S1 and normal S2 Extremities: no edema Gastrointestinal (Abdomen): normal bowel sounds, soft, nontender, no hepatosplenomegaly Skin: normal turgor and + lesion (right cheek stage 2 pressure ulcer ) Psychiatric: A+Ox3, euthymic affect Insight: + limited insight Judgement: + limited judgement Results & Data ([facility]) Vital Signs (Past 12 Hours) Vital Signs Temp Pulse BP Pulse Ox 08/08/20 08:00 37.9 C H 103 H 99 08/08/20 07:48 38.0 C H 104 H 140/73 98 08/08/20 07:00 38.0 C H 112 H 99 08/08/20 06:49 38.0 C H 113 H 125/71 100 08/08/20 06:30 38.1 C H 112 H 100 08/08/20 05:48 38.6 C H 114 H 131/74 94 08/08/20 04:48 38.2 C H 106 H 131/83 99 08/08/20 04:14 122 H 150/76 H 08/08/20 03:48 37.9 C H 114 H 150/76 H 96 08/08/20 02:49 37.8 C H 122 H 133/65 94 08/08/20 01:48 37.7 C H 108 H 127/65 96 08/08/20 00:48 37.8 C H 102 H 116/61 94 PG Care Time/CCT Total # of Minutes Spent Total Time Spent with Patient: Total time spent is greater than 50% in coordination of care (as documented) at patient's floor/unit and/or counseling patient: 45 minutes with > 50% of that time spent assessing the patient discussing goals of care with family and collorating with IDT Coding Level of Care Code 27475 Subseq Hosp Care Lvl 3 Diagnoses Palliative care encounter Z51.5 Pneumothorax J93.9 Fever R50.9 Anxiety F41.9 Pneumonia due to COVID-19 virus U07.1; J12.82 Time Spent (min) 45
--- NOTE | 2020-08-13 09:48 | Coding Query ---
PRESENT ON ADMISSION QUERY To promote full compliance with coding requirements relating to pateint care, physician participation is requested in all cases of core sticker uncertainty. Please assist us with the question(s) below: Please place an X within the parenthesis (x). The following diagnosis listed in this patient's medical record requires physician assistance to determine if present on admission (POA) or not. Please advise whether diagnosis was present on admission, not present on admission, or if it was clinically undetermined. Thanks for your help! JOSE MARIA Mckee CCS SEPSIS ( x) Present On Admission ( ) Not Present On Admission ( ) Clinically Undetermined *Definition of the present on admission (POA)-Present on admission is defined as present at the time the order for inpatient admission occurs. Conditions that develop during an outpatient encounter prior to a written order for inpatient admission (including emergency department, observation, or outpatient surgery) are considered present on admission. CHRISTIAND
== END 2020-08-08 14:45 | disposition short-term general hospital (02) | DRG 3 ==
LOC: ED 09:34 → 2S 13:14 → SUATTDRO 13:14 → 2S 14:10 → 2E 07-18 15:31 → 2S 07-28 13:53 → 2E 07-29 09:30 → 1E 08-04 10:26
PROC: M.TRACH (2020-07-31 07:00)